=== PATIENT | female | born 1955 | race Hispanic/Latino ===

== ENCOUNTER 2019-01-04 11:42 | Observation (INO) | payer OTHER ==
[2019-01-04 12:20] LABS: Absolute Lymphocytes (CBC) 2.4 K/uL (0.7-4.9); Absolute Monocytes 0.4 K/uL (0.1-1.3); Absolute Neutrophil 4.1 K/uL (1.8-8.0); Basophils % 0.8 % (0-1.3); Eosinophils % 3.8 % (0-4.4); Hematocrit 41.4 % (36.0-45.0); Lymphocytes % 32.9 % (15.3-44.8); Monocytes % 5.8 % (3.3-12.3); RBC Red Blood Cell Count 4.81 M/uL (3.86-4.86)
[2019-01-04 12:21] LABS: Protime INR 0.98
[2019-01-04 12:38] LABS: ALT/SGPT 38 U/L (12-78); AST/SGOT 30 U/L (15-37); Albumin 4.1 g/dL (3.4-5.0); Alkaline Phosphatase 108 U/L (45-117); BUN Blood Urea Nitrogen 29 mg/dL (7-18); Bicarbonate 25 mmol/L (21-32); Bilirubin Direct 0.1 mg/dL (0-0.2); Bilirubin Total 0.6 mg/dL (0.2-1.0); Glucose Level 94 mg/dL (74-106); Lipase 18 U/L (73-393); Magnesium 2.2 mg/dL (1.8-2.4); NT PRO-BNP 20 pg/mL (<125); Potassium 3.8 mmol/L (3.5-5.1); Protein, Total 8.2 g/dL (6.4-8.2); Sodium Level 139 mmol/L (136-145); Troponin (Emerg Dept Use Only) < 0.02 ng/mL (0.0-0.045)
--- NOTE | 2019-01-04 12:39 | RAD REPORT ---
EXAM DESCRIPTION: RAD - Chest Single View - 01/04/2019 12:23 pm CLINICAL HISTORY: DYSPNEA Chest pain. COMPARISON: Chest Pa And Lat (2 Views) dated 09/01/2018; Chest Single View dated 11/09/2016; CHEST SIN GLE VIEW dated 08/11/2015; CHEST PA AND LAT 2 VIEW dated 05/07/2013 FINDINGS: Portable technique limits examination quality. Diffuse COPD is present. Small opacity is seen in the right mid lung laterally which could be develop ing pneumonia. The heart is normal in size. No displaced fractures.
[2019-01-04] MEDS ORDERED: NA CHLORIDE 0.9% 1,000 ML ONE (13:16)
--- NOTE | 2019-01-04 13:22 | RAD REPORT ---
EXAM DESCRIPTION: CT - Head Brain Wo Cont - 01/04/2019 1:16 pm CLINICAL HISTORY: Headache COMPARISON: October 2016 TECHNIQUE: Axial 5 mm thick images of the head were obtained without IV contrast. All CT scans are performed using dose optimization technique as appropriate and may include automated exposure control or mA/KV adjustment according to patient size. FINDINGS: No intracranial hemorrhage, mass, edema or shift of mid-line structures. No acute infarcti on changes seen. No abnormal extra-axial fluid collections. Ventricles are normal. Mastoid air cells and visualized portions of the paranasal sinuses are clear. No acute bony findings. No significant change from comparison. IMPRESSION: Negative non-contrast CT head examination.
--- OUTSIDE RECORDS SUMMARY | 2019-01-04 13:29 | XMS REPORT | Clinical Summary ---
:1955 Author Organization [facility] Address [address] [place] [address] Care Team Providers Name Role Phone AshvinLaisha holbrook Avery Primary Care Provider Unavailable Allergies Active Allergy Reactions Severity Noted Date Comments Erythromycin 08/18/2015 Metoclopramide Hcl 06/04/2015 Medications Medication Sig Dispensed Refills Start Date End Date Status CREON 12,000-38,000 TAKE 1 CAPSULE 3 10/20/2017 Active -60,000 unit CpDR THREE TIMES A DAY capsule WITH EACH MEAL losartan (COZAAR) 100 Take 100 mg by 0 10/17/2017 Active MG tablet mouth daily. colesevelam 3.75 gram Take 3.75 g by 0 03/26/2017 Active PwPk mouth. Active Problems Problem Noted Date Fatty liver 11/20/2017 Last Assessment & Plan: Risk factor hepatic steatosis includes her history of hyperlipidemia. Abnormal liver diagnostic imaging 11/20/2017 Last Assessment & Plan: Review of available imaging there has been heterogeneity in the liver dating back to 2016 showing chronicity. No evidence of advanced liver disease or portal hypertension. The changes are most consistent with hepatic steatosis. A comprehensive work up for other potential factors is recommended. We will also check liver US with elastography for further evaluation. Abnormal liver enzymes 11/20/2017 Last Assessment & Plan: The liver enzymes are noted to be abnormal in a mixed pattern without evidence of synthetic dysfunction. The imaging has shown heterogenous changes in the liver since 2016 most consistent with hepatic steatosis. We ordered comprehensive labs to look for other causes of chronic liver disease such as metabolic, viral and autoimmune disorders. Patient is on Welchor with good control of hyperlipidemia. She is asymptomatic. We will monitor her liver enzymes monthly for 3 months. She can resume her medication for now. Fatty liver 11/20/2017 Age-related osteoporosis without current pathological fracture 11/20/2017 Other osteoporosis without current pathological fracture 11/20/2017 Last Assessment & Plan: Patient takes vitamin D, calcium and Reclast. She follows up with endocrinology clinic. Further management by primary mainframe programmer Immunity status testing 11/20/2017 Last Assessment & Plan: CDC recommends that all patients with chronic liver disease, regardless of etiology, should be immunized to prevent hepatitis A and hepatitis B if they are not already immune. This should be done in ad dition to other age-appropriate vaccines. We will test for immunity to both viruses - vaccine recommendations will follow. 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 Patient follows up with Dr. Mullen. Encounters Date Type Specialty Care Team Description 04/22/2018 Hospital Encounter Radiology Homero Mullen MD tumor of pancreas 04/15/2018 Outside Orders Wound Care Homero Mullen MD tumor of pancreas (Primary Dx) 03/24/2018 Orders Only Lab Homero Mullen Primary pancreatic MD David neuroendocrine tumor (Primary Dx) 03/24/2018 Orders Only Lab Ela Jacobs Primary pancreatic neuroendocrine tumor 02/04/2018 Office Visit Hepatology Mehran Sam, Fatty liver (Primary Dx); Abnormal liver enzymes; Immunity status testing; Abnormal liver diagnostic imaging after 01/03/2018 Immunizations Name Dates Previously Given Next Due Hepatitis B 12/30/2017 Family History Medical History Relation Name Comments Early Brother COPD Father Vision loss Father Arthritis Mother Hyperlipidemia Mother Hypertension Mother Miscarriages / Stillbirths Mother Cancer Sister Hyperlipidemia Sister Relation Name Status Comments Brother Father Mother Sister Social History Tobacco Use Types Packs/Day Years Used Date Former Smoker Smokeless Tobacco: Never Used Comments: quit one year ago Alcohol Use Drinks/Week oz/Week Comments No Sex Assigned at Date Recorded Not on file Job Start Date Occupation Industry Not on file Not on file Not on file Travel History Travel Start Travel End No recent travel history available. Last Filed Vital Signs Vital Sign Reading Time Taken Blood Pressure - - Pulse - - Temperature - - Respiratory Rate - - Oxygen Saturation - - Inhaled Oxygen Concentration - - Weight 50.2 kg (110 lb 11.2 oz) 02/04/2018 2:34 PM CDT Height - - Body Mass Index 20.92 02/04/2018 2:34 PM CDT Plan of Treatment Date Type Specialty Care Team Description 02/04/2019 Office Visit Hepatology Mehran Sam MD [address] [facility] [address] [place], [place] [id number] Resource, [facility] B Implants Implanted Type Area Department Store Salesperson Device Shelf Model / Identifier Expiration Serial / Date Lot Adhesion Barrier,Seprafilm 5x6 - [id number] Cement/F N/A: [employer] 01/26/2017 4301-02 / Implanted: Qty: 1 on 03/09/2015 by Homero Mullen MD iller/[employer] / hesive [id number] Adhesion Barrier,Seprafilm 5x6 - [id number] Cement/F N/A: [employer] 04/28/2017 4301-02 / Implanted: Qty: 1 on 03/09/2015 by Homero Mullen MD iller/[employer] / hesive [id number] Procedures Procedure Name Priority Date/Time Associated Diagnosis Comments CT ABDOMEN Routine 04/22/2018 9:12 Primary neuroendocrine Results for this WITH/WITHOUT AM CDT tumor of pancreas procedure are in CONTRAST the results section. POCT-CREATININE Routine 04/22/2018 8:51 Results for this AM CDT procedure are in the results section. CHROMOGRANIN A, ECL Routine 03/24/2018 10:08 Primary pancreatic AM CDT neuroendocrine tumor after 01/03/[address] abdomen without & with IV contrast (04/22/2018 9:12 AM CDT) Narrative Performed At FINAL REPORT [facility] CT OF THE ABDOMEN CLINICAL HISTORY:Pancreatic neuroendocrine tumor status post Whipple, rising chromogranin A TECHNIQUE: CT of the abdomen is performed with and without intravenous contrast administration. This exam was performed according to our departmental dose-optimization program which includes automated exposure control, adjustment of the mA and/or kV according to patient size and/or use of iterative reconstruction technique. COMPARISON FILM:CT of the abdomen and pelvis from 08/26/2017 DISCUSSION: LOWER THORAX: Few scattered tree-in-bud opacities and centrilobular nodules in the bilateral lower lobes, overall decreased from prior examination. HEPATOBILIARY: Diffuse hepatic steatosis. Trace pneumobilia, likely related to prior Whipple procedure. No yohannes intrahepatic biliary ductal dilation. The main portal vein is patent. Gallbladder is absent. PANCREAS: There are findings of prior Whipple procedure. No discrete mass in the surgical bed or in the remnant pancreas. No pancreatic ductal dilation. The main portal vein and splenic vein are grossly patent. The SMA and celiac trunk are widely patent and unencased. SPLEEN: No splenomegaly. ADRENALS: No nodule. KIDNEYS: No hydronephrosis or hydroureter. No solid renal lesion. GI TRACT: No bowel thickening or distention. PERITONEUM/RETROPERITONEUM: No ascites. LYMPH NODES: No upper abdominal lymphadenopathy. VESSELS: Abdominal aorta is normal in caliber. BONES AND SOFT TISSUES: No destructive osseous lesion. IMPRESSION: Expected postsurgical changes after Whipple procedure. No specific findings of recurrent or metastatic disease. Diffuse hepatic steatosis. Signed: Reggie Camargo MD Report Verified Date/Time:04/22/2018 11:02:01 Reading Location: [address] Radiology Reading Room Procedure Note Interface, External Ris In - 04/22/2018 11:04 AM CDT FINAL REPORT CT OF THE ABDOMEN CLINICAL HISTORY: Pancreatic neuroendocrine tumor status post Whipple, rising chromogranin A TECHNIQUE: CT of the abdomen is performed with and without intravenous contrast administration. This exam was performed according to our departmental dose-optimization program which includes automated exposure control, adjustment of the mA and/or kV according to patient size and/or use of iterative reconstruction technique. COMPARISON FILM: CT of the abdomen and pelvis from 08/26/2017 DISCUSSION: LOWER THORAX: Few scattered tree-in-bud opacities and centrilobular nodules in the bilateral lower lobes, overall decreased from prior examination. HEPATOBILIARY: Diffuse hepatic steatosis. Trace pneumobilia, likely related to prior Whipple procedure. No yohannes intrahepatic biliary ductal dilation. The main portal vein is patent. Gallbladder is absent. PANCREAS: There are findings of prior Whipple procedure. No discrete mass in the surgical bed or in the remnant pancreas. No pancreatic ductal dilation. The main portal vein and splenic vein are grossly patent. The SMA and celiac trunk are widely patent and unencased. SPLEEN: No splenomegaly. ADRENALS: No nodule. KIDNEYS: No hydronephrosis or hydroureter. No solid renal lesion. GI TRACT: No bowel thickening or distention. PERITONEUM/RETROPERITONEUM: No ascites. LYMPH NODES: No upper abdominal lymphadenopathy. VESSELS: Abdominal aorta is normal in caliber. BONES AND SOFT TISSUES: No destructive osseous lesion. IMPRESSION: Expected postsurgical changes after Whipple procedure. No specific findings of recurrent or metastatic disease. Diffuse hepatic steatosis. Signed: Reggie Camargo MD Report Verified Date/Time: 04/22/2018 11:02:01 Reading Location: [address] Radiology Reading Room Performing Organization Address [facility]State[facility] Phone Number RIS POC-Creatinine (04/22/2018 8:51 AM CDT) POC-Creatinine 0.5 (L)Comment: TESTED AT 0.6 - 1.3 mg/dL [id number] [id number] [facility] [address] POC-EGFR 125 mL/min/1.73M2 [facility] Specimen Blood Narrative Performed At Performing Organization Address City/State/Zipcode Phone Number [facility] [address] [place] [address] [phone] CENTER Chromogranin A, ECL (03/24/2018 10:08 AM CDT) Scan Result [facility] Specimen Blood Narrative Performed At Performing Organization Address City/State/Zipcode Phone Number [facility] [place] [address] [facility] [address] [facility] after 01/03/2018 Insurance Payer Benefit Plan / Group Subscriber ID Type Phone Address MEDICARE MEDICARE A B xxxxxxxxxx Medicare AETNA - MGD CARE AETNA INDEMNITY NON CONTR xxxxxxxxx Comm Advance Directives For more information, please contact:[address] [phone] Code Status Date Activated Date Inactivated Comments Full Code 08/17/2015 11:16 PM 08/19/2015 7:40 PM This code status was determined by: Patient Full Code 06/04/2015 9:14 PM 06/13/2015 6:27 PM This code status was determined by: Patient Full Code 03/09/2015 11:08 PM 03/13/2015 8:06 PM This code status was determined by: Patient Full Code 03/09/2015 7:00 AM 03/09/2015 3:23 PM This code status was determined by: Patient
--- OUTSIDE RECORDS SUMMARY | 2019-01-04 13:30 | XMS REPORT ---
:1955 [facility] [address] [place] [address] [address]. [address] [place] [address] Care Team Providers Name Role Phone HOMERO MULLEN Unavailable Unavailable SHAILESH, RISE J Unavailable Unavailable SYSTEM, PROVIDER NOT IN Unavailable Unavailable Problems This patient has no known problems. Allergies, Adverse Reactions, Alerts This patient has no known allergies or adverse reactions. Medications This patient has no known medications. Results Test Description Test Time Test Comments Text Results Atomic Results Result Comments CT, ABDOMEN, 2018-04-22 Referring: FINAL REPORT PATIENT ID: WITHOUT 11:02:[id number] OF THE ABDOMEN CLINICAL HISTORY: Pancreatic [...] main portal vein is patent. Gallbladder is absent.PANCREAS: There are findings of prior Whipple procedure. [...] No bowel thickening or distention. PERITONEUM/RETROPERITONEUM: No ascites.LYMPH NODES: No upper abdominal lymphadenopathy.VESSELS: Abdominal aorta is normal in caliber. BONES AND SOFT TISSUES: No destructive osseous lesion. IMPRESSION: Expected postsurgical changes after Whipple procedure. No specific findings of recurrent or metastatic disease. Diffuse hepatic steatosis. Signed: Reggie Camargo MDReport Verified Date/Time: 04/22/2018 11:02:01 Reading Location: [address] Radiology Reading Room -CREATININE 2018-04-22 08:58:00 Test Item Value Reference Range Comments POC-CREATININE (BEAKER) (test 0.5 mg/dL 0.6-1.3 TESTED AT [facility] [place] kbzy=0515) [facility] [address] POC-EGFR (BEAKER) (test 125 mL/min/1.73M2 yeez=3094) CHROMOGRANIN [id number] 10:34:00 Test Item Value Reference Range Comments SCAN RESULT (test sktw=[id number]) ANTI-NUCLEAR ANTIBODY (FRENCH)2017-11-22 10:58:00 Test Item Value Reference Range Comments ANTI-NUCLEAR ANTIBODY (FRENCH) (BEAKER) (test Negative Negative dqhb=194) [id number] 15:08:00 Test Item Value Reference Range Comments FERRITIN (BEAKER) (test aqel=616) 21 ng/mL 5-275 HEPATITIS A ANTIBODY, [id number] 14:16:00 Test Item Value Reference Range Comments HEPATITIS A IGG ANTIBODY (BEAKER) (test nilt=6809) Reactive Nonreactive HEPATITIS B SURFACE [id number] 14:16:00 Test Item Value Reference Range Comments HEPATITIS B SURFACE ANTIBODY (BEAKER) (test < mIU/mL <8.0 ojnz=307) HEPATITIS C [id number] 14:15:00 Test Item Value Reference Range Comments HEPATITIS C ANTIBODY (BEAKER) (test zajn=890) Nonreactive Nonreactive HEPATITIS B SURFACE [id number] 14:10:00 Test Item Value Reference Range Comments HEPATITIS B SURFACE ANTIGEN (2) (BEAKER) (test Nonreactive Nonreactive vqkv=4369) HEPATITIS B CORE ANTIBODY, [id number] 14:10:00 Test Item Value Reference Range Comments HEPATITIS B CORE TOTAL ANTIBODY (BEAKER) (test Nonreactive Nonreactive pskh=475) [id number] 13:59:00 Test Item Value Reference Range Comments ALPHA-1 ANTITRYPSIN (BEAKER) (test xzmq=631) 151.60 mg/dL 90.00-200.00 IRON, TIBC, % SAT. (WITHOUT FERRITIN)2017-11-20 13:51:00 Test Item Value Reference Range Comments IRON (BEAKER) (test jrkv=751) 49 ug/dL 40-160 TOTAL IRON BINDING CAPACITY (BEAKER) (test 423 ug/dL 250-450 lvdi=377) IRON % SATURATION (2) (BEAKER) (test vaak=6375) 12 % 20-55 COMPREHENSIVE METABOLIC [id number] 13:50:00 Test Item Value Reference Range Comments TOTAL PROTEIN (BEAKER) 7.4 gm/dL 6.0-8.3 (test xggw=460) ALBUMIN (BEAKER) (test 4.2 g/dL 3.5-5.0 plui=6083) ALKALINE PHOSPHATASE 132 U/L 40-150 (BEAKER) (test npuj=419) BILIRUBIN TOTAL (BEAKER) 0.4 mg/dL 0.2-1.2 (test cild=868) SODIUM (BEAKER) (test 140 meq/L 136-145 tfhb=902) POTASSIUM (BEAKER) (test 3.8 meq/L 3.5-5.1 tkdh=809) CHLORIDE (BEAKER) (test 105 meq/L 98-107 xmxn=910) CO2 (BEAKER) (test 29 meq/L 22-29 blvo=928) BLOOD UREA NITROGEN 17 mg/dL 7-21 (BEAKER) (test hgot=422) CREATININE (BEAKER) (test 0.59 mg/dL 0.57-1.25 ohca=004) GLUCOSE RANDOM (BEAKER) 86 mg/dL 70-105 (test boxz=174) CALCIUM (BEAKER) (test 9.2 mg/dL 8.4-10.2 vaou=116) AST (SGOT) (BEAKER) (test 35 U/L 5-34 sfqz=704) ALT (SGPT) (BEAKER) (test 32 U/L 6-55 aafo=011) EGFR (BEAKER) (test 103 mL/min/1.73 sq ESTIMATED GFR IS NOT agbe=7316) m ACCURATE CREATININE CLEARANCE IN PREDICTING GLOMERULAR FILTRATION RATE. ESTIMATED GFR IS NOT APPLICABLE FOR DIALYSIS PATIENTS. BILIRUBIN, [id number] 13:50:00 Test Item Value Reference Range Comments BILIRUBIN DIRECT (BEAKER) (test bsqj=951) 0.1 mg/dL 0.1-0.5 U/S, ABDOMINAL, [id number] 13:42:00Referring: Dr. Homero Perez ELASTOGRAPHYReason for Exam:->Elevated liver tests, h/o of fatty liver diseaseFINAL REPORT COMPLETE ABDOMINAL ULTRASOUND History provided: Elevated liver enzymes, history of fatty liver Liver is normal in size measuring 11.7 cm in greatest span and shows mild increased echogenicity consistent with fatty infiltration. Gallbladder surgically absent. Common duct measures 4 mm. Normal portal vein diameter of 11 mm. Spleen normal in size measuring 8.7 cm. Kidneys normal in size, right measuring 10.5 cm and left measuring 9.4 cm. Normal-appearing pancreas. IVC is patent. Abdominal aorta normal in caliber. No evidence of ascites. No pleural effusions are evident. The left Elastography was performed as requested. The measurement is 1.23 m/s, which correspondsto normal-mild fibrosis. IMPRESSION: Fatty infiltration of the liver. Normal-mild fibrosis value on elastography. Signed: Gerard Brito MDReport Verified Date/Time: 11/20/2017 13:42:16 Reading Location : [address] Radiology Reading Room CBC W/PLT COUNT & AUTO [id number] 13:07:00 Test Item Value Reference Range Comments WHITE BLOOD CELL COUNT (BEAKER) (test ztbl=811) 4.5 K/ L 3.5-10.5 RED BLOOD CELL COUNT (BEAKER) (test pksc=725) 4.20 M/ L 3.93-5.22 HEMOGLOBIN (BEAKER) (test ymqc=524) 11.9 GM/DL 11.2-15.7 HEMATOCRIT (BEAKER) (test pjzv=512) 37.3 % 34.1-44.9 MEAN CORPUSCULAR VOLUME (BEAKER) (test vxdc=083) 88.8 fL 79.4-94.8 MEAN CORPUSCULAR HEMOGLOBIN (BEAKER) (test 28.3 pg 25.6-32.2 hrly=195) MEAN CORPUSCULAR HEMOGLOBIN CONC (BEAKER) (test 31.9 GM/DL 32.2-35.5 givb=897) RED CELL DISTRIBUTION WIDTH (BEAKER) (test 13.4 % 11.7-14.4 apgg=248) PLATELET COUNT (BEAKER) (test rtvu=369) 169 K/CU MM 150-450 MEAN PLATELET VOLUME (BEAKER) (test dtre=401) 12.9 fL 9.4-12.3 NUCLEATED RED BLOOD CELLS (BEAKER) (test 0 /100 WBC 0-0 itby=041) NEUTROPHILS RELATIVE PERCENT (BEAKER) (test 56 % tala=811) LYMPHOCYTES RELATIVE PERCENT (BEAKER) (test 34 % dzil=745) MONOCYTES RELATIVE PERCENT (BEAKER) (test 5 % ejyp=453) EOSINOPHILS RELATIVE PERCENT (BEAKER) (test 4 % bjyb=594) BASOPHILS RELATIVE PERCENT (BEAKER) (test 1 % fghc=382) NEUTROPHILS ABSOLUTE COUNT (BEAKER) (test 2.54 K/ L 1.56-6.13 gcin=597) LYMPHOCYTES ABSOLUTE COUNT (BEAKER) (test 1.53 K/ L 1.18-3.74 khgs=775) MONOCYTES ABSOLUTE COUNT (BEAKER) (test 0.21 K/ L 0.24-0.36 cwxw=384) EOSINOPHILS ABSOLUTE COUNT (BEAKER) (test 0.18 K/ L 0.04-0.36 mefo=994) BASOPHILS ABSOLUTE COUNT (BEAKER) (test 0.05 K/ L 0.01-0.08 mxot=926) IMMATURE GRANULOCYTES-RELATIVE PERCENT (BEAKER) 0 % 0-1 (test ieeg=4061) TUMOR LOCAL, WB, 2 OR MORE [id number] 14:21:00neuroendocrine tumorFINAL REPORT PROCEDURE: OCTREOSCAN - Tumor Localization CPT CODE: 85212, 31169, 42615 INDICATION: Neuroendocrine tumor localization PROTOCOL: 6.28 mCi of In-111 pentetreotide was injected intravenously. Images were obtained four and 24 hours after tracer injection and included whole body and spot images on both days as well as tomographic images of the abdomen on Day 1 and tomographic images of the chest on Day 2. FINDINGS: Tracer distribution is physiological. IMPRESSION: Normal Octreoscan. No evidence of somatostatin receptor positive neoplasmis identified. The study of February 07, 2015 reported moderate increased uptake in the head of the pancreas. Signed: Omar Leort Verified Date/Time: 2016 14:21:08 Reading Location: [address] Reading Room 02:21 PMCT, CHEST, WITH [id number] 15:02:00FINAL REPORT Exam : CT chest with contrast, CT abdomen and pelvis with and without contrast INDICATION: 61-year-old female status post Whipple procedure in 2014 for neuroendocrinepancreatic tumor COMPARISON: The chest, abdomen, and pelvis 2016 TECHNIQUE: CT of the chest with contrast and CT of the abdomen and pelvis with and without contrast were obtained. No oral contrastadministered. Coronal and sagittal reconstructions were provided. FINDINGS: Lines and tubes: None. THORAX: Lungs: Grossly unchanged appearance of nodular tree-in-bud opacities in the anterior segment of the right upper lobe, right middle lobe, and lingula. No worrisome pulmonary masses or nodules. No focal consolidations. No pleural effusion. The airways are normal. Visualized thyroid gland is normal. No supraclavicular, axillary, hilar, or mediastinal lymphadenopathy. Heart is normal in size. No pericardial effusion. No significant coronary artery atherosclerosis. Mild atherosclerotic calcifications of the aortic arch. ABDOMEN AND PELVIS: Liver: Diffuse hepatic steatosis. No focal hepatic lesion.Increased pneumobilia compared to prior, now moderate. No intrahepatic biliary ductal dilatation. Patient is status post Whipple procedure and cholecystectomy. Choledochojejunostomy and pancreaticojejunostomy are intact. Unchanged size of 1.2 cm soft tissue density to the right of the celiac takeoff (portal venous axial image 99), stable compared to prior exams. Apart from this , there is no abnormal soft tissue density within the surgical bed. Spleen: Splenomegaly. 1 cm splenule. Adrenal glands: No adrenal nodules. Kidneys: The kidneys enhance symmetrically. No cystic or solid mass lesions. No hydronephrosis or hydroureter. No stones. Pelvic organs and bladder: Uterus and ovaries are surgically absent. Urinary bladder is within normal limits. Bowel: Postsurgical changes of the small bowel as above. No abnormalities of the large bowel. Appendix normal. Peritoneum/retroperitoneum: No free air or fluid. 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 Lymph nodes: No lymphadenopathy. Vessels: Mild aortic atherosclerosis.Bones: No acute fractures. No worrisome osseous lesions. Soft tissues: Postsurgical changes of the anterior abdominal wall status post laparotomy. Multiple benign-appearing fat-containing soft tissue masses in the bilateral breasts are unchanged. Please refer to prior mammographic studies. IMPRESSION:1. No evidence of recurrent or metastatic neuroendocrine tumor. 2. Unchanged soft tissue density to the right of the celiac artery takeoff. 3. Increased pneumobilia compared to prior exam, possibly iatrogenic. 4. Unchanged nodular tree-in-bud opacities in the bilateral lungs, likely chronic small airways disease/atypical pneumonia. Signed : Carlos Dias MDReport Verified Date/Time: 08/26/2017 15:02:31Reading Location : [address] [address] Electronically signed by: CARLOS DIAS M.D. on 2016 03:02 PMCT, [id number] 15:02:00FINAL REPORT Exam: CT chest with contrast, CT abdomen and pelvis with and without contrast INDICATION: 61-year-old female status post Whipple procedure in 2014 for neuroendocrinepancreatic tumor COMPARISON: The chest, abdomen, and pelvis 2016 TECHNIQUE: CT of the chest with contrast and CT of the abdomen and pelvis with and without contrast were obtained. No oral contrastadministered. Coronal and sagittal reconstructions were provided. FINDINGS: Lines and tubes: None. THORAX: Lungs: Grossly unchanged appearance of nodular tree-in-bud opacities in the anterior segment of the right upper lobe, right middle lobe, and lingula. No worrisome pulmonary masses or nodules. No focal consolidations. No pleural effusion. The airways are normal. Visualized thyroid gland is normal. No supraclavicular, axillary, hilar, or mediastinal lymphadenopathy. Heart is normal in size. No pericardial effusion. No significant coronary artery atherosclerosis. Mild atherosclerotic calcifications of the aortic arch. ABDOMEN AND PELVIS: Liver: Diffuse hepatic steatosis. No focal hepatic lesion.Increased pneumobilia compared to prior, now moderate. No intrahepatic biliary ductal dilatation. Patient is status post Whipple procedure and cholecystectomy. Choledochojejunostomy and pancreaticojejunostomy are intact. Unchanged size of 1.2 cm soft tissue density to the right of the celiac takeoff (portal venous axial image 99), stable compared to prior exams. Apart from this , there is no abnormal soft tissue density within the surgical bed. Spleen: Splenomegaly. 1 cm splenule. Adrenal glands: No adrenal nodules. Kidneys: The kidneys enhance symmetrically. No cystic or solid mass lesions. No hydronephrosis or hydroureter. No stones. Pelvic organs and bladder: Uterus and ovaries are surgically absent. Urinary bladder is within normal limits. Bowel: Postsurgical changes of the small bowel as above. No abnormalities of the large bowel. Appendix normal. Peritoneum/retroperitoneum: No free air or fluid. 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 Lymph nodes: No lymphadenopathy. Vessels: Mild aortic atherosclerosis.Bones: No acute fractures. No worrisome osseous lesions. Soft tissues: Postsurgical changes of the anterior abdominal wall status post laparotomy. Multiple benign-appearing fat-containing soft tissue masses in the bilateral breasts are unchanged. Please refer to prior mammographic studies. IMPRESSION:1. No evidence of recurrent or metastatic neuroendocrine tumor. 2. Unchanged soft tissue density to the right of the celiac artery takeoff. 3. Increased pneumobilia compared to prior exam, possibly iatrogenic. 4. Unchanged nodular tree-in-bud opacities in the bilateral lungs, likely chronic small airways disease/atypical pneumonia. Signed : Carlos Dias MDReport Verified Date/Time: 08/26/2017 15:02:31Reading Location [facility] [address] [facility] [place] signed by: CARLOS DIAS M.D. on 2016 03:02 [id number] 10:53:00 Test Item Value Reference Range Comments POC-CREATININE (MARCOAKER) 0.5 mg/dL 0.6-1.3 TESTED AT [facility] 6720 (test jmbv=6371) [facility] [address] POC-EGFR (BEAKER) (test 125 mL/min/1.73M2 yjrw=0292) CHROMOGRANIN [id number] 10:19:00 Test Item Value Reference Range Comments SCAN RESULT (test mtcs=[id number]) [id number] 09:50:00 Test Item Value Reference Range Comments POC-CREATININE (SHIMON) 0.5 mg/dL 0.6-1.3 TESTED AT [facility] 6720 (test ttbf=5322) [facility] [address] POC-EGFR (MARCOBANNER) (test 125 mL/min/1.73M2 wsih=8553)
--- NOTE | 2019-01-04 13:31 | RAD REPORT ---
EXAM DESCRIPTION: CT - Chest For Pe Angio - 01/04/2019 1:19 pm CLINICAL HISTORY: Chest pain, shortness of breath COMPARISON: Chest films same date TECHNIQUE: Dynamically enhanced 3 mm thick images of the chest were obtained during administration o f approximately 150mL Isovue 370 IV contrast. Coronal and oblique MIP reconstruction images were gene rated and reviewed. Exam utilizes a protocol to evaluate the pulmonary arterial tree. All CT scans are performed using dose optimization technique as appropriate and may include automated exposure control or mA/KV adjustment according to patient size. FINDINGS: No pulmonary emboli are identified. The aorta as imaged shows no acute or suspicious finding. No pericardial thickening or effusion. Numerous clustered nodular airspace opacities are present in the lateral and anterior base right uppe r lobe. These match the recent chest film finding. This is most likely an early right upper lobe pneu monia. There is minimal airspace opacity in the lateral lower left lower lobe. Hazy ground-glass opac ification in both lower lobes is probably atelectasis. No pleural effusion or pleural thickening. No mediastinal or hilar suspicious masses. No chest wall masses or abnormal axillary lymphadenopathy. IMPRESSION: No pulmonary emboli identified. Early pneumonia changes are present in the inferior aspect of the right upper lobe with minimal infil trate in the lateral lower left lung field.
[2019-01-04 14:45] LABS: Urine Blood NEGATIVE (NEG); Urine Glucose NEGATIVE (NEG); Urine Protein NEGATIVE (NEG); Urine Specific Gravity <1.005 (1.005-1.030); Urine pH 5.5 (5.0-7.0)
[2019-01-04] MEDS ORDERED: CEFTRIAXONE/SWI 1gm 1 GM/10 ML SYR ONE (14:48)
[2019-01-04] MEDS ORDERED: ASPIRIN 81 MG CHEWABLE TABLET ONE (14:48)
[2019-01-04] MEDS ORDERED: Levofloxacin500mg IV 500 MG/100 ML BAG IV ONE (14:48)
--- NOTE | 2019-01-04 14:55 | ER ---
Nurse's Notes [facility] Name: Tabitha Odom Age: 63 yrs Sex: Female : 1955 Arrival Date: 01/04/2019 Time: 11:43 Bed 7 Private MD: Laisha Lock K Diagnosis: Pneumonia due to other specified bacteria-bilateral pneumonia;Dyspnea Presentation: 01/04 11:59 Presenting complaint: Patient states: was sent by Dr. Lock's office, SOB for a few iw weeks, pt was struggling to breathe while at the office, states she has to keep yawning to try to catch her breath, also c/o chest pressure in right chest wall, also had a sharp pain to top head a couple weeks ago that lasted a few minutes, no other episodes of head pain since then. Transition of care: patient was not received from another setting of care. Onset of symptoms was December 16, 2018. Risk Assessment: Do you want to hurt yourself or someone else? Patient reports no desire to harm self or others. Initial Sepsis Screen: Does the patient meet any 2 criteria? No. Patient's initial sepsis screen is negative. Does the patient have a suspected source of infection? No. Patient's initial sepsis screen is negative. Care prior to arrival: None. 11:59 Method Of Arrival: Wheelchair iw 11:59 Acuity: YASEMIN 3 iw Historical: - Allergies: 12:08 Erythromycin; iw 12:08 Reglan; iw 15:45 Rocephin; aa5 - Home Meds: 12:08 losartan 50 mg oral tab 1 tab once daily [Active]; Creon oral oral 3 times per day iw [Active]; Vitamin D Oral 50,000 unit daily [Active]; WelChol 3.75 gram oral pwpk 1 packet once daily [Active]; - PMHx: 12:08 Hypertension; pancreatic cancer; Hyperlipidemia; iw - PSHx: 12:08 whipple; Hysterectomy; pancreatic tumor removed; iw - Immunization history:: Adult Immunizations not up to date. - Social history:: Smoking status: Patient/guardian denies using tobacco. - Ebola Screening: : Patient negative for fever greater than or equal to 101.5 degrees Fahrenheit, and additional compatible Ebola Virus Disease symptoms Patient denies exposure to infectious person Patient denies travel to an Ebola-affected area in the 21 days before illness onset No symptoms or risks identified at this time. - Family history:: not pertinent. Screenin:18 Abuse screen: Denies threats or abuse. Denies injuries from another. Nutritional sv screening: No deficits noted. Tuberculosis screening: No symptoms or risk factors identified. Fall Risk None identified. Assessment: 12:05 General: Appears comfortable, Behavior is calm, cooperative. Pain: Complains of pain in aa5 anterior aspect of right upper chest Pain does not radiate. Pain currently is 0 out of 10 on a pain scale. Quality of pain is described as pressure "only when taking a deep breath" Is intermittent. Neuro: Level of Consciousness is awake, alert, obeys commands, Oriented to person, place, time, situation. Cardiovascular: Heart tones S1 S2 present Rhythm is regular. Respiratory: Reports shortness of breath Airway is patent Respiratory effort is even, unlabored, Respiratory pattern is regular, symmetrical, Breath sounds are clear in left upper lobe, left lower lobe, left posterior upper lobe and left posterior lower lobe Breath sounds are diminished in right upper lobe, right middle lobe, right lower lobe, right posterior upper lobe, right posterior middle lobe and right posterior lower lobe Denies cough. GI: No signs and/or symptoms were reported involving the gastrointestinal system. : No signs and/or symptoms were reported regarding the genitourinary system. EENT: No signs and/or symptoms were reported regarding the EENT system. Derm: Skin is pink, warm \\T\\ dry. Musculoskeletal: Range of motion: intact in all extremities. 12:40 Reassessment: Patient is alert, oriented x 3, equal unlabored respirations, skin aa5 warm/dry/pink. Patient denies pain at this time. 14:30 Reassessment: Patient is alert, oriented x 3, equal unlabored respirations, skin aa5 warm/dry/pink. Patient denies pain at this time. 14:50 Reassessment: Patient is alert, oriented x 3, equal unlabored respirations, skin aa5 warm/dry/pink. Pt c/o 2 small hives to upper lip and c/o burning to site, MD was notified. Benadryl ordered. . 15:10 Reassessment: Patient is alert, oriented x 3, equal unlabored respirations, skin aa5 warm/dry/pink. Hives have decreased in size and pt reports burning sensation has resolved. Awaiting room assignment . 15:50 Reassessment: Patient is alert, oriented x 3, equal unlabored respirations, skin aa5 warm/dry/pink. Patient denies pain at this time. Pt notified of wait time to be transported to assigned room. Hives have improved. Pt denies any complaints at this time. . Vital Signs: 12:06 BP 159 / 90; Pulse 73; Resp 18 S; Temp 98.3(TE); Pulse Ox 100% on R/A; Weight 50.8 kg; iw Height 5 ft. 1 in. (154.94 cm); Pain 0/10; 12:39 BP 132 / 69; Pulse 75 MON; Resp 17; Pulse Ox 100% ; sv 14:30 BP 136 / 81; Pulse 75; Resp 18 S; Pulse Ox 100% on R/A; Pain 0/10; aa5 15:00 BP 150 / 92; Pulse 73; Resp 18; Pulse Ox 100% ; sv 15:00 Temp 98.0(O); aa5 16:03 BP 132 / 60; Pulse 79; Resp 16; Pulse Ox 98% ; sv 12:06 Body Mass Index 21.16 (50.80 kg, 154.94 cm) iw 12:39 Sinus Rhythm sv ED Course: 11:43 Patient arrived in ED. dl4 11:44 Laisha Lock MD is Private Physician. dl4 11:50 Bernadine Gomez, GIL is Primary Nurse. aa5 11:54 Mychal Villarreal MD is Attending Physician. sid 12:05 Patient has correct armband on for positive identification. Placed in gown. Bed in low aa5 position. Call light in reach. Side rails up X 1. Adult w/ patient. potline monitor on. Pulse ox on. NIBP on. Door closed. Head of bed elevated. 12:05 Arm band placed on. aa5 12:06 Triage completed. iw 12:09 EKG done, by safety tech. reviewed by Mychal Villarreal MD. sm3 12:18 X-ray(s) taken. sv 12:19 ED physician to see patient. sv 12:22 XRAY Chest (1 view) In Process Unspecified. EDMS 12:38 Second set of blood cultures drawn by lab staff. sv 13:17 CT Head Brain wo Cont In Process Unspecified. EDMS 13:19 CT Chest For PE Angio In Process Unspecified. EDMS 14:53 Pierre Antoine MD is Hospitalizing Provider. sid 15:59 No provider procedures requiring assistance completed. Patient admitted, IV remains in sv place. intact. Administered Medications: 14:30 Drug: NS 0.9% 1000 ml Route: IV; Rate: 125 ml/hr; Site: right antecubital; aa5 16:11 Follow up: Response: No adverse reaction; IV Status: Infusion continued upon admission sv 14:30 Drug: Aspirin 81 mg Route: PO; aa5 15:24 Follow up: Response: No adverse reaction aa5 14:40 Drug: Rocephin - (cefTRIAXone) 1 grams Route: IVPB; Infused Over: 30 mins; Site: right aa5 antecubital; 14:40 Follow up: Administered slow IVP per pharmacy protocol at this time aa5 14:50 Follow up: Hives noted to right side of upper lip, MD notified aa5 14:53 Drug: Benadryl 25 mg Route: IVP; Site: right antecubital; aa5 15:10 Follow up: Response: No adverse reaction; Marked relief of symptoms aa5 15:10 Drug: levofloxacin 500 mg Volume: 100 ml; Route: IVPB; Infused Over: 60 mins; Site: aa5 right antecubital; 15:23 Follow up: Response: No adverse reaction aa5 16:10 Follow up: Response: No adverse reaction; IV Status: Completed infusion sv 15:30 Drug: Lovenox 40 mg Route: Sub-Q; Site: right lower abdomen; aa5 15:50 Follow up: Response: No adverse reaction aa5 16:11 Follow up: Response: No adverse reaction sv Intake: Outcome: 14:54 Decision to Hospitalize by Provider. sid 16:10 Admitted to Tele accompanied by tech, family with patient, via wheelchair, room 215, sv with chart, Report called to Janelle CORDERO 16:10 Condition: stable 16:10 Instructed on the need for admit. 16:50 Patient left the ED. sv Signatures: Dispatcher [employer] Delia Hook RN RN sv Anderson, Corey, MD MD cha Williams, Irene, RN RN iw Calderon, Audri, RN RN aa5 Melia Garcia sm3 Vernon Mazariegos dl4 Corrections: (The following items were deleted from the chart) 12:11 11:59 Presenting complaint: Patient states: was sent by Dr. Lock's office, SOB for iw a few weeks, pt was struggling to breath while at the office, states she has to keep yawning to try to catch her breath, also c/o chest pressure in right chest wall, also had a sharp pain to top head a couple weeks ago that lasted a few minutes, no other episodes of head pain since then iw 12:41 12:39 Pulse 75bpm; Monitor: Sinus RhythmResp 17bpm; Pulse Ox 100%; sv sv 13: 11:55 General: Appears comfortable, Behavior is calm, cooperative, aa5 aa5 : 11:55 Pain: Complains of pain in anterior aspect of right upper chest Pain does not aa5 radiate. Pain currently is 0 out of 10 on a pain scale. Quality of pain is described as pressure "only when taking a deep breath" Is intermittent, aa5 : 11:55 Neuro: Level of Consciousness is awake, alert, obeys commands, Oriented to aa5 person, place, time, situation, aa5 : 11:55 Cardiovascular: Heart tones S1 S2 present Rhythm is regular aa5 aa5 : 11:55 Respiratory: Reports shortness of breath Airway is patent Respiratory effort is aa5 even, unlabored, Respiratory pattern is regular, symmetrical, Breath sounds are clear in left upper lobe, left lower lobe, left posterior upper lobe and left posterior lower lobe Breath sounds are diminished in right upper lobe, right middle lobe, right lower lobe, right posterior upper lobe, right posterior middle lobe and right posterior lower lobe Denies cough, aa5 : 11:55 GI: No signs and/or symptoms were reported involving the gastrointestinal system. aa5 aa5 : 11:55 : No signs and/or symptoms were reported regarding the genitourinary system. aa5aa5 : 11:55 EENT: No signs and/or symptoms were reported regarding the EENT system. aa5 aa5 : 11:55 Derm: Skin is pink, warm \\T\\ dry. aa5 aa5 13: 11:55 Musculoskeletal: Range of motion: intact in all extremities, aa5 aa5 12:06 Arm band placed on iw aa5 18 Patient has correct armband on for positive identification. Placed in gown. Bed aa5 in low position. Call light in reach. Side rails up X 1. Adult w/ patient. potline monitor on. Pulse ox on. NIBP on. sv aa5 18 Door closed. Head of bed elevated.
--- NOTE | 2019-01-04 14:55 | EDPHYS ---
Physician Documentation [facility] Name: Tabitha Odom Age: 63 yrs Sex: Female : 1955 Arrival Date: 01/04/2019 Time: 11:43 Bed 7 Private MD: Laisha Lock K ED Physician Mychal Villarreal HPI: 01/04 12:23 This 63 yrs old Female presents to ER via Wheelchair with complaints of sid Shortness Of Breath. 12:23 The patient has shortness of breath at rest, with light activity. Onset: The sid symptoms/episode began/occurred 10 day(s) ago. Duration: The symptoms are continuous, and are steadily getting worse. The patient's shortness of breath has no apparent modifying factors. Associated signs and symptoms: The patient has no apparent associated signs or symptoms. Severity of symptoms: At their worst the symptoms were. The patient has not experienced similar symptoms in the past. Historical: - Allergies: 12:08 Erythromycin; iw 12:08 Reglan; iw 15:45 Rocephin; aa5 - Home Meds: 12:08 losartan 50 mg oral tab 1 tab once daily [Active]; Creon oral oral 3 times per day iw [Active]; Vitamin D Oral 50,000 unit daily [Active]; WelChol 3.75 gram oral pwpk 1 packet once daily [Active]; - PMHx: 12:08 Hypertension; pancreatic cancer; Hyperlipidemia; iw - PSHx: 12:08 whipple; Hysterectomy; pancreatic tumor removed; iw - Immunization history:: Adult Immunizations not up to date. - Social history:: Smoking status: Patient/guardian denies using tobacco. - Ebola Screening: : Patient negative for fever greater than or equal to 101.5 degrees Fahrenheit, and additional compatible Ebola Virus Disease symptoms Patient denies exposure to infectious person Patient denies travel to an Ebola-affected area in the 21 days before illness onset No symptoms or risks identified at this time. - Family history:: not pertinent. ROS: 12:23 Constitutional: Negative for fever, chills, and weight loss, Eyes: Negative for injury, sid pain, redness, and discharge, ENT: Negative for injury, pain, and discharge, Neck: Negative for injury, pain, and swelling, Cardiovascular: Negative for chest pain, palpitations, and edema, Abdomen/GI: Negative for abdominal pain, nausea, vomiting, diarrhea, and constipation, Back: Negative for injury and pain, : Negative for injury, bleeding, discharge, and swelling, MS/Extremity: Negative for injury and deformity, Skin: Negative for injury, rash, and discoloration, Psych: Negative for depression, anxiety, suicide ideation, homicidal ideation, and hallucinations, Allergy/Immunology: Negative for hives, rash, and allergies, Endocrine: Negative for neck swelling, polydipsia, polyuria, polyphagia, and marked weight changes, Hematologic/Lymphatic: Negative for swollen nodes, abnormal bleeding, and unusual bruising. 12:23 Respiratory: Positive for shortness of breath. 12:23 Neuro: Positive for headache. Exam: 12:23 Constitutional: This is a well developed, well nourished patient who is awake, alert, sid and in no acute distress. Head/Face: Normocephalic, atraumatic. Eyes: Pupils equal round and reactive to light, extra-ocular motions intact. Lids and lashes normal. Conjunctiva and sclera are non-icteric and not injected. Cornea within normal limits. Periorbital areas with no swelling, redness, or edema. ENT: Nares patent. No nasal discharge, no septal abnormalities noted. Tympanic membranes are normal and external auditory canals are clear. Oropharynx with no redness, swelling, or masses, exudates, or evidence of obstruction, uvula midline. Mucous membranes moist. Neck: Trachea midline, no thyromegaly or masses palpated, and no cervical lymphadenopathy. Supple, full range of motion without nuchal rigidity, or vertebral point tenderness. No Meningismus. Chest/axilla: Normal chest wall appearance and motion. Nontender with no deformity. No lesions are appreciated. Cardiovascular: Regular rate and rhythm with a normal S1 and S2. No gallops, murmurs, or rubs. Normal PMI, no JVD. No pulse deficits. Respiratory: Lungs have equal breath sounds bilaterally, clear to auscultation and percussion. No rales, rhonchi or wheezes noted. No increased work of breathing, no retractions or nasal flaring. Abdomen/GI: Soft, non-tender, with normal bowel sounds. No distension or tympany. No guarding or rebound. No evidence of tenderness throughout. Back: No spinal tenderness. No costovertebral tenderness. Full range of motion. Skin: Warm, dry with normal turgor. Normal color with no rashes, no lesions, and no evidence of cellulitis. MS/ Extremity: Pulses equal, no cyanosis. Neurovascular intact. Full, normal range of motion. Neuro: Awake and alert, GCS 15, oriented to person, place, time, and situation. Cranial nerves II-XII grossly intact. Motor strength 5/5 in all extremities. Sensory grossly intact. Cerebellar exam normal. Normal gait. Psych: Awake, alert, with orientation to person, place and time. Behavior, mood, and affect are within normal limits. 12:23 Neck: ROM/movement: is normal, no acute changes, Meningeal signs: are not present, Kernig's sign is negative, Brudzinski's sign is negative. 12:23 Musculoskeletal/extremity: DVT Exam: No signs of deep vein thrombosis. no pain, no swelling, no tenderness, negative Homans' sign noted on exam, no appreciated bluish discoloration, no erythema, no increased warmth. Vital Signs: 12:06 BP 159 / 90; Pulse 73; Resp 18 S; Temp 98.3(TE); Pulse Ox 100% on R/A; Weight 50.8 kg; iw Height 5 ft. 1 in. (154.94 cm); Pain 0/10; 12:39 BP 132 / 69; Pulse 75 MON; Resp 17; Pulse Ox 100% ; sv 14:30 BP 136 / 81; Pulse 75; Resp 18 S; Pulse Ox 100% on R/A; Pain 0/10; aa5 15:00 BP 150 / 92; Pulse 73; Resp 18; Pulse Ox 100% ; sv 15:00 Temp 98.0(O); aa5 16:03 BP 132 / 60; Pulse 79; Resp 16; Pulse Ox 98% ; sv 12:06 Body Mass Index 21.16 (50.80 kg, 154.94 cm) iw 12:39 Sinus Rhythm sv MDM: 11:54 Patient medically screened. [facility] 12:25 Data reviewed: vital signs, nurses notes, lab test result(s), EKG, radiologic studies, [facility] CT scan, plain films. 01/04 11:56 Order name: Basic Metabolic Panel; Complete Time: 13:47 sid 01/04 11:56 Order name: CBC with Diff; Complete Time: 13:47 [facility] 01/04 11:56 Order name: LFT's; Complete Time: 13:47 [facility] 01/04 11:56 Order name: Magnesium; Complete Time: 13:47 [facility] 01/04 11:56 Order name: NT PRO-BNP; Complete Time: 13:47 [facility] 01/04 11:56 Order name: PT-INR; Complete Time: 13:47 [facility] 01/04 11:56 Order name: Troponin (emerg Dept Use Only); Complete Time: 13:47 [facility] 01/04 11:56 Order name: XRAY Chest (1 view); Complete Time: 13:47 [facility] 01/04 11:56 Order name: Blood Culture Adult (2) [facility] 01/04 11:56 Order name: Urine Culture [facility] 01/04 11:56 Order name: Lipase; Complete Time: 13:47 [facility] 01/04 12:23 Order name: CT Head Brain wo Cont; Complete Time: 13:47 [facility] 01/04 14:40 Order name: Urine Dipstick--Ancillary (enter results) bd 01/04 14:41 Order name: Urine Dipstick-Ancillary EDMA 01/04 11:56 Order name: EKG; Complete Time: 11:57 [facility] 01/04 11:56 Order name: Cardiac monitoring; Complete Time: 12:00 [facility] 01/04 11:56 Order name: EKG - Nurse/Tech; Complete Time: 12:00 [facility] 01/04 11:56 Order name: IV Saline Lock; Complete Time: 12:00 [facility] 01/04 11:56 Order name: Labs collected and sent; Complete Time: 12:00 [facility] 01/04 11:56 Order name: O2 Per Protocol; Complete Time: 12:00 [facility] 01/04 11:56 Order name: O2 Sat Monitoring; Complete Time: 12:01 [facility] 01/04 11:56 Order name: Urine Dipstick-Ancillary (obtain specimen); Complete Time: 14:46 [facility] 01/04 12:23 Order name: CT Chest For PE Angio; Complete Time: 13:47 [facility] 01/04 15:25 Order name: Diet Heart Healthy; Complete Time: 15:25 aa5 Administered Medications: 14:30 Drug: NS 0.9% 1000 ml Route: IV; Rate: 125 ml/hr; Site: right antecubital; aa5 16:11 Follow up: Response: No adverse reaction; IV Status: Infusion continued upon admission sv 14:30 Drug: Aspirin 81 mg Route: PO; aa5 15:24 Follow up: Response: No adverse reaction aa5 14:40 Drug: Rocephin - (cefTRIAXone) 1 grams Route: IVPB; Infused Over: 30 mins; Site: right aa5 antecubital; 14:40 Follow up: Administered slow IVP per pharmacy protocol at this time aa5 14:50 Follow up: Hives noted to right side of upper lip, MD notified aa5 14:53 Drug: Benadryl 25 mg Route: IVP; Site: right antecubital; aa5 15:10 Follow up: Response: No adverse reaction; Marked relief of symptoms aa5 15:10 Drug: levofloxacin 500 mg Volume: 100 ml; Route: IVPB; Infused Over: 60 mins; Site: aa5 right antecubital; 15:23 Follow up: Response: No adverse reaction aa5 16:10 Follow up: Response: No adverse reaction; IV Status: Completed infusion sv 15:30 Drug: Lovenox 40 mg Route: Sub-Q; Site: right lower abdomen; aa5 15:50 Follow up: Response: No adverse reaction aa5 16:11 Follow up: Response: No adverse reaction sv Disposition: 01/04/19 14:54 Hospitalization ordered by Pierre Antoine for Inpatient Admission. Preliminary diagnosis are Pneumonia due to other specified bacteria - bilateral pneumonia, Dyspnea. - Bed requested for Telemetry/MedSurg (Inpatient). - Status is Inpatient Admission. sv - Condition is Stable. - Problem is new. - Symptoms have improved. UTI on Admission? No Signatures: Dispatcher [employer] EDMA Delia Monsivais RN RN sv Anderson, Corey, MD MD cha Williams, Irene, RN RN iw Calderon, Audri, RN RN aa5 Linda White RN RN df Corrections: (The following items were deleted from the chart) 15:23 14:54 Hospitalization Ordered by Pierre Antoine MD for Inpatient Admission. Preliminary df diagnosis is Pneumonia due to other specified bacteria - bilateral pneumonia; Dyspnea. Bed requested for Telemetry/MedSurg (Inpatient). Status is Inpatient Admission. Condition is Stable. Problem is new. Symptoms have improved. UTI on Admission? No. sid 16:50 15:23 01/04/2019 14:54 Hospitalization Ordered by Pierre Antoine MD for Inpatient sv Admission. Preliminary diagnosis is Pneumonia due to other specified bacteria - bilateral pneumonia; Dyspnea. Bed requested for Telemetry/MedSurg (Inpatient). Status is Inpatient Admission. Condition is Stable. Problem is new. Symptoms have improved. UTI on Admission? No. df
[2019-01-04] MEDS ORDERED: DIPHENHYDRAMINE 50 MG/ML VIAL ONE (15:00)
[2019-01-04] MEDS ORDERED: ENOXAPARIN 40 MG/0.4 ML SQ ONE (15:33)
[2019-01-04] MEDS ORDERED: ONDANSETRON 4 MG/2 ML VIAL IV PRN (16:23)
[2019-01-04] MEDS ORDERED: ALBUTEROL 2.5 MG/3 ML NEB SOL NEB PRN (16:23)
[2019-01-04] MEDS ORDERED: ACETAMINOPHEN 500 MG TAB PO PRN (16:23)
[2019-01-04] MEDS ORDERED: MORPHINE 2 MG/ML SYR IV PRN (16:23)
[2019-01-04 16:54] VITALS: BMI 21.0
--- NOTE | 2019-01-04 18:20 | P.HP ---
Certification for Inpatient Patient admitted to: Inpatient With expected LOS: >2 Midnights Practitioner: I am a practitioner with admitting privileges, knowledge of patient current condition, hospital course, and medical plan of care. Services: Services provided to patient in accordance with Admission requirements found in Title 42 Section 412.3 of the Code of Federal Regulations Patient History Date of Service: 01/04/19 Reason for admission: DYSPNEA FOR TWO WEEKS History of Present Illness: MS. NORMAN HAS HAD WHIPPLE'S SURGERY FOR PANCREATIC NERUOENDOCRINE CANCER BY DR. BAHENA A COUPLE OF YEARS AGO. SHE HAS HAD NO METS, NO NEED OF CHEMO AND STILL GOES TO SEE HIM. SHE HAS BEEN DYSPNEIC AT REST AND MINIMAL EXERSION FOR TWO WEEKS. SHE HAS NO FEVER, NO COUGH NO CHEST PAIN. Allergies erythromycin base Adverse Reaction (Mild, Verified 11/10/16 00:20) "makes me jittery" metoclopramide HCl [From Reglan] Adverse Reaction (Mild, Verified 11/10/16 00:20 ) "makes me jittery" ceftriaxone [From Rocephin] Adverse Reaction (Verified 01/04/19 17:01) Hives moxifloxacin [From Avelox] Adverse Reaction (Verified 01/04/19 17:02) "MAKES ME JITTERY" Home Medications: Lipase/Protease/Amylase [Dylan Roque 12,000 Units Capsule] 1 each PO TIDWM Losartan Potassium 50 mg PO DAILY 11/10/16 Colesevelam HCl [Welchol] 625 mg PO BEDTIME 01/04/19 Ergocalciferol (Vitamin D2) [Vitamin D 50,000 Unit Cap] 50,000 unit PO WMP 01/04 - Past Medical/Surgical History Has patient received pneumonia vaccine in the past: No Diabetic: No -: Pancreatic cancer, post Whipple procedure -: History of ectopic x2 -: Hypertension -: History of shingles -: GERD -: high cholesterol -: osteoporosis -: Whipple procedure -: Peg tube placement, with removal -: Hysterectomy -: Cholecystectomy -: Tubal pregnancies Psychosocial/ Personal History: Patient is . She has multiple children. She does not work. - Family History Mother -: Cancer Notes: Ovarian CA Sister -: Hypertension, Cancer Notes: Ovarian and Breast CA Father -: Heart disease, Hypertension, Lung disease Brother -: Heart disease - Social History Smoking Status: Former smoker Alcohol use: No CD- Drugs: No Caffeine use: Yes Place of Residence: Home Review of Systems 10-point ROS is otherwise unremarkable General: Weakness, Malaise Respiratory: Shortness of Breath Physical Examination - Vital Signs Temperature: 98.3 F Blood Pressure: 132/60 Pulse: 79 Respirations: 16 - Physical Exam General: Alert, In no apparent distress HEENT: Atraumatic, PERRLA, Mucous membr. moist/pink, EOMI, Sclerae nonicteric Neck: Supple, 2+ carotid pulse no bruit, No LAD, Without JVD or thyroid abnormality Respiratory: Clear to auscultation bilaterally, Diminished Cardiovascular: Regular rate/rhythm, Normal S1 S2 Gastrointestinal: Normal bowel sounds, No tenderness Musculoskeletal: No tenderness Integumentary: No rashes Neurological: Normal gait, Normal speech, Normal strength at 5/5 x4 extr, Normal tone, Normal affect Lymphatics: No axilla or inguinal lymphadenopathy - Studies Laboratory Data (last 24 hrs) 01/04/19 12:00: PT 11.6, INR 0.98 01/04/19 12:00: WBC 7.3, Hgb 13.8, Hct 41.4, Plt Count 196 01/04/19 12:00: Sodium 139, Potassium 3.8, BUN 29 H, Creatinine 0.62, Glucose 94 , Magnesium 2.2, Total Bilirubin 0.6, AST 30, ALT 38, Alkaline Phosphatase 108, Lipase 18 L Assessment and Plan - Problems (Diagnosis) (1) Dyspnea Current Visit: Yes Status: Acute Plan: CLINICALLY SHE HAS ATYPICAL PNEUMONIA. I WILL CHECK MYCOPLASMA, LEGIONELLA TITERS. SHE HAS NO OTHER SYMPTOMS. LEVAQUIN TO CONTINUE. CHECK ECHOCARDIOGRAM. BNP IS NORMAL CT ANGIO IS NEGATIVE FOR PE. WILL ADD PROCALCITONIN. Qualifiers: Dyspnea type: orthopnea Qualified Code(s): R06.01 - Orthopnea (2) Pulmonary infiltrates Current Visit: Yes Status: Acute Plan: ABOVE. - Advance Directives Does patient have a Living Will: No Does patient have a Durable POA for Healthcare: No
[2019-01-04] MEDS: IPRATROPIUM BROM 0.5MG/2.5ML NEB PRN (20:15)
[2019-01-04] MEDS ORDERED: COLESEVELAM HCL 625 MG PO SCH (21:00)
[2019-01-04] MEDS ORDERED: DRISDOL (VITAMIN D=ERGOCALCIFEROL) 50000 UNIT CAP PO SCH (21:00)
[2019-01-05 06:35] LABS: Absolute Lymphocytes (CBC) 1.7 K/uL (0.7-4.9); Absolute Monocytes 0.3 K/uL (0.1-1.3); Absolute Neutrophil 3.1 K/uL (1.8-8.0); Eosinophils % 4.9 % (0-4.4); Lymphocytes % 30.8 % (15.3-44.8); MPV 11.4 fL (7.6-11.3); Monocytes % 6.3 % (3.3-12.3); RBC Red Blood Cell Count 4.31 M/uL (3.86-4.86)
[2019-01-05 06:49] LABS: BUN Blood Urea Nitrogen 27 mg/dL (7-18); Bicarbonate 24 mmol/L (21-32); Glucose Level 103 mg/dL (74-106); Potassium 4.1 mmol/L (3.5-5.1); Sodium Level 143 mmol/L (136-145)
[2019-01-05] MEDS: LIPASE/PROTEASE/AMYLASE CAP PO SCH ×2 (07:53→11:18)
--- NOTE | 2019-01-05 08:07 | RAD REPORT ---
EXAM DESCRIPTION: RAD - Chest Single View - 01/05/2019 6:43 am CLINICAL HISTORY: Chest Pain Chest pain. COMPARISON: Chest Single View dated 01/04/2019; Chest Pa And Lat (2 Views) dated 09/01/2018; Chest Sing le View dated 11/09/2016; CHEST SINGLE VIEW dated 08/11/2015 FINDINGS: Portable technique limits examination quality. Minimal opacity in the right mid lung laterally appears unchanged. The lungs are otherwise mildly emp hysematous but clear. The heart is normal in size. No displaced fractures. IMPRESSION: Stable chest since 01/04/2019 study.
[2019-01-05] MEDS ORDERED: LOSARTAN POTASSIUM 50 MG TABLET PO SCH (09:00)
[2019-01-05] MEDS ORDERED: ENOXAPARIN 30 MG/0.3 ML SQ SCH (09:00)
[2019-01-05] MEDS ORDERED: levoFLOXacin 500 MG TAB PO ONE (09:30)
[2019-01-05 09:56] VITALS: O2SAT 96
[2019-01-05] MEDS: IPRATROPIUM BROM 0.5MG/2.5ML NEB PRN (10:22)
--- NOTE | 2019-01-05 11:42 | EKG ---
Test Date: 2019-01-04 Test Time: 11:56:37 Hospitality Director: REN MEASUREMENT RESULTS: Intervals: Rate: 81 [place]: 142 QRSD: 56 QT: 352 QTc: 408 [place]: P: 71 [place]: 142 QRS: 77 T: 65 INTERPRETIVE STATEMENTS: Normal sinus rhythm Normal ECG Compared to ECG 11/10/2016 06:33:15 no significant change from previous ECG Electronically Signed On 01-04-19 16:10:08 CDT by Kaushik Thomas
--- NOTE | 2019-01-05 11:49 | ECHO ---
HEIGHT: 5 ft 1 in WEIGHT: 111 lb 8 oz DATE OF STUDY: 01/05/[address]: Pierre Antoine MD 2-DIMENSIONAL: YES M.MODE: YES DOPPLER: YES COLOR FLOW: YES TDS: YES PORTABLE: NO DEFINITY: NO BUBBLE STUDY: NO DIAGNOSIS: EDEMA/ DYSPNEA CARDIAC HISTORY: CATHERIZATION: NO SURGERY: NO PROSTHETIC VALVE: NO PACEMAKER: NO MEASUREMENTS (cm) DIASTOLIC (NORMALS) SYSTOLIC (NORMALS) IVSd 0.8 (0.6-1.2) LA Diam 2.6 (1.9-4.0) LVEF 59% LVIDd 3.3 (3.5-5.7) LVIDs 2.3 (2.0-3.5) %FS 30% LVPWd 0.9 (0.6-1.2) Ao Diam 2.2 (2.0-3.7) 2 DIMENSIONAL ASSESSMENT: RIGHT ATRIUM: NORMAL LEFT ATRIUM: NORMAL RIGHT VENTRICLE: NORMAL LEFT VENTRICLE: NORMAL TRICUSPID VALVE: NORMAL MITRAL VALVE: NORMAL PULMONIC VALVE: NORMAL AORTIC VALVE: NORMAL PERICARDIAL EFFUSION: NONE AORTIC ROOT: NORMAL LEFT VENTRICULAR WALL MOTION: NORMAL. DOPPLER/COLOR FLOW: NORMAL. COMMENTS: NORMAL 2D ECHO WITH DOPPLER. TECHNOLOGIST: BEN CAMARENA
[2019-01-05 12:14] VITALS: BP 111/60; TEMP 98.1
--- NOTE | 2019-01-05 13:02 | P.DS ---
Admission Date: 01/04/19 Discharge Date: 01/05/19 Disposition: ROUTINE DISCHARGE Discharge Condition: FAIR Reason for Admission: DYSPNEA FOR TWO WEEKS - Problems (1) Dyspnea Current Visit: Yes Status: Acute Qualifiers: Dyspnea type: orthopnea Qualified Code(s): R06.01 - Orthopnea (2) Pulmonary infiltrates Current Visit: Yes Status: Acute Brief History of Present Illness: MS. NORMAN HAS HAD WHIPPLE'S SURGERY FOR PANCREATIC NERUOENDOCRINE CANCER BY DR. BAHENA A COUPLE OF YEARS AGO. SHE HAS HAD NO METS, NO NEED OF CHEMO AND STILL GOES TO SEE HIM. SHE HAS BEEN DYSPNEIC AT REST AND MINIMAL EXERSION FOR TWO WEEKS. SHE HAS NO FEVER, NO COUGH NO CHEST PAIN. MS NORMAN IS BETTER. SHE WANTS TO GO HOME. SHE WILL TAKE LEVAQUIN, I CALLED DR. LOCK AND SHE WILL CALL IN NEBULIZER AND MEDS. SHE MAY SEE DR WILLIAM FOR PFT. Vital Signs/Physical Exam: Temp Pulse Resp BP Pulse Ox 98.1 F 80 16 111/60 95 01/05/19 12:00 01/05/19 12:00 01/05/19 12:00 01/05/19 12:00 01/05/19 12:00 Laboratory Data at Discharge: WBC 5.5 K/uL (4.3-10.9) D 01/05/19 06:20 Hgb 12.3 g/dL (12.0-15.0) 01/05/19 06:20 Hct 37.0 % (36.0-45.0) 01/05/19 06:20 Plt Count 171 K/uL (152-406) 01/05/19 06:20 PT 11.6 SECONDS (9.5-12.5) 01/04/19 12:00 INR 0.98 01/04/19 12:00 Sodium 143 mmol/L (136-145) 01/05/19 06:20 Potassium 4.1 mmol/L (3.5-5.1) 01/05/19 06:20 BUN 27 mg/dL (7-18) H 01/05/19 06:20 Creatinine 0.59 mg/dL (0.55-1.3) 01/05/19 06:20 Glucose 103 mg/dL (74-106) 01/05/19 06:20 Magnesium 2.2 mg/dL (1.8-2.4) 01/04/19 12:00 Total Bilirubin 0.6 mg/dL (0.2-1.0) 01/04/19 12:00 AST 30 U/L (15-37) 01/04/19 12:00 ALT 38 U/L (12-78) 01/04/19 12:00 Alkaline Phosphatase 108 U/L (45-117) 01/04/19 12:00 Troponin I < 0.02 ng/mL (0.0-0.045) 01/04/19 20:30 Lipase 18 U/L (73-393) L 01/04/19 12:00 Home Medications: Lipase/Protease/Amylase [Creon Dr 12,000 Units Capsule] 1 each PO TIDWM Losartan Potassium 50 mg PO DAILY 11/10/16 Colesevelam HCl [Welchol] 625 mg PO BEDTIME 01/04/19 Ergocalciferol (Vitamin D2) [Vitamin D 50,000 Unit Cap] 50,000 unit PO SEECOM levoFLOXacin [Levaquin*] 500 mg PO DAILY #10 tab 01/05/19 New Medications: levoFLOXacin [Levaquin*] 500 mg PO DAILY #10 tab Followup: Laisha Lock MD [Primary Care Provider] -
[2019-01-05] MEDS ORDERED: Levofloxacin500mg IV 500 MG/100 ML BAG IV SCH (17:00)
[2019-01-10 20:17] LABS: P-ANCA Anti-Myeloperoxidase Ab <1.0 AI (<1.0)
== END 2019-01-05 13:20 | disposition home or self-care (01) ==
LOC: ER 11:42 → ERHOLD 14:57 → INTOOBSV 14:57 → 2ND 16:10
PROVIDERS: ADMIT Internal Medicine; ATTEND Internal Medicine
DX: R06.00 Dyspnea, unspecified (principal); R91.8 Other nonspecific abnormal finding of lung field; I10 Essential (primary) hypertension; K21.9 Gastro-esophageal reflux disease without esophagitis; Z85.07 Personal history of malignant neoplasm of pancreas; Z87.891 Personal history of nicotine dependence
CPT/HCPCS: 96365; 96361; 93005; 93306; 87040 ×2; 87088; 85025 ×2; 87086; 80048 ×2; 36415 ×2; 83735; 85610; 80076; 85652; 81003; 84484 ×3; 83690; 84145; 86038; 83880; 86021 ×2; 86140; 70450; 71275; 71045 ×2; 94640; 94760 ×2; 96375; 96372; 99285; Q9967; J1650 ×2; J0696; J7030; G0378 ×2

== ENCOUNTER 2020-07-15 19:27 | Emergency (ER) | payer OTHER ==
--- OUTSIDE RECORDS SUMMARY | 2020-07-15 19:30 | XMS REPORT | Continuity of Care Document ---
:1955 Author Organization [facility] Care Team Providers Name Role Phone [facility] Unavailable Un available Problems Problem Status Onset Classification Date Comments Sourc e Date Reported Postmenopausal Active 08/04/2013 [facility] Vaginitis Dyspareunia Active 08/04/2013 [facility] Vaginitis Active 08/04/2013 [facility] Medications Medication Details Route Status Patient Ordering Order Source Instructions Provider Date Estring 2 MG ; Start Active MS Vaginal Ring Date: [facility] 08/04/2013 ; End Date: (Active) Estrace 0.1 ; Start Active MS MG/GM Vaginal Date: [facility] Cream 06/09/2013 ; End Date: (Active) Allergies, Adverse Reactions, Alerts Substance Category Reaction Severity Reaction Status Date Comments S ource type Reported Valium TABS drug drug Active MS allergy allergy Physicia ns Immunizations No Data Provided for This Section Results No Data Provided for This Section Pathology Reports No Data Provided for This Section Diagnostic Reports No Data Provided for This Section Consultation Notes No Data Provided for This Section Discharge Summaries No Data Provided for This Section History and Physicals No Data Provided for This Section Vital Signs No Data Provided for This Section Encounters Location Location Encounter Encounter Reason Attending ADM [place] Stat Source Details Type Number For Provider Date Date Visit AUDIT [id number] 07/14 [facility] AUDIT [id number] 08/04 [facility] Procedures No Data Provided for This Section Assessment and Plan No Data Provided for This Section Plan of Care No Data Provided for This Section Social History Social History Date Source Current Every Day Smoker 08/04/2013 [facility] (305.1); (Active) Marital History - Currently (Active) Family History Value Date Source Family history of Osteoporosis 08/04/2013 [facility] (V17.81); (Active) Family history of Ovarian Cancer (V16.41); (Active) Family history of Breast Cancer (V16.3); (Active) Family history of Breast Cancer 07/14/2013 [facility] (V16.3); (Active) Family history of Ovarian Cancer (V16.41); (Active) Family history of Osteoporosis (V17.81); (Active) Advance Directives Order Name Results Value Date Source Advance Directives Advance Directives No Advance 08/04/2013 [facility] Directives available. Advance Directives Advance Directives No Advance 07/14/2013 [facility] Directives available. Functional Status No Data Provided for This Section
--- OUTSIDE RECORDS SUMMARY | 2020-07-15 19:30 | XMS REPORT | Clinical Summary ---
:1955 Author Organization [facility] Address [address] [place] [address] Care Team Providers Name Role Phone Avery Lock Primary Care Provider Unavailable Allergies Active Allergy Reactions Severity Noted Date Comments Erythromycin 08/18/2015 Metoclopramide Hcl 06/04/2015 Ceftriaxone Hives 03/05/2019 Diazepam Medications Medication Sig Dispensed Refills Start Date [...] & Plan: Risk factor hepatic steatosis includes h er history of hyperlipidemia. Abnormal liver diagnostic imaging 11/20/2017 Last Assessment & Plan: Review of available imaging there has be en heterogeneity in the liver dating back to 2015 showing chronicity. No evidence of advanced liver disease or portal hypertension. The changes are most cons istent with hepatic steatosis. A comprehensive work up for other potentia l factors is recommended. We will also check liver US with elastography for further e valuation. Abnormal liver enzymes 11/20/2017 Last Assessment & Plan: The liver enzymes are noted to be abnorm al in a mixed pattern without evidence of synthetic dysfunction. The imaging has shown heterogenous changes in the liver since 2016 most consistent with hepatic steato sis. We ordered comprehensive labs to look for other causes of chronic liver diseas e such as metabolic, viral and autoimmune disorders. Patient is on Welchor with go od control of hyperlipidemia. She is asymptomatic. We will monitor her liver enzymes monthly for 3 months. She can resume her medication for now. Fatty liver 11/20/2017 Age-related osteoporosis without current pathological fracture 11/20/2017 Other osteoporosis without current pathological fractu re 11/20/2017 Last Assessment & Plan: Patient takes vitamin D, calcium and Rec last. She follows up with endocrinology clinic. Further management by primary en docrinologist Immunity status testing 11/20/2017 Last Assessment & Plan: CDC recommends that all patients with chronic liver disease, regardless of etiology, should be immunized to prevent hepatitis A and hepatitis B if they are not already immune. This should be done in ad dition to other age-appropriate vaccines . We will test for immunity to both viruses - vaccine recommendations will follow. PEG tube malfunction 08/17/2015 Acute kidney injury 08/17/2015 Intractable vomiting with nausea, vomiting of unspecif ied type 06/04/2015 Primary pancreatic neuroendocrine tumor 03/09/2015 Last Assessment & Plan: Pathology showed a [id number] well-differen tiated neuroendocrine tumor; G2, intermediate grade, T2N0M0, Stage 1B, S/p Whipple, l ast imaging was negative for recurrence or metastasis. Patient follows up with Dr. Mullen. Encounters Date Type Specialty Care Team Description 03/27/2020 Hospital Encounter Magnetic Resonance Homero Mullen [facility]endocrine [facility] Outside Orders Central Scheduling Homero Mullen Neur oendocrine tumor MD David of pancreas (Pr imary Dx) after 07/15/2019 Immunizations Name Administration Dates Next Due Hepatitis B 12/30/2017 Family History [...] Assigned at Date Recorded Not on file Last Filed Vital Signs Not on file Plan of Treatment Health Maintenance Due Date Last Done Comments COLON CANCER SCREENING COLONOSCOPY 1955 CERVICAL CANCER SCREENING PAP ONLY (Age 21-65) 1976 LIPID PANEL 2000 MEDICARE ANNUAL WELLNESS (YEAR 2 or FIRST YEAR if no 01/28/2018 IPPE) INFLUENZA VACCINE (#1) 2020 BREAST CANCER SCREENING 01/26/2021 01/26/2019 Implants Implanted Type Area Business Objects Analyst Device Shelf Model / Identifier Expiration Serial / Date Lot Adhesion Barrier,Seprafilm 5x6 - [id number] Cement/F N/A: [employer] 01/26/2017 4301-02 / Implanted: Qty: 1 on 03/09/2015 by Homero Vieira MD at [facility] iller/Ad Abdomen PRODUCTS / hesive [id number] Adhesion Barrier,Seprafilm 5x6 - [id number] Cement/F N/A: [employer] 04/28/2017 4301-02 / Implanted: Qty: 1 on 03/09/2015 by Homero Vieira MD at [facility] iller/Ad Abdomen PRODUCTS / hesive [id number] Procedures Procedure Name Priority Date/Time Associated Diagnosis Comme nts MR ABDOMEN WITH & Routine 03/27/2020 11:59 Neuroendocrine tumo r of Results for this WITHOUT IV AM CDT pancreas procedure are i n CONTRAST the results section. POCT-CREATININE Routine 03/27/2020 10:21 Results for this AM CDT procedure are i n the results section. after 07/15/2019 Results MR abdomen without & with IV contrast (03/27/2020 11:59 AM CDT) Specimen Narrative Performed At FINAL REPORT [place] MRI of the abdomen dated March 27, 2020 COMPARISON: CT of the abdomen dated March 05, 2019 Comment: Multiplanar T1 and T2-weighted images of the abdomen, postcontrast axial and coronal T1-weight ed images of the abdomen were obtained. Patient is status post Whipple's procedu re. The pancreaticojejunostomy anastomosis is pa tent. The remaining body and tail of the pancreas is unremarkable. No abnormal enhancement or mass is seen in the remaining pancreas. Liver and spleen are normal in size at. No abnormal enhancement or suspicious mass is seen in the liver. Gallbladder is surgically absent. No nicolle iary dilatation seen. The adrenals and kidneys are unremarkabl e. No mass, adenopathy, or ascites is seen. The visualized small and large bowel are unremarkable. IMPRESSION: 1. Status post Whipple's procedure. 2. No mass present in the remaining panc reas. Signed: Carlos Dias MD Report Verified Date/Time: 03/28/2020 15:14:33 Reading Location: [facility] B1 C013Y CT Body R eading Room Procedure Note Interface, External Ris In - 03/28/2020 3:16 PM CDT FINAL REPORT MRI of the abdomen dated March 27, 2020 COMPARISON: CT of the abdomen dated March 05, 2019 Comment: Multiplanar T1 and T2-weighted images of the abdomen, postcontrast axial and coronal T1-weight ed images of the abdomen were obtained. Patient is status post Whipple's procedu re. The pancreaticojejunostomy anastomosis is pa tent. The remaining body and tail of the pancreas is unremarkable. No abnormal enhancement or mass is seen in the remaining pancreas. Liver and spleen are normal in size at. No abnormal enhancement or suspicious mass is seen in the liver. Gallbladder is surgically absent. No nicolle iary dilatation seen. The adrenals and kidneys are unremarkabl e. No mass, adenopathy, or ascites is seen. The visualized small and large bowel are unremarkable. IMPRESSION: 1. Status post Whipple's procedure. 2. No mass present in the remaining panc reas. Signed: Carlos Dias MD Report Verified Date/Time: 03/28/2020 1 5:14:33 Reading Location: [facility] B1 C013Y CT Body R eading Room Performing Organization Address City/State/Zipcode Phone Number [facility] POC-Creatinine (03/27/2020 10:21 AM CDT) POC-Creatinine 0.6Comment: : 0.6 - 1.3 [facility] TESTED AT [facility] mg/dL [facility] [address] [facility] [address], [facility] [id number]: Career Based Intervention Coordinator/Technicia n ID = [id number] for ANJANA RODRIGUEZ POC-EGFR 101 mL/min/1.73M2 [facility] Specimen Blood Performing Organization Address City/State/Zipcode Phone Number [facility] [address] [place] [address] CENTER after 07/15/2019 Insurance Payer Benefit Plan Subscriber ID Effective Phone Address Typ e / Group Dates AETNA - AETSIDDHARTH [id number] 2019-Pres [phone] [address] Maps MEDICARE MGD MEDICARE HMO ent [id number] [place] [address] AETNA - AETNA [id number] 2019-Pres [phone] [address] MEDICARE MGD MEDICARE HMO ent [id number] [place] [address] Advance Directives For more information, please contact: [phone] Code Status Date Activated Date Inactivated Comments [...]
--- OUTSIDE RECORDS SUMMARY | 2020-07-15 19:31 | XMS REPORT | Continuity of Care Document ---
:1955 Author Organization [facility] t Address [address] [place] [address] Dr. Res[address] [place] [address] Care Team Providers Name Role Phone Avery Lock Primary Care Physician Unavailable David Mullen MD Attending Clinician 3Danis Attending Clinician Unavailable Sebas LING, Pat Attending Clinician DAVID MULLEN Attending Clinician Unavailable Indra CASH Attending Clinician Unavailable SYSTEM, NOT IN Attending Clinician Unavailable Payers Payer Name Policy Type Policy Number Effective Date Expiration Date Song ballard AETNA - MEDICARE [id number] 2019 STEFANI Garcia Nancy ukjean MGD CAREAETNA 00:00:00 - Medical MEDICARE HMO Center [id number] [address]Qyux Contracted Problems Condition Condition Condition Status Onset Resolution Last Treating Co mments Source Name Details Category Date Date Treatment Clinician Date Abnormal Abnormal Disease [facility] Assessemi Leung - diagnostic diagnostic 00:00: t & Plan: Medical imaging imaging 00 Review of Cente r available imaging there has been heterogen eity in the liver dating back to 2016 showing chronicit y. No evidence of advanced liver disease or portal hypertens ion. The changes are most consisten t with hepatic steatosis . A comprehen sive work up for other potential factors is recommend ed. We will also check liver US with elastogra phy for further evaluatio n. Abnormal Abnormal Disease Active [facility] - enzymes enzymes 00:00: t & Plan: Medic al 00 The liver Center enzymes are noted to be abnormal in a mixed pattern without evidence of synthetic dysfuncti on. The imaging has shown heterogen ous changes in the liver since 2016 most consisten t with hepatic steatosis . We ordered comprehen sive labs to look for other causes of chronic liver disease such as metabolic , viral and autoimmun e disorders . Patient is on Welchor with good control of hyperlipi demia. She is asymptoma tic. We will monitor her liver enzymes monthly for 3 months. She can resume her medicatio n for now. Fatty Fatty Disease Active [facility] liver liver 11-20 [facility] - 00:00: Medical 00 [place] Age-relate Age-relate Disease Active [facility] d d 11-20 [facility] - osteoporos osteoporos 00:00: Nd dical is without is without 00 Ce nter current current pathologic pathologic al al fracture fracture Other Other Disease Active [facility] osteoporos osteoporos 11-20 [facility]men [facility] - is without is without 00:00: t & Plan: Medical current current 00 Patient Center pathologic pathologic takes al al vitamin fracture fracture D, calcium and Reclast. She follows up with endocrino logy clinic. Further managemen t by primary endocrino logist Immunity Immunity Disease Active Last [facility] t status status 2- Assessmen [facility] - testing testing 00:00: t & Plan: Medic al 00 CDC Center recommend s that all patients with chronic liver disease, regardles s of etiology, should be immunized to prevent hepatitis A and hepatitis B if they are not already immune. This should be done in addition to other age-appro priate vaccines. We will test for immunity to both viruses - vaccine recommend ations will follow. 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 neuroendoc neuroendoc 00:00: t & Plan: Medical rine tumor rine tumor 00 Pathology Center showed a [id number] well-diff erentiate d neuroendo crine tumor; G2, intermedi ate grade, T2N0M0, Stage 1B, S/p Whipple, last imaging was negative for recurrenc e or metastasi s. Patient follows up with Dr. Mullen. Postmenopa Problem Active 2013-08-04 M emoria usal 21:46:33 l Atrophic [place] Vaginitis Postmenopa usal Atrophic Vaginitis Active 3 [facility] Dyspareuni Problem Active 2013-08-04 M emoria a 21:46:33 l Sunny Dyspareuni a Active 08/04/2013 [facility] Vaginitis Problem Active 2013-08-04 Me moria 21:46:33 l Sunny Vaginitis Active 3 [facility] Allergies, Adverse Reactions, Alerts Allergy Allergy Status Severity Reaction(s) Onset Inactive Treating Comm ents Source Name Type Date Date Clinician Ceftriax Propensi Active Hives [facility] one ty to 03-05 [facility] - adverse 00:00: Medical reaction 00 [place] [facility] Erythrom Propensi Active 2014-[address] ycin ty to 10-18 [facility] - adverse 00:00: Medical reaction 00 [place] s Metoclop Drug Active [facility] St ramide Intolera 9-06 [facility] - Hcl nce 00:00: Medical 00 Center Valium Valium Active Memoria TABS TABS l [place] Diazepam Propensi Active [facility] ty to [facility] - adverse Medical reaction Center s Family History Family Member Diagnosis Comments Start Date Stop Date Source Natural brother Early [facility] Natural father COPD [facility] Natural father Vision loss [facility] Natural mother Arthritis [facility] Natural mother Hyperlipidemia [facility] Natural mother Hypertension [facility] Natural mother Miscarriages / [facility] Cent[facility] r Natural sister Cancer [facility] Natural sister Hyperlipidemia [facility] Unknown Family Family History 2013-07-14 2013-07-14 Memori al Member 20:47:19 20:47:19 [place] Social History Social Habit Start Date Stop Date Quantity Comments Source Sex Assigned At [facility] Tobacco use and 2018-02-04 2018-02-04 Never used [facility] - exposure 00:00:00 00:00:00 [facility] Alcohol intake 2018-02-04 2018-02-04 Current [facility] - 00:00:00 00:00:00 non-drinker of Medical nter alcohol (finding) Tobacco Comment 2015-02-15 2015-02-15 quit one year [facility] - 00:00:00 00:00:00 ago [facility] Social History 2013-08-04 2013-08-04 [facility] 21:46:33 Smoking Status Start Date Stop Date Source Former smoker 2018-02-04 00:00:00 2018-02-04 00:00:00 [facility] Medications Ordered Filled Start Stop Current Ordering Indication Dosage Frequency Signature Comments Components Source Medication Medication Date Date Medication? Clinician (SIG) Name Name CREALEISHA Yes TAKE [address] 12,000-38,0 1-22 CAPSULE [facility] - 00 -60,000 00:00: THREE Medica l unit CpDR 00 TIMES A [place] capsule DAY WITH EACH MEAL losartan Yes 100mg QD Take [address] (COZAAR) 1-19 mg by [facility] - 100 MG 00:00: mouth Medical tablet 00 daily. [place] colesevelam Yes 3.75g Take 3.[address] 3.75 gram 6-28 g by [facility] - PwPk 00:00: mouth. Medical 00 Center Estring 2 2012-09 Yes ; Start Memor ia MG Vaginal 10-04 Date: l Ring 06:00: 08/04/2013 Sunny 00 ; End Date: (Active) Estrace 0.1 Yes ; Start Mem oria MG/GM 06-09 Date: l Vaginal 05:00: 06/09/2013 Herm maya Cream 00 ; End Date: (Active) Immunizations Ordered Immunization Filled Immunization Date Status Commen ts Source Name Name Hepatitis B 2017-12-[address] [facility] Procedures Procedure Date / Time Performed Performing Clinician Larry antonio MR ABDOMEN WITH & 2020-03-27 11:59:00 Homero Mullen [facility] - WITHOUT IV CONTRAST Medical Cent er POCT-CREATININE 2020-03-27 10:21:00 Sebas Homero Hernandez [facility] - [facility] Plan of Care Planned Activity Planned Date Details Comments Source Future Scheduled 2021-01-[address] [facility] - Test 00:00:00 malignant neoplasm Medical C enter of breast (procedure) [code = 204014166] Future Scheduled 2020-05-[address] [facility] - Test 00:00:00 (#1) [code = [facility] INFLUENZA VACCINE (#1)] Future Scheduled 2018-01-[address] [facility] - Test 00:00:00 WELLNESS (YEAR 2 or [facility] Center FIRST YEAR if no IPPE) [code = MEDICARE ANNUAL WELLNESS (YEAR 2 or FIRST YEAR if no IPPE)] Future Scheduled [address] [facility] - Test 00:00:00 (procedure) [code = [facility] 26946619] Future Scheduled [address] [facility] - Test 00:00:00 malignant neoplasm Medical C enter of cervix (procedure) [code = 775036605] Future Scheduled [address] [facility] - Test 00:00:00 malignant neoplasm Medical C enter of colon (procedure) [code = 260291214] Encounters Start End Encounter Admission Attending Care Care Encounter Source Date/Time Date/Time Type Type Clinicians Facility Department ID 2020-03-27 2020-03-27 Office TADEO Mullen [id number] 12:07:20 13:50:30 Visit Homero Moscoso [id number] 2013-08-04 2013-08-04 Outpatient MALVIN COOMBS [id number] 15:46:33 15:46:33 2013-07-14 2013-07-14 Outpatient MALVIN COOMBS [id number] 15:47:19 15:47:19 Results Test Description Test Test Results Result Source Time Comments Comments MR, ABDOMEN, 2020-06- Referring: FINAL REPORT PATIENT ID: WITHOUT / WITH 30 Dr. Valentin [id number] MRI of the IV CONTRAST 15:14:00 [place] abdomen dated March 27, 2020 COMPARISON: CT of the abdomen dated March 05, 2019 Comment: Multiplanar T1 and T2-weighted images of the abdomen, postcontrast axial and coronal T1-weighted images of the abdomen were obtained. Patient is status post Whipple's procedure. The pancreaticojejunostomy anastomosis is patent. The remaining body and tail of the pancreas is unremarkable. No abnormal enhancement or mass is seen in the remaining pancreas. Liver and spleen are normal in size at. No abnormal enhancement or suspicious mass is seen in the liver. Gallbladder is surgically absent. No biliary dilatation seen. The adrenals and kidneys are unremarkable. No mass, adenopathy, or ascites is seen. The visualized small and large bowel are unremarkable. IMPRESSION:1. Status post Whipple's procedure.2. No mass present in the remaining pancreas. Signed: Carlos Dias MDReport Verified Date/Time: 03/28/2020 15:14:33 Reading Location: [facility] C013Y CT Body Reading Room abdomen 2020-02- Interface, External Ris In [facility] without & with 30 - 03/28/2020 3:16 PM [facility] - IV contrast 15:14:00 CDTFINAL REPORT PATIENT Medical ID: [id number] MRI of the Center abdomen dated March 27, 2020 COMPARISON: CT of the abdomen dated March 05, 2019 Comment: Multiplanar T1 and T2-weighted images of the abdomen, postcontrast axial and coronal T1-weighted images of the abdomen were obtained. Patient is status post Whipple's procedure. The pancreaticojejunostomy anastomosis is patent. The remaining body and tail of the pancreas is unremarkable. No abnormal enhancement or mass is seen in the remaining pancreas. Liver and spleen are normal in size at. No abnormal enhancement or suspicious mass is seen in the liver. Gallbladder is surgically absent. No biliary dilatation seen. The adrenals and kidneys are unremarkable. No mass, adenopathy, or ascites is seen. The visualized small and large bowel are unremarkable. IMPRESSION:1. Status post Whipple's procedure.2. No mass present in the remaining pancreas. Signed: Carlos Dias MDReport Verified Date/Time: 03/28/2020 15:14:33 Reading Location: [facility] B1 C013Y CT Body Reading Room -Creatinine 2020-03-27 10:35:00 Test Item Value Reference Range Interpretation Comme nts POC-Creatinine (test code = 0.6 mg/dL 0.6-1.3 : TESTED AT [facility] [address]) [facility] [address]: Online Marketer/Techni parag ID = [id number] for Kain RODRIGUEZONICA POC-EGFR (test code = 1860) 101 mL/min/1.73M2 [id number] 10:35:00 Test Item Value Reference Range Interpretation Comments POC-CREATININE 0.6 mg/dL 0.6-1.3 : TESTED AT [facility] ([facility]) (test [address] [facility] [address] [facility] code = 1859) [facility] 7 1239: Online Marketer/Techni parag ID = [id number] for BRYAN RODRIGUEZ JEIMY POC-EGFR 101 mL/min/1.73M2 ([facility]) (test code = 1860) CT, ABDOMEN, WITHOUT / WITH IV [id number] 15:03:00Referring: Dr. Homero HurleyAL REPORT CT scan of the abdomen and pelvis. MEDICAL HISTORY: Neuroendocrine tumor. COMPARISON STUDY: March 11, 2016. TECHNIQUE: Contiguous helical slices were acquired throughthe abdomen both pre and post administration of intravenous contrast and through the pelvis post admi nistration of intravenous contrast. No oral contrast was administered. This exam was performed according to our department dose optimization program which includes automated exposure control, adjustment of the mA and/or kV according to the patient's size and/or use of iterative reconstruction technique. FINDINGS: A 2.9 x 2.3 cm airspace opacity is seen in the right middle lobe medially, more pronounced on previous. There are also scattered tree-in-bud opacities, most pronounced in the left lower lobe. An atypical infection cannot be excluded. A 1.2 cm opacity is seen in the right lung base abuttingthe right hemidiaphragm. The liver, spleen, adrenal glands and kidneys are unremarkable. The patientis status post pancreatectomy with unchanged postsurgical appearance as compared to previous. As seen on previous, there is a 1.6 x 1.3 cm opacity interposed between the celiac axis and portal vein which is stable from March 11, 2016. There are no dilated loops of bowel seen to suggest obstruction. No ascites is seen. The uterus has been resected. The aorta is normal in caliber. Atherosclerosis is seen. Bone windows demonstrate degenerative changes. IMPRESSION:1. Progression of opacities in the lung bases as compared to previous. The most likely etiology is an atypical infection. The appearance is not typical for metastatic disease. PEDRO would be highest the differential. Clinical correlation, follow-up and referral to pulmonology is recommended.2. Status post pancreatectomy with an unchanged postsurgical appearance.3. Stable opacity interposed between the right side of the celiac axis and portal vein. This could represent a prominent lymph node.4. No other significant change. A verbal report wasgiven to Dr. Mullen at the time of dictation. Signed: Parivz Garza MDReport Verified Date/Time: 03/05/2019 15:03:16 Reading Location: [address] Ortho Consult Reading Room [id number] 11:43:00 Test Item Value Reference Range Interpretation Comments POC-CREATININE 0.5 mg/dL 0.6-1.3 L TESTED AT [facility] 7[address] ([facility]) (test [facility] G A code = 1859) [facility] 7703 0 POC-EGFR 125 mL/min/1.73M2 ([facility]) (test code = 1860) CT, ABDOMEN, [id number] 11:02:00Referring: Dr. Homero MullenFINAL REPORT CT OF THE ABDOMEN CLINICAL HISTORY: Pancreatic neuroendocrine tumor status post Whipple, rising chromogranin A TECHNIQUE: CT of the abdomen is performed with and without intravenous contrast administration. This exam was performed according to our departmental dose-optimization program which includes automated exposure control, adjustment of the mA and/or kV accord ing to patient size and/or use of iterative [...] solid renal lesion. GI TRACT: No bowel thickeningor distention. PERITONEUM/RETROPERITONEUM: No ascites.LYMPH NODES: No upper abdominal lymphadenopathy.VESSELS: Abdominal aorta is normal in caliber. BONES AND SOFT TISSUES: No destructive osseous lesion. IMPRESSION: Expected postsurgical changes after Whipple procedure. No specific findings of recurrent or metastatic disease. Diffuse hepatic steatosis. Signed: Reggie Morris MDReport Verified Date/Time: 04/22/2018 11:02:01 Reading Location: [address] Radiology Reading Room [id number] 08:58:00 Test Item Value Reference Range Interpretation Comments POC-CREATININE 0.5 mg/dL 0.6-1.3 L TESTED AT [facility] ([facility]) (test [address] [facility] code = 1859) [facility] 7703 0 POC-EGFR 125 mL/min/1.73M2 ([employer]) (test code = 1860) CHROMOGRANIN [id number] 10:34:00 Test Item Value Reference Range Interpretation Comments SCAN RESULT (test code = 8534194) ANTI-NUCLEAR ANTIBODY (FRENCH)2017-11-22 10:58:00 Test Item Value Reference Range Interpretation Comments ANTI-NUCLEAR ANTIBODY (FRENCH) ([employer]) Negative Negative (test code = 418) [id number] 15:08:00 Test Item Value Reference Range Interpretation Comments FERRITIN ([employer]) (test code = 361) 21 ng/mL 5-275 HEPATITIS A ANTIBODY, [id number] 14:16:00 Test Item Value Reference Range Interpretation Comments HEPATITIS A IGG ANTIBODY (BEAKER) Reactive Nonreactive A (test code = 2797) HEPATITIS B SURFACE [id number] 14:16:00 Test Item Value Reference Range Interpretation Comments HEPATITIS B SURFACE ANTIBODY < mIU/mL <8.0 (BEAKER) (test code = 647) HEPATITIS C [id number] 14:15:00 Test Item Value Reference Range Interpretation Comments HEPATITIS C ANTIBODY (BEAKER) Nonreactive Nonreactive (test code = 367) HEPATITIS B SURFACE [id number] 14:10:00 Test Item Value Reference Range Interpretation Comments HEPATITIS B SURFACE ANTIGEN (2) Nonreactive Nonreactive (BEAKER) (test code = 2585) HEPATITIS B CORE ANTIBODY, [id number] 14:10:00 Test Item Value Reference Range Interpretation Comments HEPATITIS B CORE TOTAL ANTIBODY Nonreactive Nonreactive (BEAKER) (test code = 497) [id number] 13:59:00 Test Item Value Reference Range Interpretation Comments ALPHA-1 ANTITRYPSIN (BEAKER) 151.60 mg/dL 90.00-200.00 (test code = 502) IRON, TIBC, % SAT. (WITHOUT FERRITIN)2017-11-20 13:51:00 Test Item Value Reference Range Interpretation Comments IRON (BEAKER) (test code = 547) 49 ug/dL 40-160 TOTAL IRON BINDING CAPACITY 423 ug/dL 250-450 (BEAKER) (test code = 769) IRON % SATURATION (2) (BEAKER) 12 % 20-55 L (test code = 2590) COMPREHENSIVE METABOLIC [id number] 13:50:00 Test Item Value Reference Range Interpretation Comments TOTAL PROTEIN 7.4 gm/dL 6.0-8.3 (BEAKER) (test code = 770) ALBUMIN (BEAKER) 4.2 g/dL 3.5-5.0 (test code = 1145) ALKALINE PHOSPHATASE 132 U/L 40-150 (BEAKER) (test code = 346) BILIRUBIN TOTAL 0.4 mg/dL 0.2-1.2 (BEAKER) (test code = 377) SODIUM (BEAKER) (test 140 meq/L 136-145 code = 381) POTASSIUM (BEAKER) 3.8 meq/L 3.5-5.1 (test code = 379) CHLORIDE (BEAKER) 105 meq/L 98-107 (test code = 382) CO2 (BEAKER) (test 29 meq/L 22-29 code = 355) BLOOD UREA NITROGEN 17 mg/dL 7-21 (BEAKER) (test code = 354) CREATININE (BEAKER) 0.59 mg/dL 0.57-1.25 (test code = 358) GLUCOSE RANDOM 86 mg/dL 70-105 (BEAKER) (test code = 652) CALCIUM (BEAKER) 9.2 mg/dL 8.4-10.2 (test code = 697) AST (SGOT) (BEAKER) 35 U/L 5-34 H (test code = 353) ALT (SGPT) (BEAKER) 32 U/L 6-55 (test code = 347) EGFR (BEAKER) (test 103 ESTIMATE D GFR IS code = 1092) mL/min/1.73 sq NOT ACCURA TE m CREATININE CLEARANCE IN PREDICTING GLOMERULAR FILTRATION RATE . ESTIMATED GFR I S NOT APPLICABLE FOR DIALYSIS PATIEN TS. BILIRUBIN, [id number] 13:50:00 Test Item Value Reference Range Interpretation Comments BILIRUBIN DIRECT (BEAKER) (test 0.1 mg/dL 0.1-0.5 code = 706) U/S, ABDOMINAL, [id number] 13:42:00Referring: Dr. Homero MullenINCREID ELASTOGRAPHYReason for Exam:->Elevated liver tests, h/o of [...] liver. Normal-mild fibrosis value on elastography. Signed: Sowmya Brito MDReport Verified Date/Time: 11/20/2017 13:42:16 Reading Location: [address] Radiology Reading Room CBC W/PLT COUNT & AUTO [id number] 13:07:00 Test Item Value Reference Range Interpretation Comments WHITE BLOOD CELL COUNT (BEAKER) 4.5 K/ L 3.5-10.5 (test code = 775) RED BLOOD CELL COUNT (BEAKER) 4.20 M/ L 3.93-5.22 (test code = 761) HEMOGLOBIN (BEAKER) (test code = 11.9 GM/DL 11.2-15.7 410) HEMATOCRIT (BEAKER) (test code = 37.3 % 34.1-44.9 411) MEAN CORPUSCULAR VOLUME (BEAKER) 88.8 fL 79.4-94.8 (test code = 753) MEAN CORPUSCULAR HEMOGLOBIN 28.3 pg 25.6-32.2 (BEAKER) (test code = 751) MEAN CORPUSCULAR HEMOGLOBIN CONC 31.9 GM/DL 32.2-35.5 L (BEAKER) (test code = 752) RED CELL DISTRIBUTION WIDTH 13.4 % 11.7-14.4 (BEAKER) (test code = 412) PLATELET COUNT (BEAKER) (test 169 K/CU MM 150-450 code = 756) MEAN PLATELET VOLUME (BEAKER) 12.9 fL 9.4-12.3 H (test code = 754) NUCLEATED RED BLOOD CELLS 0 /100 WBC 0-0 (BEAKER) (test code = 413) NEUTROPHILS RELATIVE PERCENT 56 % (BEAKER) (test code = 429) LYMPHOCYTES RELATIVE PERCENT 34 % (BEAKER) (test code = 430) MONOCYTES RELATIVE PERCENT 5 % (BEAKER) (test code = 431) EOSINOPHILS RELATIVE PERCENT 4 % (BEAKER) (test code = 432) BASOPHILS RELATIVE PERCENT 1 % (BEAKER) (test code = 437) NEUTROPHILS ABSOLUTE COUNT 2.54 K/ L 1.56-6.13 (BEAKER) (test code = 670) LYMPHOCYTES ABSOLUTE COUNT 1.53 K/ L 1.18-3.74 (BEAKER) (test code = 414) MONOCYTES ABSOLUTE COUNT (BEAKER) 0.21 K/ L 0.24-0.36 L (test code = 415) EOSINOPHILS ABSOLUTE COUNT 0.18 K/ L 0.04-0.36 (BEAKER) (test code = 416) BASOPHILS ABSOLUTE COUNT (BEAKER) 0.05 K/ L 0.01-0.08 (test code = 417) IMMATURE GRANULOCYTES-RELATIVE 0 % 0-1 PERCENT (BEAKER) (test code = 2801) TUMOR LOCAL, WB, 2 OR MORE [id number] 14:21:00neuroendocrine tumorFINAL REPORT PROCEDURE: OCTREOSCAN - Tumor Localization CPT CODE: 68740, 81377, 31820 INDICATION: Neuroendocrine tumor localization PROTOCOL: 6.28 mCi [...] in the head of the pancreas. Signed: Marco A Le MDReport Verified Date/Time: 08/27/2017 14:21:08 Reading Location: [address] Reading Room 02:21 PMCT, CHEST, WITH [id number] 15:02:00FINAL REPORT Exam: CT chest with contrast, CT abdomen and pelvis with and without contrast INDICATION: 61-year-old female status post Whipple procedure in 2014 for neuroendocrinepancreatic tumor COMPARISON: The chest, abdomen, and pelvis 03/17/2017 TECHNIQUE: CT of the chest with contrast [...] stable compared to prior exams. Apart from this, there is no abnormal soft tissue density [...] post laparotomy. Multiple benign-appearing fat-containing soft tissue ma sses in the bilateral breasts are unchanged. Please refer to prior mammographic studies. IMPRESSION:1. No evidence of recurrent or metastatic neuroendocrine tumor. 2. Unchanged soft tissue density to the right of the celiac artery takeoff. 3. Increased pneumobilia compared to prior exam, possibly iatrogenic. 4. Unchanged nodular tree-in-bud opacities in the bilateral lungs, likely chronic small airways disease/atypical pneumonia. Signed: Carlos Diasort Verified Date/Time: 08/26/2017 15:02:31Reading Location: [address], ABDOMEN 2017-08-26 15:02:00FINAL REPORT Exam: CT chest with contrast, CT abdomen and pelvis with and without contrast INDICATION: 61-year-old female status post Whipple procedure in 2014 for neuroendocrine pancreatic tumor COMPARISON: The chest, abdomen, and pelvis 03/17/2017 TECHNIQUE: CT of the chest with contrast [...] lymphadenopathy. Heart is normal in size. No per icardial effusion. No significant coronary artery atherosclerosis. Mild atherosclerotic calcifications of the aortic arch. ABDOMEN AND PELVIS: Liver: Diffuse hepatic steatosis. No focal hepatic lesion.Increased pneumobilia compared to prior, now moderate. No intrahepatic biliary ductal dilatation. Pat ient is status post Whipple procedure and cholecystectomy. Choledochojejunostomy and pancreaticojejunostomy are intact. Unchanged size of 1.2 cm soft tissue density to the right of the celiac takeoff (portal venous axial image 99), stable compared to prior exams. Apart from this, there is no abnormal soft tissue density [...] the right lower quadrant, likely remote omental i nfarct/epiploic appendagitis. Lymph nodes: No lymphadenopathy. Vessels: Mild [...] in the bilateral lungs, likely chronic small airwa ys disease/atypical pneumonia. Signed: Carlos Diasepleila Verified Date/Time: 08/26/2017 15:02:31Reading Location: [address] [id number] 10:53:00 Test Item Value Reference Range Interpretation Comments POC-CREATININE 0.5 mg/dL 0.6-1.3 L TESTED AT [place] [address] ([facility]) (test [place] code = 1859) [address] POC-EGFR ([facility]) 125 mL/min/1.73M2 (test code = 1860) CHROMOGRANIN [id number] 10:19:00 Test Item Value Reference Range Interpretation Comments SCAN RESULT (test code = 0170868) [id number] 09:50:00 Test Item Value Reference Range Interpretation Comments POC-CREATININE 0.5 mg/dL 0.6-1.3 L TESTED AT [place] [id number] ([facility]) (test [place] code = 1859) [address] POC-EGFR ([facility]) 125 mL/min/1.73M2 (test code = 1860)
[2020-07-15] MEDS ORDERED: hydroCHLOROthiazide 25 MG TAB ONE (20:10)
[2020-07-15] MEDS ORDERED: ACETAMINOPHEN 325 MG TABLET ONE (20:10)
[2020-07-15 20:16] LABS: Absolute Lymphocytes (CBC) 2.6 K/uL (0.7-4.9); Basophils % 1.3 % (0-1.3); Hematocrit 38.1 % (36.0-45.0); MPV 10.5 fL (7.6-11.3)
[2020-07-15 20:32] LABS: ALT/SGPT 39 U/L (12-78); AST/SGOT 31 U/L (15-37); Albumin 3.8 g/dL (3.4-5.0); Alkaline Phosphatase 98 U/L (45-117); BUN Blood Urea Nitrogen 15 mg/dL (7-18); Bicarbonate 27 mmol/L (21-32); Bilirubin Direct < 0.1 mg/dL (0-0.2); Bilirubin Total 0.4 mg/dL (0.2-1.0); Glucose Level 84 mg/dL (74-106); Magnesium 2.3 mg/dL (1.8-2.4); NT PRO-BNP 166 pg/mL (<125); Potassium 3.4 mmol/L (3.5-5.1); Protein, Total 7.9 g/dL (6.4-8.2); Sodium Level 144 mmol/L (136-145); Troponin (Emerg Dept Use Only) 0.02 ng/mL (0.0-0.045)
--- NOTE | 2020-07-15 21:01 | RAD REPORT ---
EXAM DESCRIPTION: CT - Head Brain Wo Cont - 07/15/2020 8:16 pm CLINICAL HISTORY: Dizziness;Headache COMPARISON: Head Brain Wo Cont dated 01/04/2019 TECHNIQUE: Axial 5 mm thick images of the head were obtained without IV contrast. All CT scans are performed using dose optimization technique as appropriate and may include automated exposure control or mA/KV adjustment according to patient size. FINDINGS: No intracranial hemorrhage, mass, edema or shift of mid-line structures. No acute infarcti on changes seen. No abnormal extra-axial fluid collections. Ventricles are normal. No significant atr ophy or chronic ischemic change. Physiologic calcifications are present. Mastoid air cells and visualized portions of the paranasal sinuses are clear. No acute bony findings. IMPRESSION: Negative non-contrast CT head examination. No significant change from comparison
--- NOTE | 2020-07-15 21:05 | RAD REPORT ---
EXAM DESCRIPTION: RAD - Chest Single View - 07/15/2020 8:28 pm CLINICAL HISTORY: COUGH COMPARISON: September 2019 TECHNIQUE: AP portable chest image was obtained 07/15/2020 8:28 pm . FINDINGS: Chronic interstitial lung changes are present. Today's more shallow inspiration accentuate s the lung pattern. No focal consolidation or mass. Mild edema or infiltrate can be masked by the sev erity of chronic disease. Heart and vasculature are normal. No measurable pleural effusion and no pneumothorax. No acute bony abnormality seen. No acute aortic findings suspected. IMPRESSION: Chronic interstitial lung disease is present accentuated by shallow inspiration and pote ntially masking early edema or infiltrate. No focal mass or consolidation.
--- NOTE | 2020-07-15 21:14 | ER ---
Nurse's Notes [facility] Name: Tabitha Odom Age: 64 yrs Sex: Female : 1955 Arrival Date: 07/15/2020 Time: 19:31 Bed 20 Private MD: Diagnosis: Essential (primary) hypertension;Hypokalemia Presentation: 07/15 19:37 Chief complaint: Patient states: i was having nausea and throbbing headache since mg2 yesterday and I checked my blood pressure it was 180/89. i am on Losartan. Coronavirus screen: Client denies travel out of the [place] in the last 14 days. At this time, the client does not indicate any symptoms associated with coronavirus-19. Ebola Screen: No symptoms or risks identified at this time. Initial Sepsis Screen: Does the patient meet any 2 criteria? No. Patient's initial sepsis screen is negative. Does the patient have a suspected source of infection? No. Patient's initial sepsis screen is negative. Risk Assessment: Do you want to hurt yourself or someone else? Patient reports no desire to harm self or others. Onset of symptoms. Onset of symptoms was July 14, 2020. 19:37 Method Of Arrival: Ambulatory mg2 19:37 Acuity: YASEMIN 3 mg2 Triage Assessment: 19:41 General: Appears in no apparent distress. comfortable, Behavior is calm, cooperative. mg2 Pain: Complains of pain in head. EENT: No signs and/or symptoms were reported regarding the EENT system. Neuro: Level of Consciousness is awake, alert, obeys commands, Oriented to person, place, time, situation. Cardiovascular: Capillary refill < 3 seconds Patient's skin is warm and dry. Respiratory: Airway is patent Respiratory effort is even, unlabored, Respiratory pattern is regular, symmetrical. GI: Reports nausea. : No signs and/or symptoms were reported regarding the genitourinary system. Derm: Skin is intact, is healthy with good turgor, Skin is pink, warm \T\ dry. normal. Musculoskeletal: Circulation, motion, and sensation intact. Capillary refill < 3 seconds. Historical: - Allergies: 19:41 Erythromycin; mg2 19:41 Reglan; mg2 19:41 Rocephin; mg2 - Home Meds: 19:41 Creon Oral [Active]; losartan 50 mg Oral tab 1 tab once daily [Active]; Vitamin D Oral mg2 24660 unit daily [Active]; - PMHx: 19:41 Hyperlipidemia; Hypertension; pancreatic cancer; mg2 - PSHx: 19:41 Hysterectomy; mg2 - Immunization history:: Flu vaccine is up to date. - Social history:: Smoking status: Patient denies any tobacco usage or history of. Patient/guardian denies using alcohol, street drugs, IV drugs. Screenin:42 Abuse screen: Denies threats or abuse. Denies injuries from another. Nutritional mg2 screening: No deficits noted. Tuberculosis screening: No symptoms or risk factors identified. 20:02 Fall Risk IV access (20 points). mg2 Assessment: 19:42 General: see triage assessment. mg2 20:40 Reassessment: Patient appears in no apparent distress at this time. Patient denies pain mg2 at this time. Patient states feeling better. 21:34 Reassessment: Patient states feeling better. mg2 Vital Signs: 19:37 BP 187 / 92; Pulse 94; Resp 18; Temp 97.9; Pulse Ox 100% on R/A; Weight 48.53 kg; mg2 Height 5 ft. 1 in. (154.94 cm); 20:38 BP 165 / 89; Pulse 71; Resp 18; Pulse Ox 99% on R/A; mg2 21:24 BP 146 / 76; Pulse 70; Resp 18; Pulse Ox 100% on R/A; mg2 19:37 Body Mass Index 20.22 (48.53 kg, 154.94 cm) mg2 [place] Coma Score: 20:04 Eye Response: spontaneous(4). Verbal Response: oriented(5). Motor Response: obeys sid commands(6). Total: 15. ED Course: 19:31 Patient arrived in ED. bg2 19:33 Mychal Villarreal MD is Attending Physician. sid 19:37 Greg Campos RN is Primary Nurse. mg2 19:40 Triage completed. mg2 19:40 Arm band placed on. mg2 19:42 Patient has correct armband on for positive identification. mg2 19:42 No provider procedures requiring assistance completed. mg2 20:02 Inserted saline lock: 20 gauge in right forearm, using aseptic technique. Blood mg2 collected. 20:16 CT Head Brain wo Cont In Process Unspecified. EDMS 20:28 XRAY Chest (1 view) In Process Unspecified. EDMS 21:13 Ayden Hagan MD is Referral Physician. [facility] 21:34 IV discontinued, intact, bleeding controlled, No redness/swelling at site. Pressure mg2 dressing applied. Administered Medications: 20:02 Drug: Tylenol 650 mg Route: PO; mg2 20:02 Drug: Hydrochlorothiazide 12.5 mg Route: PO; mg2 21:24 Drug: Potassium Effervescent Tablet 25 mEq Route: PO; mg2 Outcome: 21:13 Discharge ordered by MD. sid 21:34 Discharged to home ambulatory, with family. mg2 21:34 Condition: good 21:34 Discharge instructions given to patient, family, Instructed on discharge instructions, follow up and referral plans. medication usage, Demonstrated understanding of instructions, follow-up care, medications, Prescriptions given X 2. 21:34 Patient left the ED. mg2 Signatures: Dispatcher [employer] EDMS Mychal Villarreal MD MD cha Glass, Brittany [facility] Greg Campos, RN RN mg2
--- NOTE | 2020-07-15 21:14 | EDPHYS ---
Physician Documentation [facility] Name: Tabitha Odom Age: 64 yrs Sex: Female : 1955 Arrival Date: 07/15/2020 Time: 19:31 Bed 20 Private MD: ED Physician Mychal Villarreal HPI: 07/15 20:02 This 64 yrs old Female presents to ER via Ambulatory with complaints of High sid Blood Pressure. 20:02 The patient has elevated blood pressure and discovered this at home, with a home sid device. Onset: The symptoms/episode began/occurred 3 day(s) ago. Modifying factors: The symptoms are aggravated by activity, The symptoms are alleviated by remaining still. Associated signs and symptoms: Pertinent positives: headache. Severity of symptoms: At its worst the blood pressure was mild, moderate, in the emergency department the blood pressure is unchanged. The patient has not experienced similar symptoms in the past. Historical: - Allergies: 19:41 Erythromycin; mg2 19:41 Reglan; mg2 19:41 Rocephin; mg2 - Home Meds: 19:41 Creon Oral [Active]; losartan 50 mg Oral tab 1 tab once daily [Active]; Vitamin D Oral mg2 78437 unit daily [Active]; - PMHx: 19:41 Hyperlipidemia; Hypertension; pancreatic cancer; mg2 - PSHx: 19:41 Hysterectomy; mg2 - Immunization history:: Flu vaccine is up to date. - Social history:: Smoking status: Patient denies any tobacco usage or history of. Patient/guardian denies using alcohol, street drugs, IV drugs. ROS: 20:03 Constitutional: Negative for fever, chills, and weight loss, Eyes: Negative for injury, sid pain, redness, and discharge, ENT: Negative for injury, pain, and discharge, Neck: Negative for injury, pain, and swelling, Cardiovascular: Negative for chest pain, palpitations, and edema, Respiratory: Negative for shortness of breath, cough, wheezing, and pleuritic chest pain, Abdomen/GI: Negative for abdominal pain, nausea, vomiting, diarrhea, and constipation, Back: Negative for injury and pain, : Negative for injury, bleeding, discharge, and swelling, MS/Extremity: Negative for injury and deformity, Skin: Negative for injury, rash, and discoloration, Psych: Negative for depression, anxiety, suicide ideation, homicidal ideation, and hallucinations, Allergy/Immunology: Negative for hives, rash, and allergies, Endocrine: Negative for neck swelling, polydipsia, polyuria, polyphagia, and marked weight changes, Hematologic/Lymphatic: Negative for swollen nodes, abnormal bleeding, and unusual bruising. 20:03 Neuro: Positive for headache. Exam: 20:03 Constitutional: This is a well developed, well nourished patient who is awake, alert, sid and in no acute distress. Head/Face: Normocephalic, atraumatic. Eyes: Pupils equal round and reactive to light, extra-ocular motions intact. Lids and lashes normal. Conjunctiva and sclera are non-icteric and not injected. Cornea within normal limits. Periorbital areas with no swelling, redness, or edema. ENT: Nares patent. No nasal discharge, no septal abnormalities noted. Tympanic membranes are normal and external auditory canals are clear. Oropharynx with no redness, swelling, or masses, exudates, or evidence of obstruction, uvula midline. Mucous membranes moist. Neck: Trachea midline, no thyromegaly or masses palpated, and no cervical lymphadenopathy. Supple, full range of motion without nuchal rigidity, or vertebral point tenderness. No Meningismus. Chest/axilla: Normal chest wall appearance and motion. Nontender with no deformity. No lesions are appreciated. Cardiovascular: Regular rate and rhythm with a normal S1 and S2. No gallops, murmurs, or rubs. Normal PMI, no JVD. No pulse deficits. Respiratory: Lungs have equal breath sounds bilaterally, clear to auscultation and percussion. No rales, rhonchi or wheezes noted. No increased work of breathing, no retractions or nasal flaring. Abdomen/GI: Soft, non-tender, with normal bowel sounds. No distension or tympany. No guarding or rebound. No evidence of tenderness throughout. Back: No spinal tenderness. No costovertebral tenderness. Full range of motion. Skin: Warm, dry with normal turgor. Normal color with no rashes, no lesions, and no evidence of cellulitis. MS/ Extremity: Pulses equal, no cyanosis. Neurovascular intact. Full, normal range of motion. Neuro: Awake and alert, GCS 15, oriented to person, place, time, and situation. Cranial nerves II-XII grossly intact. Motor strength 5/5 in all extremities. Sensory grossly intact. Cerebellar exam normal. Normal gait. Psych: Awake, alert, with orientation to person, place and time. Behavior, mood, and affect are within normal limits. 20:03 Musculoskeletal/extremity: DVT Exam: No signs of deep vein thrombosis. no pain, no swelling, no tenderness, negative Homans' sign noted on exam, no appreciated bluish discoloration, no erythema, no increased warmth. 20:27 ECG was reviewed by the Attending Physician. [facility] Vital Signs: 19:37 BP 187 / 92; Pulse 94; Resp 18; Temp 97.9; Pulse Ox 100% on R/A; Weight 48.53 kg; mg2 Height 5 ft. 1 in. (154.94 cm); 20:38 BP 165 / 89; Pulse 71; Resp 18; Pulse Ox 99% on R/A; mg2 21:24 BP 146 / 76; Pulse 70; Resp 18; Pulse Ox 100% on R/A; mg2 19:37 Body Mass Index 20.22 (48.53 kg, 154.94 cm) mg2 [place] Coma Score: 20:04 Eye Response: spontaneous(4). Verbal Response: oriented(5). Motor Response: obeys [facility] commands(6). Total: 15. MDM: 19:33 Patient medically screened. sid 20:04 Differential diagnosis: cluster headache, cerebral vascular accident, hypertensive sid crisis, Malignant HTN, CVA, intracerebral hemorrhage, hypertensive headache. Data reviewed: vital signs, nurses notes, lab test result(s), EKG, radiologic studies, CT scan, plain films. Data interpreted: Pulse oximetry: on room air is 100 %. Test interpretation: by ED physician or midlevel provider: ECG, plain radiologic studies. Counseling: I had a detailed discussion with the patient and/or guardian regarding: the historical points, exam findings, and any diagnostic results supporting the discharge/admit diagnosis, the presence of at least one elevated blood pressure reading (>120/80) during this emergency department visit, lab results, radiology results. 07/15 19:53 Order name: Basic Metabolic Panel [facility] 07/15 19:53 Order name: CBC with Diff [facility] 07/15 19:53 Order name: LFT's; Complete Time: 21:00 [facility] 07/15 19:53 Order name: Magnesium; Complete Time: 21:00 [facility] 07/15 19:53 Order name: NT PRO-BNP; Complete Time: 21:00 [facility] 07/15 19:53 Order name: Troponin (emerg Dept Use Only); Complete Time: 21:00 [facility] 07/15 19:53 Order name: XRAY Chest (1 view); Complete Time: 21:12 [facility] 07/15 19:53 Order name: CT Head Brain wo Cont; Complete Time: 21:12 [facility] 07/15 19:54 Order name: Basic Metabolic Panel; Complete Time: 21:00 [facility] 07/15 19:54 Order name: CBC with Automated Diff; Complete Time: 21:00 [facility] 07/15 21:13 Order name: Urine Dipstick--Ancillary (enter results) 07/15 19:53 Order name: EKG; Complete Time: 19:54 [facility] 07/15 19:53 Order name: Cardiac monitoring; Complete Time: 19:58 [facility] 07/15 19:53 Order name: EKG - Nurse/Tech; Complete Time: 19:55 [facility] 07/15 19:53 Order name: IV Saline Lock; Complete Time: 19:58 [facility] 07/15 19:53 Order name: Labs collected and sent; Complete Time: 19:58 [facility] 07/15 19:53 Order name: O2 Per Protocol; Complete Time: 19:55 [facility] 07/15 19:53 Order name: O2 Sat Monitoring; Complete Time: 19:55 [facility] 07/15 19:53 Order name: Urine Dipstick-Ancillary (obtain specimen); Complete Time: 20:23 sid EC:27 Rate is 20 beats/min. Rhythm is regular. QRS [place] is Normal. OR interval is normal. QRS sid interval is normal. QT interval is normal. No Q waves. T waves are Normal. No ST changes noted. Clinical impression: Normal ECG and No evidence of ischemia. Interpreted by me. Reviewed by me. Administered Medications: 20:02 Drug: Tylenol 650 mg Route: PO; mg2 20:02 Drug: Hydrochlorothiazide 12.5 mg Route: PO; mg2 21:24 Drug: Potassium Effervescent Tablet 25 mEq Route: PO; mg2 Disposition: 07/15/20 21:13 Discharged to Home. Impression: Essential (primary) hypertension, Hypokalemia. - Condition is Stable. - Discharge Instructions: Potassium Content of Foods, Hypertension, Hypertension, Dkzl-gi-Ricv, How to Take Your Blood Pressure, Yfqp-ds-Smke, Aspirin and Your Heart, Hypokalemia, Managing Your Hypertension. - Prescriptions for Potassium Chloride 20 meq Oral Packet - take 1 packet by ORAL route once daily 1 packet in 6 (six) ounces of water or juice; Take after meal; 20 packet. losartan- hydrochlorothiazide 50-12.5 mg Oral tablet - take 1 tablet by ORAL route once daily; 20 tablet. - Medication Reconciliation Form, Thank You Letter, Antibiotic Education, Prescription Opioid Use form. - Follow up: Private Physician; When: 2 - 3 days; Reason: Recheck today's complaints, Continuance of care, Re-evaluation by your physician. Follow up: Ayden Hagan; When: 2 - 3 days; Reason: Recheck today's complaints, Re-evaluation by your physician. - Problem is new. - Symptoms have improved. Signatures: Dispatcher [employer] EDMS Mychal Villarreal MD MD cha Gardose, Michele, RN RN mg2 Corrections: (The following items were deleted from the chart) 21:34 21:13 07/15/2020 21:13 Discharged to Home. Impression: Essential (primary) mg2 hypertension; Hypokalemia. Condition is Stable. Discharge Instructions: Hypertension, Hypertension, Sglk-aa-Vsoz, How to Take Your Blood Pressure, Qtzt-qy-Lqrk, Aspirin and Your Heart, Managing Your Hypertension. Prescriptions for Hyzaar 50-12.5 mg Oral tablet - take 1 tablet by ORAL route once daily; 20 tablet. and Forms are Medication Reconciliation Form, Thank You Letter, Antibiotic Education, Prescription Opioid Use. Follow up: Private Physician; When: 2 - 3 days; Reason: Recheck today's complaints, Continuance of care, Re-evaluation by your physician. Follow up: Adyen Hagan; When: 2 - 3 days; Reason: Recheck today's complaints, Re-evaluation by your physician. Problem is new. Symptoms have improved. sid
[2020-07-15 21:26] LABS: Urine Blood NEGATIVE (NEG); Urine Glucose NEGATIVE (NEG); Urine Protein NEGATIVE (NEG); Urine Specific Gravity 1.015 (1.005-1.030); Urine pH 6.5 (5.0-7.0)
[2020-07-15] MEDS ORDERED: POTASSIUM 25 MEQ EFFERV TAB ONE (21:30)
[2020-07-15 21:43] VITALS: TEMP 97.9
[2020-07-15 21:46] VITALS: BP 146/76; O2SAT 100
== END 2020-07-15 21:34 | disposition home or self-care (01) ==
LOC: ER 19:27
DX: I10 Essential (primary) hypertension (principal); E87.6 Hypokalemia; E78.5 Hyperlipidemia, unspecified; Z85.07 Personal history of malignant neoplasm of pancreas; Z88.3 Allergy status to other anti-infective agents; Z88.1 Allergy status to other antibiotic agents
CPT/HCPCS: 36415; 70450; 71045; 80048; 80076; 81003; 83735; 83880; 84484; 85025; 93005; 99284

== ENCOUNTER 2020-09-14 18:15 | Emergency (ER) | payer OTHER ==
--- OUTSIDE RECORDS SUMMARY | 2020-09-14 18:18 | XMS REPORT | Continuity of Care Document ---
:1955 Author Organization [facility] Care Team Providers Name Role Phone [facility] Unavailable Un available Problems Problem Status Onset Classification Date Comments Sourc e Date Reported Postmenopausal Active 08/04/2013 [facility] Vaginitis Dyspareunia Active 08/04/2013 [facility] Vaginitis Active 08/04/2013 [facility] Medications Medication Details Route Status Patient Ordering Order Source Instructions Provider Date Estring 2 MG ; Start Active [place] Vaginal Ring Date: [facility] 08/04/2013 ; End Date: (Active) Estrace 0.1 ; Start Active [place] MG/GM Vaginal Date: [facility] Cream 06/09/2013 ; End Date: (Active) Allergies, Adverse Reactions, Alerts Substance Category Reaction Severity Reaction Status Date Comments S ource type Reported Valium TABS drug drug Active [facility] allergy allergy [facility] Immunizations No Data [...] Location Location Encounter Encounter Reason Attending ADM ID Stat Source Details Type Number For Provider Date Date Visit AUDIT [id number] 07/14 [facility] AUDIT [id number] 08/04 [facility] Procedures No Data Provided for This Section Assessment and Plan No Data Provided for This Section Plan of Care No Data Provided for This Section Social History Social History Date Source Current Every Day Smoker 08/04/2013 [facility] (305.1); (Active) Marital History - Currently (Active) Family History Value Date Source Family history of Osteoporosis 08/04/2013 [facility] (V17.81); (Active) Family history of Ovarian Cancer (V16.41); (Active) Family history of Breast Cancer (V16.3); (Active) Family history of Breast Cancer 07/14/2013 [facility] (V16.3); (Active) Family history of Ovarian Cancer (V16.41); (Active) Family history of Osteoporosis (V17.81); (Active) Advance Directives Order Name Results Value Date Source Advance Directives Advance Directives No Advance 08/04/2013 [facility] Directives available. Advance Directives Advance Directives No Advance 07/14/2013 [facility] Directives available. Functional Status No Data Provided for This Section
--- OUTSIDE RECORDS SUMMARY | 2020-09-14 18:18 | XMS REPORT | Clinical Summary ---
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 Patient follows up with Dr. Mullen. Encounters Date Type Specialty Care Team Description 03/27/2020 Hospital Encounter Magnetic Resonance Homero Mullen Neuroendocrine tumor Imaging MD David of pancreas 3, [facility] Danis Mr 03/06/2020 Outside Orders Central Scheduling Homero Mullen Neur oendocrine tumor MD David of pancreas (Pr imary Dx) after 09/14/2019 Immunizations Name Administration Dates Next Due Hepatitis [...] (YEAR 2 or FIRST YEAR if no 01/29/2020 IPPE) INFLUENZA VACCINE (#1) 2020 BREAST CANCER SCREENING 01/26/2021 01/26/2019 Implants Implanted Type Area Flat Ironer Device Shelf Model / Identifier Expiration Serial / Date Lot Adhesion Barrier,Seprafilm 5x6 - [id number] Cement/F N/A: [employer] 01/26/2017 4301-02 / Implanted: Qty: 1 on 03/09/2015 by Homero Vieira MD at [facility] iller/Ad Abdomen PRODUCTS / hesive [id number] Adhesion Barrier,Seprafilm 5x6 - [id number] Cement/F N/A: [employer] 04/28/2017 4301-02 / Implanted: Qty: 1 on 03/09/2015 by Homero Vieira MD at [facility] iller/Ad Abdomen PRODUCTS / hesive [id number] Procedures Procedure Name Priority Date/Time Associated Diagnosis Comme nts MR ABDOMEN WITH & Routine 03/27/2020 11:59 Neuroendocrine tumo r of Results for this WITHOUT IV AM CDT pancreas procedure are i n CONTRAST the results section. POCT-CREATININE Routine 03/27/2020 10:21 Results for this AM CDT procedure are i n the results section. after 09/14/2019 Results MR abdomen without & with IV contrast (03/27/2020 11:59 AM CDT) Specimen Narrative Performed At FINAL REPORT [facility] MRI of the abdomen dated March 27, [...] Report Verified Date/Time: 03/28/2020 15:14:33 Reading Location: [facility] B1 C013Y CT Body R eading Room [...] Verified Date/Time: 03/28/2020 1 5:14:33 Reading Location: [facility] B1 C013Y CT Body R eading Room Performing Organization Address City/State/Zipcode Phone Number [facility] POC-Creatinine (03/27/2020 10:21 AM CDT) POC-Creatinine 0.6Comment: : 0.6 - 1.3 [facility] TESTED AT [facility] mg/dL [facility] [address] [facility] [address], [place] [facility] [id number]: Graduate Civil Engineer/Technicia n ID = [id number] for ANJANA RODRIGUEZ POC-EGFR 101 mL/min/1.73M2 [facility] Specimen Blood Performing Organization Address City/State/Zipcode Phone Number [facility] [address] [place] [address] CENTER after 09/14/2019 Insurance Payer Benefit Plan Subscriber ID Effective Phone Address Typ e / Group Dates AETNA - AETSIDDHARTH [id number] 2019-Pres [phone] [address] Maps MEDICARE MGD MEDICARE HMO ent [id number] [place] [address] AET[employer] - AETNA [id number] 2019-Pres [phone] [address] MEDICARE MGD MEDICARE HMO ent [id number] [place] [address] Advance Directives For more information, please contact: [phone] Code Status Date Activated Date Inactivated Comments [...]
--- OUTSIDE RECORDS SUMMARY | 2020-09-14 18:19 | XMS REPORT | Continuity of Care Document ---
:1955 Author Organization [facility] t Address [address] [place] [address] Dr. Resendez. [address] [place] [address] Care Team Providers Name Role Phone Avery [...] 00:00:00 - Medical MEDICARE HMO Center [id number] [address]Bswl Contracted Problems Condition Condition Condition Status Onset [...] [facility] liver liver 11-20 Assessmen Lu - enzymes enzymes 00:00: t & Plan: [...] n for now. Fatty Fatty Disease Active [facility] liver liver 11-20 [facility] - 00:00: Medical 00 [place] Age-relate Age-relate Disease Active [facility] d 11-20 [facility] - osteoporos osteoporos 00:00: Or dical is without is without 00 Ce nter current current pathologic pathologic al al fracture fracture Other Other Disease Active [facility] osteoporos osteoporos 11-20 Assessmen [facility] - is without is without 00:00: t & Plan: Medical current current 00 Patient Center pathologic pathologic takes al al vitamin fracture fracture D, calcium and Reclast. She follows up with endocrino logy clinic. Further managemen t by primary endocrino logist Immunity Immunity Disease Active Last [facility] t status status 2- Assessmen Lu - testing testing 00:00: t & Plan: [...] kes - n n 00:00: Medical 00 [place] Acute Acute Disease Active 2014-09 [facility] kidney kidney 10-17 [facility] - injury injury 00:00: Medical 00 [place] Intractabl Intractabl Disease Active C [facility] e vomiting e vomiting 06-04 kes - with with 00:00: Medical nausea, nausea, 00 Center vomiting vomiting of of unspecifie unspecifie d type d type Primary Primary Disease Active Last [facility] pancreatic pancreatic 03-09 [facility] neuroend neuroendoc 00:00: t & Plan: Medical rine tumor rine tumor 00 Pathology Center showed a [id number] well-diff erentiate d neuroendo crine tumor; G2, intermedi ate grade, T2N0M0, Stage 1B, S/p Whipple, last imaging was negative for recurrenc e or metastasi s. Patient follows up with Dr. Mullen. Postmenopa Problem Active 2013-08-04 M emoria usal 21:46:33 l Atrophic Sunny Vaginitis Postmenopa usal Atrophic Vaginitis Active 3 [facility] Dyspareuni Problem Active 2013-08-04 M emoria a 21:46:33 l [facility] Dyspareuni a Active 08/04/2013 [facility] Vaginitis Problem Active 2013-08-04 Me moria 21:46:33 l [facility] [place] Vaginitis Active 3 [facility] Allergies, Adverse Reactions, Alerts Allergy Allergy Status Severity Reaction(s) Onset Inactive Treating Comm ents Source Name Type Date Date Clinician Ceftriax Propensi Active Hives [facility] one ty to 6 [facility] - adverse 00:00: Medical reaction 00 [place] [facility] Erythrom Propensi Active 2014-[address] ycin ty to 10-18 [facility] - adverse 00:00: Medical reaction 00 [place] s Metoclop Drug Active [facility] St ramide Intolera 9-06 [facility] - Hcl nce 00:00: Medical 00 Center Valium Valium Active Memoria TABS TABS l [place] Diazepam Propensi Active [facility] ty to [facility] - adverse Medical reaction Center s Family History Family Member Diagnosis Comments Start Date Stop Date Source Natural brother Early [facility] Natural father COPD [facility] Natural father Vision loss [facility] Natural mother Arthritis [facility] Natural mother Hyperlipidemia [facility] Natural mother Hypertension [facility] Natural mother Miscarriages / [facility] - [facility] r Natural sister Cancer [facility] Natural sister Hyperlipidemia [facility] Unknown Family Family History 2013-07-14 2013-07-14 Memori al Member 20:47:19 20:47:19 [facility] Social History Social Habit Start Date Stop Date Quantity Comments Source Sex Assigned At [facility] Tobacco use and 2018-02-04 2018-02-04 Never used [facility] - exposure 00:00:00 00:00:00 [facility] Alcohol intake 2018-02-04 2018-02-04 Current [facility] es - 00:00:00 00:00:00 non-drinker of Medical nter alcohol (finding) Tobacco Comment 2015-02-15 2015-02-15 quit one year [facility] - 00:00:00 00:00:00 ago [facility] Social History 2013-08-04 [facility] 21:46:33 Smoking Status Start Date Stop Date Source Former smoker 2018-02-04 00:00:00 2018-02-04 00:00:00 [facility] Medications Ordered Filled Start Stop Current Ordering Indication Dosage Frequency Signature Comments Components Source Medication Medication Date Date Medication? Clinician (SIG) Name Name CREALEISHA Yes TAKE [address] 12,000-38,0 1-22 CAPSULE [facility] - 00 -60,000 00:00: THREE Medica l unit CpDR 00 TIMES A [place] capsule DAY WITH EACH MEAL losartan Yes 100mg QD Take [address] (COZAAR) 1-19 mg by [facility] - 100 MG 00:00: mouth Medical tablet 00 daily. [facility] Yes 3.75g Take 3.[address] 3.75 gram 6-28 g by [facility] - PwPk 00:00: mouth. Medical 00 [place] Estring 2 2012-09 Yes ; Start Memor ia MG Vaginal 10-04 Date: l Ring 06:00: 08/04/2013 [facility] 00 ; End Date: (Active) Estrace 0.1 [...] WITH & 2020-03-27 11:59:[address] [facility] - WITHOUT IV CONTRAST Medical Cent er POCT-CREATININE 2020-03-27 10:21:00 Sebas Homero Hernandez STEFANI Zuleta t Madhu - [facility] Plan of Care Planned Activity Planned Date Details Comments Source Future Scheduled 2021-01-[address] [facility] - Test 00:00:00 malignant neoplasm Medical C enter of breast (procedure) [code = 958498878] Future Scheduled 2020-05-[address] [facility] - Test 00:00:00 (#1) [code = [facility] INFLUENZA VACCINE (#1)] Future Scheduled 2020-01-[address] [facility] - Test 00:00:00 WELLNESS (YEAR 2 or [facility] FIRST YEAR if no IPPE) [code = MEDICARE ANNUAL WELLNESS (YEAR 2 or FIRST YEAR if no IPPE)] Future Scheduled [address] [facility] - Test 00:00:00 (procedure) [code = [facility] 46392712] Future Scheduled [address] [facility] - Test 00:00:00 malignant neoplasm Medical C enter of cervix (procedure) [code = 204388307] Future Scheduled [address] [facility] - Test 00:00:00 malignant neoplasm Medical C enter of colon (procedure) [code = 281889063] Encounters Start End Encounter Admission Attending Care Care Encounter Source Date/Time Date/Time Type Type Clinicians Facility Department ID 2020-03-27 2020-03-27 Office TADEO Mullen [id number] 12:07:20 13:50:30 Visit Homero Moscoso [id number] 2013-08-04 2013-08-04 Outpatient MALVIN COOMBS [id number] 15:46:33 15:46:33 2013-07-14 2013-07-14 Outpatient MALVIN COOMBS [id number] 15:47:19 15:47:19 Results Test Description Test Test Results Result Source Time Comments Comments MR, ABDOMEN, 2020-06- Referring: FINAL REPORT PATIENT ID: WITHOUT / WITH 30 Dr. Valentin [id number] MRI of the IV CONTRAST 15:14:00 Regina abdomen dated March 27, 2020 COMPARISON: CT [...] MDReport Verified Date/Time: 03/28/2020 15:14:33 Reading Location: [facility] C013Y CT Body Reading Room abdomen 2020-02- Interface, External Ris In [facility] without & with 30 - 03/28/2020 3:16 PM [facility] - IV contrast 15:14:00 CDTFINAL REPORT PATIENT Medical ID: [id number] MRI of the Center abdomen dated March [...] MDReport Verified Date/Time: 03/28/2020 15:14:33 Reading Location: [facility] B1 C013Y CT Body Reading Room -Creatinine 2020-03-27 10:35:00 Test Item Value Reference Range Interpretation Comme nts POC-Creatinine (test code = 0.6 mg/dL 0.6-1.3 : TESTED AT [facility] [address]) [facility] [address]: Packaging Mechanic/Techni parag ID = [id number] for Kain RODRIGUEZ ERONICA POC-EGFR (test code = 1860) 101 mL/min/1.73M2 [id number] 10:35:00 Test Item Value Reference Range Interpretation Comments POC-CREATININE 0.6 mg/dL 0.6-1.3 : TESTED AT [facility] (test [address] [facility] E [facility] code = 1859) [facility] 7 3495: Packaging Mechanic/Techni parag ID = [id number] for JENNIFER BRYAN MUNSON POC-EGFR 101 mL/min/1.73M2 ([facility]) (test code = 1860) CT, ABDOMEN, WITHOUT / WITH IV [id number] 15:03:00Referring: Dr. Homero Church REPORT CT scan of the abdomen and [...] Mullen at the time of dictation. Signed: Parviz Garza MDReport Verified Date/Time: 03/05/2019 15:03:16 Reading Location: [address] Ortho Consult Reading Room [id number] 11:43:00 Test Item Value Reference Range Interpretation Comments POC-CREATININE 0.5 mg/dL 0.6-1.3 L TESTED AT [facility] [address] ([facility]) (test [facility] G A code = 1859) [facility] 7703 0 POC-EGFR 125 mL/min/1.73M2 ([facility]) (test code = 1860) CT, ABDOMEN, [id number] 11:02:00Referring: Dr. Homero MullenFINAL REPORT CT OF [...] MDReport Verified Date/Time: 04/22/2018 11:02:01 Reading Location: [address] Radiology Reading Room [id number] 08:58:00 Test Item Value Reference Range Interpretation Comments POC-CREATININE 0.5 mg/dL 0.6-1.3 L TESTED AT [facility] ([facility]) (test [address] [facility] code = 1859) [facility] 7703 0 POC-EGFR 125 mL/min/1.73M2 ([facility]) (test code = 1860) CHROMOGRANIN [id number] 10:34:00 Test Item Value Reference Range Interpretation Comments SCAN RESULT (test code = 2679289) ANTI-NUCLEAR ANTIBODY (FRENCH)2017-11-22 10:58:00 Test Item Value Reference Range Interpretation Comments ANTI-NUCLEAR ANTIBODY (FRENCH) ([facility]) Negative Negative (test code = 418) [id number] 15:08:00 Test Item Value Reference Range Interpretation Comments FERRITIN ([facility]) (test code = 361) 21 ng/mL 5-275 HEPATITIS A ANTIBODY, [id number] 14:16:00 Test Item Value Reference Range Interpretation Comments HEPATITIS A IGG ANTIBODY (BEAKER) Reactive Nonreactive A (test code = 2797) HEPATITIS B SURFACE [id number] 14:16:00 Test Item Value Reference Range Interpretation Comments HEPATITIS B SURFACE ANTIBODY < mIU/mL <8.0 (BEAKER) (test code = 647) HEPATITIS C [id number] 14:15:00 Test Item Value Reference Range Interpretation Comments HEPATITIS C ANTIBODY (BEAKER) Nonreactive Nonreactive (test code = 367) HEPATITIS B SURFACE [id number] 14:10:00 Test Item Value Reference Range Interpretation Comments HEPATITIS B SURFACE ANTIGEN (2) Nonreactive Nonreactive (BEAKER) (test code = 2585) HEPATITIS B CORE ANTIBODY, [id number] 14:10:00 Test Item Value Reference Range Interpretation Comments HEPATITIS B CORE TOTAL ANTIBODY Nonreactive Nonreactive (BEAKER) (test code = 497) [id number] 13:59:00 Test Item Value Reference Range Interpretation [...] L (test code = 2590) COMPREHENSIVE METABOLIC [id number] 13:50:00 Test Item Value Reference Range Interpretation [...] NOT APPLICABLE FOR DIALYSIS PATIEN TS. BILIRUBIN, [id number] 13:50:00 Test Item Value Reference Range Interpretation Comments BILIRUBIN DIRECT (BEAKER) (test 0.1 mg/dL 0.1-0.5 code = 706) U/S, ABDOMINAL, [id number] 13:42:00Referring: Dr. Homero MullenINCREID ELASTOGRAPHYReason for Exam:->Elevated [...] Normal-mild fibrosis value on elastography. Signed: Sowmya Britoeport Verified Date/Time: 11/20/2017 13:42:16 Reading Location: [address] Radiology Reading Room CBC W/PLT COUNT & AUTO [id number] 13:07:00 Test Item Value Reference Range Interpretation [...] 2801) TUMOR LOCAL, WB, 2 OR MORE [id number] 14:21:00neuroendocrine tumorFINAL REPORT PROCEDURE: OCTREOSCAN - Tumor Localization CPT CODE: 97534, 74538, 21290 INDICATION: Neuroendocrine tumor localization PROTOCOL: 6.28 mCi [...] MDReport Verified Date/Time: 08/27/2017 14:21:08 Reading Location: [address] Reading Room 02:21 PMCT, CHEST, WITH [id number] 15:02:00FINAL REPORT Exam: CT chest with contrast, [...] chronic small airways disease/atypical pneumonia. Signed: Carlos Dias MDReport Verified Date/Time: 08/26/2017 15:02:31Reading Location: [address], ABDOMEN 2017-08-26 15:02:00FINAL REPORT Exam: CT [...] small airwa ys disease/atypical pneumonia. Signed: Carlos Diaseport Verified Date/Time: 08/26/2017 15:02:31Reading Location: [address] [id number] 10:53:00 Test Item Value Reference Range Interpretation Comments POC-CREATININE 0.5 mg/dL 0.6-1.3 L TESTED AT [place] [address] ([facility]) (test [place] code = 1859) [address] POC-EGFR ([facility]) 125 mL/min/1.73M2 (test code = 1860) CHROMOGRANIN [id number] 10:19:00 Test Item Value Reference Range Interpretation Comments SCAN RESULT (test code = 9209419) [id number] 09:50:00 Test Item Value Reference Range Interpretation Comments POC-CREATININE 0.5 mg/dL 0.6-1.3 L TESTED AT [place] [id number] ([facility]) (test [address] code = 1859) [address] POC-EGFR ([facility]) 125 mL/min/1.73M2 (test code = 1860)
--- NOTE | 2020-09-14 19:35 | RAD REPORT ---
EXAM DESCRIPTION: CT - Head Brain Wo Cont - 09/14/2020 7:27 pm CLINICAL HISTORY: HEADACHE, intermittent left arm numbness, hypertension COMPARISON: Head Brain Wo Cont dated 07/15/2020 TECHNIQUE: Axial 5 mm thick images of the head were obtained without IV contrast. All CT scans are performed using dose optimization technique as appropriate and may include automated exposure control or mA/KV adjustment according to patient size. FINDINGS: No intracranial hemorrhage, mass, edema or shift of mid-line structures. No acute infarcti on changes seen. No abnormal extra-axial fluid collections. Ventricles are normal. Mastoid air cells and visualized portions of the paranasal sinuses are clear. No acute bony findings. No significant changes from the comparison study. IMPRESSION: Negative non-contrast CT head examination.
[2020-09-14 20:39] LABS: Hematocrit 37.8 % (36.0-45.0); Lymphocytes % 23.3 % (15.3-44.8); MPV 11.1 fL (7.6-11.3); RBC Red Blood Cell Count 4.41 M/uL (3.86-4.86)
[2020-09-14] MEDS ORDERED: dexAMETHasone 10 MG/ML VIAL ONE (20:47)
[2020-09-14] MEDS ORDERED: DIPHENHYDRAMINE 50 MG/ML VIAL ONE (20:47)
[2020-09-14] MEDS ORDERED: NA CHLORIDE 0.9% 500 ML ONE (20:47)
[2020-09-14 21:00] LABS: ALT/SGPT 41 U/L (12-78); AST/SGOT 31 U/L (15-37); Albumin 4.2 g/dL (3.4-5.0); Alkaline Phosphatase 92 U/L (45-117); BUN Blood Urea Nitrogen 21 mg/dL (7-18); Bicarbonate 26 mmol/L (21-32); Bilirubin Direct < 0.1 mg/dL (0-0.2); Bilirubin Total 0.4 mg/dL (0.2-1.0); Glucose Level 95 mg/dL (74-106); Magnesium 2.3 mg/dL (1.8-2.4); NT PRO-BNP 118 pg/mL (<125); Potassium 3.8 mmol/L (3.5-5.1); Protein, Total 8.2 g/dL (6.4-8.2); Sodium Level 143 mmol/L (136-145); Troponin (Emerg Dept Use Only) < 0.02 ng/mL (0.0-0.045)
--- NOTE | 2020-09-14 21:06 | RAD REPORT ---
EXAM DESCRIPTION: RAD - Chest Single View - 09/14/2020 8:35 pm CLINICAL HISTORY: CHEST PAIN COMPARISON: Portable July 15 TECHNIQUE: AP portable chest image was obtained 09/14/2020 8:35 pm . FINDINGS: No dense mass or consolidation. Interstitial and patchy alveolar opacities are present. Th e this is mostly a chronic pattern. No failure or volume overload. Acute viral infiltrate is not excl uded. Heart and vasculature are normal. No measurable pleural effusion and no pneumothorax. No acute bony abnormality seen. No acute aortic findings suspected. IMPRESSION: Interstitial and patchy alveolar opacities in the lung gunderson not substantially differen t. This is mostly chronic. Superimposed mild acute viral infiltrate cannot be excluded. COVID-19 pneumonia is possible if there are matching clinical findings.
--- NOTE | 2020-09-14 22:33 | EDPHYS ---
Physician Documentation [facility] Name: Tabitha Odom Age: 64 yrs Sex: Female : 1955 Arrival Date: 09/14/2020 Time: 18:17 Bed 19 Private MD: Laisha Lock K ED Physician Mychal Villarreal HPI: 09/14 20:19 This 64 yrs old Female presents to ER via Ambulatory with complaints of jmm Headache > 24hrs Old, Nausea, Blood Pressure Problem, Numbness. 20:19 The patient complains of pain to the forehead, left roman catholic, left frontal area, left jmm side of the back of head, left temporal area, left occipital area, right frontal area, right side of the back of head, right temporal area, right occipital area and face. Onset: The symptoms/episode began/occurred just prior to arrival, 1 month(s) ago. Associated signs and symptoms: Pertinent negatives: fever, neck stiffness, paresthesias, Photophobia. This is a 64 year old female with a history of hlp, htn, that presents to the ED with a generalized headache which has been on and off for the past month. patient has seen her pcp for this. denies fever. complains of intermittent episodes of left arm numbness and left leg numbness which lasts for aprox 2 to 3 minutes at a time. . Historical: - Allergies: 18:29 Erythromycin; jl7 18:29 Reglan; jl7 18:29 Rocephin; jl7 - Home Meds: 18:29 Creon Oral [Active]; losartan 50 mg Oral tab 1 tab once daily [Active]; Vitamin D Oral jl7 30191 unit [Active]; Crestor oral oral [Active]; - PMHx: 18:29 Hyperlipidemia; Hypertension; pancreatic cancer; jl7 - PSHx: 18:29 Hysterectomy; jl7 - Immunization history:: Adult Immunizations up to date. - Social history:: Smoking status: Patient denies any tobacco usage or history of. ROS: 20:19 Constitutional: Negative for fever, chills, and weight loss, Cardiovascular: Negative jmm for chest pain, palpitations, and edema, Respiratory: Negative for shortness of breath, cough, wheezing, and pleuritic chest pain, Abdomen/GI: Negative for abdominal pain, nausea, vomiting, diarrhea, and constipation. 20:19 Neuro: Positive for headache, numbness. 20:19 All other systems are negative. Exam: 20:19 Constitutional: This is a well developed, well nourished patient who is awake, alert, jmm and in no acute distress. Head/Face: atraumatic. Eyes: EOMI, no conjunctival erythema appreciated ENT: Moist Mucus Membranes Neck: Trachea midline, Supple Chest/axilla: Normal chest wall appearance and motion. Cardiovascular: Regular rate and rhythm. No edema appreciated Respiratory: Normal respirations, no respiratory distress appreciated Abdomen/GI: Non distended, soft Back: Normal ROM Skin: General appearance color normal MS/ Extremity: Moves all extremities, no obvious deformities appreciated, no edema noted to the lower extremities Neuro: Awake and alert, normal gait Psych: Behavior is normal, Mood is normal, Patient is cooperative and pleasant 20:47 ECG was reviewed by the Attending Physician. [facility] Vital Signs: 18:25 BP 185 / 108; Pulse 88; Resp 17; Temp 98.3; Pulse Ox 99% ; Weight 49.9 kg; Height 5 ft. jl7 (152.40 cm); Pain 6/10; 20:00 BP 167 / 92; Pulse 81; Resp 16 S; Pulse Ox 100% on R/A; ca1 20:52 BP 121 / 73; Pulse 84; Resp 16 S; Pulse Ox 99% on R/A; ca1 21:56 BP 148 / 83; Pulse 81; Resp 16 S; Pulse Ox 98% on R/A; ca1 18:25 Body Mass Index 21.48 (49.90 kg, 152.40 cm) jl7 MDM: 20:01 Patient medically screened. [facility] 22:31 Data reviewed: vital signs, nurses notes. Counseling: I had a detailed discussion with [facility] the patient and/or guardian regarding: the historical points, exam findings, and any diagnostic results supporting the discharge/admit diagnosis, lab results, radiology results, the need for outpatient follow up, to return to the emergency department if symptoms worsen or persist or if there are any questions or concerns that arise at home. ED course: MODI resolved. Advised to follow up with pcp neurology for reevaluation. Patient is otherwise given strict return precautions. Patient understood and agrees with the plan of care. . 09/14 20:05 Order name: Basic Metabolic Panel; Complete Time: 21:03 [facility] 09/14 20:05 Order name: CBC with Diff; Complete Time: 21:03 [facility] 20:05 Order name: LFT's; Complete Time: 21:03 [facility] 20:05 Order name: Magnesium; Complete Time: 21:03 [facility] 20:05 Order name: NT PRO-BNP; Complete Time: 21:03 [facility] 20:05 Order name: PT-INR; Complete Time: 21:03 [facility] 18:49 Order name: CT Head Brain wo Cont; Complete Time: 19:57 [facility] 20:05 Order name: Troponin (emerg Dept Use Only); Complete Time: 21:03 [facility] 20:05 Order name: XRAY Chest (1 view); Complete Time: 21:08 [facility] 21:16 Order name: Head Angio CT [facility] 21:16 Order name: Neck Angio CT [facility] 20:05 Order name: EKG; Complete Time: 20:06 [facility] 20:05 Order name: Cardiac monitoring; Complete Time: 20:37 [facility] 20:05 Order name: EKG - Nurse/Tech; Complete Time: 20:37 [facility] 20:05 Order name: IV Saline Lock; Complete Time: 20:25 [facility] 20:05 Order name: Labs collected and sent; Complete Time: 20:25 [facility] 20:05 Order name: O2 Per Protocol; Complete Time: 20:25 [facility] 20:05 Order name: O2 Sat Monitoring; Complete Time: 20:25 jm EC:47 Rate is 77 beats/min. Rhythm is regular. QRS Croghan is Normal. HI interval is normal. QRS jmm interval is normal. QT interval is normal. No Q waves. T waves are Normal. No ST changes noted. Reviewed by me. Administered Medications: 20:26 Drug: NS 0.9% 500 ml Route: IV; Rate: calculated rate; Site: right antecubital; ca1 21:30 Follow up: Response: No adverse reaction; IV Status: Completed infusion; IV Intake: ca1 500ml 20:27 Drug: Decadron - Dexamethasone 10 mg Route: IVP; Site: right antecubital; ca1 21:00 Follow up: Response: No adverse reaction ca1 20:32 Drug: diphenhydrAMINE 12.5 mg Route: IVP; Site: right antecubital; ca1 21:00 Follow up: Response: No adverse reaction ca1 Disposition: 09/15 07:45 Co-signature as Attending Physician, Mychal Villarreal MD I agree with the assessment and sid plan of care. Disposition: 09/14/20 22:33 Discharged to Home. Impression: Headache. - Condition is Stable. - Discharge Instructions: General Headache Without Cause. - Medication Reconciliation Form, Thank You Letter, Antibiotic Education, Prescription Opioid Use form. - Follow up: Private Physician; When: 2 - 3 days; Reason: Recheck today's complaints, Continuance of care, Re-evaluation by your physician. Signatures: Dispatcher [employer] EDLoreto Lugo RN RN aj1 Mychal Villarreal MD MD cha Mickail, Joel, PA PA jmm Leal, Jahala, RN RN jl7 Alana Branch RN RN ca1 Corrections: (The following items were deleted from the chart) 09/14 23:19 22:33 09/14/2020 22:33 Discharged to Home. Impression: Headache. Condition is Stable. aj1 Forms are Medication Reconciliation Form, Thank You Letter, Antibiotic Education, Prescription Opioid Use. Follow up: Private Physician; When: 2 - 3 days; Reason: Recheck today's complaints, Continuance of care, Re-evaluation by your physician. avni
--- NOTE | 2020-09-14 22:33 | ER ---
Nurse's Notes [facility] Name: Tabitha Odom Age: 64 yrs Sex: Female : 1955 Arrival Date: 09/14/2020 Time: 18: Bed 19 Private MD: Laisha Lock K Diagnosis: Headache Presentation: 09/14 18:25 Chief complaint: Patient states: MODI, intermittent left arm numbness, high BP, nausea x jl7 1 month, PCP fired me because I'm going be 65 and I have a DrRene appointment with Dr. Hernandez on Friday. Coronavirus screen: Client denies travel out of the [place] in the last 14 days. At this time, the client does not indicate any symptoms associated with coronavirus-19. Ebola Screen: No symptoms or risks identified at this time. Initial Sepsis Screen: Does the patient meet any 2 criteria? No. Patient's initial sepsis screen is negative. Does the patient have a suspected source of infection? No. Patient's initial sepsis screen is negative. Risk Assessment: Do you want to hurt yourself or someone else? Patient reports no desire to harm self or others. Onset of symptoms was August 13, 2020. 18:25 Method Of Arrival: Ambulatory [facility] 18:25 Acuity: YASEMIN 3 jl7 Triage Assessment: 18:29 Headache History: The patient has had previous headaches and this one is similar to jl7 previous episodes. General: Appears in no apparent distress. uncomfortable, Behavior is calm, cooperative, appropriate for age. Pain: Complains of pain in MODI Pain currently is 6 out of 10 on a pain scale. Pain began 1 month ago Also complains of nausea. Neuro: Level of Consciousness is awake, alert, obeys commands, Oriented to person, place, time, situation. Historical: - Allergies: 18:29 Erythromycin; jl7 18:29 Reglan; jl7 18:29 Rocephin; jl7 - Home Meds: 18:29 Creon Oral [Active]; losartan 50 mg Oral tab 1 tab once daily [Active]; Vitamin D Oral jl7 [id number] unit [Active]; Crestor oral oral [Active]; - PMHx: 18:29 Hyperlipidemia; Hypertension; pancreatic cancer; jl7 - PSHx: 18:29 Hysterectomy; jl7 - Immunization history:: Adult Immunizations up to date. - Social history:: Smoking status: Patient denies any tobacco usage or history of. Screenin:00 Abuse screen: Denies threats or abuse. Denies injuries from another. Nutritional ca1 screening: No deficits noted. Tuberculosis screening: No symptoms or risk factors identified. Fall Risk IV access (20 points). Assessment: 20:00 General: Appears in no apparent distress. comfortable, Behavior is calm, cooperative, ca1 appropriate for age. Pain: Complains of pain in right occipital area and right temporal area and right side of the back of head and right frontal area Pain currently is 5 out of 10 on a pain scale. Pain began 2 - 3 months, worst yesterday Is intermittent. Neuro: Level of Consciousness is awake, alert, obeys commands, Oriented to person, place, time, situation, Reports dizziness. Cardiovascular: Heart tones S1 S2 present Capillary refill < 3 seconds Patient's skin is warm and dry. Rhythm is sinus rhythm. Respiratory: Airway is patent Respiratory effort is even, unlabored, Respiratory pattern is regular, symmetrical, Breath sounds are clear bilaterally. GI: Abdomen is flat, non-distended, Bowel sounds present X 4 quads. Abd is soft and non tender X 4 quads. GI: Reports nausea. : No signs and/or symptoms were reported regarding the genitourinary system. EENT: No signs and/or symptoms were reported regarding the EENT system. Derm: Skin is intact, is healthy with good turgor, Skin is pink, warm \T\ dry. Musculoskeletal: Circulation, motion, and sensation intact. Capillary refill < 3 seconds. 20:52 Reassessment: Patient appears in no apparent distress at this time. Patient and/or ca1 family updated on plan of care and expected duration. Pain level reassessed. Patient is alert, oriented x 3, equal unlabored respirations, skin warm/dry/pink. 21:56 Reassessment: Patient appears in no apparent distress at this time. Patient and/or ca1 family updated on plan of care and expected duration. Pain level reassessed. Patient is alert, oriented x 3, equal unlabored respirations, skin warm/dry/pink. Vital Signs: 18:25 BP 185 / 108; Pulse 88; Resp 17; Temp 98.3; Pulse Ox 99% ; Weight 49.9 kg; Height 5 ft. jl7 (152.40 cm); Pain 6/10; 20:00 BP 167 / 92; Pulse 81; Resp 16 S; Pulse Ox 100% on R/A; ca1 20:52 BP 121 / 73; Pulse 84; Resp 16 S; Pulse Ox 99% on R/A; ca1 21:56 BP 148 / 83; Pulse 81; Resp 16 S; Pulse Ox 98% on R/A; ca1 18:25 Body Mass Index 21.48 (49.90 kg, 152.40 cm) jl7 ED Course: 18:17 Patient arrived in ED. ag5 18:18 Laisha Lock MD is Private Physician. ag5 18:28 Triage completed. jl7 18:29 Arm band placed on right wrist. jl7 19:27 CT Head Brain wo Cont In Process Unspecified. EDMS 19:43 Davy Banks PA is PHCP. jmm 19:43 Mychal Villarreal MD is Attending Physician. jmm 19:59 Alana Branch RN is Primary Nurse. ca1 20:00 Patient has correct armband on for positive identification. Placed in gown. Bed in low ca1 position. Call light in reach. Side rails up X2. child monitor on. Pulse ox on. NIBP on. Warm blanket given. 20:20 Initial lab(s) drawn, by me, sent to lab. Inserted saline lock: 20 gauge in right ca1 antecubital area, using aseptic technique. Blood collected. 20:20 No provider procedures requiring assistance completed. ca1 20:36 XRAY Chest (1 view) In Process Unspecified. EDMS 21:[address] In Process Unspecified. EDMS 21:[address] In Process Unspecified. EDMS 22:23 Report given to GIL Dangelo. ca1 23:17 IV discontinued, intact, bleeding controlled, No redness/swelling at site. Pressure aj1 dressing applied. Administered Medications: 20:26 Drug: NS 0.9% 500 ml Route: IV; Rate: calculated rate; Site: right antecubital; ca1 21:30 Follow up: Response: No adverse reaction; IV Status: Completed infusion; IV Intake: ca1 500ml 20:27 Drug: Decadron - Dexamethasone 10 mg Route: IVP; Site: right antecubital; ca1 21:00 Follow up: Response: No adverse reaction ca1 20:32 Drug: diphenhydrAMINE 12.5 mg Route: IVP; Site: right antecubital; ca1 21:00 Follow up: Response: No adverse reaction ca1 Intake: 21:30 IV: 500ml; Total: 500ml. ca1 Outcome: 22:33 Discharge ordered by . avni 23:17 Discharged to home ambulatory, with family. aj1 23:17 Condition: good 23:17 Discharge instructions given to patient, family, Instructed on discharge instructions, follow up and referral plans. Demonstrated understanding of instructions, follow-up care. 23:19 Patient left the ED. aj1 Signatures: Dispatcher [employer] EDMS Loreto Bermudez RN RN aj1 Davy Banks PA PA jmm Leal, Jahala, RN RN jl7 Alana Branch RN RN ca1 Félix Vinson ag5
--- NOTE | 2020-09-16 14:02 | EKG ---
Test Date: 2020-09-14 Test Time: 20:38:01 Recessing Machine Operator: JASON MEASUREMENT RESULTS: Intervals: Rate: 78 SD: 134 QRSD: 82 QT: 370 QTc: 421 Hardin: P: 73 SD: 134 QRS: 85 T: 69 INTERPRETIVE STATEMENTS: Normal sinus rhythm Normal ECG Compared to ECG 07/15/2020 19:53:01 No significant changes Electronically Signed On 09-16-20 13:58:48 [employer]OR [employer] by Ayden Hagan
--- NOTE | 2020-09-17 13:24 | RAD REPORT ---
EXAM DESCRIPTION: CT - Neck Angio - 09/15/2020 6:44 am CLINICAL HISTORY: 64-year-old female with headache. Intermittent LEFT arm numbness, high blood press ure and nausea. COMPARISON: None. TECHNIQUE: CT angiography of the head and neck following dynamic bolus of intravenous contrast. 3D r eformatted reconstructions were performed on an independent workstation. This exam was performed acco rding to our departmental dose optimization program which includes use of automated exposure control, adjustment of the mA and/or kV according to patient size and/or use of iterative reconstruction tech nique. FINDINGS: CTA neck: Patent flow opacification of the aortic arch origin right brachiocephalic, left common carotid, and l eft subclavian arteries. The bilateral vertebral artery origins are normal. The RIGHT vertebral arter y terminates in PICA distribution. Patent flow opacification through the bilateral common carotid arteries, carotid bifurcations, cervic al internal/external carotid, and vertebral arteries. CTA brain: Patent flow opacification through anterior circulation (bilateral petrous/cavernous/supraclinoid inte rnal carotid arteries, anterior and middle cerebral arteries), posterior circulation (vertebral-basil ar, posterior-inferior cerebellar, anterior-inferior cerebellar, superior cerebellar, and posterior c erebral arteries), and distal intracranial vasculature. Patent flow opacification through a complete [id number] with a patent anterior communicating ar dimitrios and bilateral posterior communicating arteries. Normal superficial and deep intracranial venous drainage. No evidence of occlusive thrombus, dissection, or vascular malformation. Additional findings: Empty sella otherwise the midline structures are within normal limits. IMPRESSION: 1. Patent enhancement of the intracranial circulation. 2. Patent enhancement of the cervical vasculature without significant stenosis by NASCET criteria. 3. Empty sella. Electronically signed by: Larissa Isabel MD 09/14/2020 10:21 PM SCREEN TENDER HELPER Due to temporary technical issues with the PACS/Fluency reporting system, reports are being signed by the in house radiologists without review as a courtesy to insure prompt reporting. The interpreting radiologist is fully responsible for the content of the report.
--- NOTE | 2020-09-17 13:50 | RAD REPORT ---
EXAM DESCRIPTION: CT - Head angio - 09/15/2020 6:43 am CLINICAL HISTORY: 64-year-old female with headache. Intermittent LEFT arm numbness, high blood press ure and nausea. COMPARISON: None. TECHNIQUE: CT angiography of the head and neck following dynamic bolus of intravenous contrast. 3D r eformatted reconstructions were performed on an independent workstation. This exam was performed acco rding to our departmental dose optimization program which includes use of automated exposure control, adjustment of the mA and/or kV according to patient size and/or use of iterative reconstruction tech nique. FINDINGS: CTA neck: Patent flow opacification of the aortic arch origin right brachiocephalic, left common carotid, and l eft subclavian arteries. The bilateral vertebral artery origins are normal. The RIGHT vertebral arter y terminates in PICA distribution. Patent flow opacification through the bilateral common carotid arteries, carotid bifurcations, cervic al internal/external carotid, and vertebral arteries. CTA brain: Patent flow opacification through anterior circulation (bilateral petrous/cavernous/supraclinoid inte rnal carotid arteries, anterior and middle cerebral arteries), posterior circulation (vertebral-basil ar, posterior-inferior cerebellar, anterior-inferior cerebellar, superior cerebellar, and posterior c erebral arteries), and distal intracranial vasculature. Patent flow opacification through a complete [id number] with a patent anterior communicating ar dimitrios and bilateral posterior communicating arteries. Normal superficial and deep intracranial venous drainage. No evidence of occlusive thrombus, dissection, or vascular malformation. Additional findings: Empty sella otherwise the midline structures are within normal limits. IMPRESSION: 1. Patent enhancement of the intracranial circulation. 2. Patent enhancement of the cervical vasculature without significant stenosis by NASCET criteria. 3. Empty sella. Electronically signed by: Larissa Isabel MD 09/14/2020 10:21 PM PHYSICIST CRYOGENICS Due to temporary technical issues with the PACS/Fluency reporting system, reports are being signed by the in house radiologists without review as a courtesy to insure prompt reporting. The interpreting radiologist is fully responsible for the content of the report.
[2020-09-18 08:53] VITALS: TEMP 98.3
[2020-09-18 08:57] VITALS: BP 148/83; O2SAT 98
== END 2020-09-14 23:19 | disposition home or self-care (01) ==
LOC: ER 18:15
DX: R51.9 Headache, unspecified (principal); R20.0 Anesthesia of skin; I10 Essential (primary) hypertension; E78.5 Hyperlipidemia, unspecified; Z85.07 Personal history of malignant neoplasm of pancreas; Z88.1 Allergy status to other antibiotic agents; Z88.3 Allergy status to other anti-infective agents; Z88.8 Allergy status to other drugs, medicaments and biological substances
CPT/HCPCS: 96361; 93005; 85025; 80048; 36415; 83735; 85610; 80076; 84484; 83880; 70450; 70496; 70498; 71045; 96375; 96374; 99284; Q9967; J1200; J1100; J7040

== ENCOUNTER 2020-09-17 14:36 | Emergency (ER) | payer OTHER ==
--- OUTSIDE RECORDS SUMMARY | 2020-09-17 14:39 | XMS REPORT | Continuity of Care Document ---
:1955 Author Organization [employer] Care Team Providers Name Role Phone [employer] Unavailable Un available Problems Problem Status Onset Classification Date Comments Sourc e Date Reported Postmenopausal Active 08/04/2013 [facility] Vaginitis Dyspareunia Active 08/04/2013 [facility] Vaginitis Active 08/04/2013 [facility] Medications Medication Details Route Status Patient Ordering Order Source Instructions Provider Date Estring 2 MG ; Start Active ID Vaginal Ring Date: [facility] 08/04/2013 ; End Date: (Active) Estrace 0.1 ; Start Active ID MG/GM Vaginal Date: [facility] Cream 06/09/2013 ; End Date: (Active) Allergies, Adverse Reactions, Alerts Substance Category Reaction Severity Reaction Status Date Comments S ource type Reported Valium TABS drug drug Active ID allergy allergy [facility] Immunizations No Data [...] Location Location Encounter Encounter Reason Attending ADM MA Stat Source Details Type Number For Provider Date Date Visit AUDIT [id number] 07/14 [facility] AUDIT [id number] 08/04 [facility] Procedures No Data Provided for This Section Assessment and Plan No Data Provided for This Section Plan of Care No Data Provided for This Section Social History Social History Date Source Current Every Day Smoker 08/04/2013 [facility] (305.1); (Active) Marital History - Currently (Active) Family History Value Date Source Family history of Osteoporosis 08/04/2013 [facility] (V17.81); (Active) Family history of Ovarian Cancer (V16.41); (Active) Family history of Breast Cancer (V16.3); (Active) Family history of Breast Cancer 07/14/2013 [facility] (V16.3); (Active) Family history of Ovarian Cancer (V16.41); (Active) Family history of Osteoporosis (V17.81); (Active) Advance Directives Order Name Results Value Date Source Advance Directives Advance Directives No Advance 08/04/2013 [facility] Directives available. Advance Directives Advance Directives No Advance 07/14/2013 [facility] Directives available. Functional Status No Data Provided for This Section
--- OUTSIDE RECORDS SUMMARY | 2020-09-17 14:39 | XMS REPORT | Continuity of Care Document ---
:1955 Author Organization [facility] t Address [address] [place] [address] Dr. Resendez. [address] [place] [address] Care Team Providers Name Role Phone Avery [...] 00:00:00 - Medical MEDICARE HMO Center [id number], [place] [address]Jwrn Contracted Problems Condition Condition Condition Status Onset [...] [facility] liver liver 11-20 [facility] - enzymes enzymes 00:00: t & Plan: [...] n for now. Fatty Fatty Disease Active [facility] liver liver 11-20 [facility] - 00:00: Medical 00 [place] Age-relate Age-relate Disease Active C [facility] d d 11-20 [facility] - osteoporos osteoporos 00:00: Mt dical is without is without 00 Ce nter current current pathologic pathologic al al fracture fracture Other Other Disease Active [facility] osteoporos osteoporos 11-20 [facility] - is without is without 00:00: t & Plan: Medical current current 00 Patient Center pathologic pathologic takes al al vitamin fracture fracture D, calcium and Reclast. She follows up with endocrino logy clinic. Further managemen t by primary endocrino logist Immunity Immunity Disease Active Last [facility] t status status 2- [facility] - testing testing 00:00: t & Plan: [...] kes - n n 00:00: Medical 00 [place] Acute Acute Disease Active 2014-09 [facility] kidney kidney 10-17 [facility] - injury injury 00:00: Medical 00 [place] Intractabl Intractabl Disease Active C HI St e vomiting e vomiting 06-04 kes - with with 00:00: Medical nausea, nausea, 00 Center vomiting vomiting of of unspecifie unspecifie d type d type Primary Primary Disease Active Last [facility] pancreatic pancreatic 03-[address] [facility] neuroend neuroendoc 00:00: t & Plan: Medical rine tumor rine tumor 00 Pathology Center showed a [id number] well-diff erentiate d neuroendo crine tumor; G2, intermedi ate grade, T2N0M0, Stage 1B, S/p Whipple, last imaging was negative for recurrenc e or metastasi s. Patient follows up with Dr. Mullen. Postmenopa Problem Active 2013-08-04 M emoria usal 21:46:33 l Atrophic Sunny Vaginitis Postmenopa usal Atrophic Vaginitis Active 3 [facility] Dyspareuni Problem Active 2013-08-04 M emoria a 21:46:33 l [place] Dyspareuni a Active 08/04/2013 [facility] Vaginitis Problem Active 2013-08-04 Me moria 21:46:33 l [place] Vaginitis Active 3 [facility] Allergies, Adverse Reactions, Alerts Allergy Allergy Status Severity Reaction(s) Onset Inactive Treating Comm ents Source Name Type Date Date Clinician Ceftriax Propensi Active Hives [facility] one ty to 6 [facility] - adverse 00:00: Medical reaction 00 [place] [facility] Erythrom Propensi Active 2014-[address] ycin ty to 10-18 [facility] - adverse 00:00: Medical reaction 00 [place] s Metoclop Drug Active [facility] St ramide Intolera 9-06 [facility] - Hcl nce 00:00: Medical 00 Center Valium Valium Active Memoria TABS TABS l [place] Diazepam Propensi Active [facility] ty to [facility] - adverse Medical reaction Center s Family History Family Member Diagnosis Comments Start Date Stop Date Source Natural brother Early [facility] Natural father COPD [facility] Natural father Vision loss [facility] Natural mother Arthritis [facility] Natural mother Hyperlipidemia [facility] Natural mother Hypertension [facility] Natural mother Miscarriages / [facility] Natural sister Cancer [facility] Natural sister Hyperlipidemia [facility] Unknown Family Family History 2013-07-14 2013-07-14 Memori al Member 20:47:19 20:47:19 [place] Social History Social Habit Start Date Stop Date Quantity Comments Source Sex Assigned At [facility] Tobacco use and 2018-02-04 2018-02-04 Never used [facility] - exposure 00:00:00 00:00:00 [facility] Alcohol intake 2018-02-04 2018-02-04 Current [facility] es - 00:00:00 00:00:00 non-drinker of Medical nter alcohol (finding) Tobacco Comment 2015-02-15 2015-02-15 quit one year [facility] - 00:00:00 00:00:00 ago [facility] Social History 2013-08-04 2013[facility]08[facility]04 [facility] 21:46:33 Smoking Status Start Date Stop Date Source Former smoker 2018-02-04 00:00:00 2018-02-04 00:00:00 [facility] Medications Ordered Filled Start Stop Current Ordering Indication Dosage Frequency Signature Comments Components Source Medication Medication Date Date Medication? Clinician (SIG) Name Name CREALEISHA Yes TAKE [address] 12,000-38,0 1-22 CAPSULE [facility] - 00 -60,000 00:00: THREE Medica l unit CpDR 00 TIMES A [place] capsule DAY WITH EACH MEAL losartan Yes 100mg QD Take [address] (COZAAR) 1-19 mg by [facility] - 100 MG 00:00: mouth Medical tablet 00 daily. [place] [facility] Yes 3.75g Take 3.[address] 3.75 gram 6-28 g by [facility] - PwPk 00:00: mouth. Medical 00 [place] Estring 2 2012-09 Yes ; Start Memor ia MG Vaginal 10-04 Date: l Ring 06:00: 08/04/2013 [place] 00 ; End Date: (Active) Estrace 0.1 [...] Homero Hernandez STEFANI Zuleta t Madhu - [facility] Plan of Care Planned Activity Planned Date Details Comments Source Future Scheduled 2021-01-[address] [facility] - Test 00:00:00 malignant neoplasm Medical C enter of breast (procedure) [code = 879692603] Future Scheduled 2020-05-[address] [facility] - Test 00:00:00 (#1) [code = [facility] INFLUENZA VACCINE (#1)] Future Scheduled 2020-01-[address] [facility] - Test 00:00:00 WELLNESS (YEAR 2 or [facility] FIRST YEAR if no IPPE) [code = MEDICARE ANNUAL WELLNESS (YEAR 2 or FIRST YEAR if no IPPE)] Future Scheduled [address] [facility] - Test 00:00:00 (procedure) [code = [facility] 28115104] Future Scheduled [address] [facility] [facility] - Test 00:00:00 malignant neoplasm Medical C enter of cervix (procedure) [code = 703024208] Future Scheduled [address] [facility] - Test 00:00:00 malignant neoplasm Medical C enter of colon (procedure) [code = 124347859] Encounters Start End Encounter Admission Attending Care Care Encounter Source Date/Time Date/Time Type Type Clinicians Facility Department ID 2020-03-27 2020-03-27 Office TADEO Mullen [id number] 12:07:20 13:50:30 Visit Homero Moscoso [id number] 2013-08-04 2013-08-04 Outpatient MALVIN COOMBS [id number] 7 15:46:33 15:46:33 2013-07-14 2013-07-14 Outpatient MALVIN COOMBS [id number] 15:47:19 15:47:19 Results Test Description Test Test Results Result Source Time Comments Comments MR, ABDOMEN, 2020-06- Referring: FINAL REPORT PATIENT ID: WITHOUT / WITH 30 Dr. Valentin [id number] MRI of the IV CONTRAST 15:14:00 Mobile abdomen dated March 27, 2020 COMPARISON: CT [...] MDReport Verified Date/Time: 03/28/2020 15:14:33 Reading Location: [facility] C013Y CT Body Reading Room abdomen 2020-02- Interface, External Ris In [facility] without & with 30 - 03/28/2020 3:16 PM [facility] - IV contrast 15:14:00 CDTFINAL REPORT PATIENT Medical ID: [id number] MRI of the Center abdomen dated March [...] MDReport Verified Date/Time: 03/28/2020 15:14:33 Reading Location: [facility] B1 C013Y CT Body Reading Room -Creatinine 2020-03-27 10:35:00 Test Item Value Reference Range Interpretation Comme nts POC-Creatinine (test code = 0.6 mg/dL 0.6-1.3 : TESTED AT [facility] [address]) [facility] [address]: Corporate Quality Manager/Techni parag ID = [id number] for Kain RODRIGUEZ ERONICA POC-EGFR (test code = 1860) 101 mL/min/1.73M2 [id number] 10:35:00 Test Item Value Reference Range Interpretation Comments POC-CREATININE 0.6 mg/dL 0.6-1.3 : TESTED AT [facility] ([facility]) (test [address] [facility] [address] [facility] code = 1859) [facility] 7 7295: Corporate Quality Manager/Techni parag ID = [id number] for JENNIFER BRYAN MUNSON POC-EGFR 101 mL/min/1.73M2 ([facility]) (test code = 1860) CT, ABDOMEN, WITHOUT / WITH IV [id number] 15:03:00Referring: Dr. Homero Church REPORT CT scan [...] MDReport Verified Date/Time: 03/05/2019 15:03:16 Reading Location: [address] Ortho Consult Reading Room [id number] 11:43:00 Test Item Value Reference Range Interpretation Comments POC-CREATININE 0.5 mg/dL 0.6-1.3 L TESTED AT [facility] 7[address] ([facility]) (test [facility] G A code = 1859) [facility] 7703 0 POC-EGFR 125 mL/min/1.73M2 ([facility]) (test code = 1860) CT, ABDOMEN, [id number] 11:02:00Referring: Dr. Homero MullenFINAL REPORT CT OF [...] MDReport Verified Date/Time: 04/22/2018 11:02:01 Reading Location: [address] Radiology Reading Room [id number] 08:58:00 Test Item Value Reference Range Interpretation Comments POC-CREATININE 0.5 mg/dL 0.6-1.3 L TESTED AT [facility] ([facility]) (test [address] [facility] code = 1859) [facility] 7703 0 POC-EGFR 125 mL/min/1.73M2 ([address]) (test code = 1860) CHROMOGRANIN [id number] 10:34:00 Test Item Value Reference Range Interpretation Comments SCAN RESULT (test code = 2254987) ANTI-NUCLEAR ANTIBODY (FRENCH)2017-11-22 10:58:00 Test Item Value Reference Range Interpretation Comments ANTI-NUCLEAR ANTIBODY (FRENCH) ([address]) Negative Negative (test code = 418) [id number] 15:08:00 Test Item Value Reference Range Interpretation Comments FERRITIN ([facility]) (test code = 361) 21 ng/mL 5-275 HEPATITIS A ANTIBODY, [id number] 14:16:00 Test Item Value Reference Range Interpretation Comments HEPATITIS A IGG ANTIBODY (BEAKER) Reactive Nonreactive A (test code = 2797) HEPATITIS B SURFACE [id number] 14:16:00 Test Item Value Reference Range Interpretation Comments HEPATITIS B SURFACE ANTIBODY < mIU/mL <8.0 (BEAKER) (test code = 647) HEPATITIS C [id number] 14:15:00 Test Item Value Reference Range Interpretation Comments HEPATITIS C ANTIBODY (BEAKER) Nonreactive Nonreactive (test code = 367) HEPATITIS B SURFACE [id number] 14:10:00 Test Item Value Reference Range Interpretation Comments HEPATITIS B SURFACE ANTIGEN (2) Nonreactive Nonreactive (BEAKER) (test code = 2585) HEPATITIS B CORE ANTIBODY, [id number] 14:10:00 Test Item Value Reference Range Interpretation Comments HEPATITIS B CORE TOTAL ANTIBODY Nonreactive Nonreactive (BEAKER) (test code = 497) [id number] 13:59:00 Test Item Value Reference Range Interpretation [...] L (test code = 2590) COMPREHENSIVE METABOLIC [id number] 13:50:00 Test Item Value Reference Range Interpretation [...] NOT APPLICABLE FOR DIALYSIS PATIEN TS. BILIRUBIN, [id number] 13:50:00 Test Item Value Reference Range Interpretation Comments BILIRUBIN DIRECT (BEAKER) (test 0.1 mg/dL 0.1-0.5 code = 706) U/S, ABDOMINAL, [id number] 13:42:00Referring: Dr. Homero MullenINCREID ELASTOGRAPHYReason for Exam:->Elevated [...] Britoeport Verified Date/Time: 11/20/2017 13:42:16 Reading Location: [address] Radiology Reading Room CBC W/PLT COUNT & AUTO [id number] 13:07:00 Test Item Value Reference Range Interpretation [...] 2801) TUMOR LOCAL, WB, 2 OR MORE [id number] 14:21:00neuroendocrine tumorFINAL REPORT PROCEDURE: OCTREOSCAN - Tumor Localization CPT CODE: 10658, 47477, 25930 INDICATION: Neuroendocrine tumor localization PROTOCOL: 6.28 mCi [...] MDReport Verified Date/Time: 08/27/2017 14:21:08 Reading Location: [address] Reading Room 02:21 PMCT, CHEST, WITH [id number] 15:02:00FINAL REPORT Exam: CT chest with contrast, [...] Dias MDReport Verified Date/Time: 08/26/2017 15:02:31Reading Location: [address], ABDOMEN 2017-08-26 15:02:00FINAL REPORT [...] Carlos Diaseport Verified Date/Time: 08/26/2017 15:02:31Reading Location: [address] [id number] 10:53:00 Test Item Value Reference Range Interpretation Comments POC-CREATININE 0.5 mg/dL 0.6-1.3 L TESTED AT [place] [address] ([facility]) (test [place] code = 1859) [address] POC-EGFR ([facility]) 125 mL/min/1.73M2 (test code = 1860) CHROMOGRANIN [id number] 10:19:00 Test Item Value Reference Range Interpretation Comments SCAN RESULT (test code = 6664051) [id number] 09:50:00 Test Item Value Reference Range Interpretation Comments POC-CREATININE 0.5 mg/dL 0.6-1.3 L TESTED AT [place] [address] ([facility]) (test [place] code = 1859) [address] POC-EGFR ([facility]) 125 mL/min/1.73M2 (test code = 1860)
--- OUTSIDE RECORDS SUMMARY | 2020-09-17 14:39 | XMS REPORT | Clinical Summary ---
:1955 Author Organization [facility] Address [address] [place] [address] Care Team Providers Name Role Phone Avery [...] Last Assessment & Plan: Pathology showed a 1p8h1kr well-differen tiated neuroendocrine tumor; G2, intermediate grade, T2N0M0, Stage 1B, S/p Whipple, l ast imaging was negative for recurrence or metastasis. Patient follows up with Dr. Mullen. Encounters Date Type Specialty Care Team Description 03/27/2020 Hospital Encounter Magnetic Resonance Homero Mullen Neuroendocrine tumor Imaging MD David of pancreas 3, [facility] Danis Mr 03/06/2020 Outside Orders Central Scheduling Homero Mullen Neur oendocrine tumor MD David of pancreas (Pr imary Dx) after 09/17/2019 Immunizations Name Administration Dates Next Due Hepatitis [...] SCREENING 01/26/2021 01/26/2019 Implants Implanted Type Area Spot Welder Device Shelf Model / Identifier Expiration Serial / Date Lot Adhesion Barrier,Seprafilm 5x6 - [id number] Cement/F N/A: GENZ [employer]ME [employer] 01/26/2017 4301-02 / Implanted: Qty: 1 on 03/09/2015 by Homero Vieira MD at [facility] iller/Ad Abdomen PRODUCTS / hesive [id number] Adhesion Barrier,Seprafilm 5x6 - [id number] Cement/F N/A: [employer]Z [employer]ME [employer]GICAL 04/28/2017 4301-02 / Implanted: Qty: 1 on 03/09/2015 by Homero Vieira MD at [facility] iller/Ad Abdomen PRODUCTS / hesive [id number] Procedures Procedure Name Priority Date/Time Associated Diagnosis Comme nts MR ABDOMEN WITH & Routine 03/27/2020 11:59 Neuroendocrine tumo r of Results for this WITHOUT IV AM CDT pancreas procedure are i n CONTRAST the results section. POCT-CREATININE Routine 03/27/2020 10:21 Results for this AM CDT procedure are i n the results section. after 09/17/2019 Results MR abdomen without & with IV contrast (03/27/2020 11:59 AM CDT) Specimen Narrative Performed At FINAL REPORT [facility] MRI of the abdomen dated March 27, [...] Report Verified Date/Time: 03/28/2020 15:14:33 Reading Location: [facility] B1 C013Y CT Body R eading Room [...] Verified Date/Time: 03/28/2020 1 5:14:33 Reading Location: [facility] B1 C013Y CT Body R eading Room Performing Organization Address City/State/Zipcode Phone Number [facility] POC-Creatinine (03/27/2020 10:21 AM CDT) POC-Creatinine 0.6Comment: : 0.6 - 1.3 [facility] TESTED AT [facility] mg/dL [facility] [address] [facility] A, [facility] [address]: Plating Technician/Technicia n ID = [id number] for ANJANA RODRIGUEZ POC-EGFR 101 mL/min/1.73M2 [facility] Specimen Blood Performing Organization Address City/State/Zipcode Phone Number [facility] [address] [place] [address] CENTER after 09/17/2019 Insurance Payer Benefit Plan Subscriber ID Effective Phone Address Typ e / Group Dates AETNA - AETSIDDHARTH [id number] 2019-Pres [phone] [address] Maps MEDICARE MGD MEDICARE HMO ent [id number] [place] [address] AETNA - AETNA [id number] 2019-Pres [phone] P O BOX MEDICARE MGD MEDICARE HMO ent [id number] [place] [address] Advance Directives For more information, please contact: [phone] Code Status Date Activated Date Inactivated Comments [...]
[2020-09-17 16:12] LABS: Absolute Lymphocytes (CBC) 2.9 K/uL (0.7-4.9); Basophils % 0.7 % (0-1.3); Hematocrit 36.4 % (36.0-45.0); Lymphocytes % 32.4 % (15.3-44.8); RBC Red Blood Cell Count 4.21 M/uL (3.86-4.86)
[2020-09-17 16:29] LABS: Albumin 3.8 g/dL (3.4-5.0); Bilirubin Total 0.3 mg/dL (0.2-1.0); Potassium 4.1 mmol/L (3.5-5.1); Protein, Total 7.5 g/dL (6.4-8.2)
--- NOTE | 2020-09-17 16:36 | RAD REPORT ---
EXAM DESCRIPTION: CT - Chest For Pe Angio - 09/17/2020 4:22 pm CLINICAL HISTORY: Chest pain. HEMOPTYSIS COMPARISON: Chest For Pe Angio dated 01/04/2019 TECHNIQUE: CT angiogram of the pulmonary arteries was performed with MIP. All CT scans are performed using dose optimization technique as appropriate and may include automated exposure control or mA/KV adjustment according to patient size. FINDINGS: No evidence of pulmonary thromboembolism. No acute aortic finding demonstrated. Mild ground-glass opacity is seen throughout the lungs. Mild tree-in-bud opacity is seen in the right middle lobe as well as the lingula. No significant pericardial or pleural fluid. No concerning bony finding. IMPRESSION: No evidence of pulmonary thromboembolism. Tree-in-bud opacities are noted particularly in the right middle lobe, likely chronic PEDRO infection.
[2020-09-17] MEDS ORDERED: NA CHLORIDE 0.9% 1,000 ML ONE (17:15)
--- NOTE | 2020-09-17 18:49 | EDPHYS ---
Physician Documentation [facility] Name: Tabitha Odom Age: 64 yrs Sex: Female : 1955 Arrival Date: 09/17/2020 Time: 14:40 Bed 17 Private MD: ED Physician Johnathon Louis HPI: 09/17 16:35 This 64 yrs old Female presents to ER via Ambulatory with complaints of jmm Coughing Up Blood. 16:35 The patient or guardian reports cough. Onset: The symptoms/episode began/occurred jmm today. Modifying factors: The symptoms are alleviated by nothing, the symptoms are aggravated by nothing. Associated signs and symptoms: Pertinent negatives: chest pain, fever, sore throat, vomiting. This is a 64 year old female with a history of hlp, htn, pancreatic cancer that presents to the ED with complaints of coughing up blood 4 times today. Denies fever, shortness of breath. . Historical: - Allergies: 14:43 Erythromycin; sv 14:43 Reglan; sv 14:43 Rocephin; sv - PMHx: 14:43 Hyperlipidemia; Hypertension; pancreatic cancer; sv - PSHx: 14:43 Hysterectomy; sv - Immunization history:: Adult Immunizations. - Social history:: Smoking status: . ROS: 16:35 Constitutional: Negative for fever, chills, and weight loss, Cardiovascular: Negative jmm for chest pain, palpitations, and edema. 16:35 Respiratory: Positive for cough. 16:35 All other systems are negative. Exam: 16:35 Constitutional: This is a well developed, well nourished patient who is awake, alert, jmm and in no acute distress. Head/Face: atraumatic. Eyes: EOMI, no conjunctival erythema appreciated ENT: Moist Mucus Membranes Neck: Trachea midline, Supple Chest/axilla: Normal chest wall appearance and motion. Cardiovascular: Regular rate and rhythm. No edema appreciated Respiratory: Normal respirations, no respiratory distress appreciated Abdomen/GI: Non distended, soft Back: Normal ROM Skin: General appearance color normal MS/ Extremity: Moves all extremities, no obvious deformities appreciated, no edema noted to the lower extremities Neuro: Awake and alert, normal gait Psych: Behavior is normal, Mood is normal, Patient is cooperative and pleasant Vital Signs: 14:45 BP 154 / 78; Pulse 74; Resp 16; Temp 99.8; Pulse Ox 99% ; Weight 49.9 kg; Height 5 ft. sv 0 in. (152.40 cm); 16:05 BP 136 / 67; Pulse 81; Resp 17; Pulse Ox 98% on R/A; tw2 16:55 BP 125 / 59; Pulse 90; Resp 17; Pulse Ox 99% on R/A; tw2 17:38 BP 125 / 59; Pulse 85; Resp 17; Pulse Ox 100% on R/A; tw2 18:55 BP 125 / 59; Pulse 80; Resp 17; Pulse Ox 97% on R/A; tw2 14:45 Body Mass Index 21.48 (49.90 kg, 152.40 cm) sv MDM: 15:30 Patient medically screened. [facility] 16:53 Data reviewed: vital signs, nurses notes. [facility] 18:46 Counseling: I had a detailed discussion with the patient and/or guardian regarding: the [facility] historical points, exam findings, and any diagnostic results supporting the discharge/admit diagnosis, lab results, radiology results, the need for outpatient follow up, to return to the emergency department if symptoms worsen or persist or if there are any questions or concerns that arise at home. ED course: I discussed the patient with Dr. Ruggiero whom did not recommend admission but advised to also discuss with Dr. Barone. I discussed the patient with Dr. Barone whom will follow up with the patient in clinic. . 09/17 15:52 Order name: CBC with Diff; Complete Time: 16:24 [facility] 09/17 15:52 Order name: CMP; Complete Time: 16:30 [facility] 09/17 15:52 Order name: Procalcitonin; Complete Time: 16:48 [facility] 09/17 15:52 Order name: Lactate; Complete Time: 16:35 [facility] 09/17 16:44 Order name: Blood Culture Adult (2) [facility] 09/17 15:50 Order name: CT Chest For PE Angio; Complete Time: 16:38 [facility] 09/17 15:52 Order name: Saline Lock; Complete Time: 16:33 [facility] 09/17 17:33 Order name: COVID-19 [facility] 09/17 18:57 Order name: SARS-COV-2 RT PCR; Complete Time: 18:57 EDMS Administered Medications: 17:06 Drug: NS 0.9% 1000 ml Route: IV; Rate: 1 bolus; Site: right forearm; tw2 18:55 Follow up: Response: No adverse reaction; IV Status: Completed infusion; IV Intake: tw2 1000ml Disposition: 09/18 14:33 Co-signature as Attending Physician, Johnathon Louis MD. rn Disposition: 09/17/20 18:48 Discharged to Home. Impression: Hemoptysis, Mycobacterial infection, unspecified. - Condition is Stable. - Discharge Instructions: Hemoptysis, Hemoptysis, [id number]-tu-[id number]. - Prescriptions for Doxycycline Hyclate 100 mg Oral Tablet - take 1 tablet by ORAL route every 12 hours; 20 tablet. - Medication Reconciliation Form, Thank You Letter, Antibiotic Education, Prescription Opioid Use form. - Follow up: Glenroy Barone MD; When: 2 - 3 days; Reason: Recheck today's complaints, Continuance of care, Re-evaluation by your physician. Signatures: Dispatcher [employer] [facility] Delia Monsivais RN Davy Pierson PA PA jmm Nieto, Roman, MD MD rn Wise, Tara, RN RN tw2 Corrections: (The following items were deleted from the chart) 09/17 17:27 16:45 CORONAVIRUS+MR.LAB.BRZ ordered. [facility] 19:11 18:48 09/17/2020 18:48 Discharged to Home. Impression: Hemoptysis; Mycobacterial tw2 infection, unspecified. Condition is Stable. Forms are Medication Reconciliation Form, Thank You Letter, Antibiotic Education, Prescription Opioid Use. Follow up: Glenroy Barone; When: 2 - 3 days; Reason: Recheck today's complaints, Continuance of care, Re-evaluation by your physician. [facility]
--- NOTE | 2020-09-17 18:49 | ER ---
Nurse's Notes [facility] Name: Tabitha Odom Age: 64 yrs Sex: Female : 1955 Arrival Date: 09/17/2020 Time: 14:40 Bed 17 Private MD: Diagnosis: Hemoptysis;Mycobacterial infection, unspecified Presentation: 09/17 14:43 Chief complaint: Patient states: coughed up blood 3 times today. Coronavirus screen: sv Client denies travel out of the [place] in the last 14 days. At this time, the client does not indicate any symptoms associated with coronavirus-19. Ebola Screen: No symptoms or risks identified at this time. Risk Assessment: Do you want to hurt yourself or someone else? Patient reports no desire to harm self or others. Onset of symptoms was September 17, 2020. 14:43 Method Of Arrival: Ambulatory sv 14:43 Acuity: YASEMIN 3 sv 14:45 Initial Sepsis Screen: Does the patient meet any 2 criteria? No. Patient's initial sv sepsis screen is negative. Does the patient have a suspected source of infection? No. Patient's initial sepsis screen is negative. Historical: - Allergies: 14:43 Erythromycin; sv 14:43 Reglan; sv 14:43 Rocephin; sv - PMHx: 14:43 Hyperlipidemia; Hypertension; pancreatic cancer; sv - PSHx: 14:43 Hysterectomy; sv - Immunization history:: Adult Immunizations. - Social history:: Smoking status: . Screenin:41 Abuse screen: Denies threats or abuse. Nutritional screening: No deficits noted. tw2 Tuberculosis screening: No symptoms or risk factors identified. Fall Risk None identified. Assessment: 15:45 Reassessment: provider at bedside at this time. tw2 15:46 General: Appears in no apparent distress. slender, well groomed, Behavior is calm, tw2 cooperative, appropriate for age. Pain: Denies pain. Neuro: Level of Consciousness is awake, alert, obeys commands, Oriented to person, place, time, situation. Cardiovascular: Capillary refill < 3 seconds Patient's skin is warm and dry. Respiratory: Airway is patent Respiratory effort is even, unlabored, Respiratory pattern is regular, symmetrical. GI: Abdomen is flat, Reports "coughed up some blood 4 times". : No signs and/or symptoms were reported regarding the genitourinary system. EENT: No signs and/or symptoms were reported regarding the EENT system. Derm: No signs and/or symptoms reported regarding the dermatologic system. Musculoskeletal: Range of motion: intact in all extremities. 16:46 Reassessment: Patient appears in no apparent distress at this time. No changes from tw2 previously documented assessment. Patient and/or family updated on plan of care and expected duration. Pain level reassessed. Patient is alert, oriented x 3, equal unlabored respirations, skin warm/dry/pink. 16:54 Reassessment: provider at bedside explaining poc and further testing needed. tw2 17:39 Reassessment: Patient appears in no apparent distress at this time. No changes from tw2 previously documented assessment. Patient and/or family updated on plan of care and expected duration. Pain level reassessed. Patient is alert, oriented x 3, equal unlabored respirations, skin warm/dry/pink. 18:55 Reassessment: Patient appears in no apparent distress at this time. No changes from tw2 previously documented assessment. Patient and/or family updated on plan of care and expected duration. Pain level reassessed. Patient is alert, oriented x 3, equal unlabored respirations, skin warm/dry/pink. 19:11 Reassessment: Patient appears in no apparent distress at this time. No changes from tw2 previously documented assessment. Patient and/or family updated on plan of care and expected duration. Pain level reassessed. Patient is alert, oriented x 3, equal unlabored respirations, skin warm/dry/pink. Vital Signs: 14:45 BP 154 / 78; Pulse 74; Resp 16; Temp 99.8; Pulse Ox 99% ; Weight 49.9 kg; Height 5 ft. sv 0 in. (152.40 cm); 16:05 BP 136 / 67; Pulse 81; Resp 17; Pulse Ox 98% on R/A; tw2 16:55 BP 125 / 59; Pulse 90; Resp 17; Pulse Ox 99% on R/A; tw2 17:38 BP 125 / 59; Pulse 85; Resp 17; Pulse Ox 100% on R/A; tw2 18:55 BP 125 / 59; Pulse 80; Resp 17; Pulse Ox 97% on R/A; tw2 14:45 Body Mass Index 21.48 (49.90 kg, 152.40 cm) ED Course: 14:40 Patient arrived in ED. rg4 14:43 Arm band placed on. sv 14:44 Triage completed. sv 15:29 Davy Banks PA is PHCP. [facility] 15:29 Johnathon Louis MD is Attending Physician. jmm 15:41 Marcia Loja, RN is Primary Nurse. tw2 15:42 Bed in low position. Call light in reach. Adult w/ patient. Pulse ox on. NIBP on. tw2 16:00 Initial lab(s) drawn, by me, sent to lab. Inserted saline lock: 20 gauge in right tw2 forearm, using aseptic technique. Blood collected. 16:23 CT Chest For PE Angio In Process Unspecified. EDMS 17:05 First set of blood cultures drawn by me. tw2 17:30 Second set of blood cultures drawn by me. tw2 17:38 Blood Culture Adult (2) Sent. tw2 18:48 Glenroy Barone MD is Referral Physician. [facility] 19:10 No provider procedures requiring assistance completed. IV discontinued, intact, tw2 bleeding controlled, No redness/swelling at site. Pressure dressing applied. Administered Medications: 17:06 Drug: NS 0.9% 1000 ml Route: IV; Rate: 1 bolus; Site: right forearm; tw2 18:55 Follow up: Response: No adverse reaction; IV Status: Completed infusion; IV Intake: tw2 1000ml Intake: 18:55 IV: 1000ml; Total: 1000ml. tw2 Outcome: 18:48 Discharge ordered by MD. [facility] 19:10 Discharged to home ambulatory, with significant other. tw2 19:10 Condition: stable 19:10 Discharge instructions given to patient, significant other, Instructed on discharge instructions, follow up and referral plans. medication usage, Demonstrated understanding of instructions, follow-up care, medications, Prescriptions given X 1. 19:11 Patient left the ED. tw2 Signatures: Dispatcher [employer] Delia Hook, GIL CORDERO Davy Banks PA PA Marcia Montenegro, RN RN tw2 Machelle Dunbar rg4 Corrections: (The following items were deleted from the chart) 14:47 14:45 Pulse 74bpm; Resp 16bpm; Pulse Ox 99%; Temp 99.8F; 49.9 kg; Height 5 ft. 0 in.; sv BMI: 21.4; sv
[2020-09-19 15:23] VITALS: TEMP 99.8
[2020-09-19 15:26] VITALS: BP 125/59
[2020-09-19 15:28] VITALS: O2SAT 97
== END 2020-09-17 19:11 | disposition home or self-care (01) ==
LOC: ER 14:36
DX: A31.9 Mycobacterial infection, unspecified (principal); Z88.3 Allergy status to other anti-infective agents; Z88.1 Allergy status to other antibiotic agents; Z85.07 Personal history of malignant neoplasm of pancreas; Z20.828 Contact with and (suspected) exposure to other viral communicable diseases
CPT/HCPCS: 96361; 87040 ×2; 85025; 36415; 83605; 80053; 84145; 71275; 96360; 99284; U0003; Q9967; J7030

== ENCOUNTER 2022-01-15 11:14 | Emergency (ER) | payer OTHER ==
--- OUTSIDE RECORDS SUMMARY | 2022-01-15 11:16 | XMS REPORT | Continuity of Care Document ---
:1955 Author Organization [facility] t Address [address] [place] [address] Care Team Providers Name Role Phone Avery BYRD Primary Care Physician Unavailable RADIOLOGY Attending Clinician Unavailable Radiology Attending Clinician Unavailable Doctor Unassigned, Name Attending Clinician Unavailable Sebas LING E Attending Clinician FORTINO MULLEN Attending Clinician Unavailable Indra CASH Attending Clinician Unavailable SYSTEM, NOT IN Attending Clinician Unavailable Johan MOORE Admitting Clinician Unavailable Payers Payer Name Policy Type Policy Number Effective Date Expiration Date S [facility] MEDICARE PLAN O [id number] - AETNA AETNA MEDICARE OUT [id number] 2019 OF NETWORK 00:00:00 AETNA MEDICARE HMO [id number] 2019 POS 00:00:00 Problems Condition Condition Condition Status Onset Resolution Last Treating Co mments Source Name Details Category Date Date Treatment Clinician Date Fatty Fatty Disease Active 2016-09 [facility] liver liver 2-06 College disease, disease, 00:00: of nonalcohol nonalcohol 00 Me dicin ic ic e Osteoporos Osteoporos Disease Active 2016-09 U nivers is, senile is, senile 0-09 it y of 00:00: [address] 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 00:00: [address] Elevated Elevated Disease Active Unive rs liver liver - ity of enzymes enzymes 00:00: [place] 00 Medical Branch 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-18 it y of of of 00:00: [place] pancreas pancreas 00 Medica l Branch Allergies, Adverse Reactions, Alerts Allergy Allergy Status Severity Reaction(s) Onset Inactive Treating Comm ents Source Name Type Date Date Clinician CEFTRIAX Allergy Active Hives [facility] 00 [place] Metoclop Propensi Active Other (See "Makes Ba ylor ramide ty to Comments) 03-24 her College adverse 00:00: jittery" of reaction 00 Medicin s to e drug Erythrom Propensi Active Other (See "Makes Ba ylor ycin ty to Comments) 03-24 her College adverse 00:00: jittery" of reaction 00 Medicin s to e drug ERYTHROM DRUG Active N/V Univers YCIN 3 ity of 00:00: [place] 00 [facility] METOCLOP DRUG Active Unknown-Cmnt Un sunil RAMIDE INGREDI 3- ity of HCL 00:00: [place] 00 [facility] Erythrom Propensi Active Nausea Univer s ycin ty to and/or 12-18 ity of adverse Vomiting 00:00: [place] reaction 00 Medical Branch Metoclop Propensi Active Unknown - Uni vers ramide ty to See comments 12-18 ity of Hcl adverse 00:00: [place] reaction 00 Medical Branch ERYTHROM Allergy Active 2014-[address] YCIN 1-20 [facility] - 00:[facility]: Medical 00 [facility] METOCLOP Allergy Active [facility] RAMIDE 9-06 [facility] - HCL 00:00: Medical 00 [facility] DIAZEPAM Allergy Active [facility] Social History Social Habit Start Date Stop Date Quantity Comments Source Exposure to Not sure [facility] Alo antonio of SARS-CoV-2 Medicine (event) Alcohol intake 2015-12-19 2015-12-19 0 /d University 00:00:00 00:00:00 [facility] [place] [facility] Alcohol Comment 2015-01-27 2015-01-27 1 drink every 6 [employer] or [employer] of 00:00:00 00:00:00 months (1/2 can Medicine of beer) History of 2013-12-28 Current smoker [facility] lege of tobacco use 00:00:00 Medicine Sex Ass[birth year] Universit y of 00:00:00 00:00:00 [facility] [place] [facility] Smoking Status Start Date Stop Date Source Never smoker [facility] Former smoker 2020-03-27 00:00:00 2020-03-27 00:00:00 [facility] Johan ying of Medicine Medications Ordered Filled Start Stop Current Ordering Indication Dosage Frequency Signature Comments Components Source Medication Medication Date Date Medication? Clinician (SIG) Name Name tramadol Yes 50mg Take 50 mg Carter keegan (ULTRAM) 50 - by mouth Trista ege MG tablet 17:28: as needed of 29 for Pain. Medicin e pantoprazol Yes 40mg Take 40 mg [facility] e 6-29 by mouth [place] (PROTONIX) 17:28: daily. of 40 MG 29 Medicin tablet e losartan Yes 100mg Take 100 [facility] or (COZAAR) -29 mg by [place] 100 MG 17:28: mouth of tablet 29 daily. Medicin e Colesevelam Yes Take by Ba ylor HCl 03-27 [facility] (WELCHOL) 17:28: every of 3.75 G PACK 29 evening. Medi lenny e Vitamin D, Yes Take by Carter keegan Ergocalcife 03-27 [facility] rol, [id number] 17:28: every 7 of units CAPS 29 days. Medicin e rosuvastati Yes 10mg Take 10 mg [facility] n (CRESTOR) 29 by mouth Trista ege 10 MG 17:28: daily. of tablet 29 Medicin e pantoprazol Yes 40mg Take 40 mg Univers e 7-11 by mouth. ity of (PROTONIX) 12:12: [place] 40 mg EC 17 Medical tablet Branch pantoprazol Yes 40mg Take 40 mg Univers e 7-11 by mouth. ity of (PROTONIX) 12:12: [place] 40 mg EC 17 Medical tablet Branch colesevelam Yes [id number] 625mg Take 1 Univers 625 mg 7-11 tablet by ity of tablet 00:00: mouth [place] 00 daily. Medical Branch colesevelam Yes [id number] 625mg Take 1 Univers 625 mg 7-11 tablet by ity of tablet 00:00: mouth [place] 00 daily. Medical Branch ergocalcife 2017- Yes [id number] Take 1 Un sunil rol, 1-03 capsule by ity of vitamin d2, 00:00: mouth [place] (VITAMIN 00 weekly. Medical D2) 50,000 Branch unit capsule ergocalcife 2017 Yes [id number] Take 1 Un sunil rol, 1-03 capsule by ity of vitamin d2, 00:00: mouth [place] (VITAMIN 00 weekly. Medical D2) 50,000 Branch unit capsule losartan 2017 Yes 100mg Take 100 Univ ers 100 mg 3-27 mg by ity of tablet 00:00: mouth [place] 00 daily. Medical Branch losartan 2017 Yes 100mg Take 100 Univ ers 100 mg 3-27 mg by ity of tablet 00:00: mouth [place] 00 daily. Medical Branch blood sugar 2015- Yes Use as Univ ers diagnostic 3-22 directed, ity of (CONTOUR 00:00: daily, [place] NEXT DX:E11.9 Medical STRIPS) Branch strip Lancets 2016- Yes Use as Univers (MICROLET 3-22 directed, ity o f LANCET) 00:00: daily, [facility] 00 DX:E11.9 Medical Branch blood sugar 2016- Yes Use as Univ ers diagnostic 3-22 directed, ity of (CONTOUR 00:00: daily, [place] NEXT DX:E11.9 Medical STRIPS) Branch strip Lancets 2016- Yes Use as Univers (MICROLET 3-22 directed, ity o f LANCET) 00:00: daily, [facility] 00 DX:E11.9 Medical Branch CREON 2016-0 Yes Univers 12,000-38,0 2-09 ity of 00 -60,000 00:00: [place] unit 00 Medical capsule Branch CREON 2016-0 Yes Univers 12,000-38,0 2-09 ity of 00 -60,000 00:00: [place] unit 00 Medical capsule Branch Pancrelipas 2015- Yes [id number] 1200U Take 1,200 [facility] e, 0-05 Units by [place] Lip-Prot-Am 00:00: mouth 3 of yl, [address] 00 times Medicin UNITS CPEP daily e (with meals). Vital Signs Vital Name Observation Time Observation Value Comments Source Systolic blood 2020-03-27 17:23:00 129 mm[Hg] [facility] pressure of Medicine Diastolic blood 2020-03-27 17:23:00 85 mm[Hg] [facility] pressure of Medicine Heart rate 2020-03-27 17:23:00 76 /min Pulse Ox-97% [facility] Body temperature 2020-03-27 17:23:00 36.5 Arlen [facility] Respiratory rate 2020-03-27 17:23:00 16 /min [facility] Body height 2020-03-27 17:23:00 152.4 cm [facility] Body weight 2020-03-27 17:23:00 47.718 kg [facility] BMI 2020-03-27 17:23:00 20.55 kg[facility]2 [facility] Systolic blood 2020-03-27 17:23:00 129 mm[Hg] [facility] pressure of Medicine Diastolic blood 2020-03-27 17:23:00 85 mm[Hg] [facility] pressure of Medicine Heart rate 2020-03-27 17:23:00 76 /min Pulse Ox-97% [facility] Body temperature 2020-03-27 17:23:00 36.5 Arlen [facility] Respiratory rate 2020-03-27 17:23:00 16 /min [facility] Body height 2020-03-27 17:23:00 152.4 cm [facility] Body weight 2020-03-27 17:23:00 47.718 kg [facility] BMI 2020-03-27 17:23:00 20.55 kg/m2 [facility] Procedures Procedure Date / Time Performed Performing Clinician [facility] e US ABDOMEN COMPLETE 2021-08-08 16:05:00 [facility] ASSIGN[facility] OF BENEFITS 2021-08-08 15:25:30 Doctor Unassigned, No [facility] Medical Branch Plan of Care Planned Activity Planned Date Details Comments Source Future Scheduled Test COLON CANCER SCREENING: [facility] COLONOSCOPY [code = Medicine COLON CANCER SCREENING: COLONOSCOPY] Future Scheduled Test TETANUS SHOT (ADULT) [facility] [code = TETANUS SHOT Medicin e (ADULT)] Future Scheduled Test HIV SCREENING [code = [facility] of HIV SCREENING] Medicine Future Scheduled Test CERVICAL CANCER [facility] SCREENING 3 YEAR FOLLOW [facility] cine UP [code = CERVICAL CANCER SCREENING 3 YEAR FOLLOW UP] Future Scheduled Test MEDICARE AWV (Initial) [facility] [code = MEDICARE AWV Medicin e (Initial)] Future Scheduled Test MAMMOGRAM ANNUAL [code [facility] = MAMMOGRAM ANNUAL] Medicine Future Scheduled Test FLU VACCINE > 6 MONTHS [facility] [code = FLU VACCINE > 6 Medi cine MONTHS] Encounters Start End Encounter Admission Attending Care Care Encounter Source Date/Time Date/Time Type Type Clinicians Facility Department ID 2021-11-12 2021-11-12 Outpatient [facility] [id number] [facility] 11:53:57 15:50:47 Colleg e of Medicin e 2021-11-12 2021-11-12 Outpatient [facility] [id number] [facility] 09:37:51 15:42:35 Colleg e of Medicin e 2021-08-08 2021-08-08 Outpatient R RADIOLOGY [facility] [id number] Univers 09:26:32 23:59:00 ity of [facility] [place] [facility] 2021-08-08 2021-08-08 Hospital Radiology [facility] [id number] Univers 09:00:00 23:59:00 Encounter YAZMIN [id number] ity [facility] [id number] [facility] [id number] [facility] 806 Branch 2021-08-08 2021-08-08 Outpatient R RADIOLOGY [facility] [id number] Univers 00:00:00 00:00:00 [id number] ity of [facility] [place] [facility] 2021-08-08 2021-08-08 Orders Doctor MANOJ [id number] Univers 00:00:00 00:00:00 Only Unassigned, BELL [id number] ity of [facility] [id number] [facility] [id number] [facility] 009 Branch 2020-03-27 2020-03-27 Office TADEO Mullen [id number] 12:07:20 13:50:30 Visit Darrell Moscoso [id number] 2020-03-27 2020-03-[address] [facility] [id number] [facility] 12:07:20 13:50:30 Visit Darrell Moscoso [id number] [place] [id number] [facility] 510 e 2020-03-27 2020-03-27 Outpatient CAREY MULLEN [facility] [id number] [facility] 00:00:00 00:00:00 DARRELL 2020-03-20 2020-03-20 Outpatient CAREY MULLEN [facility] [id number] [facility] 00:00:00 00:00:00 DARRELL 2020-03-17 2020-03-17 Outpatient CAREY MULLEN [facility] [id number] [facility] 00:00:00 00:00:00 DARRELL 2020-03-06 2020-03-06 Outpatient CAREY MULLEN SLE [facility] [id number] [facility] 00:00:00 00:00:00 DARRELL 2020-03-06 2020-03-06 Outpatient SEBAS [facility] [id number] [facility] 00:00:00 00:00:00 DARRELL Results Test Description Test Time Test Comments Results Result [facility] e Comments MR, ABDOMEN, 2020-03-01 Referring: FINAL REPORT PATIENT ID: WITHOUT / WITH 0 Dr. Valentin [id number] MRI of the abdomen IV CONTRAST 15:14:00 [place] dated March 27, 2020 COMPARISON: CT of [...] MDReport Verified Date/Time: 03/28/2020 15:14:33 Reading Location: [facility] B1 C013Y CT Body Reading Room -CREATININE 2020-03-27 10:35:00 Test Item Value Reference Range Interpretation Comme nts POC-CREATININE (BEAKER) 0.6 mg/dL 0.6-1.3 : TE STED AT [facility] 7200 (test code = 1859) [facility] [id number]: Customer Development Representative /Management Trainee Program Stores ID = [id number] for ANJANA JOYCE POC-EGFR (BEAKER) (test 101 mL/min/1.73M2 code = 1860) CT, ABDOMEN, WITHOUT / WITH IV [id number] 15:03:00Referring: Dr. Darrell HurleyAL REPORT CT scan of the abdomen [...] MDReport Verified Date/Time: 03/05/2019 15:03:16 Reading Location: [facility] C013X Ortho Consult Reading Room [id number] 11:43:00 Test Item Value Reference Range Interpretation Comments POC-CREATININE 0.5 mg/dL 0.6-1.3 L TESTED AT [facility] 7200 ([facility]) (test DIONISIO BLD G A code = 1859) [facility] 7703 0 POC-EGFR 125 mL/min/1.73M2 (BEAKER) (test code = 1860) CT, ABDOMEN, [id number] 11:02:00Referring: Dr. Darrell MullenFINAL REPORT CT OF THE ABDOMEN CLINICAL [...] MDReport Verified Date/Time: 04/22/2018 11:02:01 Reading Location: [address] Radiology Reading Room [id number] 08:58:00 Test Item Value Reference Range Interpretation Comments POC-CREATININE 0.5 mg/dL 0.6-1.[address] [facility] ([facility]) (test [address] [facility] code = 1859) [facility] 7703 0 POC-EGFR 125 mL/min/1.73M2 ([employer]) (test code = 1860) CHROMOGRANIN [id number] 10:34:00 Test Item Value Reference Range Interpretation Comments SCAN RESULT (test code = 9008830) ANTI-NUCLEAR ANTIBODY (FRENCH)2017-11-22 10:58:00 Test Item Value Reference Range Interpretation Comments ANTI-NUCLEAR ANTIBODY (FRENCH) (BEAKER) Negative Negative (test code = 418) [id number] 15:08:00 Test Item Value Reference Range Interpretation Comments FERRITIN (BEAKER) (test code = 361) 21 ng/mL 5-275 HEPATITIS A ANTIBODY, [id number] 14:16:00 Test Item Value Reference Range Interpretation Comments HEPATITIS A IGG ANTIBODY (BEAKER) Reactive Nonreactive A (test code = 2797) HEPATITIS B SURFACE [id number] 14:16:00 Test Item Value Reference Range Interpretation Comments HEPATITIS B SURFACE ANTIBODY < mIU/mL <8.0 (TiciesAKER) (test code = 647) HEPATITIS C [id number] 14:15:00 Test Item Value Reference Range Interpretation Comments HEPATITIS C ANTIBODY (BEAKER) Nonreactive Nonreactive (test code = 367) HEPATITIS B SURFACE [id number] 14:10:00 Test Item Value Reference Range Interpretation Comments HEPATITIS B SURFACE ANTIGEN (2) Nonreactive Nonreactive (BEAKER) (test code = 2585) HEPATITIS B CORE ANTIBODY, [id number] 14:10:00 Test Item Value Reference Range Interpretation Comments HEPATITIS B CORE TOTAL ANTIBODY Nonreactive Nonreactive (BEAKER) (test code = 497) [id number] 13:59:00 Test Item Value Reference Range Interpretation [...] L (test code = 2590) COMPREHENSIVE METABOLIC [id number] 13:50:00 Test Item Value Reference Range Interpretation [...] NOT APPLICABLE FOR DIALYSIS PATIEN TS. BILIRUBIN, [id number] 13:50:00 Test Item Value Reference Range Interpretation Comments BILIRUBIN DIRECT (BEAKER) (test 0.1 mg/dL 0.1-0.5 code = 706) U/S, ABDOMINAL, [id number] 13:42:00Referring: Dr. Darrell Perez ELASTOGRAPHYReason for Exam:->Elevated liver tests, h/o [...] MDReport Verified Date/Time: 11/20/2017 13:42:16 Reading Location: [address] Radiology Reading Room CBC W/PLT COUNT & AUTO [id number] 13:07:00 Test Item Value Reference Range Interpretation [...] 2801) TUMOR LOCAL, WB, 2 OR MORE [id number] 14:21:00neuroendocrine tumorFINAL REPORT PROCEDURE: OCTREOSCAN - Tumor Localization CPT CODE: 08140, 44270, 25203 INDICATION: Neuroendocrine tumor localization PROTOCOL: 6.28 mCi [...] MDReport Verified Date/Time: 08/27/2017 14:21:08 Reading Location: [address] Reading Room 02:21 PMCT, CHEST, WITH [id number] 15:02:00FINAL REPORT Exam: CT chest with contrast, [...] small airways disease/atypical pneumonia. Signed: Carlos Dias [facility]miss[facility] Verified Date/Time: 08/26/2017 15:02:31Reading Location: [address] CT, ABDOMEN 2017-08-26 15:02:00FINAL REPORT Exam: CT [...] small airwa ys disease/atypical pneumonia. Signed: Carlos Dias MDReport Verified Date/Time: 08/26/2017 15:02:31Reading Location: [address] O490 [id number] 10:53:00 Test Item Value Reference Range Interpretation Comments POC-CREATININE 0.5 mg/dL 0.6-1.3 L TESTED AT [facility] 6720 ([facility]) (test [place] code = 1859) [address] POC-EGFR ([facility]) 125 mL/min/1.73M2 (test code = 1860) CHROMOGRANIN [id number] 10:19:00 Test Item Value Reference Range Interpretation Comments SCAN RESULT (test code = 0632881) [id number] 09:50:00 Test Item Value Reference Range Interpretation Comments POC-CREATININE 0.5 mg/dL 0.6-1.3 L TESTED AT [facility] 6720 ([facility]) (test [place] code = 1859) [address] POC-EGFR ([facility]) 125 mL/min/1.73M2 (test code = 1860)
[2022-01-15] MEDS ORDERED: HYDROCODONE/CHLORPHEN 5 ML/OSYR ONE (13:19)
[2022-01-15 13:20] LABS: Absolute Lymphocytes (CBC) 1.3 K/uL (0.7-4.9); Hematocrit 37.3 % (36.0-45.0); Lymphocytes % 25.2 % (15.3-44.8); MPV 9.8 fL (7.6-11.3); RBC Red Blood Cell Count 4.36 M/uL (3.86-4.86)
[2022-01-15 13:33] LABS: Urine Blood Negative (Negative); Urine Glucose Negative (Negative); Urine Protein Negative (Negative); Urine pH 5.5 (5.0-7.0)
[2022-01-15 13:36] LABS: ALT/SGPT 57 U/L (12-78); AST/SGOT 56 U/L (15-37); Albumin 3.7 g/dL (3.4-5.0); Alkaline Phosphatase 95 U/L (45-117); BUN Blood Urea Nitrogen 18 mg/dL (7-18); Bicarbonate 27 mmol/L (21-32); Bilirubin Direct 0.1 mg/dL (0-0.2); Bilirubin Total 0.5 mg/dL (0.2-1.0); Glucose Level 109 mg/dL (74-106); Magnesium 2.2 mg/dL (1.8-2.4); NT PRO-BNP 62 pg/mL (<125); Potassium 3.9 mmol/L (3.5-5.1); Protein, Total 7.8 g/dL (6.4-8.2); Sodium Level 137 mmol/L (136-145)
--- NOTE | 2022-01-15 13:50 | RAD REPORT ---
EXAM DESCRIPTION: RAD - Chest Single View - 01/15/2022 1:33 pm CLINICAL HISTORY: CONGESTION COMPARISON: Portable 09/14/2020 TECHNIQUE: AP portable chest image was obtained 01/15/2022 1:33 pm . FINDINGS: No new mass or consolidation. Chronic interstitial lung pattern matches the prior study. Heart and vasculature are normal. No measurable pleural effusion and no pneumothorax. No acute bony abnormality seen. No acute aortic findings suspected. IMPRESSION: Chronic interstitial lung disease similar to prior imaging. No acute findings seen.
[2022-01-15] MEDS ORDERED: NA CHLORIDE 0.9% 500 ML ONE (14:10)
[2022-01-15 14:15] LABS: SARS-COV-2 RT PCR NEGATIVE (NEGATIVE)
[2022-01-15 14:24] LABS: Urine Bacteria NONE SEEN /HPF (<20); Urine RBC <5 /HPF (NONE SEEN)
--- NOTE | 2022-01-15 15:20 | RAD REPORT ---
EXAM DESCRIPTION: CT - Chest For Pe Angio - 01/15/2022 2:38 pm CLINICAL HISTORY: shortness of breath COMPARISON: Chest For Pe Angio dated 09/17/2020; Chest Single View dated 01/15/2022 TECHNIQUE: Dynamically enhanced 3 mm thick images of the chest were obtained during administration o f approximately 150mL Isovue 370 IV contrast. Coronal and oblique MIP reconstruction images were gene rated and reviewed. Exam utilizes a protocol to evaluate the pulmonary arterial tree. All CT scans are performed using dose optimization technique as appropriate and may include automated exposure control or mA/KV adjustment according to patient size. FINDINGS: No pulmonary emboli are identified. The aorta as imaged shows no acute or suspicious finding. No pericardial thickening or effusion. In the lateral inferior right upper lobe there are numerous tree-in-bud opacities. Additional parench ymal stranding changes are present. These changes are less prominent than seen on the 2019 study. Mor e pronounced lung parenchymal opacification and bronchiectasis changes are present in the anteromedia l right middle lobe. These right-sided lung parenchymal opacities are believed to be chronic and may be from prior PEDRO infection. No convincing evidence for an acute right-sided process. Airspace opacif ication is present in the posterior aspect of the midportion left lower lobe suspicious for an acute infiltrate. More tree-in-bud type opacification in the lateral aspect of the left lower lobe could be acute or chronic. This has a chronic PEDRO appearance. Parenchymal opacification in the anterior base lingula left upper lobe also appears to be chronic. No pleural effusion or pleural thickening. No mediastinal or hilar suspicious masses. No endobronchial lesion or mucous plugging seen. No bronch ial wall thickening or edema. No chest wall masses or abnormal axillary lymphadenopathy. IMPRESSION: No pulmonary emboli identified. Patchy airspace opacification in the posterior left lower lobe suspicious for an acute pneumonia. Patient has parenchymal opacification, bronchiectasis and tree in bud opacities that are believed to be changes related chronic PEDRO infection.
--- NOTE | 2022-01-15 15:32 | ER ---
Nurse's Notes [facility] Name: Tabitha Odom Age: 66 yrs Sex: Female : 1955 Arrival Date: 01/15/2022 Time: 11:16 Bed 10 Private MD: Angel Hernandez Diagnosis: Other pneumonia, unspecified organism Presentation: 01/15 12:28 Chief complaint: Patient states: was diagnosed with double pneumonia at [place] Friday iw 4-15, was started on Augmentin at urgent care prior to that , [place] put her on Levaquin and clindamycin IV, still not feeling better , feels bad at night with cough and feverish. Coronavirus screen: Client presents with at least one sign or symptom that may indicate coronavirus-19. Ebola Screen: Patient negative for fever greater than or equal to 101.5 degrees Fahrenheit, and additional compatible Ebola Virus Disease symptoms Patient denies exposure to infectious person. Patient denies travel to an Ebola-affected area in the 21 days before illness onset. No symptoms or risks identified at this time. Initial Sepsis Screen: Does the patient meet any 2 criteria? No. Patient's initial sepsis screen is negative. Does the patient have a suspected source of infection? No. Patient's initial sepsis screen is negative. Risk Assessment: Do you want to hurt yourself or someone else? Patient reports no desire to harm self or others. Onset of symptoms was January 11, 2022. 12:28 Method Of Arrival: Ambulatory iw 12:28 Acuity: YASEMIN 3 iw Historical: - Allergies: 12:30 Erythromycin; iw 12:30 Reglan; iw 12:30 Rocephin; iw - Home Meds: 12:30 Creon Oral [Active]; Crestor Oral [Active]; losartan 50 mg Oral tab 1 tab once daily iw [Active]; Vitamin D Oral 35391 unit [Active]; - PMHx: 12:30 Hyperlipidemia; Hypertension; pancreatic cancer; iw Screenin:41 Abuse screen: Denies threats or abuse. Denies injuries from another. Nutritional ss screening: No deficits noted. Tuberculosis screening: Never had TB. Fall Risk None identified. Assessment: 13:41 General: Appears in no apparent distress. comfortable, Behavior is calm, cooperative. ss Neuro: Level of Consciousness is awake, alert, obeys commands, Oriented to person, place, time, situation. Cardiovascular: Capillary refill < 3 seconds is brisk in bilateral fingers. Respiratory: Airway is patent Respiratory effort is even, unlabored, Respiratory pattern is regular, symmetrical. GI: Patient currently denies diarrhea, nausea, vomiting. EENT: Nares are clear. Derm: Skin is intact, is healthy with good turgor, Skin is dry, Skin is pink, warm \T\ dry. normal. Musculoskeletal: Circulation, motion, and sensation intact. Range of motion: intact in all extremities, Swelling absent. Vital Signs: 12:30 BP 147 / 91; Pulse 99; Resp 16 S; Temp 98.7; Pulse Ox 100% on R/A; iw ED Course: 11:16 Patient arrived in ED. mr 11:17 Angel Hernandez DO is Private Physician. mr 12:30 Triage completed. iw 12:31 Arm band placed on. iw 12:36 Mychal Fisher PA is PHCP. cp 12:36 Suzanne Dominguez MD is Attending Physician. cp 13:12 Anabella Perez, GIL is Primary Nurse. ss 13:15 Inserted saline lock: 20 gauge in left antecubital area, using aseptic technique. ss Patient maintains SpO2 saturation greater than 95% on room air. 13:34 Chest Single View XRAY In Process Unspecified. EDMS 13:41 Patient has correct armband on for positive identification. Bed in low position. Call ss light in reach. 13:48 EKG done, by ED staff, reviewed by Mychal ALFARO. em1 14:40 CT Chest For PE Angio In Process Unspecified. EDMS 15:41 No provider procedures requiring assistance completed. IV discontinued, intact, ss bleeding controlled, No redness/swelling at site. Pressure dressing applied. Administered Medications: 13:19 Drug: Tussionex Pennkinetic ER (chlorpheniramine-hydrocodone) Suspension 5 ml Route: PO;ss 15:42 Follow up: Response: No adverse reaction; Marked relief of symptoms ss 14:11 Drug: NS 0.9% 500 ml Route: IV; Rate: bolus; Site: left antecubital; ss 15:41 Follow up: IV Status: Completed infusion; IV Intake: 500ml ss Intake: 15:41 IV: 500ml; Total: 500ml. ss Outcome: 15:32 Discharge ordered by . cp 15:41 Discharged to home ambulatory, with family. ss 15:41 Condition: good 15:41 Discharge instructions given to patient, family, Instructed on discharge instructions, follow up and referral plans. medication usage, Demonstrated understanding of instructions, follow-up care, medications, Prescriptions given X 2. 15:42 Patient left the ED. Signatures: Dispatcher [employer] JOSECA AntonyLeeanne mr Zoraida Watson RN RN iw Martinez, Eric 1 Anabella Perez RN RN ss Page, Corey, DOMINIC PA cp
--- NOTE | 2022-01-15 15:32 | EDPHYS ---
Physician Documentation [facility] Name: Tabitha Odom Age: 66 yrs Sex: Female : 1955 Arrival Date: 01/15/2022 Time: 11:16 Bed 10 Private MD: Angel Hernandez ED Physician Suzanne Dominguez HPI: 01/15 12:50 This 66 yrs old Female presents to ER via Ambulatory with complaints of Dr deangelo Tamez, Pneumonia. 12:50 The patient or guardian reports cough, that is intermittent, with productive sputum. cp 12:50 Onset: The symptoms/episode began/occurred last week. Associated signs and symptoms: cp Pertinent positives: fever, Pertinent negatives: chest pain, diarrhea, vomiting. 12:50 Patient reports she was referred to ED for evaluation by pcp after contacting office cp today concerning continued cough, fever at night since being diagnosed with bilateral pneumonia last week. Patient reports she was initially treated with Augmentin and then changed to Levaquin on 01-11-2022 after being seen at [place]. Patient reports in the past Zithromax has worked and requests RX for Zithromax. Historical: - Allergies: 12:30 Erythromycin; iw 12:30 Reglan; iw 12:30 Rocephin; iw - Home Meds: 12:30 Creon Oral [Active]; Crestor Oral [Active]; losartan 50 mg Oral tab 1 tab once daily iw [Active]; Vitamin D Oral 87849 unit [Active]; - PMHx: 12:30 Hyperlipidemia; Hypertension; pancreatic cancer; iw ROS: 13:00 Constitutional: Negative for body aches, chills, fever, poor PO intake. cp 13:00 Eyes: Negative for injury, pain, redness, and discharge. cp 13:00 ENT: Negative for drainage from ear(s), ear pain, sore throat, difficulty swallowing, difficulty handling secretions. 13:00 Cardiovascular: Negative for chest pain, edema, palpitations. 13:00 Respiratory: Positive for cough, Negative for shortness of breath, wheezing. 13:00 Abdomen/GI: Negative for abdominal pain, vomiting, diarrhea, constipation. 13:00 : Negative for urinary symptoms. 13:00 Neuro: Negative for altered mental status, headache, weakness. 13:00 All other systems are negative. Exam: 13:05 Constitutional: The patient appears in no acute distress, alert, awake, cp non-diaphoretic, non-toxic, well developed, well nourished. 13:05 Head/Face: Normocephalic, atraumatic. cp 13:05 Eyes: Periorbital structures: appear normal, Conjunctiva: normal, no exudate, no injection, Sclera: no appreciated abnormality, Lids and lashes: appear normal, bilaterally. 13:05 ENT: External ear(s): are unremarkable, Ear canal(s): are normal, clear, TM's: dullness, bilaterally, Nose: is normal, Mouth: Lips: moist, Oral mucosa: moist, Posterior pharynx: Airway: no evidence of obstruction, patent, Tonsils: are normal in appearance, erythema, is not appreciated, exudate, is not appreciated. 13:05 Neck: ROM/movement: is normal, is supple, without pain, no range of motions limitations, no meningismus, Lymph nodes: no appreciated lymphadenopathy. 13:05 Chest/axilla: Inspection: normal. 13:05 Cardiovascular: Rate: normal, Rhythm: regular, Edema: is not appreciated, JVD: is not appreciated. 13:05 Respiratory: the patient does not display signs of respiratory distress, Respirations: normal, no use of accessory muscles, no retractions, labored breathing, is not present, Breath sounds: bronchial sounds, that are mild, are heard in the left posterior lower lobe, right posterior middle lobe and right posterior lower lobe, stridor, is not appreciated, wheezing: is not appreciated. 13:05 Abdomen/GI: Inspection: abdomen appears normal, Palpation: abdomen is soft and non-tender, in all quadrants. 13:05 Back: pain, is absent, ROM is normal. 13:05 Neuro: Orientation: to person, place \\T\\ time. Mentation: is normal. 13:53 ECG was reviewed by the Attending Physician. cp Vital Signs: 12:30 BP 147 / 91; Pulse 99; Resp 16 S; Temp 98.7; Pulse Ox 100% on R/A; iw MDM: 12:44 Patient medically screened. cp 13:00 Differential diagnosis: bronchitis, flu, URI, pneumonia. cp 15:30 Data reviewed: vital signs, nurses notes, lab test result(s), EKG, radiologic studies, cp CT scan, plain films. 15:30 Test interpretation: by ED physician or midlevel provider: ECG, plain radiologic cp studies. Counseling: I had a detailed discussion with the patient and/or guardian regarding: the historical points, exam findings, and any diagnostic results supporting the discharge/admit diagnosis, lab results, radiology results, the need for outpatient follow up, a family practitioner, to return to the emergency department if symptoms worsen or persist or if there are any questions or concerns that arise at home. ED course: VSS. Patient appears non-toxic and no signs of respiratory distress. Patient requesting change of antibiotic to Zithromax due to concern of not feeling better even after discussing risk of bacteria resistence and that labs and radiology studies appear to show improvement. Will discharge to home for continued monitoring. 01/15 12:54 Order name: Basic Metabolic Panel; Complete Time: 13:51 cp 01/15 13:51 Interpretation: Normal except: GLUC 109. 01/15 12:54 Order name: CBC with Diff; Complete Time: 13:51 cp 01/15 12:54 Order name: LFT's; Complete Time: 13:51 cp 01/15 13:52 Interpretation: Normal except: AST 56; GLOB 4.1; A/G 0.9. cp 01/15 12:54 Order name: Magnesium; Complete Time: 13:51 cp 01/15 12:54 Order name: NT PRO-BNP; Complete Time: 13:51 cp 01/15 12:54 Order name: COVID-19/FLU A+B (Document "Date of Onset" if Symptomatic); Complete Time: cp 14:29 01/15 14:29 Interpretation: Reviewed. 01/15 12:25 Order name: Chest Single View XRAY; Complete Time: 13:51 ma2 01/15 12:54 Order name: EKG; Complete Time: 12:54 cp 01/15 12:54 Order name: Urine Microscopic Only; Complete Time: 14:29 cp 01/15 14:29 Interpretation: Reviewed. 01/15 12:54 Order name: Procalcitonin; Complete Time: 14:29 cp 01/15 14:29 Interpretation: Reviewed. 01/15 13:33 Order name: Urine Dipstick-Ancillary; Complete Time: 13:51 EDMS 01/15 13:53 Order name: CT Chest For PE Angio; Complete Time: 15:22 cp 01/15 15:23 Interpretation: Report reviewed. cp 01/15 12:54 Order name: Cardiac monitoring; Complete Time: 13:31 cp 01/15 12:54 Order name: EKG - Nurse/Tech; Complete Time: 13:35 cp 01/15 12:54 Order name: IV Saline Lock; Complete Time: 13:31 cp 01/15 12:54 Order name: Labs collected and sent; Complete Time: 13:31 cp 01/15 12:54 Order name: O2 Per Protocol; Complete Time: 13:31 cp 01/15 12:54 Order name: O2 Sat Monitoring; Complete Time: 13:31 cp EC:53 Rate is 76 beats/min. Rhythm is regular. AK interval is normal. QRS interval is normal. cp QT interval is normal. T waves are Inverted in lead aVR. Interpreted by me. Reviewed by me. Administered Medications: 13:19 Drug: Tussionex Pennkinetic ER (chlorpheniramine-hydrocodone) Suspension 5 ml Route: PO;ss 15:42 Follow up: Response: No adverse reaction; Marked relief of symptoms ss 14:11 Drug: NS 0.9% 500 ml Route: IV; Rate: bolus; Site: left antecubital; ss 15:41 Follow up: IV Status: Completed infusion; IV Intake: 500ml ss Disposition Summary: 01/15/22 15:32 Discharge Ordered Location: Home cp Problem: an ongoing problem cp Symptoms: have improved cp Condition: Stable cp Diagnosis - Other pneumonia, unspecified organism cp Followup: cp - With: Private Physician - When: 1 - 2 days - Reason: Recheck today's complaints Discharge Instructions: - Discharge Summary Sheet cp - Community-Acquired Pneumonia, Adult cp Forms: - Medication Reconciliation Form cp - Thank You Letter cp - Antibiotic Education cp - Prescription Opioid Use cp Prescriptions: - Zithromax Z-Carlos 250 mg Oral Tablet - take 1 tablet by ORAL route as directed for 5 days Day 1 - take two (2) tablets cp one time. Day 2, 3, 4 , 5 take one (1) tablet once daily.; 6 tablet; Refills: 0, Product Selection Permitted - Bromfed DM 2-30-10 mg/5 mL Oral syrup - take 10 milliliter by ORAL route every 6 hours; 180 milliliter; Refills: 0, cp Product Selection Permitted Addendum: 01/17/2022 18:36 Co-signature as Attending Physician, Suzanne salgado a2 Signatures: Dispatcher [employer] Zoraida Marks RN RN iw Smirch, Shelby, RN RN ss Mychal Fisher, DOMINIC Dominguez, MD ANURADHA Palacios ma2 Corrections: (The following items were deleted from the chart) 01/15 13:35 12:54 Urine Test ordered. deangelo
[2022-01-15 23:09] VITALS: BP 147/91; TEMP 98.7; O2SAT 100
--- NOTE | 2022-01-16 08:09 | EKG ---
Test Date: 2022-01-15 Test Time: 13:46:11 Hadoop Infrastructure Architect: EZEQUIEL MEASUREMENT RESULTS: Intervals: Rate: 76 DE: 124 QRSD: 70 QT: 366 QTc: 411 [place]: P: 67 DE: 124 QRS: 62 T: 50 INTERPRETIVE STATEMENTS: Normal sinus rhythm Possible Left atrial enlargement Low voltage QRS Borderline ECG Compared to ECG 09/14/2020 20:38:01 Low QRS voltage now present Electronically Signed On 01-16-22 08:07:00 CDT by Ayden Hagan
== END 2022-01-15 15:42 | disposition home or self-care (01) ==
LOC: ER 11:14
DX: J18.8 Other pneumonia, unspecified organism (principal); I10 Essential (primary) hypertension; E78.5 Hyperlipidemia, unspecified; Z20.822 Contact with and (suspected) exposure to COVID-19; Z85.07 Personal history of malignant neoplasm of pancreas; Z88.3 Allergy status to other anti-infective agents; Z88.8 Allergy status to other drugs, medicaments and biological substances
CPT/HCPCS: 93005; 85025; 80048; 36415; 83735; 80076; 84145; 83880; 0240U; 71275; 71045; 96360; 99284; Q9967; J7040; 81003; 81015

== ENCOUNTER 2022-03-04 19:39 | Emergency (ER) | payer OTHER ==
--- OUTSIDE RECORDS SUMMARY | 2022-03-04 19:42 | XMS REPORT | Continuity of Care Document ---
:1955 Author Organization [facility] t Address [address] [place] [address] Care Team Providers Name Role Phone Avery BYRD Primary Care Physician Unavailable Argenis Hernandez Attending Clinician Unavailable RADIOLOGY Attending Clinician Unavailable Radiology Attending Clinician Unavailable Doctor Unassigned, Name Attending Clinician Unavailable Pat Mullen MD Attending Clinician FORTINO MULLEN Attending Clinician Unavailable Indra CASH Attending Clinician Unavailable SYSTEM, NOT IN Attending Clinician Unavailable Johan MOORE Admitting Clinician Unavailable Payers Payer Name Policy Type Policy Number Effective Date Expiration Date S melva MEDICARE PLAN O [id number] - AETNA AETNA MEDICARE OUT [id number] 2019 OF NETWORK 00:00:00 AETNA MEDICARE O [id number] 2019 POS 00:00:00 Problems Condition Condition Condition Status Onset Resolution Last Treating Co mments Source Name Details Category Date Date Treatment Clinician Date Fatty Fatty Disease Active 2016-09 [facility] liver liver 2-06 College disease, disease, 00:00: of nonalcohol nonalcohol 00 Me dicin ic ic e Osteoporos Osteoporos Disease Active 2016-09 U nivers is, senile is, senile 0-09 it y of 00:00: [address] 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 00:00: [address] Branch Elevated Elevated Disease Active Unive rs liver liver 12-18 ity of enzymes enzymes 00:00: [place] 00 [facility] 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-18 it y of of of 00:00: [place] pancreas pancreas 00 Medica l Branch Allergies, Adverse Reactions, Alerts Allergy Allergy Status Severity Reaction(s) Onset Inactive Treating Comm ents Source Name Type Date Date Clinician CEFTRIAX Allergy Active Hives [facility] 00 [place] Erythrom Propensi Active Other (See "Makes Ba ylor ycin ty to Comments) 03-24 her College adverse 00:00: jittery" of reaction 00 Medicin s to e drug Metoclop Propensi Active Other (See "Makes Ba ylor ramide ty to Comments) 03-24 her College adverse 00:00: jittery" of reaction 00 Medicin s to e drug ERYTHROM DRUG Active N/V Univers YCIN 12-18 ity of 00:00: [place] 00 [facility] METOCLOP DRUG Active Unknown-Cmnt Un sunil RAMIDE INGREDI 12-18 ity of HCL 00:00: [place] 00 [facility] Erythrom Propensi Active Nausea Univer s ycin ty to and/or 12-18 ity of adverse Vomiting 00:00: [place] reaction 00 [facility] Metoclop Propensi Active Unknown - Uni vers ramide ty to See comments 12-18 ity of Hcl adverse 00:00: [place] reaction 00 [facility] ERYTHROM Allergy Active 2014-[address] YCIN 1-20 [facility] METOCLOP Allergy Active [facility] RAMIDE 9-06 [facility] HCL 00:00: Medical 00 [place] DIAZEPAM Allergy Active [facility] Social History Social Habit Start Date Stop Date Quantity Comments Source [facility] to [facility] sure [facility] SARS-CoV-2 Medicine (event) Alcohol intake 2015-12-19 2015-12-19 0 /d University of 00:00:00 00:00:00 [facility] Alcohol Comment 2015-01-27 2015-01-27 1 drink every 6 [employer] of 00:00:00 00:00:00 months (1/2 can Medicine of beer) History of 2013-12-28 Current smoker [facility] Col lege of tobacco use 00:00:00 Medicine Sex [birth year] Universit y of 00:00:00 00:00:00 [facility] Smoking Status Start Date Stop Date Source Never smoker [facility] Former smoker 2020-03-27 00:00:00 2020-03-27 00:00:00 [facility] C ollege of Medicine Medications Ordered Filled Start Stop Current Ordering Indication Dosage Frequency Signature Comments Components Source Medication Medication Date Date Medication? Clinician (SIG) Name Name tramadol Yes 50mg Take 50 mg [place] keegan (ULTRAM) 50 - by mouth Trista ege MG tablet 17:28: as needed of 29 for Pain. Medicin e pantoprazol Yes 40mg Take 40 mg [facility] e 6-29 by mouth [facility] (PROTONIX) 17:28: daily. of 40 MG 29 Medicin tablet e losartan Yes 100mg Take 100 [employer] [facility] (COZAAR) -29 mg by [facility]iba 100 MG 17:28: mouth of tablet 29 daily. Medicin e Colesevelam Yes Take by Ba ylor HCl 03-27 [facility] (WELCHOL) 17:28: every of 3.75 G PACK 29 evening. Medi lenny e Vitamin D, Yes Take by [place] keegan Ergocalcife 03-27 [facility] rol, [id number] 17:28: every 7 of units CAPS 29 days. Medicin e rosuvastati Yes 10mg Take 10 mg [facility] n (CRESTOR) 29 by mouth Trista ege [...] EC 17 Medical tablet Branch colesevelam Yes [id number] 625mg Take 1 Univers 625 mg 7-11 tablet by ity of tablet 00:00: mouth [place] 00 daily. Medical Branch colesevelam Yes [id number] 625mg Take 1 Univers 625 mg 7-11 tablet by ity of tablet 00:00: mouth [place] 00 daily. Medical Branch ergocalcife 2017- Yes [id number] Take 1 Un sunil rol, 1-03 capsule by ity of vitamin d2, 00:00: mouth [place] (VITAMIN 00 weekly. Medical D2) 50,000 Branch unit capsule ergocalcife 2016-09 Yes [id number] Take 1 Un sunil rol, 1-03 capsule by ity of vitamin d2, 00:00: mouth [place] (VITAMIN 00 weekly. Medical D2) 50,000 Branch unit capsule losartan 2017 Yes 100mg Take 100 Univ ers 100 mg 3-27 mg by ity of tablet 00:00: mouth [place] 00 daily. Medical Branch losartan Yes 100mg Take 100 Univ ers 100 mg 3-27 mg by ity of tablet 00:00: mouth [place] 00 daily. Medical Branch blood sugar Yes Use as Univ ers diagnostic 3-22 directed, ity of (CONTOUR 00:00: daily, [place] NEXT DX:E11.9 Medical STRIPS) Branch strip Lancets Yes Use as Univers (MICROLET 3-22 directed, ity o f LANCET) 00:00: daily, [facility] 00 DX:E11.9 Medical Branch blood sugar Yes Use as Univ ers diagnostic 3-22 directed, ity of (CONTOUR 00:00: daily, [place] NEXT DX:E11.9 Medical STRIPS) Branch strip Lancets Yes Use as Univers (MICROLET 3-22 directed, ity o f LANCET) 00:00: daily, [facility] 00 DX:E11.9 Medical Branch CREON 2016-0 Yes Univers 12,000-38,0 2-09 ity of 00 -60,000 00:00: [place] unit 00 Medical capsule Branch CREON 2016-0 Yes Univers 12,000-38,0 2-09 ity of 00 -60,000 00:00: [place] unit 00 Medical capsule Branch Pancrelipas 2015- Yes [id number] 1200U Take 1,200 [place] e, 0-05 Units by Ceiba Lip-Prot-Am 00:00: mouth 3 of yl, 51818 00 times Medicin UNITS CPEP daily e (with meals). Vital Signs Vital Name Observation Time Observation Value Comments Source Systolic blood 2020-03-27 17:23:00 129 mm[Hg] [facility] pressure of Medicine Diastolic blood 2020-03-27 17:23:00 85 mm[Hg] [facility] pressure of Medicine Heart rate 2020-03-27 17:23:00 76 /min Pulse Ox-97% [facility] ollege of [facility] Body temperature 2020-03-27 17:23:00 36.5 Arlen [facility] Respiratory rate 2020-03-27 17:23:00 16 /min [facility] Body height 2020-03-27 17:23:00 152.4 cm [facility] ollege of [facility] Body weight 2020-03-27 17:23:00 47.718 kg [facility] ollege of [facility] BMI 2020-03-27 17:23:00 20.55 kg/m2 [facility] ollege of [facility] Systolic blood 2020-03-27 17:23:00 129 mm[Hg] [facility] pressure of [facility] Diastolic blood 2020-03-27 17:23:00 85 mm[Hg] [facility] pressure of Medicine Heart rate 2020-03-27 17:23:00 76 /min Pulse Ox-97% [facility] ollege of [facility] Body temperature 2020-03-27 17:23:00 36.5 Arlen [facility] Respiratory rate 2020-03-27 17:23:00 16 /min [facility] Body height 2020-03-27 17:23:00 152.4 cm [facility] ollege of [facility] Body weight 2020-03-27 17:23:00 [facility]718 [facility] BMI 2020-03-27 17:23:00 20.55 [facility]/m2 [facility] Procedures Procedure Date / Time Performed Performing Clinician [facility] e US ABDOMEN COMPLETE 2021-08-08 16:05:00 [facility] ASSIGNMENT OF BENEFITS 2021-08-08 15:25:30 Doctor Unassigned, No [facility] Medical Branch Plan of Care Planned Activity Planned Date Details Comments Source Future Scheduled Test COLON CANCER SCREENING: [facility] COLONOSCOPY [code = Medicine COLON CANCER SCREENING: COLONOSCOPY] Future Scheduled Test TETANUS SHOT (ADULT) [employer] of [code = TETANUS SHOT Medicin e (ADULT)] Future Scheduled Test HIV SCREENING [code = [facility] of HIV SCREENING] Medicine Future Scheduled Test CERVICAL CANCER [facility] SCREENING 3 YEAR FOLLOW [facility] cine UP [code = CERVICAL CANCER SCREENING 3 YEAR FOLLOW UP] Future Scheduled Test MEDICARE AWV (Initial) [facility] [code = MEDICARE AWV Medicin e (Initial)] Future Scheduled Test MAMMOGRAM ANNUAL [code [facility] of = MAMMOGRAM ANNUAL] Medicine Future Scheduled Test FLU VACCINE > 6 MONTHS [facility] [code = FLU VACCINE > 6 Medi cine MONTHS] Encounters Start End Encounter Admission Attending Care Care Encounter Source Date/Time Date/Time Type Type Clinicians Facility Department ID 2022-02-21 Outpatient Hernandez, [facility] [id number] Common 08:54:02 [facility] 2021-11-12 2021-11-12 Outpatient [facility] [id number] [facility] 11:53:57 15:50:47 Colleg e of Medicin e 2021-11-12 2021-11-12 Outpatient [facility] [id number] [facility] 09:37:51 15:42:35 Colleg e of Medicin e 2021-08-08 2021-08-08 Outpatient R RADIOLOGY [facility] [id number] Univers 09:26:32 23:59:00 ity of [facility] 2021-08-08 2021-08-08 Hospital Radiology [facility] [id number] Univers 09:00:00 23:59:00 Encounter YAZMIN [id number] ity [facility] 4.2.7.2.686 [facility] [id number] [facility] 806 Branch 2021-08-08 2021-08-08 Outpatient R RADIOLOGY [facility] [id number] Univers 00:00:00 00:00:00 [id number] ity of [facility] 2021-08-08 2021-08-08 Orders Doctor ARANDA [id number] Univers 00:00:00 00:00:00 Only Unassigned, BELL [id number] ity of [facility] 4.2.7.2.686 [facility] [id number] [facility] 009 Branch 2020-03-27 2020-03-[address] [facility] [id number] 12:07:20 13:50:30 Visit Darrell Moscoso [id number] [id number] [id number] 2020-03-27 2020-03-[address] [facility] [id number] [place] [address] 12:07:20 13:50:30 Visit Darrell Moscoso [id number] [place] 0.2.7.2.686 [id number] [facility] 510 e 2020-03-27 2020-03-27 Outpatient [facility]AREY MULLEN [facility] [id number] [facility] 00:00:00 00:00:00 DARRELL 2020-03-20 2020-03-20 Outpatient CAREY MULLEN [facility] [id number] [facility] 00:00:00 00:00:00 DARRELL 2020-03-17 2020-03-17 Outpatient CAREY MULLEN [facility] [id number] [facility] 00:00:00 00:00:00 DARRELL 2020-03-06 2020-03-06 Outpatient CAREY MULLEN [facility] [id number] [facility] 00:00:00 00:00:00 DARRELL 2020-03-06 2020-03-06 Outpatient SEBAS [facility] [id number] [facility] 00:00:00 00:00:00 DARRELL Results Test Description Test Time Test Comments Results Result [facility] e Comments MR, ABDOMEN, 2020-03-01 Referring: FINAL REPORT PATIENT ID: WITHOUT / WITH 0 Dr. Valentin [id number] MRI of the abdomen IV CONTRAST 15:14:00 Mullen dated March 27, 2020 COMPARISON: CT of [...] present in the remaining pancreas. Signed: Carlos Diaseport Verified Date/Time: 03/28/2020 15:14:33 Reading Location: [facility] C013Y CT Body Reading Room -CREATININE 2020-03-27 10:35:00 Test Item Value Reference Range Interpretation Comme nts POC-CREATININE (BEAKER) 0.6 mg/dL 0.6-1.3 : TE STED AT [facility] 7200 (test code = 1859) [facility] [id number]: Physical Therapy Teacher /Property Specialist ID = [id number] for ANJANA JOYCE POC-EGFR (BEAKER) (test 101 mL/min/1.73M2 code = 1860) CT, ABDOMEN, WITHOUT / WITH IV [id number] 15:03:00Referring: Dr. Darrell Church REPORT CT scan of the abdomen [...] at the time of dictation. Signed: Parviz Garzaeport Verified Date/Time: 03/05/2019 15:03:16 Reading Location: [address] Ortho Consult Reading Room [id number] 11:43:00 Test Item Value Reference Range Interpretation Comments POC-CREATININE 0.5 mg/dL 0.6-1.3 L TESTED AT [facility] 7200 ([facility]) (test DIONISIO D G A code = 1859) [facility] 7703 0 POC-EGFR 125 mL/min/1.73M2 ([facility]) (test code = 1860) CT, ABDOMEN, [id number] 11:02:00Referring: Dr. Darrell MullenFINAL REPORT CT OF [...] MDReport Verified Date/Time: 04/22/2018 11:02:01 Reading Location: [address] Radiology Reading Room [id number] 08:58:00 Test Item Value Reference Range Interpretation Comments POC-CREATININE 0.5 mg/dL 0.6-1.3 L TESTED AT [facility] ([facility]) (test [address] [facility] code = 1859) [facility] 7703 0 POC-EGFR 125 mL/min/1.73M2 (BEAKER) (test code = 1860) CHROMOGRANIN [id number] 10:34:00 Test Item Value Reference Range Interpretation Comments SCAN RESULT (test code = 2856376) ANTI-NUCLEAR ANTIBODY (FRENCH)2017-11-22 10:58:00 Test Item Value Reference Range Interpretation Comments ANTI-NUCLEAR ANTIBODY (FRENCH) (BEAKER) Negative Negative (test code = 418) [id number] 15:08:00 Test Item Value Reference Range Interpretation Comments FERRITIN (FlameStowerAKER) (test code = 361) 21 ng/mL 5-275 HEPATITIS A ANTIBODY, [id number] 14:16:00 Test Item Value Reference Range Interpretation Comments HEPATITIS A IGG ANTIBODY ([facility]) Reactive Nonreactive A (test code = 2797) HEPATITIS B SURFACE [id number] 14:16:00 Test Item Value Reference Range Interpretation Comments HEPATITIS B SURFACE ANTIBODY < mIU/mL <8.0 (BEAKER) (test code = 647) HEPATITIS C [id number] 14:15:00 Test Item Value Reference Range Interpretation Comments HEPATITIS C ANTIBODY (BEAKER) Nonreactive Nonreactive (test code = 367) HEPATITIS B SURFACE [id number] 14:10:00 Test Item Value Reference Range Interpretation Comments HEPATITIS B SURFACE ANTIGEN (2) Nonreactive Nonreactive (BEAKER) (test code = 2585) HEPATITIS B CORE ANTIBODY, [id number] 14:10:00 Test Item Value Reference Range Interpretation Comments HEPATITIS B CORE TOTAL ANTIBODY Nonreactive Nonreactive (BEAKER) (test code = 497) [id number] 13:59:00 Test Item Value Reference Range Interpretation [...] L (test code = 2590) COMPREHENSIVE METABOLIC [id number] 13:50:00 Test Item Value Reference Range Interpretation [...] NOT APPLICABLE FOR DIALYSIS PATIEN TS. BILIRUBIN, [id number] 13:50:00 Test Item Value Reference Range Interpretation Comments BILIRUBIN DIRECT (BEAKER) (test 0.1 mg/dL 0.1-0.5 code = 706) U/S, ABDOMINAL, [id number] 13:42:00Referring: Dr. Darrell MullenINCREID ELASTOGRAPHYReason for Exam:->Elevated liver tests, h/o [...] MDReport Verified Date/Time: 11/20/2017 13:42:16 Reading Location: [address] Radiology Reading Room CBC W/PLT COUNT & AUTO [id number] 13:07:00 Test Item Value Reference Range Interpretation [...] 2801) TUMOR LOCAL, WB, 2 OR MORE [id number] 14:21:00neuroendocrine tumorFINAL REPORT PROCEDURE: OCTREOSCAN - Tumor Localization CPT CODE: 12160, 84264, 15900 INDICATION: Neuroendocrine tumor localization PROTOCOL: 6.28 mCi [...] MDReport Verified Date/Time: 08/27/2017 14:21:08 Reading Location: [address] Reading Room 02:21 PMCT, CHEST, WITH [id number] 15:02:00FINAL REPORT Exam: CT chest with contrast, [...] Dias MDReport Verified Date/Time: 08/26/2017 15:02:31Reading Location: [address] [facility], [facility] 2017-08-26 15:02:00FINAL REPORT Exam: CT [...] Dias MDReport Verified Date/Time: 08/26/2017 15:02:31Reading Location: [address] [id number] 10:53:00 Test Item Value Reference Range Interpretation Comments POC-CREATININE 0.5 mg/dL 0.6-1.3 L TESTED AT [facility] 6720 ([facility]) (test [place] code = 1859) [address] POC-EGFR ([facility]) 125 mL/min/1.73M2 (test code = 1860) CHROMOGRANIN [id number] 10:19:00 Test Item Value Reference Range Interpretation Comments SCAN RESULT (test code = 6481478) [id number] 09:50:00 Test Item Value Reference Range Interpretation Comments POC-CREATININE 0.5 mg/dL 0.6-1.3 L TESTED AT [facility] 6720 ([facility]) (test [place] code = 1859) [address] POC-EGFR ([facility]) 125 mL/min/1.73M2 (test code = 1860)
--- NOTE | 2022-03-04 20:03 | ER ---
Nurse's Notes [facility] Name: Tabitha Odom Age: 66 yrs Sex: Female : 1955 Arrival Date: 03/04/2022 Time: 19:40 Bed Waiting Private MD: Diagnosis: ED Course: 03/04 19:40 Patient arrived in ED. bp1 19:52 Lalitha Cantu NP is PHCP. aj3 19:52 Buddy Gama MD is Attending Physician. aj3 Administered Medications: No medications were administered Outcome: 20:03 Patient left the ED. ld1 Signatures: Shannon Swanson Lauren, RN RN ld1 Lalitha Cantu NP SYSTEMS PROTECTION TECHNICIAN aj3
== END 2022-03-04 20:03 | disposition left against medical advice (07) ==
LOC: ER 19:39
DX: Z02.9 Encounter for administrative examinations, unspecified (principal)

== ENCOUNTER 2022-03-07 11:29 | Emergency (ER) | payer OTHER ==
--- OUTSIDE RECORDS SUMMARY | 2022-03-07 11:32 | XMS REPORT | Continuity of Care Document ---
:1955 Author Organization [facility] t Address [address] [place] [address] Care Team Providers Name Role Phone Avery [...] Expiration Date S melva MEDICARE PLAN O [id number] - AETNA AETNA MEDICARE OUT [id number] 2019 OF NETWORK 00:00:00 AETNA MEDICARE O [id number] 2019 POS 00:00:00 Problems Condition Condition Condition Status Onset Resolution Last Treating Co mments Source Name Details Category Date Date Treatment Clinician Date Fatty Fatty Disease Active 2016-09 [facility] liver liver 2-06 College disease, disease, 00:00: of nonalcohol nonalcohol 00 Me dicin ic ic e Osteoporos Osteoporos Disease Active 2016-09 U nivers is, senile is, senile 0-09 it y of 00:00: [address] 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 00:00: [address] Branch Elevated Elevated Disease Active Unive rs liver liver 12-18 ity of enzymes enzymes 00:00: [place] 00 [facility] 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-18 it y of of of 00:00: [place] pancreas pancreas 00 Medica l Branch Allergies, Adverse Reactions, Alerts Allergy Allergy Status Severity Reaction(s) Onset Inactive Treating Comm ents Source Name Type Date Date Clinician CEFTRIAX Allergy Active Hives [facility]07 [facility] 00 [place] Erythrom Propensi Active Other (See "Makes Ba [...] YCIN 12-18 ity of 00:00: [place] 00 [facility] METOCLOP DRUG Active Unknown-Cmnt Un sunil RAMIDE INGREDI 12-18 ity of HCL 00:00: [place] 00 [facility] Erythrom Propensi Active Nausea Univer s ycin ty to and/or 12-18 ity of adverse Vomiting 00:00: [place] reaction 00 [facility] Metoclop Propensi Active Unknown - Uni vers ramide ty to See comments 12-18 ity of Hcl adverse 00:00: [place] reaction 00 [facility] ERYTHROM Allergy Active 2014-[address] YCIN 1-20 [facility] METOCLOP Allergy Active [facility] RAMIDE 9-06 [facility] HCL 00:[facility]: Medical 00 [place] DIAZEPAM Allergy Active [facility] Social History Social Habit Start Date Stop Date Quantity Comments Source [facility] to [facility] sure [facility] SARS-CoV-2 Medicine (event) Alcohol intake 2015-12-19 2015-12-19 0 /d University of 00:00:00 00:00:00 [facility] Alcohol Comment 2015-01-27 2015-01-27 1 drink every 6 [employer] of 00:00:00 00:00:00 months (1/2 can Medicine of beer) History of 2013-12-28 Current smoker [facility] Col lege of tobacco use 00:00:00 Medicine Sex [birth year] Universit y of 00:00:00 00:00:00 [facility] Smoking Status Start Date Stop Date Source Never smoker [facility] Former smoker 2020-03-27 00:00:00 2020-03-27 00:00:00 [facility] C ollege of Medicine Medications Ordered Filled Start Stop Current Ordering Indication Dosage Frequency Signature Comments Components Source Medication Medication Date Date Medication? Clinician (SIG) Name Name tramadol Yes 50mg Take 50 mg Kennan keegan (ULTRAM) 50 - by mouth Trista ege MG tablet 17:28: as needed of 29 for Pain. Medicin e pantoprazol Yes 40mg Take 40 mg [facility] e 6-29 by mouth [place] (PROTONIX) 17:28: daily. of 40 MG 29 Medicin tablet e losartan Yes 100mg Take 100 [employer] (COZAAR) -29 mg by [place] 100 MG 17:28: mouth of tablet 29 daily. Medicin e Colesevelam Yes Take by Ba ylor HCl 03-27 [facility] (WELCHOL) 17:28: every of 3.75 G PACK 29 evening. Medi lenny e Vitamin D, Yes Take by Kennan keegan Ergocalcife 03-27 [facility] rol, [id number] 17:28: every 7 of units CAPS 29 days. Medicin e rosuvastati Yes 10mg Take 10 mg [facility] n (CRESTOR) 29 by mouth [...] EC 17 Medical tablet Branch colesevelam Yes [id number] 625mg Take 1 Univers 625 mg 7-11 tablet by ity of tablet 00:00: mouth [place] 00 daily. Medical Branch colesevelam Yes [id number] 625mg Take 1 Univers 625 mg 7-11 tablet by ity of tablet 00:00: mouth [place] 00 daily. Medical Branch ergocalcife 2017- Yes [id number] Take 1 Un sunil rol, 1-03 capsule by ity of vitamin d2, 00:00: mouth [place] (VITAMIN 00 weekly. Medical D2) 50,000 Branch unit capsule ergocalcife 2016-09 Yes [id number] Take 1 Un sunil rol, 1-03 capsule [...] mg by ity of tablet 00:00: mouth [place] 00 daily. Medical Branch blood sugar Yes Use as Univ ers diagnostic 3-22 directed, ity of (CONTOUR 00:00: daily, [place] NEXT DX:E11.9 Medical STRIPS) Branch strip Lancets Yes Use as Univers (MICROLET 3-22 directed, ity o f LANCET) 00:00: daily, [facility] [place] [facility] 00 DX:E11.9 Medical Branch blood sugar Yes Use as Univ ers diagnostic 3-22 directed, ity of (CONTOUR 00:00: daily, [place] NEXT DX:E11.9 Medical STRIPS) Branch strip Lancets Yes Use as Univers (MICROLET 3-22 directed, ity o f LANCET) 00:00: daily, [facility] [place] [facility] 00 DX:E11.9 Medical Branch CREON 2016-0 Yes Univers 12,000-38,0 2-09 ity of 00 -60,000 00:00: [place] unit 00 Medical capsule Branch CREON 2016-0 Yes Univers 12,000-38,0 2-09 ity of 00 -60,000 00:00: [place] unit 00 Medical capsule Branch [place] 2015- Yes [id number] 1200U Take 1,200 [place] e, 0-05 Units by [place] Lip-Prot-Am 00:00: mouth 3 of yl, 834[address] 00 times Medicin UNITS CPEP daily e (with meals). Vital Signs Vital Name Observation Time Observation Value Comments Source Systolic blood 2020-03-27 17:23:00 129 mm[Hg] [facility] pressure of Medicine Diastolic blood 2020-03-27 17:23:00 85 mm[Hg] [facility] pressure of Medicine Heart rate 2020-03-27 17:23:00 76 /min Pulse Ox-97% [facility] Body temperature 2020-03-27 17:23:00 36.5 Arlen [facility] Respiratory rate 2020-03-27 17:23:00 16 /min [facility] Body height 2020-03-27 17:23:00 152.4 cm [facility] Body weight 2020-03-27 17:23:00 47.718 kg [facility] BMI 2020-03-27 17:23:00 20.55 kg/m2 [facility] Systolic blood 2020-03-27 17:23:00 129 mm[Hg] [facility] pressure of [facility] Diastolic blood 2020-03-27 17:23:00 85 mm[Hg] [facility] pressure of Medicine Heart rate 2020-03-27 17:23:00 76 /min Pulse Ox-97% [facility] Body temperature 2020-03-27 17:23:00 36.5 Arlen [facility] Respiratory rate 2020-03-27 17:23:00 16 /min [facility] Body height 2020-03-27 17:23:00 152.4 cm [facility] Body weight 2020-03-27 17:23:00 47.718 [facility] BMI 2020-03-27 17:23:00 20.55 kg/m2 [facility] Procedures Procedure Date / Time Performed Performing Clinician [facility] e US ABDOMEN COMPLETE 2021-08-08 16:05:00 [facility] OF BENEFITS 2021-08-08 15:25:30 Doctor Unassigned, No [facility] Medical Branch Plan of Care Planned Activity Planned Date Details Comments Source Future Scheduled Test COLON CANCER SCREENING: [facility] COLONOSCOPY [code = Medicine COLON CANCER SCREENING: COLONOSCOPY] Future Scheduled Test TETANUS SHOT (ADULT) [employer] of [code = TETANUS SHOT Medicin e (ADULT)] Future Scheduled Test HIV SCREENING [code = [facility] of HIV SCREENING] Medicine Future Scheduled Test CERVICAL CANCER [facility] SCREENING 3 YEAR FOLLOW [facility] cine UP [code = CERVICAL CANCER SCREENING 3 YEAR FOLLOW UP] Future Scheduled Test MEDICARE AWV (Initial) [facility] [code = MEDICARE AWV Medicin e (Initial)] Future Scheduled Test MAMMOGRAM ANNUAL [code [facility] of = MAMMOGRAM ANNUAL] Medicine Future Scheduled Test FLU VACCINE > 6 MONTHS [facility] [code = FLU VACCINE > 6 Medi cine MONTHS] Encounters Start End Encounter Admission Attending Care Care Encounter Source Date/Time Date/Time Type Type Clinicians Facility Department ID 2022-02-21 Outpatient Hernandez, [facility]IST [facility] [id number] Common 08:54:02 [facility]ly [facility] 2021-11-12 2021-11-12 Outpatient [facility] [id number] [facility] 11:53:57 15:50:47 Colleg e of Medicin e 2021-11-12 2021-11-12 Outpatient [facility] [id number] [facility] 09:37:51 15:42:35 Colleg e of Medicin e 2021-08-08 2021-08-08 Outpatient R RADIOLOGY [facility] [id number] Univers 09:26:32 23:59:00 ity of [facility] 2021-08-08 2021-08-08 Hospital Radiology [facility] [id number] Univers 09:00:00 23:59:00 Encounter YAZMIN [id number] ity [facility] [id number] [facility] [id number] [facility] 806 Branch 2021-08-08 2021-08-08 Outpatient R RADIOLOGY [facility] [id number] Univers 00:00:00 00:00:00 [id number] ity of [facility] 2021-08-08 2021-08-08 Orders Doctor ARANDA [id number] Univers 00:00:00 00:00:00 Only Unassigned, BELL [id number] ity of [facility] [id number] [facility] [id number] [facility] 009 Branch 2020-03-27 2020-03-[address] [facility] [id number] 12:07:20 13:50:30 Visit Darrell Moscoso [id number] 2020-03-27 2020-03-[address] [facility] [id number] [place] [address] 12:07:20 13:50:30 Visit Darrell Moscoso [id number] [place] [id number] [facility] 510 e 2020-03-27 2020-03-27 Outpatient CAREY MULLEN [facility] [id number] [facility] 00:00:00 00:00:00 DARRELL 2020-03-20 2020-03-20 Outpatient CAREY MULLEN [facility] [id number] [facility] 00:00:00 00:00:00 DARRELL 2020-03-17 2020-03-17 Outpatient CAREY MULLEN [facility] [id number] [facility] 00:00:00 00:00:00 DARRELL 2020-03-06 2020-03-06 Outpatient CAREY MULLEN [facility] [id number] [facility] 00:00:00 00:00:00 DARRELL 2020-03-06 2020-03-06 Outpatient SEBAS [facility] [id number] [facility] 00:00:00 00:00:00 DARRELL Results Test Description Test Time Test Comments Results Result [facility] e Comments MR, ABDOMEN, 2020-03-01 Referring: FINAL REPORT PATIENT ID: WITHOUT / WITH 0 Dr. Valentin [id number] MRI of the abdomen IV CONTRAST 15:14:00 [...] Diaseport Verified Date/Time: 03/28/2020 15:14:33 Reading Location: [facility] C013Y CT Body Reading Room -CREATININE 2020-03-27 10:35:00 Test Item Value Reference Range Interpretation Comme nts POC-CREATININE (BEAKER) 0.6 mg/dL 0.6-1.3 : TE STED AT [facility] 7200 (test code = 1859) [facility] [address]: Sericulturist /Golf Sales Manager ID = [id number] for ANJANA JOYCE POC-EGFR (BEAKER) (test 101 mL/min/1.73M2 code = 1860) CT, ABDOMEN, WITHOUT / WITH IV [id number] 15:03:00Referring: Dr. Darrell Church REPORT CT scan [...] Garzaeport Verified Date/Time: 03/05/2019 15:03:16 Reading Location: [address] Ortho Consult Reading Room [id number] 11:43:00 Test Item Value Reference Range Interpretation Comments POC-CREATININE 0.5 mg/dL 0.6-1.[address] [facility] 7200 ([facility]) (test DIONISIO D G A code = 1859) [facility] 7703 0 POC-EGFR 125 mL/min/1.73M2 ([facility]) (test code = 1860) CT, ABDOMEN, [id number] 11:02:00Referring: Dr. Darrell MullenFINAL REPORT CT OF [...] MDReport Verified Date/Time: 04/22/2018 11:02:01 Reading Location: [address] Radiology Reading Room [id number] 08:58:00 Test Item Value Reference Range Interpretation Comments POC-CREATININE 0.5 mg/dL 0.6-1.3 L TESTED AT [facility] ([facility]) (test [address] [facility] code = 1859) [facility] 7703 0 POC-EGFR 125 mL/min/1.73M2 (BEAKER) (test code = 1860) CHROMOGRANIN [id number] 10:34:00 Test Item Value Reference Range Interpretation Comments SCAN RESULT (test code = 6703099) ANTI-NUCLEAR ANTIBODY (FRENCH)2017-11-22 10:58:00 Test Item Value Reference Range Interpretation Comments ANTI-NUCLEAR ANTIBODY (FRENCH) (BEAKER) Negative Negative (test code = 418) [id number] 15:08:00 Test Item Value Reference Range Interpretation Comments FERRITIN (TelkonetAKER) (test code = 361) 21 ng/mL 5-275 HEPATITIS A ANTIBODY, [id number] 14:16:00 Test Item Value Reference Range Interpretation Comments HEPATITIS A IGG ANTIBODY ([facility]) Reactive Nonreactive A (test code = 2797) HEPATITIS B SURFACE [id number] 14:16:00 Test Item Value Reference Range Interpretation Comments HEPATITIS B SURFACE ANTIBODY < mIU/mL <8.0 (BEAKER) (test code = 647) HEPATITIS C [id number] 14:15:00 Test Item Value Reference Range Interpretation Comments HEPATITIS C ANTIBODY (BEAKER) Nonreactive Nonreactive (test code = 367) HEPATITIS B SURFACE [id number] 14:10:00 Test Item Value Reference Range Interpretation Comments HEPATITIS B SURFACE ANTIGEN (2) Nonreactive Nonreactive (BEAKER) (test code = 2585) HEPATITIS B CORE ANTIBODY, [id number] 14:10:00 Test Item Value Reference Range Interpretation Comments HEPATITIS B CORE TOTAL ANTIBODY Nonreactive Nonreactive (BEAKER) (test code = 497) [id number] 13:59:00 Test Item Value Reference Range Interpretation [...] L (test code = 2590) COMPREHENSIVE METABOLIC [id number] 13:50:00 Test Item Value Reference Range Interpretation [...] NOT APPLICABLE FOR DIALYSIS PATIEN TS. BILIRUBIN, [id number] 13:50:00 Test Item Value Reference Range Interpretation Comments BILIRUBIN DIRECT (BEAKER) (test 0.1 mg/dL 0.1-0.5 code = 706) U/S, ABDOMINAL, [id number] 13:42:00Referring: Dr. Darrell MullenINCREID ELASTOGRAPHYReason for Exam:->Elevated [...] MDReport Verified Date/Time: 11/20/2017 13:42:16 Reading Location: [address] Radiology Reading Room CBC W/PLT COUNT & AUTO [id number] 13:07:00 Test Item Value Reference Range Interpretation [...] 2801) TUMOR LOCAL, WB, 2 OR MORE [id number] 14:21:00neuroendocrine tumorFINAL REPORT PROCEDURE: OCTREOSCAN - Tumor Localization CPT CODE: 42455, 84038, 69690 INDICATION: Neuroendocrine tumor localization PROTOCOL: 6.28 mCi [...] Verified Date/Time: 08/27/2017 14:21:08 Reading Location: [address] Reading Room 02:21 PMCT, CHEST, WITH [id number] 15:02:00FINAL REPORT Exam: CT chest with contrast, [...] Dias MDReport Verified Date/Time: 08/26/2017 15:02:31Reading Location[facility] [address] [facility] 2017-08-26 15:02:00FINAL REPORT Exam: CT [...] Dias MDReport Verified Date/Time: 08/26/2017 15:02:31Reading Location: [address] [id number] 10:53:00 Test Item Value Reference Range Interpretation Comments POC-CREATININE 0.5 mg/dL 0.6-1.[address] [facility] 6720 ([facility]) (test [place] code = 1859) [address] POC-EGFR ([facility]) 125 mL/min/1.73M2 (test code = 1860) CHROMOGRANIN [id number] 10:19:00 Test Item Value Reference Range Interpretation Comments SCAN RESULT (test code = 7821759) [id number] 09:50:00 Test Item Value Reference Range Interpretation Comments POC-CREATININE 0.5 mg/dL 0.6-1.[address] [facility] 6720 ([facility]) (test [place] code = 1859) [address] POC-EGFR ([facility]) 125 mL/min/1.73M2 (test code = 1860)
--- NOTE | 2022-03-07 12:25 | RAD REPORT ---
EXAM DESCRIPTION: RAD - Chest Single View - 03/07/2022 12:06 pm CLINICAL HISTORY: Cough, flu-like symptoms COMPARISON: Portable 01/15/2022 TECHNIQUE: AP portable chest image was obtained 03/07/2022 12:06 pm . FINDINGS: Chronic interstitial lung disease is present. This could potentially mask early interstiti al edema or infiltrate. No focal consolidation or mass lesions seen. Hilar regions within normal limi ts and stable. Heart and vasculature are normal. No measurable pleural effusion and no pneumothorax. No acute bony abnormality seen. No acute aortic findings suspected. IMPRESSION: No acute cardiopulmonary process. Baseline chronic interstitial lung pattern, stable from comparison, could potentially mask early [place] a or infiltrate.
--- NOTE | 2022-03-07 13:11 | ER ---
Nurse's Notes [facility] Name: Tabitha Odom Age: 66 yrs Sex: Female : 1955 Arrival Date: 03/07/2022 Time: 11:35 Bed DIS4 Private MD: Angel Hernandez Diagnosis: Coronavirus infection, unspecified Presentation: 03/07 11:44 Chief complaint: Patient states: Cough, congestion, body aches, fever since Friday ll1 night. Coronavirus screen: Vaccine status: Patient reports receiving the 2nd dose of the covid vaccine. Client denies travel out of the [place] in the last 14 days. congestion, cough unrelated to allergies, fatigue, fever, Client presents with at least one sign or symptom that may indicate coronavirus-19. Standard/surgical mask placed on the client. Ebola Screen: Patient denies travel to an Ebola-affected area in the 21 days before illness onset. Initial Sepsis Screen: Does the patient meet any 2 criteria? No. Patient's initial sepsis screen is negative. Does the patient have a suspected source of infection? Yes: Productive cough/pneumonia. Risk Assessment: Do you want to hurt yourself or someone else? Patient reports no desire to harm self or others. Onset of symptoms was March 03, 2022. 11:44 Method Of Arrival: Ambulatory ll1 11:44 Acuity: YASEMIN 4 ll1 Historical: - Allergies: 11:45 Erythromycin; ll1 11:45 Reglan; ll1 11:45 Rocephin; ll1 - PMHx: 11:45 Hyperlipidemia; Hypertension; pancreatic cancer; ll1 - PSHx: 11:45 tumor removed pancreatic CA; ectopic ; hysterectomy; ll1 - Immunization history:: Client reports receiving the 2nd dose of the Covid vaccine. - Social history:: Smoking status: Patient denies any tobacco usage or history of. Screenin:07 Abuse screen: Denies threats or abuse. Denies injuries from another. Nutritional ss screening: No deficits noted. Tuberculosis screening: Never had TB. Fall Risk None identified. Assessment: 13:07 General: Appears in no apparent distress. Behavior is calm, cooperative. General: ss Reports chills for >3 days, fever for 2-3 days, feeling ill for 2-3 days, fatigue for 2-3 days. Neuro: Level of Consciousness is awake, alert, obeys commands, Oriented to person, place, time, situation. Cardiovascular: Capillary refill < 3 seconds is brisk in bilateral fingers Patient's skin is warm and dry. Respiratory: Airway is patent Respiratory effort is even, unlabored, Respiratory pattern is regular, symmetrical. : No signs and/or symptoms were reported regarding the genitourinary system. Derm: Skin is intact, is healthy with good turgor, Skin is dry, Skin is pink, warm \T\ dry. normal. Musculoskeletal: Range of motion: intact in all extremities, Swelling absent. Vital Signs: 11:44 BP 133 / 89; Pulse 100; Resp 17; Temp 97.7; Pulse Ox 97% on R/A; Weight 42.64 kg; ll1 Height 5 ft. 0 in. (152.40 cm); Pain 0/10; 11:44 Body Mass Index 18.36 (42.64 kg, 152.40 cm) ll1 ED Course: 11:35 Patient arrived in ED. mr 11:35 Angel Hernandez DO is Private Physician. mr 11:38 Izabella Juárez FNP-C is [facility]. kb 11:38 Chacorta Mo MD is Attending Physician. kb 11:45 Triage completed. ll1 11:46 Arm band placed on. ll1 12:07 Chest Single View XRAY In Process Unspecified. EDMS 13:07 Anabella Perez, RN is Primary Nurse. ss 13:07 Patient has correct armband on for positive identification. ss 13:13 No provider procedures requiring assistance completed. Patient did not have IV access ss during this emergency room visit. Administered Medications: No medications were administered Medication: 13:07 VIS not applicable for this client. ss Outcome: 13:11 Discharge ordered by MD. kb 13:13 Discharged to home ambulatory, with family. ss 13:13 Condition: good 13:13 Demonstrated understanding of Pt and family member left prior to receiving dc papers. SWATHI Parekh discussed results and discharge instructions with patient and family member 13:15 Patient left the ED. ss Signatures: Dispatcher [employer] EDMS Izabella Juárez FNP-C FNP-Ricci Leeanne Hardy mr Anabella Perez, RN RN ss Андрей Phoenix RN RN ll1
--- NOTE | 2022-03-07 13:11 | EDPHYS ---
Physician Documentation [facility] Name: Tabitha Odom Age: 66 yrs Sex: Female : 1955 Arrival Date: 03/07/2022 Time: 11:35 Bed DIS4 Private MD: [facility] ED Physician Chacorta Mo HPI: 03/07 15:10 This 66 yrs old Female presents to ER via Ambulatory with complaints of Flu kb Symptoms. 15:11 The patient or guardian reports cough, that is intermittent, described as mild, flu kb symptoms, low-grade fever, myalgias. Onset: The symptoms/episode began/occurred 4 day(s) ago. Severity of symptoms: At their worst the symptoms were moderate, in the emergency department the symptoms are unchanged. Modifying factors: The symptoms are alleviated by nothing, the symptoms are aggravated by nothing. Associated signs and symptoms: Pertinent positives: fever, rhinorrhea, sore throat, Pertinent negatives: chest pain, diarrhea, ear ache, nausea, vomiting. The patient has not experienced similar symptoms in the past. The patient has not recently seen a physician. pt reports cough, congestion, fever, bodyaches, chills and sore throat that started on Friday.. Historical: - Allergies: 11:45 Erythromycin; ll1 11:45 Reglan; ll1 11:45 Rocephin; ll1 - PMHx: 11:45 Hyperlipidemia; Hypertension; pancreatic cancer; ll1 - PSHx: 11:45 tumor removed pancreatic CA; ectopic ; hysterectomy; ll1 - Immunization history:: Client reports receiving the 2nd dose of the Covid vaccine. - Social history:: Smoking status: Patient denies any tobacco usage or history of. ROS: 15:10 Abdomen/GI: Negative for abdominal pain, nausea, vomiting, diarrhea, and constipation. kb 15:10 Constitutional: Positive for body aches, chills, fatigue, fever, malaise. 15:10 ENT: Positive for rhinorrhea, sinus congestion, sore throat. 15:10 Respiratory: Positive for cough, Negative for dyspnea on exertion, hemoptysis, orthopnea, pleurisy, shortness of breath, sputum production, wheezing. 15:10 All other systems are negative. Exam: 15:10 Constitutional: This is a well developed, well nourished patient who is awake, alert, kb and in no acute distress. Head/Face: Normocephalic, atraumatic. ENT: Moist Mucous membranes Cardiovascular: Regular rate and rhythm with a normal S1 and S2. No gallops, murmurs, or rubs. No pulse deficits. Respiratory: Respirations even and unlabored. No increased work of breathing. Talking in full sentences Skin: Warm, dry with normal turgor. Normal color. MS/ Extremity: Pulses equal, no cyanosis. Neurovascular intact. Full, normal range of motion. Neuro: Awake and alert, GCS 15, oriented to person, place, time, and situation. Moves all extremities. Normal gait. Psych: Awake, alert, with orientation to person, place and time. Behavior, mood, and affect are within normal limits. Vital Signs: 11:44 BP 133 / 89; Pulse 100; Resp 17; Temp 97.7; Pulse Ox 97% on R/A; Weight 42.64 kg; ll1 Height 5 ft. 0 in. (152.40 cm); Pain 0/10; 11:44 Body Mass Index 18.36 (42.64 kg, 152.40 cm) ll1 MDM: 11:42 Patient medically screened. kb 15:07 Data reviewed: vital signs, nurses notes. Data interpreted: Pulse oximetry: on room air kb is 97 %. Interpretation: normal. Counseling: I had a detailed discussion with the patient and/or guardian regarding: the historical points, exam findings, and any diagnostic results supporting the discharge/admit diagnosis, the need for outpatient follow up, a family practitioner, to return to the emergency department if symptoms worsen or persist or if there are any questions or concerns that arise at home. 03/07 11:44 Order name: Flu; Complete Time: 13:04 kb 03/07 11:44 Order name: COVID-19 SARS RT PCR (Document "Date of Onset" if Symptomatic); Complete kb Time: 13:04 03/07 11:44 Order name: Chest Single View XRAY; Complete Time: 12:26 kb 03/07 11:47 Order name: Strep; Complete Time: 12:50 kb 03/07 12:37 Order name: Throat Culture EDMS Administered Medications: No medications were administered Disposition: 15:19 Attestation: The patient's history, exam findings, diagnostics, and a summary of any [facility] interventions or procedures was reviewed in detail with Izabella CHÁVEZ. Disposition Summary: 03/07/22 13:11 Discharge Ordered Location: Home kb Condition: Stable kb Diagnosis - Coronavirus infection, unspecified kb Followup: kb - With: Emergency Department - When: As needed - Reason: Worsening of condition Followup: kb - With: Private Physician - When: 2 - 3 days - Reason: Recheck today's complaints, Continuance of care, Re-evaluation by your physician Discharge Instructions: - Discharge Summary Sheet kb - Viral Respiratory Infection, [id number] kb - COVID-19 kb Forms: - Medication Reconciliation Form kb - Thank You Letter kb - Antibiotic Education kb - Prescription Opioid Use kb Signatures: Dispatcher [employer] EDIzabella Acosta FNP-C FNP-Андрей Cheng, RN RN ll1 Chacorta Mo MD MD [id number]
[2022-03-07 13:23] VITALS: BP 133/89; TEMP 97.7; O2SAT 97
== END 2022-03-07 13:15 | disposition home or self-care (01) ==
LOC: ER 11:29
DX: U07.1 COVID-19 (principal); I10 Essential (primary) hypertension; Z85.07 Personal history of malignant neoplasm of pancreas; Z88.3 Allergy status to other anti-infective agents; Z88.8 Allergy status to other drugs, medicaments and biological substances
CPT/HCPCS: 87070; 87081; 87804 ×2; 71045; 99282; U0003

== ENCOUNTER 2023-05-26 14:47 | Emergency (ER) | payer OTHER ==
--- OUTSIDE RECORDS SUMMARY | 2023-05-26 14:51 | XMS REPORT | Continuity of Care Document ---
:1955 Author Organization [facility] t Address [address] [place] [address] [address] [place] [address] Care Team Providers Name Role Phone ROSA MARIA BYRD Primary Care Physician Unavailable Angel Hernandez Attending Clinician Unavailable System, Provider Not In Attending Clinician Unavailable Austin LING, Sonia Attending Clinician Jose G Ribeiro DO Attending Clinician Astrid Vences MD Attending Clinician Vane Purvis MD Attending Clinician UNKNOWN, ATTENDING Attending Clinician Unavailable EDIS HOLDER Attending Clinician Unavailable EbEdis Chairez Attending Clinician Unknown, Attending Attending Clinician Unavailable Lorena Brown Attending Clinician Unavailable RADIOLOGY Attending Clinician Unavailable Radiology Attending Clinician Unavailable Doctor Unassigned, Arbela Attending Clinician Unavailable DARRELL MULLEN Attending Clinician Unavailable CRYSTAL CASH Attending Clinician Unavailable JONNA MOORE Admitting Clinician Unavailable Payers Payer Name Policy Type Policy Number Effective Date Expiration Date S elio [employer] MEDICARE HMO [id number] 2019 POS PPO 00:00:00 [employer] MEDICARE OUT [id number] 2019 OF NETWORK 00:00:00 Problems Condition Condition Condition Status Onset Resolution Last Treating Co mments Source Name Details Category Date Date Treatment Clinician Date Fatty Fatty Disease Active [facility] liver liver 11-20 [facility] 00:[facility]: [facility] & [facility] of this note might be different from the original. Risk factor hepatic steatosis includes her history of hyperlipi demia. Abnormal Abnormal Disease Active Last [facility] diagnostic diagnostic 00:00: t & Plan: Medical imaging imaging 00 [facility] r g of this note might be different from the original. Review of available imaging there has been heterogen eity [...] further evaluatio n. Abnormal Abnormal Disease Active [facility] S liver [facility] 11[facility] enzymes enzymes 00:00: t & Plan: Medic al 00 [facility] g of this note might be different from the original. The liver enzymes are noted to be [...] can resume her medicatio n for now. Age-relate Age-relate Disease Active [facility] osteoporos osteoporos 00:00: Me dical is without is without 00 Ce nter current current pathologic pathologic al al fracture fracture Other Other Disease Active [facility] osteoporos osteoporos 11-20 [facility] is without is without 00:00: t & Plan: Medical current current 00 [facility] r pathologic pathologic g of this al al note fracture fracture might be different from the original. Patient takes vitamin D, calcium and Reclast. She follows up with endocrino logy clinic. Further managemen t by primary endocrino logist Immunity Immunity Disease Active Last [facility] t status status 2-22 [facility] testing testing 00:00: t & Plan: Medic al 00 [facility] g of this note might be different from the original. CDC recommend s that all patients with chronic liver disease, regardles s of etiology, should be immunized to prevent hepatitis A and hepatitis B if they are not already immune. This should be done in addition to other age-appro priate vaccines. We will test for immunity to both viruses - vaccine recommend ations will follow. 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 1-19 [facility] k[facility] n n 00:00: Medical 00 [place] Acute Acute Disease Active 2014-[address] [facility] [address] kidney kidney 1-19 [facility] injury injury 00:00: Medical 00 [place] Intractabl Intractabl Disease Active C [facility] e vomiting e vomiting - Valarie kes with with 00:00: Medical nausea, nausea, 00 Center vomiting vomiting of of unspecifie unspecifie d type d type Primary Primary Disease Active [facility] St pancreatic pancreatic 6-11 [facility] neuroendoc neuroendoc 00:00: t & Plan: Medical rine tumor rine tumor 00 [facility] g of this note might be different from the original. 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 Patient follows up with Dr. Mullen. Allergies, Adverse Reactions, Alerts Allergy Allergy Status Severity Reaction(s) Onset Inactive Treating Comm ents Source Name Type Date Date Clinician CEFTRIAX DRUG Active Hives Univers ONE INGREDI - ity of 00:00: [place] 00 Medical Branch Ceftriax Propensi Active Hives Univer s one ty to 15 ity of adverse 00:00: [place] reaction 00 [facility] Branch CEFTRIAX Allergy Active Hives [facility] ONE 6-07 [facility] 00:00: Medical 00 Center Ceftriax Propensi Active Hives [facility] one ty to 03-05 [facility] adverse 00:00: Medical reaction 00 [place] s ERYTHROM DRUG Active N/V Univers YCIN 3- ity of 00:00: [place] 00 Medical Branch METOCLOP DRUG Active Unknown-Cmnt Un sunil RAMIDE INGREDI 12-18 ity of HCL 00:00: [place] 00 [facility] Branch Erythrom Propensi Active Nausea Univer s ycin ty to and/or 12-18 ity of adverse Vomiting 00:00: [place] reaction 00 [facility] Branch Metoclop Propensi Active Unknown - Uni vers ramide ty to See comments 12-18 ity of Hcl adverse 00:00: [place] reaction 00 [facility] Branch ERYTHROM Allergy Active 2014-[address] YCIN 1-20 [facility] 00:00: Medical 00 Center Erythrom Propensi Active 2014-[address] ycin ty to -20 [facility] adverse 00:00: Medical reaction 00 Center s METOCLOP Allergy Active [facility] RAMIDE 9-06 [facility] HCL 00:00: Medical 00 Center Metoclop Drug Active [facility] ramide Intolera 9-06 [facility] Hcl nce 00:00: Medical 00 Center DIAZEPAM Allergy Active [facility] Diazepam Propensi Active [facility] ty to [facility] adverse Medical reaction Center s Family History Family Member Diagnosis Comments Start Date Stop Date Source Natural brother Early [facility] Natural father COPD [facility] Natural father Vision loss [facility] Natural mother Arthritis [facility] Natural mother Hyperlipidemia [facility] Natural mother Hypertension [facility] Natural mother [facility]iscarriages [facility] Natural sister Cancer [facility] Natural sister Hyperlipidemia [facility] Social History Social Habit Start Date Stop Date Quantity Comments Source History of Current smoker [facility] tobacco use Medical Cente r Exposure to 2022-06-03 2022-06-13 Not sure [facility] SARS-CoV-2 00:00:00 13:57:00 [facility] (event) Branch Alcohol intake 2018-02-04 2018-02-[address] [facility] [address] [place] es 00:00:00 00:00:00 non-drinker of Medical Ce nter alcohol (finding) Tobacco use and 2015-02-15 2015-02-[address] [facility] exposure 00:00:00 00:00:00 non-user [facility] Tobacco Comment 2015-02-15 2015-02-15 quit one [facility] ago [facility] 00:00[facility]00 00:00:00 [facility] Sex Assigned At 1955 [address] [facility] [address] Valarie lys 00:00:00 00:00:00 [facility] Smoking Status Start Date Stop Date Source Never smoked tobacco [facility] Ex-smoker 2015-02-15 00:00:00 2015-02-15 00:00:00 [facility] Medications Ordered Filled Start Stop Current Ordering Indication Dosage Frequency Signature Comments Components Source Medication Medication Date Date Medication? Clinician (SIG) Name Name amoxicillin 2021- No [id number] 1{tbl} Take 1 Univers -clavulanat 06-13 tablet by it y of e 00:00: 04:59 mouth in [place] (AUGMENTIN) 00 :00 the Medical 875-125 mg morning Branch per tablet and 1 tablet in the evening. Do all this for 10 days. doxycycline 2021- No [id number] 100mg Take 1 Univers hyclate 100 06-13 tablet by it y of mg tablet 00:00: 04:59 mouth in [place] 00 :00 the Medical morning Branch and 1 tablet in the evening. Do all this for 10 days. amoxicillin 2021- No [id number] 1{tbl} Take 1 Univers -clavulanat 06-13 tablet by it y of e 00:00: 04:59 mouth in [place] (AUGMENTIN) 00 :00 the Medical 875-125 mg morning Branch per tablet and 1 tablet in the evening. Do all this for 10 days. doxycycline 2021- No [id number] 100mg Take 1 Univers hyclate 100 06-13 tablet by it y of mg tablet 00:00: 04:59 mouth in [place] 00 :00 the Medical morning Branch and 1 tablet in the evening. Do all this for 10 days. codeine-gua 2021- No [id number] 10mL Take 10 mL Univers ifenesin 06-13 by mouth ity of 10-100 mg/5 00:00: 04:59 [place] 6 [place] mL oral 00 :00 (six) Medical solution hours for Branch 5 days. Indication s: acute pain codeine-gua 2021- No [id number] 10mL Take 10 mL Univers ifenesin 06-13 by mouth ity of 10-100 mg/5 00:00: 04:59 [place] 6 [place] mL oral 00 :00 (six) Medical solution hours for Branch 5 days. Indication s: acute pain pantoprazol Yes 40mg Take 40 mg Univers [...] EC 17 Medical tablet Branch colesevelam Yes [id number] 625mg Take 1 Univers 625 mg 7-11 tablet by ity of tablet 00:00: mouth [place] 00 daily. [facility] Yes [id number] 625mg Take 1 Univers 625 mg 7-11 tablet by ity of tablet 00:00: mouth [place] 00 daily. [facility] Yes [id number] 625mg Take 1 Univers 625 mg 7-11 tablet by ity of tablet 00:00: mouth [place] 00 daily. [facility] Yes [id number] 625mg Take 1 Univers 625 mg 7-11 tablet by ity of tablet 00:00: mouth [place] 00 daily. Medical Branch CREON Yes TAKE [address] [facility] 12,000-38,0 1-22 CAPSULE [facility] 00 -60,000 00:00: THREE Medica l unit CpDR 00 TIMES A Center capsule DAY WITH EACH MEAL CREON Yes TAKE [address] [facility] 12,000-38,0 1-22 [facility] 00 -60,000 00:00: THREE Medica l unit CpDR 00 TIMES A Center capsule DAY WITH EACH MEAL CREON Yes TAKE [address] 12,000-38,0 1-22 CAP[facility]LE [facility] 00 -60,000 00:00: THREE Medica l unit CpDR 00 TIMES A Center capsule DAY WITH EACH MEAL CREON Yes TAKE [address] 12,000-38,0 1-22 CAP[facility]LE [facility] 00 -60,000 00:00: THREE Medica l unit CpDR 00 TIMES A Center capsule DAY WITH EACH MEAL CREON Yes TAKE [address] 12,000-38,0 1-22 CAP[facility]LE [facility] 00 -60,000 00:00: THREE Medica l unit CpDR 00 TIMES A Center capsule DAY WITH EACH MEAL CREON 0 Yes TAKE [address] [facility] 12,000-38,0 1-22 CAPSULE [facility] 00 -60,000 00:00: THREE Medica l unit CpDR 00 TIMES A Center capsule DAY WITH EACH MEAL losartan Yes 100mg QD Take [address] (COZAAR) 1-19 mg by [facility] 100 MG 00:00: mouth Medical tablet 00 daily. [place] losartan Yes 100mg QD Take [address] (COZAAR) 1-19 mg by [facility] 100 MG 00:00: mouth Medical tablet 00 daily. [place] losartan Yes 100mg QD Take [address] (COZAAR) 1-19 mg by [facility] 100 MG 00:00: mouth Medical tablet 00 daily. [place] losartan Yes 100mg QD Take [address] (COZAAR) 1-19 mg by [facility] 100 MG 00:00: mouth Medical tablet 00 daily. [place] losartan Yes 100mg QD Take [address] (COZAAR) 1-19 mg by [facility] 100 MG 00:00: mouth Medical tablet 00 daily. [place] losartan Yes 100mg QD Take [address] (COZAAR) 1-19 mg by [facility] 100 MG 00:00: mouth Medical tablet 00 daily. [place] ergocalcife 2016-09 Yes [id number] Take 1 Un sunil rol, 1-03 capsule by ity of vitamin d2, 00:00: mouth (VITAMIN 00 weekly. Medical D2) 50,000 Branch unit capsule ergocalcife 2016-09 Yes [id number] Take 1 Un sunil rol, 1-03 capsule by ity of vitamin d2, 00:00: mouth [place] (VITAMIN 00 weekly. Medical D2) 50,000 Branch unit capsule ergocalcife 2016-09 Yes [id number] Take 1 Un sunil rol, 1-03 capsule by ity of vitamin d2, 00:00: mouth (VITAMIN 00 weekly. Medical D2) 50,000 Branch unit capsule ergocalcife 2016-09 Yes [id number] Take 1 Un sunil rol, 1-03 capsule by ity of vitamin d2, 00:00: mouth (VITAMIN 00 weekly. Medical D2) 50,000 Branch unit capsule colesevelam Yes 3.75g Take 3.[address] 3.75 gram 6-28 g by [facility]ukes PwPk 00:00: mouth. Medical 00 [place] colesevelam Yes 3.75g Take 3.[address] 3.75 gram 6-28 g by [facility]ukes PwPk 00:00: mouth. Medical 00 [place] colesevelam Yes 3.75g Take 3.[address] 3.75 gram 6-28 g by [facility]ukes PwPk 00:00: mouth. Medical 00 [place] colesevelam Yes 3.75g Take 3.[address] 3.75 gram 6-28 g by [facility]ukes PwPk 00:00: mouth. Medical 00 [place] colesevelam Yes 3.75g Take 3.[address] 3.75 gram 6-28 g by Lukes PwPk 00:00: mouth. Medical 00 [place] colesevelam Yes 3.75g Take 3.[address] 3.75 gram 6-28 g by [facility]ukes PwPk 00:00: mouth. Medical 00 [place] losartan Yes 100mg Take 100 Univ ers 100 mg 3-27 mg by ity of tablet 00:00: mouth [place] 00 daily. Medical Branch losartan 2017-0 Yes 100mg Take 100 Univ ers 100 mg 3-27 mg by ity of tablet 00:00: mouth [place] 00 daily. Medical Branch losartan 2017-0 Yes 100mg Take 100 Univ ers 100 mg 3-27 mg by ity of tablet 00:00: mouth [place] 00 daily. Medical Branch losartan 2017-0 Yes 100mg Take 100 Univ ers 100 mg 3-27 mg by ity of tablet 00:00: mouth [place] 00 daily. Medical Branch blood sugar 2016-0 Yes Use as Univ ers diagnostic 3-22 directed, ity of (CONTOUR 00:00: daily, [place] NEXT DX:E11.9 Medical STRIPS) Branch strip Lancets 2016-0 Yes Use as Univers (MICROLET 3-22 directed, ity o f LANCET) 00:00: daily, [facility] [place] [facility] DX:E11.9 Medical Branch blood sugar 2015-0 Yes Use as Univ ers diagnostic 3-22 directed, ity of (CONTOUR 00:00: daily, [place] NEXT DX:E11.9 Medical STRIPS) Branch strip Lancets 2016-0 Yes Use as Univers (MICROLET 3-22 directed, ity o f LANCET) 00:00: daily, [facility] [place] [facility] DX:E11.9 Medical Branch blood sugar 2016-0 Yes Use as Univ ers diagnostic 3-22 directed, ity of (CONTOUR 00:00: daily, [place] NEXT DX:E11.9 Medical STRIPS) Branch strip Lancets 2016-0 Yes Use as Univers (MICROLET 3-22 directed, ity o f LANCET) 00:00: daily, [facility] [place] [facility] DX:E11.9 Medical Branch blood sugar 2016-0 Yes Use as Univ ers diagnostic 3-22 directed, ity of (CONTOUR 00:00: daily, [place] NEXT DX:E11.9 Medical STRIPS) Branch strip Lancets 2016-0 Yes Use as Univers (MICROLET 3-22 directed, ity o f LANCET) 00:00: daily, [facility] [place] [facility] 00 DX:E11.9 Medical Branch CREON [...] 00:00: [place] unit 00 Medical capsule Branch Immunizations Ordered Immunization Filled Immunization Date Status Commen ts Source Name Name Hepatitis B 2017-12-[address] [facility] 00:00:00 [facility] Hepatitis B 2017-12-[address] [facility] 00:00:00 [facility] Hepatitis B 2017-12-[address] [facility] 00:00:00 [facility] Hepatitis B 2017-12-[address] [facility] 00:00:00 [facility] Hepatitis B 2017-12-[address] [facility] 00:00:00 [facility] Hepatitis B 2017-12-[address] [facility] 00:00:00 [facility] Vital Signs Vital Name Observation Time Observation Value Comments Source Systolic blood 2022-06-13 19:07:00 164 mm[Hg] Univer sity of pressure [facility] Diastolic blood 2022-06-13 19:07:00 79 mm[Hg] Unive rsity of pressure [facility] Heart rate 2022-06-13 19:04:00 100 /min [facility] Body temperature 2022-06-13 19:04:00 36.5 [facility]len [facility] Respiratory rate 2022-06-13 19:04:00 17 /min [facility] Body height 2022-06-13 19:04:00 152.4 cm [facility] Body weight 2022-06-13 19:04:00 43.001 kg [facility] BMI 2022-06-13 19:04:00 18.51 kg/m2 [facility] Oxygen saturation in 2022-06-13 19:04:00 97 /min [facility] Arterial blood by [facility] Pulse oximetry Branch Procedures Procedure Date / Time Performed Performing Clinician Larry e US BREAST RIGHT 2023-02-18 14:38:00 Vane Purvis [facility] MM DIGITAL MAMMO 2023-02-18 14:04:00 Jose G Ribeiro [facility] Medical SCREEN WITH [facility] Center BILATERAL XR CHEST 2 VW 2022-06-13 19:24:00 [facility] US ABDOMEN COMPLETE 2021-08-08 16:05:00 [facility] ASSIGNMENT OF BENEFITS 2021-08-08 15:25:30 Doctor Unassigned, No [facility] Medical Branch Plan of Care Planned Activity Planned Date Details Comments Source Future Scheduled 2025-02-18 Screening for malignant [facility] Test 00:00:00 neoplasm of breast Medical C enter (procedure) [code = 524370631] Future Scheduled 2023-05-[address] [facility] Test 00:00:00 (Season Ended) [code = Medic al Center INFLUENZA VACCINE (Season Ended)] Future Scheduled 2023-05-30 Influenza Vaccine (#1) [facility] 00:00:00 [code = Influenza Medical Ce nter Vaccine (#1)] Future Scheduled 2022-09-[address] [facility] Test 00:00:00 (12+) [code = Medical Center DEPRESSION SCREENING (12+)] Future Scheduled 2022-09-29 FALLS RISK SCREENING [facility] Test 00:00:00 [code = FALLS RISK Medical C enter SCREENING] Future Scheduled 2022-09-[address] [facility] Test 00:00:00 (12+) [code = Medical Center DEPRESSION SCREENING (12+)] Future Scheduled 2022-09-29 FALLS RISK SCREENING [facility] Test 00:00:00 [code = FALLS RISK Medical C enter SCREENING] Future Scheduled 2022-09-[address] [facility] Test 00:00:00 (12+) [code = Medical Center DEPRESSION SCREENING (12+)] Future Scheduled 2022-09-29 FALLS RISK SCREENING [facility] Test 00:00:00 [code = FALLS RISK Medical C enter SCREENING] Future Scheduled 2022-09-[address] [facility] Test 00:00:00 (12+) [code = Medical Center DEPRESSION SCREENING (12+)] Future Scheduled 2022-09-29 FALLS RISK SCREENING [facility] Test 00:00:00 [code = FALLS RISK Medical C enter SCREENING] Future Scheduled 2022-05-30 INFLUENZA VACCINE (#1) [facility] 00:00:00 [code = INFLUENZA Medical Ce nter VACCINE (#1)] Future Scheduled 2022-05-30 INFLUENZA VACCINE (#1) [facility] 00:00:00 [code = INFLUENZA Medical Ce nter VACCINE (#1)] Future Scheduled 2022-05-30 INFLUENZA VACCINE (#1) [facility] 00:00:00 [code = INFLUENZA Medical Ce nter VACCINE (#1)] Future Scheduled 2022-05-30 INFLUENZA VACCINE (#1) [facility] 00:00:00 [code = INFLUENZA Medical Ce nter VACCINE (#1)] Future Scheduled 2021-09-[address] [facility] Test 00:00:00 (12+) [code = Medical Center DEPRESSION SCREENING (12+)] Future Scheduled 2021-09-29 FALLS RISK SCREENING [facility] Test 00:00:00 [code = FALLS RISK Medical C enter SCREENING] Future Scheduled 2021-09-[address] [facility] Test 00:00:00 (12+) [code = Medical Center DEPRESSION SCREENING (12+)] Future Scheduled 2021-09-29 FALLS RISK SCREENING [facility] 00:00:00 [code = FALLS RISK Medical C enter SCREENING] Future Scheduled 2021-01-26 Screening for malignant [facility] Test 00:00:00 neoplasm of breast Medical C enter (procedure) [code = 423124112] Future Scheduled 2021-01-26 Screening for malignant [facility] Test 00:00:00 neoplasm of breast Medical C enter (procedure) [code = 023887226] Future Scheduled 2021-01-26 Screening for malignant [facility] Test 00:00:00 neoplasm of breast Medical C enter (procedure) [code = 719574070] Future Scheduled 2021-01-26 Screening for malignant [facility] Test 00:00:00 neoplasm of breast Medical C enter (procedure) [code = 692136976] Future Scheduled 2021-01-26 Screening for malignant [facility] Test 00:00:00 neoplasm of breast Medical C enter (procedure) [code = 736971577] Future Scheduled 2020 PNEUMOCOCCAL 65+ YRS ([address] [facility] Test 00:00:00 - PCV) [code = Medical Cente r PNEUMOCOCCAL 65+ YRS (1 - PCV)] Future Scheduled 2020 PNEUMOCOCCAL 65+ YRS ([address] [facility] Test 00:00:00 - PCV) [code = Medical Cente r PNEUMOCOCCAL 65+ YRS (1 - PCV)] Future Scheduled 2020 PNEUMOCOCCAL 65+ YRS ([address] [facility] Test 00:00:00 - PCV) [code = Medical Cente r PNEUMOCOCCAL 65+ YRS (1 - PCV)] Future Scheduled 2020 PNEUMOCOCCAL 65+ YRS ([address] [facility] Test 00:00:00 - PCV) [code = Medical Cente r PNEUMOCOCCAL 65+ YRS (1 - PCV)] Future Scheduled 2020 PNEUMOCOCCAL 65+ YRS ([address] [facility] 00:00:00 - PCV) [code = Medical Cente r PNEUMOCOCCAL 65+ YRS (1 - PCV)] Future Scheduled 2020 PNEUMOCOCCAL 65+ YRS ([address] [facility] 00:00:00 - PCV) [code = Medical Cente r PNEUMOCOCCAL 65+ YRS (1 - PCV)] Future Scheduled 2020-01-[address] [facility] 00:00:00 WELLNESS (YEAR 2 or Medical Center FIRST YEAR if no IPPE) [code = MEDICARE ANNUAL WELLNESS (YEAR 2 or FIRST YEAR if no IPPE)] Future Scheduled 2020-01-[address] [facility] 00:00:00 WELLNESS (YEAR 2 or Medical Center FIRST YEAR if no IPPE) [code = MEDICARE ANNUAL WELLNESS (YEAR 2 or FIRST YEAR if no IPPE)] Future Scheduled 2020-01-[address] [facility] 00:00:00 WELLNESS (YEAR 2 or Medical Center FIRST YEAR if no IPPE) [code = MEDICARE ANNUAL WELLNESS (YEAR 2 or FIRST YEAR if no IPPE)] Future Scheduled 2020-01-[address] [facility] 00:00:00 WELLNESS (YEAR 2 or Medical Center FIRST YEAR if no IPPE) [code = MEDICARE ANNUAL WELLNESS (YEAR 2 or FIRST YEAR if no IPPE)] Future Scheduled 2020-01-[address] [facility] 00:00:00 WELLNESS (YEAR 2 or Medical Center FIRST YEAR if no IPPE) [code = MEDICARE ANNUAL WELLNESS (YEAR 2 or FIRST YEAR if no IPPE)] Future Scheduled 2020-01-[address] [facility] 00:00:00 WELLNESS (YEAR 2 or Medical Center FIRST YEAR if no IPPE) [code = MEDICARE ANNUAL WELLNESS (YEAR 2 or FIRST YEAR if no IPPE)] Future Scheduled 2005 SHINGLES VACCINES ([address] [facility] 00:00:00 2) [code = SHINGLES Medical Center VACCINES (1 of 2)] Future Scheduled 2005 SHINGLES VACCINES ([address] [facility] 00:00:00 2) [code = SHINGLES Medical Center VACCINES (1 of 2)] Future Scheduled 2005 SHINGLES VACCINES ([address] [facility] 00:00:00 2) [code = SHINGLES Medical Center VACCINES (1 of 2)] Future Scheduled 2005 SHINGLES VACCINES ([address] [facility] 00:00:00 2) [code = SHINGLES Medical Center VACCINES (1 of 2)] Future Scheduled 2005 SHINGLES VACCINES ([address] [facility] 00:00:00 2) [code = SHINGLES Medical Center VACCINES (1 of 2)] Future Scheduled 2005 SHINGLES VACCINES ([address] [facility] 00:00:00 2) [code = SHINGLES Medical Center VACCINES (1 of 2)] Future Scheduled 1974 DTAP/TDAP/TD VACCINES [facility] 00:00:00 (1 - Tdap) [code = Medical C enter DTAP/TDAP/TD VACCINES (1 - Tdap)] Future Scheduled 1974 DTAP/TDAP/TD VACCINES [facility] 00:00:00 (1 - Tdap) [code = Medical C enter DTAP/TDAP/TD VACCINES (1 - Tdap)] Future Scheduled 1974 DTAP/TDAP/TD VACCINES [facility] 00:00:00 (1 - Tdap) [code = Medical C enter DTAP/TDAP/TD VACCINES (1 - Tdap)] Future Scheduled 1974 DTAP/TDAP/TD VACCINES [facility] 00:00:00 (1 - Tdap) [code = Medical C enter DTAP/TDAP/TD VACCINES (1 - Tdap)] Future Scheduled 1974 DTAP/TDAP/TD VACCINES [facility] 00:00:00 (1 - Tdap) [code = Medical C enter DTAP/TDAP/TD VACCINES (1 - Tdap)] Future Scheduled 1974 DTAP/TDAP/TD VACCINES [facility] 00:00:00 (1 - Tdap) [code = Medical C enter DTAP/TDAP/TD VACCINES (1 - Tdap)] Future Scheduled [address] [facility] Test 00:00:00 Counseling and Medical Cente r Screening (12+) [code = Tobacco Cessation Counseling and Screening (12+)] Future Scheduled [address] [facility] Test 00:00:00 Counseling and Medical Cente r Screening (12+) [code = Tobacco Cessation Counseling and Screening (12+)] Future Scheduled [address] [facility] 00:00:00 [facility]ing [facility] Cent[facility] Screening (12+) [code = Tobacco Cessation Counseling and Screening (12+)] Future Scheduled [address] [facility] 00:00:00 [facility]ing and Medical Cent[facility] r Screening (12+) [code = Tobacco Cessation Counseling and Screening (12+)] Future Scheduled [address] [facility] 00:00:00 Counseling and Medical Cente r Screening (12+) [code = Tobacco Cessation Counseling and Screening (12+)] Future Scheduled [address] [facility] 00:00:00 Counseling and Medical Cente r Screening (12+) [code = Tobacco Cessation Counseling and Screening (12+)] Future Scheduled 1956-05-13 COVID-19 VACCINE (#1) [facility] 00:[facility]:00 [code = COVID-[address]ACCINE (#1)] Future Scheduled 1956-05-13 COVID-19 VACCINE (#1) [facility] 00:00:00 [code = COVID-[address] VACCINE (#1)] Future Scheduled 1956-05-13 COVID-19 VACCINE (#1) [facility] 00:00:00 [code = COVID-[address] VACCINE (#1)] Future Scheduled 1956-05-13 COVID-19 VACCINE (#1) [facility] 00:00:00 [code = COVID-[address] VACCINE (#1)] Future Scheduled 1956-05-13 COVID-19 VACCINE (#1) [facility] 00:00:00 [code = COVID-[address] VACCINE (#1)] Future Scheduled 1956-05-13 COVID-19 VACCINE (#1) [facility] 00:00:00 [code = COVID-[address] VACCINE (#1)] Future Scheduled 1955 DXA SCAN [code = DXA [facility] 00:00:00 SCAN] [facility] Future Scheduled 1955 Screening for malignant [facility] 00:00:00 neoplasm of colon Medical Ce nter (procedure) [code = 957432406] Future Scheduled 1955 Screening for malignant [facility] 00:00:00 neoplasm of colon Medical Ce nter (procedure) [code = 139182974] Future Scheduled 1955 Sigmoidoscopy [code = [facility]] [facility] Future Scheduled 1955 CT Colonography (combo) [facility] 00:00:00 [code = CT Colonography Medi [facility] (combo)] Future Scheduled 1955 Screening for malignant [facility] 00:00:00 neoplasm of colon Medical Ce nter (procedure) [code = 732355066] Future Scheduled 1955 Screening for malignant [facility] 00:00:00 neoplasm of colon Medical Ce nter (procedure) [code = 545491029] Future Scheduled 1955 DXA SCAN [code = DXA [facility] 00:00:00 SCAN] [facility] Future Scheduled 1955 Screening for malignant [facility] 00:00:00 neoplasm of colon Medical Ce nter (procedure) [code = 871915551] Future Scheduled 1955 Screening for malignant [facility] 00:00:00 neoplasm of colon Medical Ce nter (procedure) [code = 242542017] Future Scheduled 1955 Sigmoidoscopy [code = [facility] Colonography (combo) [facility] 00:00:00 [code = CT Colonography [facility] (combo)] Future Scheduled 1955 Screening for malignant [facility] 00:00:00 neoplasm of colon Medical Ce nter (procedure) [code = 584400313] Future Scheduled 1955 Screening for malignant [facility] 00:00:00 neoplasm of colon Medical Ce nter (procedure) [code = 966879999] Future Scheduled 1955 DXA SCAN [code = DXA [facility] 00:00:00 SCAN] [facility] Future Scheduled 1955 Screening for malignant [facility] 00:00:00 neoplasm of colon Medical Ce nter (procedure) [code = 515131453] Future Scheduled 1955 Screening for malignant [facility] 00:00:00 neoplasm of colon Medical Ce nter (procedure) [code = 286057912] Future Scheduled 1955 Sigmoidoscopy [code = [facility]] [facility]uled [facility] CT Colonography (combo) [facility] 00:00:00 [code = CT Colonography [facility] (combo)] Future Scheduled 1955 Screening for malignant [facility] 00:00:00 neoplasm of colon Medical Ce nter (procedure) [code = 080096989] Future Scheduled 1955 Screening for malignant [facility] 00:00:00 neoplasm of colon Medical Ce nter (procedure) [code = 485014976] Future Scheduled 1955 DXA SCAN [code = DXA [facility] 00:00:00 SCAN] [facility] Future Scheduled 1955 Screening for malignant [facility] 00:00:00 neoplasm of colon Medical Ce nter (procedure) [code = 204678712] Future Scheduled 1955 Screening for malignant [facility] 00:00:00 neoplasm of colon Medical Ce nter (procedure) [code = 604491150] Future Scheduled 1955 Sigmoidoscopy [code = [facility]oscopy] Medical Cente r Future Scheduled 1955 CT Colonography (combo) [facility] 00:00:00 [code = CT Colonography [facility] (combo)] Future Scheduled 1955 Screening for malignant [facility] 00:00:00 neoplasm of colon Medical Ce nter (procedure) [code = 399203249] Future Scheduled 1955 Screening for malignant [facility] 00:00:00 neoplasm of colon Medical Ce nter (procedure) [code = 126355354] Future Scheduled 1955 DXA SCAN [code = DXA [facility] 00:00:00 SCAN] [facility] Future Scheduled 1955 Screening for malignant [facility] 00:00:00 neoplasm of colon Medical Ce nter (procedure) [code = 142723299] Future Scheduled 1955 Screening for malignant [facility] 00:00:00 neoplasm of colon Medical Ce nter (procedure) [code = 573521766] Future Scheduled 1955 Sigmoidoscopy [code = [facility]oscopy] Medical Cente r Future Scheduled 1955 CT Colonography (combo) [facility] 00:00:00 [code = CT Colonography [facility] (combo)] Future Scheduled 1955 Screening for malignant [facility] 00:00:00 neoplasm of colon Medical Ce nter (procedure) [code = 037898552] Future Scheduled 1955 Screening for malignant [facility] 00:00:00 neoplasm of colon Medical Ce nter (procedure) [code = 000430647] Future Scheduled 1955 CT Colonography (combo) [facility] 00:00:00 [code = CT [facility] ([facility])] Future Scheduled 1955 Screening for malignant [facility] 00:00:00 neoplasm of colon Medical Ce nter (procedure) [code = 558622575] Future Scheduled 1955 Screening for malignant [facility] 00:00:00 neoplasm of colon Medical Ce nter (procedure) [code = 671835259] Future Scheduled 1955 DXA SCAN [code = DXA [facility] 00:00:00 SCAN] [facility] Future Scheduled 1955 Screening for malignant [facility] 00:00:00 neoplasm of colon Medical Ce nter (procedure) [code = 664628303] Future Scheduled 1955 Screening for malignant [facility] 00:00:00 neoplasm of colon Medical Ce nter (procedure) [code = 269889851] Future Scheduled 1955 Sigmoidoscopy [code = [facility] 00:[facility] Sigmoidoscopy] Medical Cente r Encounters Start End Encounter Admission Attending Care Care Encounter Source Date/Time Date/Time Type Type Clinicians Facility Department ID 2023-04-03 Outpatient Hernandez, STLMLC STLC [id number] Common 08:36:00 Angel [id number] [facility] 2023-03-27 Outpatient Hernandez, STLMLC STLC [id number] Common 08:31:01 Angel [id number] [facility] 2022-08-23 Outpatient Hernandez, STLMLC STLC [id number] Common 08:19:00 Angel [id number] [facility] 2022-08-16 Outpatient Hernandez, STLMLC STLC [id number] Common 10:44:01 Angel 27860 [facility] 2022-07-02 Outpatient Hernandez, STLMLC STLC [id number] Common 16:14:01 Angel [facility] 2022-02-21 Outpatient Hernandez, STLMLC STLC [id number] Common 08:54:02 Angel [facility] 2023-04-07 2023-04-07 Outpatient EL [facility] [id number] [facility] 00:00:00 00:00:00 2023-02-18 2023-02-18 Hospital System, [facility] [id number] 13:48:19 23:59:00 Encounter Provider Shree Ray In [facility] 2023-02-18 2023-02-18 Outpatient EL SYSTEM, [facility] [id number] [facility] 13:48:19 23:59:00 PROVIDER 2023-02-18 2023-02-18 [facility], [facility] [id number] 13:17:30 13:47:00 Encounter [facility] 2023-02-18 2023-02-18 Outpatient EL SYSTEM, [facility] [id number] SLE 13:17:29 13:47:00 PROVIDER 2023-02-17 2023-02-17 Outside [facility], [facility] [id number] 00:00:00 00:00:00 Orders [facility] 2023-02-14 2023-02-14 Telephone Vangie [facility] [id number] 00:00:00 00:00:00 [facility] 2023-02-14 2023-02-14 Outside [place], [facility] [id number] 00:00:00 00:00:00 Orders [facility] 2023-02-14 2023-02-14 Outside [place], [facility] [id number] 00:00:00 00:00:00 Orders [facility] 2023-02-14 2023-02-14 Telephone Vangie [facility] [id number] 00:00:00 00:00:00 [facility] 2023-02-14 2023-02-14 Outside [place], [facility] [id number] 00:00:00 00:00:00 Orders [facility] 2023-02-14 2023-02-14 Outside [place], [facility] [id number] 00:00:00 00:00:00 Orders [facility] 2022-10-30 2022-10-30 Outpatient R UNKNOWN, [facility] [id number] Univers 11:40:00 11:40:00 ATTENDING ity of [facility] 2022-06-13 2022-06-13 Outpatient R DICK, [facility] [id number] Univers 14:13:59 23:59:00 RANIA ity of [facility] 2022-06-13 2022-06-13 [facility] [id number] Univers 14:13:59 23:59:[address] [facility] [id number] ity of [place] 4.2.7.2.686 Mario as SERAFIN?BLEA [id number] Al audie DAY [address] MEDICAL OFFICE [facility] 2022-06-13 2022-06-13 Urgent Edis Holder [facility] [id number] Univers 14:00:00 14:44:20 Care Unknown, [facility] 350.1.13.10 [facility] 4.2.7.2.686 Mario as SERAFIN?BLEA [id number] [facility] [address] MEDICAL OFFICE BUILDING 2022-01-30 2022-01-[address] [facility] [place] [facility] [id number] [facility] 00:00:00 00:00:00 ion [facility] 2021-08-08 2021-08-08 Outpatient R RADIOLOGY [facility] [id number] Univers 09:26:32 23:59:00 ity of [facility] 2021-08-08 2021-08-08 Hospital Radiology [facility] [id number] Univers 09:00:00 23:59:00 Encounter [place] [id number] [place] [id number] [facility] [address] 2021-08-08 2021-08-08 Orders Doctor MANOJ [id number] Univers 00:00:00 00:00:00 Only Unassigned, BELL 350.1.13.10 ity of [place] [facility] 4.2.7.2.686 Mario as [id number] [facility] [address] 2020-03-27 2020-03-27 Outpatient KAYKAY REIS [facility] [id number] [facility] 00:00:00 00:00:00 DARRELL 2020-03-20 2020-03-20 Outpatient CAREY MULLEN, SLEH SLE [id number] [facility] 00:00:00 00:00:00 DARRELL 2020-03-17 2020-03-17 Outpatient CAREY MULLEN, SLEH SLE [id number] [facility] 00:00:00 00:00:00 DARRELL 2020-03-06 2020-03-06 [facility] [id number] [facility] 00:00:00 00:00:00 DARRELL 2020-03-06 2020-03-06 Outpatient CAREY MULLEN, SLE SLE [id number] [facility] 00:00:00 00:00:00 DARRELL Results Test Test Test Comments Results Result Source Description Time Comments MM, U/S, 2023-01- Referring: BREAST, 23 Darrell UNILATERAL, 14:48:00 [facility] - RIGHT workup per MEDICAL CENTERName: ESTER, radiologist?->YesRe LENIN VARGAS : ason for 1955 Sex: Exam:->breast pain F #[id number] - , U/S, BREAST, UNILATERAL, RIGHT ULTRASOUND OF RIGHT BREAST AND AXILLA: 02/18/2023LINICAL: Diffuse pain right breast. Comparison is made to exam dated: 02/18/2023 mammogram - [facility]. Color flow and real-time ultrasound of the right breast axilla were performed. Kamara scale images of the real-time examination were reviewed. No significant abnormalities were seen sonographically in the right breast or the right axilla. IMPRESSION: NEGATIVE There is no sonographic evidence of malignancy. A 1 year screening mammogram is recommended. Dr. Kyler Donohue qn/penrad:02/18/2023 14:48:01 Normal Exam Ultrasound BI-RADS: 1 Negative [id number] , DIGITAL, 2023-01- Referring: MAMMO, [facility] SCREENING, WITH 14:08:[address] [facility] - ALYSSA, BILATERAL per MEDICAL CENTERName: NORMAN, INCLUDING CAD radiologist?->Yes LENIN VARGAS : Reason for 1955 Sex: Exam:->screening F for malignant neoplasm of breast MRN#: [id number] - MM, DIGITAL, MAMMO, SCREENING, WITH ALYSSA, BILATERAL INCLUDING CAD BILATERAL DIGITAL SCREENING MAMMOGRAM 3D/2D WITH CAD: 02/18/2023LINICAL: Routine screening mammogram. Patient has no current breast complaints. Comparison: Prior mammograms dating back to 03/17/2017. There are scattered fibroglandular elements in both breasts that could obscure a lesion on mammography. Tomosynthesis 3D imaging of the breast was also performed. Current study was also evaluated with a Computer Aided Detection (CAD) system. There is a benign mass in the left breast. There also are benign calcifications in both breasts. No significant masses, calcifications, or other findings are seen in either breast. There has been no significant interval change. IMPRESSION: BENIGNThere is no mammographic evidence of malignancy. A 1 year screening mammogram is recommended. Dr. Kyler Donohue qn/:02/18/2023 14:08:22 Normal Exam Mammogram BI-RADS: 2 Benign , ABDOMEN, Referring: FINAL REPORT PATIENT ID: WITHOUT / WITH 30 Darrell Mullen [id number] MRI of the IV CONTRAST 15:14:00 abdomen dated March 27, 2020 COMPARISON: CT [...] MDReport Verified Date/Time: 03/28/2020 15:14:33 Reading Location: [facility] C013Y CT Body Reading Room -CREATININE 2020-03-27 10:35:00 Test Item Value Reference Range Interpretation Comme [facility] POC-CREATININE (BEAKER) 0.6 mg/dL 0.6-1.3 : TE STED AT [facility] 7200 (test code = 1859) [facility] [address]: Clinical Research Tech /Vice President Client Services ID = [id number] for ANJANA JOYCE POC-EGFR (BEAKER) (test 101 mL/min/1.73M2 code = 1860) CT, ABDOMEN, WITHOUT / WITH IV [id number] 15:03:00Referring: Dr. Darrell MullenFINAL REPORT CT scan of the abdomen and pelvis. MEDICAL HISTORY: Neuroendocrinetumor. COMPARISON STUDY: March 11, 2016. TECHNIQUE: Contiguous helical slices were acquired through the abdomen both pre and post administration of intravenous contrast and through the pelvis post administration of intravenous contrast. No oral contrast was administered. This exam was performed according to our department dose optimization program which includes automated exposure control, adjustment of the mA and/or kV according to the patient's size and/or use of iterative reconstruction technique.FINDINGS: A 2.9 x 2.3 cm airspace opacity is seen in the right middle lobe medially, more pronouncedon previous. There are also scattered tree-in-bud opacities, most pronounced in the left lower lobe.An atypical infection cannot be excluded. A 1.2 cm opacity is seen in the right lung base abutting the right hemidiaphragm. The liver, spleen, adrenal glands and kidneys are unremarkable. The patient is status post pancreatectomy with unchanged postsurgical appearance as compared to previous. As seen on previous, there is a 1.6 x 1.3 cm opacity interposed between the celiac axis and portal vein whichis stable from March 11, 2016. There are no dilated loops of bowel seen to suggest obstruction. No ascites is seen. The uterus has been resected. The aorta is normal in caliber. Atherosclerosis is seen.Bone windows demonstrate degenerative changes. IMPRESSION:1. Progression of opacities in the lung bases as compared to previous. The most likely etiology is an atypical infection. The appearance is nottypical for metastatic disease. PEDRO would be highest the differential. Clinical correlation, follow-up and referral to pulmonology is recommended.2. Status post pancreatectomy with an unchanged postsurgical appearance.3. Stable opacity interposed between the right side of the celiac axis and portal vein. This could represent a prominent lymph node.4. No other significant change. A verbal report was given to Dr. Mullen at the time of dictation. Signed: Parviz Garza MDReport Verified Date/Time: 03/05/2019 15:03:16 Reading Location: [place] [address]X [facility] Consult Reading Room -[id number] 11:43:00 Test Item Value Reference Range Interpretation Comments POC-CREATININE 0.5 mg/dL 0.6-1.3 L TESTED AT [facility] 7200 ([facility]) (test [facility] A code = 1859) [facility] 7703 0 POC-EGFR 125 mL/min/1.73M2 (BEAKER) (test code = 1860) CT, ABDOMEN, [id number] 11:02:00Referring: Dr. Darrell Church REPORT CT OF THE ABDOMEN CLINICAL HISTORY: [...] in the surgical bed or in the remnantpancreas. No pancreatic ductal dilation. The main portal [...] MDReport Verified Date/Time: 04/22/2018 11:02:01 Reading Location: [address] Radiology Reading Room -[id number] 08:58:00 Test Item Value Reference Range Interpretation Comments POC-CREATININE 0.5 mg/dL 0.6-1.3 L TESTED AT [facility] ([place]IS[place]) (test [address] [facility] code = 1859) [facility] 7703 0 POC-EGFR 125 mL/min/1.73M2 (BEAKER) (test code = 1860) CHROMOGRANIN [id number] 10:34:00 Test Item Value Reference Range Interpretation Comments SCAN RESULT (test code = 9555801) ANTI-NUCLEAR ANTIBODY (FRENCH)2017-11-22 10:58:00 Test Item Value Reference Range Interpretation Comments ANTI-NUCLEAR ANTIBODY (FRENCH) (BEAKER) Negative Negative (test code = 418) [id number] 15:08:00 Test Item Value Reference Range Interpretation Comments FERRITIN (BEAKER) (test code = 361) 21 ng/mL 5-275 HEPATITIS A ANTIBODY, [id number] 14:16:00 Test Item Value Reference Range Interpretation Comments HEPATITIS A IGG ANTIBODY (BEAKER) Reactive Nonreactive A (test code = 2797) HEPATITIS B SURFACE [id number] 14:16:00 Test Item Value Reference Range Interpretation Comments HEPATITIS B SURFACE ANTIBODY < mIU/mL <8.0 (BEAKER) (test code = 647) HEPATITIS C [id number] 14:15:00 Test Item Value Reference Range Interpretation Comments HEPATITIS C ANTIBODY (BEAKER) Nonreactive Nonreactive (test code = 367) HEPATITIS B SURFACE [id number] 14:10:00 Test Item Value Reference Range Interpretation Comments HEPATITIS B SURFACE ANTIGEN (2) Nonreactive Nonreactive (BEAKER) (test code = 2585) HEPATITIS B CORE ANTIBODY, [id number] 14:10:00 Test Item Value Reference Range Interpretation Comments HEPATITIS B CORE TOTAL ANTIBODY Nonreactive Nonreactive (BEAKER) (test code = 497) [id number] 13:59:00 Test Item Value Reference Range Interpretation [...] L (test code = 2590) COMPREHENSIVE METABOLIC [id number] 13:50:00 Test Item Value Reference Range Interpretation [...] NOT APPLICABLE FOR DIALYSIS PATIEN TS. BILIRUBIN, [id number] 13:50:00 Test Item Value Reference Range Interpretation Comments BILIRUBIN DIRECT (BEAKER) (test 0.1 mg/dL 0.1-0.5 code = 706) U/S, ABDOMINAL, [id number] 13:42:00Referring: Dr. Darrell Perez ELASTOGRAPHYReason for Exam:->Elevated [...] requested. The measurement is 1.23 m/s, which corresponds to normal-mild fibrosis. IMPRESSION: Fatty infiltration of the liver. Normal-mild fibrosis value on elastography. Signed: Sowmya Brito MDReport Verified Date/Time: 11/20/2017 13:42:16 Reading Location: [address] Radiology Reading Room CBC W/PLT COUNT & AUTO [id number] 13:07:00 Test Item Value Reference Range Interpretation [...] 2801) TUMOR LOCAL, WB, 2 OR MORE [id number] 14:21:00neuroendocrine tumorFINAL REPORT PROCEDURE: OCTREOSCAN - Tumor Localization CPT CODE: 73101, 78880,17242 INDICATION: Neuroendocrine tumor localization PROTOCOL: 6.28 mCi of In-111 pentetreotide was injected intravenously. Images were obtained four and 24 hours after tracer injection and included whole body and spot images on both days as well as tomographic images of the abdomen on Day 1 and tomogra phic images of the chest on Day 2. FINDINGS: Tracer distribution is physiological. IMPRESSION: Normal Octreoscan. No evidence of somatostatin receptor positive neoplasm is identified. The study of February 07, 2015 reported moderate increased uptake in the head of the pancreas. 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 No oral contrast administered. Coronal and sagittal reconstructions were provided. FINDINGS: Lines and tubes: None. THORAX: Lungs: Grossly unchanged appearance of nodular tree-in-bud opacities in the anterior segment ofthe right upper lobe, right middle lobe, and lingula. No worrisome pulmonary masses or nodules. No focal consolidations. No pleural effusion. The airways are normal. Visualized thyroid gland is normal.No supraclavicular, axillary, hilar, or mediastinal lymphadenopathy. Heart is normal in size. No pericardial effusion. No significant coronary artery atherosclerosis. Mild atherosclerotic calcifications of the aortic arch. ABDOMEN AND PELVIS: Liver: Diffuse hepatic steatosis. No focal hepatic lesion. Increased pneumobilia compared to prior, now moderate. No [...] Lymph nodes: No lymphadenopathy. Vessels: Mild aortic atherosclerosis. Bones: No acute fractures. No worrisome osseous lesions. Soft tissues: Postsurgical changes of the anterior abdominal wall status post laparotomy. Multiple benign-appearing fat-containing soft tissue masses in the bilateral breasts are unchanged. Please refer to prior mammographic studies. IMPRESSION: 1. No evidence of recurrent or metastatic neuroendocrine tumor. 2. Unchanged soft tissue density to the right of the celiac artery takeoff. 3. Increased pneumobilia compared to prior exam, possibly iatrogenic. 4. Unchanged nodular tree-in-bud opacities in the bilateral lungs, likely chronic small airways disease/atypical pneumonia. Signed: Carlos Dias MDReport Verified Date/Time: 08/26/2017 15:02:31 Reading Location: [address] CT, [id number] 15:02:00FINAL REPORT Exam: CT chest with contrast, CT abdomen and pelvis with and without contrast INDICATION: 61-year-old female status post Whipple procedure in 2014 for neuroendocrine pa ncreatic tumor COMPARISON: The chest, abdomen, and pelvis 03/17/2017 TECHNIQUE: CT of the chest with contrast and CT of the abdomen and pelvis with and without contrast were obtained. No oral contrast administered. Coronal and sagittal reconstructions were provided. FINDINGS: [...] No significant coronary artery atherosclerosis. Mild atherosclerotic calcificationsof the aortic arch. ABDOMEN AND PELVIS: Liver: Diffuse hepatic steatosis. No focal hepatic lesion. Increased pneumobilia compared to prior, now moderate. No [...] Postsurgical changes of the small bowel as above.No abnormalities of the large bowel. Appendix normal. Peritoneum/retroperitoneum: No free air or fluid. 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 Lymph nodes: No lymphadenopathy. Vessels: Mild aortic atherosclerosis. Bones: No acute fractures. No worrisome osseous lesions. Soft tissues: Postsurgical changes of the anterior abdominal wall status post laparotomy. Multiple benign-appearing fat-containing soft tissue masses in the bilateral breasts are unchanged. Please refer to prior mammographic studies. IMPRESSION: 1. No evidence of recurrent or metastatic neuroendocrine tumor. 2. Unchanged soft tissue density to the right of the celiac artery takeoff. 3. Increased pneumobilia compared to prior exam, possibly iatrogenic. 4. Unchanged nodular tree-in-bud opacities in the bilateral lungs, likely chronic small airways disease/atypical pneumonia. Signed: Carlos Dias MDReport Verified Date/Time: 08/26/2017 15:02:31 Reading Location: [address] -[id number] 10:53:00 Test Item Value Reference Range Interpretation Comments POC-CREATININE 0.5 mg/dL 0.6-1.3 L TESTED AT [place] [id number] ([facility]) (test [place] code = 1859) [id number] POC-EGFR ([facility]) 125 mL/min/1.73M2 (test code = 1860) CHROMOGRANIN [id number] 10:19:00 Test Item Value Reference Range Interpretation Comments SCAN RESULT (test code = 1362761) [id number] 09:50:00 Test Item Value Reference Range Interpretation Comments POC-CREATININE 0.5 mg/dL 0.6-1.3 L TESTED AT [place] [id number] ([facility]) (test [place]ICK[place] code = 1859) [id number] POC-EGFR ([facility]) 125 mL/min/1.73M2 (test code = 1860)
--- NOTE | 2023-05-26 16:11 | RAD REPORT ---
EXAM DESCRIPTION: CT - Head Brain Wo Cont - 05/26/2023 3:58 pm CLINICAL HISTORY: HTN Headache, hypertension COMPARISON: Head angio dated 09/14/2020; Head Brain Wo Cont dated 09/14/2020 TECHNIQUE: All CT scans are performed using dose optimization technique as appropriate and may inclu de automated exposure control or mA/KV adjustment according to patient size. FINDINGS: No intracranial hemorrhage, hydrocephalus or extra-axial fluid collection.No areas of brai n edema or evidence of midline shift. The paranasal sinuses and mastoids are clear except for mild mucus in the left sphenoid sinus. The ca lvarium is intact. IMPRESSION: No acute intracranial abnormality.
[2023-05-26 17:09] LABS: Hematocrit 42.1 % (36.0-45.0); Lymphocytes % 20.5 % (15.3-44.8); MCV 84.1 fL (80-100); MPV 10.2 fL (7.6-11.3); Platelets 176 thou/uL (152-406); RBC Red Blood Cell Count 5.01 M/uL (3.86-4.86)
[2023-05-26 17:29] LABS: Bilirubin Direct 0.1 mg/dL (0-0.2); Bilirubin Indirect, Calculated 0.4 mg/dL (0.2-0.8); Bilirubin Total 0.5 mg/dL (0.2-1.0); Potassium 3.5 mEq/L (3.5-5.1); Troponin High Sensitivity 50.2 pg/mL (<58.9)
[2023-05-26 17:47] LABS: Protime INR 1.02
[2023-05-26] MEDS ORDERED: cloNIDine HCL 0.1 MG TAB ONE (18:01)
--- NOTE | 2023-05-26 18:16 | ER ---
Nurse's Notes [facility] Name: Tabitha Odom Age: 67 yrs Sex: Female : 1955 Arrival Date: 05/26/2023 Time: 14:47 Bed 30 Private MD: Diagnosis: Essential (primary) hypertension Presentation: 05/26 15:24 Chief complaint: Patient states: "My blood pressure has been high for the past 2 days. mb9 It was 200/114 around 1430 today. I started feeling a little numb in my left thigh and left arm, but wasn't sure if it was from taking my BP too many times from the cuff. / David told me to come here.". Coronavirus screen: At this time, the client does not indicate any symptoms associated with coronavirus-19. Ebola Screen: No symptoms or risks identified at this time. Initial Sepsis Screen: Does the patient meet any 2 criteria? No. Patient's initial sepsis screen is negative. Does the patient have a suspected source of infection? No. Patient's initial sepsis screen is negative. Risk Assessment: Do you want to hurt yourself or someone else? Patient reports no desire to harm self or others. Onset of symptoms was May 26, 2023. 15:24 Acuity: YASEMIN 3 mb9 15:24 Method Of Arrival: Ambulatory mb9 Triage Assessment: 15:29 General: Appears in no apparent distress. Behavior is cooperative. Pain: Denies pain. mb9 Neuro: Aranda Agitation-Sedation Scale (RASS): 0 - Alert and Calm Level of Consciousness is awake, alert, obeys commands, Oriented to person, place, time, situation, Appropriate for age Denies blurred vision dizziness, headache. Neuro: Reports numbness in left arm and left leg. Cardiovascular: Denies chest pain. Respiratory: Airway is patent Respiratory effort is even, unlabored, Respiratory pattern is regular, symmetrical. Derm: Skin is pink, warm \\T\\ dry. Musculoskeletal: Range of motion: intact in all extremities. Historical: - Allergies: 15:27 Erythromycin; mb9 15:27 Reglan; mb9 15:27 Rocephin; mb9 - Home Meds: 15:27 Crestor Oral [Active]; mb9 - PMHx: 15:27 Hyperlipidemia; Hypertension; pancreatic cancer; mb9 - PSHx: 15:27 ectopic ; hysterectomy; tumor removed pancreatic CA; mb9 - Immunization history:: Adult Immunizations up to date. - Social history:: Smoking status: Patient denies any tobacco usage or history of. - Family history:: not pertinent. - Hospitalizations: : No recent hospitalization is reported. Screenin:25 [facility] ED Fall Risk Assessment (Adult) History of falling in the last 3 months, cm10 including since admission No falls in past 3 months (0 pts) Confusion or Disorientation No (0 pts) Intoxicated or Sedated No (0 pts) Impaired Gait No (0 pts) Mobility Assist Device Used No (0 pt) Altered Elimination No (0 pt) Score/Fall Risk Level 0 - 2 = Low Risk Oriented to surroundings, Maintained a safe environment, Hourly rounding (assess needs \\T\\ fall precautionary measures) done. Abuse screen: Denies threats or abuse. Denies injuries from another. Nutritional screening: No deficits noted. Tuberculosis screening: No symptoms or risk factors identified. Assessment: 18:25 Reassessment: Patient and/or family updated on plan of care and expected duration. Pain cm10 level reassessed. Patient is alert, oriented x 3, equal unlabored respirations, skin warm/dry/pink. Patient denies pain at this time. Patient states feeling better. Patient states symptoms have improved. General: Appears in no apparent distress. comfortable, Behavior is calm, cooperative. Pain: Denies pain. Neuro: No deficits noted. Level of Consciousness is awake, alert, obeys commands, Oriented to person, place, time, situation. Respiratory: No deficits noted. Airway is patent Respiratory effort is even, unlabored, Respiratory pattern is regular, symmetrical. Derm: No deficits noted. Skin is intact, Skin is pink, warm \\T\\ dry. Vital Signs: 15:24 BP 194 / 102; Pulse 97; Resp 18; Temp 97.2; Pulse Ox 97% on R/A; Weight 45.36 kg; mb9 Height 5 ft. 0 in. ; Pain 0/10; 17:49 BP 198 / 110; Pulse 91; Resp 16; Pulse Ox 100% ; cm10 18:06 BP 164 / 88; Pulse 71; Resp 16; Pulse Ox 100% on R/A; cm10 15:24 Body Mass Index 19.53 (45.36 kg, 152.4 cm) mb9 15:24 Pain Scale: Adult mb9 17:49 Dr. Louis aware. Will medicate. cm10 ED Course: 14:49 Patient arrived in ED. im 15:00 Johnathon Louis MD is Attending Physician. rn 15:24 Arm band placed on. mb9 15:27 Triage completed. mb9 15:59 CT Head Brain wo Cont In Process Unspecified. EDMS 16:59 Inserted saline lock: 22 gauge in left antecubital area, using aseptic technique. Blood ds4 collected. 18:25 Patient has correct armband on for positive identification. Provided Education on: N/A. cm10 18:25 No provider procedures requiring assistance completed. IV discontinued, intact, cm10 bleeding controlled, No redness/swelling at site. Pressure dressing applied. Administered Medications: 17:51 Drug: cloNIDine PO 0.1 mg Route: PO; cm10 18:06 Follow up: Response: No adverse reaction; Blood pressure is lowered cm10 Medication: 18:25 VIS not applicable for this client. cm10 Outcome: 18:15 Discharge ordered by . rn 18:25 Discharged to home ambulatory, with family. cm10 18:25 Condition: good 18:25 Discharge instructions given to patient, Instructed on discharge instructions, follow up and referral plans. Demonstrated understanding of instructions, follow-up care. 18:35 Patient left the ED. cm10 Signatures: Dispatcher [employer] Johnathon Hector MD MD rn Swanson, Donovan ds4 Leeanne Lee RN RN mb9 Kristen Butt Clarissa RN RN cm10 Corrections: (The following items were deleted from the chart) 15:29 15:27 Home Meds: losartan 50 mg Oral tab 1 tab once daily; mb9 mb9 15:29 15:27 Home Meds: Creon Oral; mb9 mb9
--- NOTE | 2023-05-26 18:16 | EDPHYS ---
Physician Documentation [facility] Name: Tabitha Odom Age: 67 yrs Sex: Female : 1955 Arrival Date: 05/26/2023 Time: 14:47 Bed 30 Private MD: ED Physician Johnathon Louis HPI: 05/26 17:52 This 67 yrs old Female presents to ER via Ambulatory with complaints of High rn Blood Pressure. 17:52 The patient has elevated blood pressure and discovered this at home. Onset: The rn symptoms/episode began/occurred at an unknown time. Modifying factors: The symptoms are aggravated by discontinuation of meds. Associated signs and symptoms: Pertinent negatives: chest pain, dizziness, dyspnea, headache, visual changes, vomiting, weakness. Severity of symptoms: At its worst the blood pressure was moderate, in the emergency department the blood pressure is unchanged. The patient has experienced similar episodes in the past. Pt reports high blood pressure last couple of days, confirmed at pharmacy, otherwise denies chest pain/sob/vomiting/focal neuro complaints. Reports used to take losartan but taken off because of cough. Written for amlodipine but didn't like how it made her feel, and her physician ultimately took her off of it. . Historical: - Allergies: 15:27 Erythromycin; mb9 15:27 Reglan; mb9 15:27 Rocephin; mb9 - Home Meds: 15:27 Crestor Oral [Active]; mb9 - PMHx: 15:27 Hyperlipidemia; Hypertension; pancreatic cancer; mb9 - PSHx: 15:27 ectopic ; hysterectomy; tumor removed pancreatic CA; mb9 - Immunization history:: Adult Immunizations up to date. - Social history:: Smoking status: Patient denies any tobacco usage or history of. - Family history:: not pertinent. - Hospitalizations: : No recent hospitalization is reported. ROS: 17:52 Constitutional: Negative for fever, chills, and weight loss, Eyes: Negative for injury, rn pain, redness, and discharge, Neck: Negative for injury, pain, and swelling, Cardiovascular: Negative for chest pain, palpitations, and edema, Respiratory: Negative for shortness of breath, cough, wheezing, and pleuritic chest pain, Abdomen/GI: Negative for abdominal pain, nausea, vomiting, diarrhea, and constipation, Back: Negative for injury and pain, MS/Extremity: Negative for injury and deformity, Skin: Negative for injury, rash, and discoloration, Neuro: Negative for headache, weakness, numbness, tingling, and seizure. Exam: 17:52 Constitutional: This is a well developed, well nourished patient who is awake, alert, rn and in no acute distress. Head/Face: Normocephalic, atraumatic. Eyes: Pupils equal round and reactive to light, extra-ocular motions intact. Lids and lashes normal. Conjunctiva and sclera are non-icteric and not injected. Cornea within normal limits. Periorbital areas with no swelling, redness, or edema. Neck: Trachea midline, no masses palpated, and no cervical lymphadenopathy. Supple, full range of motion without nuchal rigidity, or vertebral point tenderness. No Meningismus. Cardiovascular: Regular rate and rhythm. No pulse deficits. Respiratory: No increased work of breathing, no retractions or nasal flaring. Abdomen/GI: Soft, non-tender Skin: Warm, dry MS/ Extremity: Pulses equal, no cyanosis. Neuro: Awake and alert, GCS 15, oriented to person, place, time, and situation. Cranial nerves II-XII grossly intact. Motor strength 5/5 in all extremities. Sensory grossly intact. Cerebellar exam normal. Normal gait. 18:22 ECG was reviewed by the Attending Physician. rn Vital Signs: 15:24 BP 194 / 102; Pulse 97; Resp 18; Temp 97.2; Pulse Ox 97% on R/A; Weight 45.36 kg; mb9 Height 5 ft. 0 in. ; Pain 0/10; 17:49 BP 198 / 110; Pulse 91; Resp 16; Pulse Ox 100% ; cm10 18:06 BP 164 / 88; Pulse 71; Resp 16; Pulse Ox 100% on R/A; cm10 15:24 Body Mass Index 19.53 (45.36 kg, 152.4 cm) mb9 15:24 Pain Scale: Adult mb9 17:49 Dr. Louis aware. Will medicate. cm10 MDM: 15:00 Patient medically screened. rn 17:54 ED course: Pt reports has appt with her PCP tomorrow. W/u neg for acute end organ rn damage from HTN, including ct head neg and normal trop/creatinine. Normal neuro exam. Will dc home with BP diary and has appt tomorrow for further recs/management. 18:13 Differential diagnosis: hypertensive crisis, Malignant HTN. Data reviewed: vital signs, rn nurses notes, lab test result(s), EKG, radiologic studies, plain films, and as a result, I will discharge patient. Counseling: I had a detailed discussion with the patient and/or guardian regarding the historical points, exam findings, and any diagnostic results supporting the discharge/admit diagnosis, lab results, radiology results, the need for outpatient follow up, to return to the emergency department if symptoms worsen or persist or if there are any questions or concerns that arise at home. Response to treatment: the patient's symptoms have mildly improved after treatment, and as a result, I will discharge patient. 05/26 15:33 Order name: Basic Metabolic Panel; Complete Time: 17:37 rn 05/26 15:33 Order name: CBC with Diff; Complete Time: 17:28 rn 05/26 15:33 Order name: LFT's; Complete Time: 17:37 rn 05/26 15:33 Order name: NT PRO-BNP; Complete Time: 17:37 rn 05/26 15:33 Order name: PT-INR; Complete Time: 17:55 rn 05/26 15:33 Order name: Troponin HS; Complete Time: 17:37 rn 05/26 15:33 Order name: CT Head Brain wo Cont; Complete Time: 16:40 rn 05/26 15:33 Order name: EKG; Complete Time: 15:34 rn 05/26 15:33 Order name: Cardiac monitoring; Complete Time: 18:06 rn 05/26 15:33 Order name: EKG - Nurse/Tech; Complete Time: 18:22 rn 05/26 15:33 Order name: IV Saline Lock; Complete Time: 16:59 05/26 15:33 Order name: Labs collected and sent; Complete Time: 16:59 rn 05/26 15:33 Order name: O2 Per Protocol; Complete Time: 18:06 rn 05/26 15:33 Order name: O2 Sat Monitoring; Complete Time: 18:06 rn EC:22 Rate is 81 beats/min. Rhythm is regular. QRS [place] is Normal. [place] interval is normal. QRS rn interval is normal. QT interval is normal. No Q waves. T waves are Normal. No ST changes noted. Clinical impression: NSR w/ Non-specific ST/T Changes. Interpreted by me. Reviewed by me. Administered Medications: 17:51 Drug: cloNIDine PO 0.1 mg Route: PO; cm10 18:06 Follow up: Response: No adverse reaction; Blood pressure is lowered cm10 Disposition Summary: 05/26/23 18:15 Discharge Ordered Location: Home rn Problem: an ongoing problem rn Symptoms: have improved rn Condition: Stable rn Diagnosis - Essential (primary) hypertension rn Followup: rn - With: Private Physician - When: Tomorrow - Reason: Recheck today's complaints, Re-evaluation by your physician Discharge Instructions: - Discharge Summary Sheet rn - Hypertension, Adult rn - How to Take Your Blood Pressure, [id number] rn - Managing Your Hypertension rn Forms: - Medication Reconciliation Form rn - Thank You Letter rn - Antibiotic overnight caregiver - Prescription Opioid Use rn - Patient Portal Instructions rn - Leadership Thank You Letter rn Signatures: Dispatcher [employer] EDJohnathon Flor MD MD rn Breneman, Mary Beth RN RN mb9 Yolanda Bray RN RN 10 Corrections: (The following items were deleted from the chart) 15:29 15:27 Home Meds: losartan 50 mg Oral tab 1 tab once daily; mb9 mb9 15:29 15:27 Home Meds: Creon Oral; mb9 mb9
[2023-05-26 19:05] VITALS: TEMP 97.2
[2023-05-26 19:06] VITALS: O2SAT 100
[2023-05-26 19:07] VITALS: BP 164/88
--- NOTE | 2023-05-27 16:28 | EKG ---
Test Date: 2023-05-26 Test Time: 18:19:54 [place] Insulator: MANDY MEASUREMENT RESULTS: Intervals: Rate: 81 NE: 126 QRSD: 76 QT: 372 QTc: 432 [place]: P: 61 NE: 126 QRS: 61 T: 39 INTERPRETIVE STATEMENTS: Normal sinus rhythm Possible Left atrial enlargement Low voltage QRS Borderline ECG Compared to ECG 01/15/2022 13:46:11 No significant changes Electronically Signed On 05-27-23 16:25:56 CDT by Bassem To
== END 2023-05-26 18:35 | disposition home or self-care (01) ==
LOC: ER 14:47
DX: I10 Essential (primary) hypertension (principal); Z88.1 Allergy status to other antibiotic agents; Z88.3 Allergy status to other anti-infective agents; Z88.8 Allergy status to other drugs, medicaments and biological substances
CPT/HCPCS: 36415; 70450; 80048; 80076; 83880; 84484; 85025; 85610; 93005; 99284

== ENCOUNTER 2023-06-10 11:43 | Emergency (ER) | payer OTHER ==
--- OUTSIDE RECORDS SUMMARY | 2023-06-10 11:49 | XMS REPORT | Continuity of Care Document ---
:1955 Author Organization [facility] t Address [address] [place] [address] [address] [place] [address] Care Team Providers Name Role Phone ROSA MARIA BYRD Primary Care Physician Unavailable Angel Hernandez Attending Clinician Unavailable SYSTEM, PROVIDER NOT IN Attending Clinician Unavailable Sonia Avila MD Attending Clinician Jose G Ribeiro DO Attending Clinician Astrid Vences MD Attending Clinician Vane Purvis MD Attending Clinician UNKNOWN, ATTENDING Attending Clinician Unavailable EDIS HOLDER Attending Clinician Unavailable EbEdis Chairez Attending Clinician Unknown, Attending Attending Clinician Unavailable Lorena Brown Attending Clinician Unavailable RADIOLOGY Attending Clinician Unavailable Radiology Attending Clinician Unavailable Doctor Unassigned, [place] Attending Clinician Unavailable DARRELL MULLEN Attending Clinician Unavailable CRYSTAL CASH Attending Clinician Unavailable JONNA MOORE Admitting Clinician Unavailable Payers Payer Name Policy Type Policy Number Effective Date Expiration Date S elio [employer] MEDICARE HMO [id number] 2019 POS PPO 00:00:00 [employer] MEDICARE OUT [id number] 2019 OF NETWORK 00:00:00 Problems Condition Condition Condition Status Onset Resolution Last Treating Co mments Source Name Details Category Date Date Treatment Clinician Date Fatty Fatty Disease Active [facility] liver liver 11-20 [facility] 00:[facility]: t & Plan: [facility] g of this note might be different from the original. Risk factor hepatic steatosis includes her history of hyperlipi demia. Abnormal Abnormal Disease Active Last [facility] liver [facility] diagnostic diagnostic 00:00: t & Plan: Medical imaging imaging 00 Formattin [facility] r g of this note might [...] further evaluatio n. 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 00:00: [address] Elevated Elevated Disease Active Unive rs liver liver 3-22 ity of enzymes enzymes 00:00: [address] 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 it y of of of 00:00: [place] pancreas pancreas 00 Medica Branch 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 1-19 [place] k[place] n n 00:00: Medical 00 [place] Acute Acute Disease Active 2014-09 [facility] [address] kidney kidney 1-19 [facility] injury injury 00:00: Medical 00 [place] Intractabl Intractabl Disease Active C [facility] e vomiting e vomiting - Val[place] kes with with 00:00: Medical nausea, nausea, 00 Center vomiting vomiting of of unspecifie unspecifie d type d type Primary Primary Disease Active [facility] St pancreatic pancreatic 6-11 [facility] neuroendoc neuroendoc 00:00: t & Plan: Medical rine tumor rine tumor 00 [facility] g of this note might be different from the original. 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; G2, [...] ity of adverse 00:00: [place] reaction 00 [facility] Branch CEFTRIAX Allergy Active Hives [facility] ONE 6-07 [facility] 00:00: Medical 00 Center Ceftriax Propensi Active Hives [facility] ty to 03-05 [facility] adverse 00:00: Medical reaction 00 [place] s ERYTHROM DRUG Active N/V Univers YCIN 3- ity of 00:00: [place] 00 Medical Branch METOCLOP DRUG Active Unknown-Cmnt Un sunil RAMIDE INGREDI 12-18 ity of HCL 00:00: [place] 00 [facility] Branch Erythrom Propensi Active Nausea Univer s ycin ty to and/or 12-18 ity of adverse Vomiting 00:00: [place] reaction 00 [facility] Branch Metoclop Propensi Active Unknown - Uni vers ramide ty to See comments 12-18 ity of Hcl adverse 00:00: [place] reaction 00 [facility] Branch ERYTHROM Allergy Active 2014-09 [...] 00:00: Medical 00 Center DIAZEPAM Allergy Active [facility] Diazepam Propensi Active [facility] ty to [facility] adverse Medical reaction Center s Family History Family Member Diagnosis Comments Start Date Stop Date Source Natural brother Early [facility] Natural father COPD [facility] Natural father Vision loss [facility] Natural mother Arthritis [facility] Natural mother Hyperlipidemia [facility] Natural mother Hypertension [facility] Natural mother Miscarriages / [facility] Natural sister Cancer [facility] Natural sister Hyperlipidemia [facility] Social History Social Habit Start Date Stop Date Quantity Comments Source History of Current smoker [facility] [place] [facility] tobacco use Medical Cente r Exposure to 2022-06-03 2022-06-13 Not sure [facility] SARS-CoV-2 00:00:00 13:57:00 [facility] (event) Branch Alcohol intake 2018-02-04 2018-02-04 Current [facility] [place] es 00:00:00 00:00:00 non-drinker of Medical Ce nter alcohol (finding) Tobacco use and 2015-02-15 2015-02-[address] [facility] exposure 00:00:00 00:00:00 non-user [facility] Tobacco Comment 2015-02-15 2015-02-15 quit one year ago [facility] 00:00:00 00:00:00 [facility] Sex Ass[birth year] [facility] [address] Valarie lys 00:00:00 00:00:00 [facility] Smoking Status Start Date Stop Date Source Never smoked tobacco [facility] Ex-smoker 2015-02-15 00:00:00 2015-02-15 00:00:00 [facility] Medications Ordered Filled Start Stop Current Ordering Indication Dosage Frequency Signature Comments Components Source Medication Medication Date Date Medication? Clinician (SIG) Name Name amoxicillin 2021- No [id number] 1{tbl} Take 1 Univers -clavulanat 06-13 tablet by it y of e 00:00: 04:59 mouth in [place] (AUGMENTIN) 00 :00 the Medical 875-125 mg morning Branch per tablet and 1 tablet in the evening. Do all this for 10 days. doxycycline 2021- No [id number] 100mg Take 1 Univers hyclate 100 06-13 tablet by it y of mg tablet 00:00: 04:59 mouth in [place] as 00 :00 the Medical morning Branch and 1 tablet in the evening. Do all this for 10 days. amoxicillin 2021- No [id number] 1{tbl} Take 1 Univers -clavulanat 06-13 tablet by it y of e 00:00: 04:59 mouth in [place] (AUGMENTIN) 00 :00 the Medical 875-125 mg morning Branch per tablet and 1 tablet in the evening. Do all this for 10 days. doxycycline 2021- No [id number] 100mg Take 1 Univers hyclate 100 06-13 [...] EC 17 Medical tablet Branch colesevelam Yes [id number] 625mg Take 1 Univers 625 mg 7-11 tablet by ity of tablet 00:00: mouth [place] 00 daily. [facility] Yes [id number] 625mg Take 1 Univers 625 mg 7-11 tablet by ity of tablet 00:00: mouth [place] 00 daily. [facility] Yes [id number] 625mg Take 1 Univers 625 mg 7-11 tablet by ity of tablet 00:00: mouth [place] 00 daily. [facility] Yes [id number] 625mg Take 1 Univers 625 mg 7-11 [...] MG 00:00: mouth Medical tablet 00 daily. [place] losartan Yes 100mg QD Take [address] (COZAAR) 1-19 mg by [facility] 100 MG 00:00: mouth Medical tablet 00 daily. [place] losartan Yes 100mg QD Take [address] (COZAAR) 1-19 mg by [facility] 100 MG 00:00: mouth Medical tablet 00 daily. [place] losartan Yes 100mg QD Take [address] (COZAAR) 1-19 mg by [facility]ukes 100 MG 00:00: mouth Medical tablet 00 daily. [place] losartan 2018-0 Yes 100mg QD Take [address] (COZAAR) 1-19 mg by [facility]ukes 100 MG 00:00: mouth Medical tablet 00 daily. [place] losartan [id number] Yes 100mg QD Take [address] (COZAAR) 1-19 mg by [facility]ukes 100 MG 00:00: mouth Medical tablet 00 daily. [place] losartan [id number] Yes 100mg QD Take [address] (COZAAR) 1-19 mg by [facility]ukes 100 MG 00:00: mouth Medical tablet 00 daily. [place] ergocalcife 2016-09 Yes [id number] Take 1 Un sunil rol, 1-03 capsule by ity of vitamin d2, 00:00: mouth [place] (VITAMIN 00 weekly. Medical D2) 50,000 Branch unit capsule ergocalcife 2016-09 Yes [id number] Take 1 Un sunil rol, 1-03 capsule by ity of vitamin d2, 00:00: mouth [place] (VITAMIN 00 weekly. Medical D2) 50,000 Branch unit capsule ergocalcife 2016-09 Yes [id number] Take 1 Un sunil rol, 1-03 capsule by ity of vitamin d2, 00:00: mouth [place] (VITAMIN 00 weekly. Medical D2) 50,000 Branch unit capsule ergocalcife 2016-09 Yes [id number] Take 1 Un sunil rol, 1-03 capsule by ity of vitamin d2, 00:00: mouth [place] (VITAMIN 00 weekly. Medical D2) 50,000 Branch unit capsule colesevelam Yes 3.75g Take 3.[address] 3.75 gram 6-28 g by [facility]ukes PwPk 00:00: mouth. Medical 00 [place] colesevelam Yes 3.75g Take 3.[address] 3.75 gram 6-28 g by [facility]ukes PwPk 00:00: mouth. Medical 00 [place] colesevelam Yes 3.75g Take 3.[address] 3.75 gram 6-28 g by [facility]ukes PwPk 00:00: mouth. Medical 00 [place] colesevelam Yes 3.75g Take 3.[address] 3.75 gram 6-28 g by [facility]ukes PwPk 00:00: mouth. Medical 00 [place] colesevelam 2017-0 Yes 3.75g Take 3.[address] 3.75 gram 6-28 g by [facility]ukes PwPk 00:00: mouth. [address] colesevelam 2017-0 Yes 3.75g Take 3.[address] 3.75 gram 6-28 g by [facility]ukes PwPk 00:00: mouth. [address] colesevelam 2017-0 Yes 3.75g Take 3.[address] 3.75 gram 6-28 g by [facility]ukes PwPk 00:00: mouth. [address] losartan 2017-0 Yes 100mg Take 100 Univ ers 100 mg 3-27 mg by ity of tablet 00:00: mouth [place] 00 daily. [facility] losartan 2017-0 Yes 100mg Take 100 Univ ers 100 mg 3-27 mg by ity of tablet 00:00: mouth [place] 00 daily. [facility] Branch losartan 2017-0 Yes 100mg Take 100 Univ ers 100 mg 3-27 mg by ity of tablet 00:00: mouth [place] 00 daily. [facility] Branch losartan 2017-0 Yes 100mg Take 100 Univ ers 100 mg 3-27 mg by ity of tablet 00:00: mouth [place] 00 daily. [facility] blood sugar 2016-0 Yes Use as Univ ers diagnostic 3-22 directed, ity of (CONTOUR 00:00: daily, [place] NEXT DX:E11.9 Medical STRIPS) Branch strip Lancets 2016-0 Yes Use as Univers (MICROLET 3-22 directed, ity o f LANCET) 00:00: daily, [facility] 00 DX:E11.9 Medical Branch blood sugar 2016-0 Yes Use as Univ ers diagnostic 3-22 directed, ity of (CONTOUR 00:00: daily, [place] NEXT DX:E11.9 Medical STRIPS) Branch strip Lancets 2016-0 Yes Use as Univers (MICROLET 3-22 directed, ity o f LANCET) 00:00: daily, [facility] 00 DX:E11.9 Medical Branch blood sugar 2016-0 Yes Use as Univ ers diagnostic 3-22 directed, ity of (CONTOUR 00:00: daily, [facility] DX:E11.9 Medical STRIPS) Branch strip Lancets 2016-0 Yes Use as Univers (MICROLET 3-22 directed, ity o f LANCET) 00:00: daily, [facility] 00 DX:E11.9 Medical Branch blood sugar 2016-0 Yes Use as Univ ers diagnostic 3-22 directed, ity of (CONTOUR 00:00: daily, [place] NEXT 00 DX:E11.9 Medical STRIPS) Branch strip Lancets Yes Use as Univers (MICROLET 3-22 directed, ity o f LANCET) 00:00: daily, [facility] 00 DX:E11.9 Medical Branch CREON Yes Univers 12,000-38,0 2-09 ity of 00 -60,000 00:00: [place] unit 00 Medical capsule Branch CREON Yes Univers 12,000-38,0 2-09 ity of 00 -60,000 00:00: [place] unit 00 Medical capsule Branch CREON Yes Univers 12,000-38,0 2-09 ity of 00 -60,000 00:00: [place] unit 00 Medical capsule Branch CREON Yes Univers 12,000-38,0 2-09 ity of 00 -60,000 00:00: [place] unit 00 Medical capsule Branch Immunizations Ordered Immunization Filled Immunization Date Status Commen Source Name Name Hepatitis B 2017-12-[address] [facility] 00:00:00 [facility] Hepatitis B 2017-12-[address] [facility] 00:00:00 [facility] Hepatitis B 2017-12-[address] [facility] 00:00:00 [facility] Hepatitis B 2017-12-[address] [facility] 00:00:00 [facility] Hepatitis B 2017-12-[address] [facility] 00[facility]00:00 [facility] Hepatitis B 2017-12-[address] [facility] 00:00:00 [facility] Hepatitis B 2017-12-[address] [facility] 00:00:00 [facility] Vital Signs Vital Name Observation Time Observation Value Comments Source Systolic blood 2022-06-13 19:07:00 164 mm[Hg] Univer sity of pressure [facility] Diastolic blood 2022-06-13 19:07:00 79 mm[Hg] Unive rsity of pressure [facility] Heart rate 2022-06-13 19:04:00 100 /[facility] Body temperature 2022-06-13 19:04:00 36.5 Arlen [facility] [place] [facility] Respiratory rate 2022-06-13 19:04:00 17 /min [facility] [place] [facility] Body height 2022-06-13 19:04:00 152.4 cm [facility] Body weight 2022-06-13 19:04:00 43.001 kg [facility] BMI 2022-06-13 19:04:00 18.51 kg/m2 [facility] Oxygen saturation in 2022-06-13 19:04:00 97 /min [facility] blood by [facility] Pulse oximetry Branch Procedures Procedure Date / Time Performed Performing Clinician Larry antonio US BREAST RIGHT 2023-02-18 14:38:00 Vane Purvis [facility] MM DIGITAL MAMMO 2023-02-18 14:04:00 Jose G Ribeiro [facility] Medical SCREEN WITH ALYSSA Center BILATERAL XR CHEST 2 VW 2022-06-13 19:24:00 Edis Holder [place] o f [facility] US ABDOMEN COMPLETE 2021-08-08 16:05:00 [facility] 2021-08-08 15:25:30 Doctor Unassigned, No [facility] Plan of Care Planned Activity Planned Date Details Comments Source Future Scheduled 2025-02-18 Screening [facility] malignant [facility] Test 00:00:00 neoplasm of breast Medical C enter (procedure) [code = 923182963] Future Scheduled 2025-02-18 Screening for malignant [facility] Test 00:00:00 neoplasm of breast Medical C enter (procedure) [code = 562864559] Future Scheduled 2023-05-[address] [facility] Test 00:00:00 (Season Ended) [code = Medic al Center INFLUENZA VACCINE (Season Ended)] Future Scheduled 2023-05-30 Influenza Vaccine (#1) [facility] 00:00:00 [code = Influenza Medical Ce nter Vaccine (#1)] Future Scheduled 2023-05-30 Influenza Vaccine (#1) C [...] breast Medical C enter (procedure) [code = 234973894] Future Scheduled 2021-01-26 Screening for malignant [facility] Test 00:00:00 neoplasm of breast Medical C enter (procedure) [code = 750748769] Future Scheduled 2021-01-26 Screening for malignant [facility] Test 00:00:00 neoplasm of breast Medical C enter (procedure) [code = 697937491] Future Scheduled 2021-01-26 Screening for malignant [facility] Test 00:00:00 neoplasm of breast Medical C enter (procedure) [code = 862186338] Future Scheduled 2021-01-26 Screening for malignant [facility] Test 00:00:00 neoplasm of breast Medical C enter (procedure) [code = 276682854] Future Scheduled 2020 PNEUMOCOCCAL 65+ YRS (1 [...] DXA [facility] Test 00:00:00 SCAN] [facility] Future Scheduled 1955 Screening for malignant [facility] Test 00:00:00 neoplasm of colon Medical Ce nter (procedure) [code = 017479830] Future Scheduled 1955 Screening for malignant [facility] Test 00:00:00 neoplasm of colon Medical Ce nter (procedure) [code = 032540922] Future Scheduled 1955 Sigmoidoscopy [code = [facility] 00:00:00 Sigmoidoscopy] [facility] Future Scheduled 1955 CT Colonography (combo) [facility] Test 00:00:00 [code = CT Colonography [facility] (combo)] Future Scheduled 1955 Screening for malignant [facility] Test 00:00:00 neoplasm of colon Medical Ce nter (procedure) [code = 178713745] Future Scheduled 1955 Screening for malignant [facility] Test 00:00:00 neoplasm of colon Medical Ce nter (procedure) [code = 729652324] Future Scheduled 1955 DXA SCAN [code = DXA [facility] Test 00:00:00 SCAN] [facility] Future Scheduled 1955 Screening for malignant [facility] Test 00:00:00 neoplasm of colon Medical Ce nter (procedure) [code = 174702256] Future Scheduled 1955 Screening for malignant [facility] Test 00:00:00 neoplasm of colon Medical Ce nter (procedure) [code = 246891187] Future Scheduled 1955 Sigmoidoscopy [code = [facility] 00:00:00 Sigmoidoscopy] [facility] Future Scheduled 1955 CT Colonography (combo) [facility] 00:00:00 [code = CT Colonography [facility] (combo)] Future Scheduled 1955 Screening for malignant [facility] Test 00:00:00 neoplasm of colon Medical Ce nter (procedure) [code = 042390406] Future Scheduled 1955 Screening for malignant [facility] Test 00:00:00 neoplasm of colon Medical Ce nter (procedure) [code = 129528318] Future Scheduled 1955 DXA SCAN [code = DXA [facility] Test 00:00:00 SCAN] [facility] Future Scheduled 1955 Screening for malignant [facility] 00:00:00 neoplasm of colon Medical Ce nter (procedure) [code = 547814945] Future Scheduled 1955 Screening for malignant [facility] Test 00:00:00 neoplasm of colon Medical Ce nter (procedure) [code = 154957992] Future Scheduled 1955 Sigmoidoscopy [code = [facility] 00:00:00 Sigmoidoscopy] [facility] Future Scheduled 1955 CT Colonography (combo) [facility] 00:00:00 [code = CT Colonography [facility] (combo)] Future Scheduled 1955 Screening for malignant [facility] Test 00:00:00 neoplasm of colon Medical Ce nter (procedure) [code = 632722056] Future Scheduled 1955 Screening for malignant [facility] Test 00:00:00 neoplasm of colon Medical Ce nter (procedure) [code = 178843642] Future Scheduled 1955 DXA SCAN [code = DXA [facility] Test 00:00:00 SCAN] [facility] Future Scheduled 1955 Screening for malignant [facility] Test 00:00:00 neoplasm of colon Medical Ce nter (procedure) [code = 083472624] Future Scheduled 1955 Screening for malignant [facility] Test 00:00:00 neoplasm of colon Medical Ce nter (procedure) [code = 494760425] Future Scheduled 1955 Sigmoidoscopy [code = [facility] 00:00:00 Sigmoidoscopy] [facility] Future Scheduled 1955 CT Colonography (combo) [facility] 00:00:00 [code = CT Colonography [facility] (combo)] Future Scheduled 1955 Screening for malignant [facility] Test 00:00:00 neoplasm of colon Medical Ce nter (procedure) [code = 491552895] Future Scheduled 1955 Screening for malignant [facility] Test 00:00:00 neoplasm of colon Medical Ce nter (procedure) [code = 085449967] Future Scheduled 1955 DXA SCAN [code = DXA [facility] Test 00:00:00 SCAN] [facility] Future Scheduled 1955 Screening for malignant [facility] Test 00:00:00 neoplasm of colon Medical Ce nter (procedure) [code = 703478868] Future Scheduled 1955 Screening for malignant [facility] Test 00:00:00 neoplasm of colon Medical Ce nter (procedure) [code = 944218614] Future Scheduled 1955 Sigmoidoscopy [code = [facility] 00:00:00 Sigmoidoscopy] [facility] Future Scheduled 1955 CT Colonography (combo) [facility] 00:00:00 [code = CT Colonography [facility] (combo)] Future Scheduled 1955 Screening for malignant [facility] Test 00:00:00 neoplasm of colon Medical Ce nter (procedure) [code = 685860051] Future Scheduled 1955 Screening for malignant [facility] Test 00:00:00 neoplasm of colon Medical Ce nter (procedure) [code = 509737321] Future Scheduled 1955 DXA SCAN [code = DXA [facility] Test 00:00:00 SCAN] [facility] Future Scheduled 1955 Screening for malignant [facility] 00:00:00 neoplasm of colon Medical Ce nter (procedure) [code = 250888761] Future Scheduled 1955 Screening for malignant [facility] 00:00:00 neoplasm of colon Medical Ce nter (procedure) [code = 424963820] Future Scheduled 1955 Sigmoidoscopy [code = [facility] 00:00:00 Sigmoidoscopy] Medical Cente r Future Scheduled 1955 CT Colonography (combo) [facility] 00:00:00 [code = CT Colonography [facility] (combo)] Future Scheduled 1955 Screening for malignant [facility] Test 00:00:00 neoplasm of colon Medical Ce nter (procedure) [code = 589388912] Future Scheduled 1955 Screening for malignant [facility] Test 00:00:00 neoplasm of colon Medical Ce nter (procedure) [code = 848715451] Future Scheduled 1955 CT Colonography (combo) [facility] Test 00:00:00 [code = CT Colonography [facility] (combo)] Future Scheduled 1955 Screening for malignant [facility] Test 00:00:00 neoplasm of colon Medical Ce nter (procedure) [code = 329755497] Future Scheduled 1955 Screening for malignant [facility] Test 00:00:00 neoplasm of colon Medical Ce nter (procedure) [code = 455615985] Future Scheduled 1955 DXA SCAN [code = DXA [facility] Test 00:00:00 SCAN] [facility] Future Scheduled 1955 Screening for malignant [facility] Test 00:00:00 neoplasm of colon Medical Ce nter (procedure) [code = 424150295] Future Scheduled 1955 Screening for malignant [facility] Test 00:00:00 neoplasm of colon Medical Ce nter (procedure) [code = 949748637] Future Scheduled 1955 Sigmoidoscopy [code = [facility] 00:00:00 S[facility]oidoscopy] [facility] En[facility] Start End Encounter Admission Attending Care Care Encounter Source Date/Time Date/Time Type Type Clinicians Facility Department ID 2023-06-05 Outpatient Hernandez, STLMLC [facility] [id number] Common 08:48:00 Angel [id number] [facility] 2023-04-03 Outpatient Hernandez, STLMLC [facility] [id number] Common 08:36:00 Angel [id number] [facility] 2023-03-27 Outpatient Hernandez, STLMLC [facility] [id number] Common 08:31:01 Angel [id number] [facility] 2022-08-23 Outpatient Hernandez, STLMLC [facility] [id number] Common 08:19:00 Angel [id number] [facility] 2022-08-16 [facility] [id number] Common 10:44:01 Angel [id number] [facility] 2022-07-02 Outpatient Hernandez, STLMLC [facility] [id number] Common 16:14:01 Angel [id number] [facility] 2022-02-21 [facility] [id number] Common 08:54:02 Angel [id number] [facility] 2023-04-07 2023-04-07 Outpatient EL [facility] [id number] [facility] 00:00:00 00:00:00 2023-02-18 2023-02-18 Outpatient EL [facility], SLE [facility] [id number] [facility] 13:48:19 23:59:00 PROVIDER 2023-02-18 2023-02-18 [facility], [facility] [id number] 13:48:19 23:59:00 Encounter Provider Shree es Not In [facility] 2023-02-18 2023-02-18 [facility], [facility] [id number] 13:48:19 23:59:00 Encounter Provider Shree es Not In [facility] 2023-02-18 2023-02-18 [place], [facility] [id number] 13:17:30 13:47:[address] [facility] 2023-02-18 2023-02-18 [place], [facility] [id number] 13:17:30 13:47:00 Encounter [facility] 2023-02-18 2023-02-18 Outpatient EL SYSTEM, [facility] [id number] SLE 13:17:29 13:47:00 PROVIDER 2023-02-17 2023-02-17 Outside [facility], [facility] [id number] 00:00:00 00:00:00 Orders [facility] 2023-02-17 2023-02-17 Outside [facility], [facility] [id number] 00:00:00 00:00:00 Orders [facility] 2023-02-14 2023-02-14 Telephone Vangie [facility] [id number] 00:00:00 00:00:00 [facility] 2023-02-14 2023-02-14 Outside [place], [facility] [id number] 00:00:00 00:00:00 Orders [facility] 2023-02-14 2023-02-14 Outside [place], [facility] [id number] 00:00:00 00:00:00 Orders [facility] 2023-02-14 2023-02-14 Telephone Vangie [facility] [id number] 00:00:00 00:00:00 [facility] 2023-02-14 2023-02-14 Outside [place], [facility] [id number] 00:00:00 00:00:00 Orders [facility] 2023-02-14 2023-02-14 Outside [place], [facility] [id number] 00:00:00 00:00:00 Orders [facility] 2022-10-30 2022-10-30 Outpatient R UNKNOWN, [facility] [id number] Univers 11:40:00 11:40:00 ATTENDING ity of [facility] 2022-06-13 2022-06-13 Outpatient R GLORY [facility] [id number] Univers 14:13:59 23:59:00 RANIA ity of [facility] 2022-06-13 2022-06-13 [facility] Gl[facility]UNM [facility] [id number] Univers 14:13:59 23:59:00 Encounter [facility] [id number] ity of [place] 4.2.7.2.686 Mario as SERAFIN?BLEA [id number] [place] audie PEREZ [address] MEDICAL OFFICE [facility] 2022-06-13 2022-06-13 Urgent Edis Holder [facility] [id number] Univers 14:00:00 14:44:20 Care Unknown, Attending HEALTH [id number] [facility] [id number] Mario as SERAFIN?BLEA [phone] Nc dickatelyn [facility] [address] MEDICAL OFFICE BUILDING 2022-01-30 2022-01-[address] [facility] [id number] [facility] 00:00:00 00:00:00 ion [facility] 2021-08-08 2021-08-08 Outpatient R RADIOLOGY [facility] [id number] Univers 09:26:32 23:59:00 ity of [facility] 2021-08-08 2021-08-08 Hospital Radiology [facility] [id number] Univers 09:00:00 23:59:00 [facility]counter [facility] [id number] ity of [place] [id number] [facility] [address] 2021-08-08 2021-08-08 Orders Doctor ARANDA [id number] Univers 00:00:00 00:00:00 Only Unassigned, BELL [id number] ity of [facility] [id number] Mario as [id number] [facility] [address] 2020-03-27 2020-03-27 Outpatient KAYKAY REIS [place] [id number] [facility] 00:00:00 00:00:00 DARRELL 2020-03-20 2020-03-20 Outpatient CAREY MULLEN SLER[place]eca [facility] [id number] [facility] 00:00:00 00:00:00 DARRELL 2020-03-17 2020-03-17 [facility] [id number] [facility] 00:00:00 00:00:00 DARRELL 2020-03-06 2020-03-06 Outpatient SHRUTI [facility] [id number] [facility] 00:00:00 00:00:00 DARRELL 2020-03-06 2020-03-06 Outpatient CAREY MULLEN [facility] SLE [id number] [facility] 00:00:00 00:00:00 DARRELL Results Test Test Test Comments Results Result Source Description Time Comments MM, U/S, 2023-01- Referring: BREAST, 23 Darrell UNILATERAL, 14:48:00 [facility] - RIGHT workup per MEDICAL CENTERName: ESTER, radiologist?->YesRe LENIN VARGAS : ason for 1955 Sex: Exam:->breast pain F #[id number] - , U/S, BREAST, UNILATERAL, RIGHT ULTRASOUND OF RIGHT BREAST AND AXILLA: 02/18/2023LINICAL: Diffuse pain right breast. Comparison is made to exam dated: 02/18/2023 mammogram - [facility]. Color flow and real-time ultrasound of the right breast axilla were performed. Kamara scale images of the real-time examination were reviewed. No significant abnormalities were seen sonographically in the right breast or the right axilla. IMPRESSION: NEGATIVE There is no sonographic evidence of malignancy. A 1 year screening mammogram is recommended. Dr. Kyler Donohue qn/penrad:02/18/2023 14:48:01 Normal Exam Ultrasound BI-RADS: 1 Negative [id number] , DIGITAL, 2023-01- Referring: MAMMO, [facility] SCREENING, WITH 14:08:[address] [facility] - ALYSSA, BILATERAL per MEDICAL CENTERName: NORMAN, INCLUDING CAD radiologist?->Yes LENIN VARGAS : Reason for 1955 Sex: Exam:->screening F for malignant neoplasm of breast MRN#: [id number] - MM, DIGITAL, MAMMO, SCREENING, WITH ALYSSA, [...] ID: WITHOUT / WITH 30 Darrell Mullen [id number] MRI of the IV CONTRAST 15:14:00 abdomen [...] MDReport Verified Date/Time: 03/28/2020 15:14:33 Reading Location: [address] Body Reading Room -CREATININE 2020-03-27 10:35:00 Test Item Value Reference Range Interpretation Comme [facility] POC-CREATININE (BEAKER) 0.6 mg/dL 0.6-1.3 : TE STED AT [facility] 7200 (test code = 1859) [facility] [address]: Optical Instrument Repairer /Imaging Specialist ID = [id number] for ANJANA JOYCE POC-EGFR (BEAKER) (test 101 mL/min/1.73M2 code = 1860) CT, ABDOMEN, WITHOUT / WITH IV [id number] 15:03:00Referring: Dr. Darrell MullenFINAL REPORT CT scan [...] MDReport Verified Date/Time: 03/05/2019 15:03:16 Reading Location: [address] Consult Reading Room -[id number] 11:43:00 Test Item Value Reference Range Interpretation Comments POC-CREATININE 0.5 mg/dL 0.6-1.3 L TESTED AT [facility] (test [facility] A code = 1859) [facility] 7703 0 POC-EGFR 125 mL/min/1.73M2 (ELISHA) (test code = 1860) CT, ABDOMEN, [id number] 11:02:00Referring: Dr. Darrell Church REPORT CT OF [...] MDReport Verified Date/Time: 04/22/2018 11:02:01 Reading Location: [address] Radiology Reading Room -[id number] 08:58:00 Test Item Value Reference Range Interpretation Comments POC-CREATININE 0.5 mg/dL 0.6-1.[address] [facility] (ELISHA) (test 2457 [facility] code = 1859) [facility] 7703 0 POC-EGFR 125 mL/min/1.73M2 (BEAKER) (test code = 1860) CHROMOGRANIN [id number] 10:34:00 Test Item Value Reference Range Interpretation Comments SCAN RESULT (test code = 3538140) ANTI-NUCLEAR ANTIBODY (FRENCH)2017-11-22 10:58:00 Test Item Value Reference Range Interpretation Comments ANTI-NUCLEAR ANTIBODY (FRENCH) (BEAKER) Negative Negative (test code = 418) [id number] 15:08:00 Test Item Value Reference Range Interpretation Comments FERRITIN (BEAKER) (test code = 361) 21 ng/mL 5-275 HEPATITIS A ANTIBODY, [id number] 14:16:00 Test Item Value Reference Range Interpretation Comments HEPATITIS A IGG ANTIBODY (BEAKER) Reactive Nonreactive A (test code = 2797) HEPATITIS B SURFACE [id number] 14:16:00 Test Item Value Reference Range Interpretation Comments HEPATITIS B SURFACE ANTIBODY < mIU/mL <8.0 (BEAKER) (test code = 647) HEPATITIS C [id number] 14:15:00 Test Item Value Reference Range Interpretation Comments HEPATITIS C ANTIBODY (BEAKER) Nonreactive Nonreactive (test code = 367) HEPATITIS B SURFACE [id number] 14:10:00 Test Item Value Reference Range Interpretation Comments HEPATITIS B SURFACE ANTIGEN (2) Nonreactive Nonreactive (BEAKER) (test code = 2585) HEPATITIS B CORE ANTIBODY, [id number] 14:10:00 Test Item Value Reference Range Interpretation Comments HEPATITIS B CORE TOTAL ANTIBODY Nonreactive Nonreactive (BEAKER) (test code = 497) [id number] 13:59:00 Test Item Value Reference Range Interpretation [...] L (test code = 2590) COMPREHENSIVE METABOLIC [id number] 13:50:00 Test Item Value Reference Range Interpretation [...] NOT APPLICABLE FOR DIALYSIS PATIEN TS. BILIRUBIN, [id number] 13:50:00 Test Item Value Reference Range Interpretation Comments BILIRUBIN DIRECT (BEAKER) (test 0.1 mg/dL 0.1-0.5 code = 706) U/S, ABDOMINAL, [id number] 13:42:00Referring: Dr. Darrell Perez ELASTOGRAPHYReason for Exam:->Elevated [...] MDReport Verified Date/Time: 11/20/2017 13:42:16 Reading Location: [address] Radiology Reading Room CBC W/PLT COUNT & AUTO [id number] 13:07:00 Test Item Value Reference Range Interpretation [...] 2801) TUMOR LOCAL, WB, 2 OR MORE [id number] 14:21:00neuroendocrine tumorFINAL REPORT PROCEDURE: OCTREOSCAN - Tumor Localization CPT CODE: 76588, 66724,[id number] INDICATION: Neuroendocrine tumor localization PROTOCOL: 6.28 mCi [...] MDReport Verified Date/Time: 08/27/2017 14:21:08 Reading Location: [address] CT, CHEST, WITH [id number] 15:02:00FINAL REPORT Exam: CT chest with contrast, [...] MDReport Verified Date/Time: 08/26/2017 15:02:31 Reading Location: [address], [id number] 15:02:00FINAL REPORT Exam: CT chest with contrast, [...] MDReport Verified Date/Time: 08/26/2017 15:02:31 Reading Location: [address] -[id number] 10:53:00 Test Item Value Reference Range Interpretation Comments POC-CREATININE 0.5 mg/dL 0.6-1.3 L TESTED AT [place] [address] ([facility] (test [place] code = 1859) [address] POC-EGFR ([facility] 125 mL/min/1.73M2 (test code = 1860) CHROMOGRANIN [id number] 10:19:00 Test Item Value Reference Range Interpretation Comments SCAN RESULT (test code = 1605797) [id number] 09:50:00 Test Item Value Reference Range Interpretation Comments POC-CREATININE 0.5 mg/dL 0.6-1.3 L TESTED AT [place] [id number] ([facility] (test [place] code = 1859) [address] POC-EGFR ([facility] 125 mL/min/1.73M2 (test code = 1860)
--- NOTE | 2023-06-10 13:39 | RAD REPORT ---
EXAM DESCRIPTION: RAD - Chest Pa And Lat (2 Views) - 06/10/2023 1:20 pm CLINICAL HISTORY: COUGH COMPARISON: Chest Pa And Lat (2 Views) dated 04/25/2022; Chest Pa And Lat (2 Views) dated 04/09/2022; Chest Pa And Lat (2 Views) dated 03/29/2022; Chest Single View dated 03/07/2022 TECHNIQUE: PA and lateral views of the chest were obtained. FINDINGS: Peripheral predominant mid to lower lung reticulonodular opacities bilaterally, slightly m ore prominent on the left, stable. Heart size is normal and central vasculature is within normal limi ts. No pleural effusion or pneumothorax seen. No acute bony finding noted. IMPRESSION: Stable peripheral reticulonodular opacities, could reflect chronic or recurrent intersti tial changes.
--- NOTE | 2023-06-10 13:48 | EDPHYS ---
Physician Documentation [facility] Name: Tabitha Odom Age: 67 yrs Sex: Female : 1955 Arrival Date: 06/10/2023 Time: 11:43 Bed 18 Private MD: Mychal Chaparro HPI: 06/10 13:04 This 67 yrs old Female presents to ER via Ambulatory with complaints of kb Congestion, Cough, Sore Throat. 13:04 The patient or guardian reports cough, that is intermittent, described as mild, flu kb symptoms. Onset: The symptoms/episode began/occurred 2 week(s) ago. Severity of symptoms: At their worst the symptoms were mild, in the emergency department the symptoms are unchanged. Modifying factors: The symptoms are alleviated by nothing, the symptoms are aggravated by nothing. Associated signs and symptoms: Pertinent positives: rhinorrhea, sore throat, Pertinent negatives: chest pain, diarrhea, ear ache, fever, nausea, vomiting. The patient has not experienced similar symptoms in the past. The patient has been recently seen by a physician:. Pt reports cough, congestion and sore throat for 2 weeks. States she has taken 2 rounds of antibiotics without relief. Historical: - Allergies: 11:58 Erythromycin; ap3 11:58 Reglan; ap3 11:58 Rocephin; ap3 - PMHx: 11:58 Hyperlipidemia; Hypertension; pancreatic cancer; ap3 - PSHx: 11:58 ectopic ; hysterectomy; tumor removed pancreatic CA; ap3 - Immunization history:: Client reports receiving the 2nd dose of the Covid vaccine. - Social history:: Smoking status: Patient denies any tobacco usage or history of. ROS: 13:03 Constitutional: Negative for fever, chills, and weight loss. kb 13:03 ENT: Positive for rhinorrhea, sinus congestion, sore throat. 13:03 Respiratory: Positive for cough, Negative for dyspnea on exertion, hemoptysis, orthopnea, pleurisy, shortness of breath, sputum production, wheezing. 13:03 All other systems are negative. Exam: 13:03 Constitutional: This is a well developed, well nourished patient who is awake, alert, kb and in no acute distress. Head/Face: Normocephalic, atraumatic. ENT: Moist Mucous membranes Cardiovascular: Regular rate Respiratory: Respirations even and unlabored. No increased work of breathing. Talking in full sentences Skin: Warm, dry with normal turgor. Normal color. MS/ Extremity: Pulses equal, no cyanosis. Neurovascular intact. Full, normal range of motion. Neuro: Awake and alert, GCS 15, oriented to person, place, time, and situation. Moves all extremities. Normal gait. Vital Signs: 11:55 BP 159 / 102; Pulse 109; Resp 18; Temp 98.9; Pulse Ox 98% ; ap3 12:43 BP 138 / 85; Pulse 83; Resp 18 S; Pulse Ox 100% on R/A; kc6 13:39 BP 158 / 86; Pulse 96; Resp 20 S; Pulse Ox 100% on R/A; kc6 MDM: 11:48 Patient medically screened. kb 13:04 Differential Diagnosis: Bronchitis Influenza Upper Respiratory Infection Viral Syndrome kb Pneumonia Other covid. Data reviewed: vital signs, nurses notes. 13:47 Counseling: I had a detailed discussion with the patient and/or guardian regarding the kb historical points, exam findings, and any diagnostic results supporting the discharge/admit diagnosis, lab results, radiology results, the need for outpatient follow up, a family practitioner, to return to the emergency department if symptoms worsen or persist or if there are any questions or concerns that arise at home. 06/10 11:59 Order name: Flu; Complete Time: 12:32 kb 06/10 11:59 Order name: SARS-COV-2 RT PCR; Complete Time: 12:46 kb 06/10 11:59 Order name: Chest Pa And Lat (2 Views) XRAY; Complete Time: 13:43 kb Administered Medications: No medications were administered Disposition Summary: 06/10/23 13:47 Discharge Ordered Location: Home kb Condition: Stable kb Diagnosis - Cough kb Followup: kb - With: Emergency Department - When: As needed - Reason: Worsening of condition Followup: kb - With: Private Physician - When: 2 - 3 days - Reason: Recheck today's complaints, Continuance of care, Re-evaluation by your physician Discharge Instructions: - Discharge Summary Sheet kb - Cough, Adult, [id number] kb Forms: - Medication Reconciliation Form kb - Thank You Letter kb - Antibiotic Education kb - Prescription Opioid Use kb - Patient Portal Instructions kb - Leadership Thank You Letter kb Prescriptions: - Prednisone 20 mg Oral Tablet - take 1 tablet by ORAL route once daily for 5 days; 5 tablet; Refills: 0, kb Product Selection Permitted - Tessalon Perles 100 mg Oral Capsule - take 1 capsule by ORAL route every 8 hours As needed; 15 capsule; Refills: 0, kb Product Selection Permitted Signatures: Dispatcher [employer] Izabella Shoemaker, Lalitha Forde, RN RN ap3
--- NOTE | 2023-06-10 13:48 | ER ---
Nurse's Notes [facility] Name: Tabitha Odom Age: 67 yrs Sex: Female : 1955 Arrival Date: 06/10/2023 Time: 11:43 Bed 18 Private MD: Diagnosis: Cough Presentation: 06/10 11:55 Chief complaint: Patient states: she has been having cough, congestion for approx 2 ap3 weeks with no improvement after being on multiple antibiotics. patient also reports she has had an intermittent sore throat, and ear pain during this time. Coronavirus screen: Client presents with at least one sign or symptom that may indicate coronavirus-19. Ebola Screen: No symptoms or risks identified at this time. Initial Sepsis Screen: Does the patient meet any 2 criteria? HR > 90 bpm. Does the patient have a suspected source of infection? Yes: Productive cough/pneumonia. Risk Assessment: Do you want to hurt yourself or someone else? Patient reports no desire to harm self or others. Onset of symptoms was May 30, 2023. 11:55 Method Of Arrival: Ambulatory ap3 11:55 Acuity: YASEMIN 3 ap3 Triage Assessment: 11:59 General: Appears ill, Behavior is calm, cooperative, appropriate for age. Pain: ap3 Complains of pain in generalized body aches. Neuro: Level of Consciousness is awake, alert, obeys commands, Oriented to person, place, time, situation. Cardiovascular: Patient's skin is warm and dry. Respiratory: Reports cough that is Airway is patent Respiratory effort is even, unlabored, Respiratory pattern is regular, symmetrical, Breath sounds are clear. Historical: - Allergies: 11:58 Erythromycin; ap3 11:58 Reglan; ap3 11:58 Rocephin; ap3 - PMHx: 11:58 Hyperlipidemia; Hypertension; pancreatic cancer; ap3 - PSHx: 11:58 ectopic ; hysterectomy; tumor removed pancreatic CA; ap3 - Immunization history:: Client reports receiving the 2nd dose of the Covid vaccine. - Social history:: Smoking status: Patient denies any tobacco usage or history of. Screenin:59 [facility] ED Fall Risk Assessment (Adult) History of falling in the last 3 months, ap3 including since admission No falls in past 3 months (0 pts). Abuse screen: Denies threats or abuse. Nutritional screening: No deficits noted. Tuberculosis screening: No symptoms or risk factors identified. Assessment: 12:28 General: Appears in no apparent distress. comfortable, Behavior is calm, cooperative, kc6 appropriate for age. Pain: Denies pain. Neuro: Level of Consciousness is awake, alert, obeys commands, Oriented to person, place, time, situation, Appropriate for age. Cardiovascular: Capillary refill < 3 seconds. Respiratory: Reports cough that is non-productive, Airway is patent Trachea midline Respiratory effort is even, unlabored, Respiratory pattern is regular, symmetrical. GI: No signs and/or symptoms were reported involving the gastrointestinal system. : No signs and/or symptoms were reported regarding the genitourinary system. EENT: Reports nasal congestion. Derm: No signs and/or symptoms reported regarding the dermatologic system. Skin is intact, is healthy with good turgor, Skin is pink, warm \T\ dry. Musculoskeletal: No signs and/or symptoms reported regarding the musculoskeletal system. Circulation, motion, and sensation intact. Capillary refill < 3 seconds, Range of motion: intact in all extremities. 13:28 Reassessment: Patient appears in no apparent distress at this time. No changes from kc6 previously documented assessment. Patient and/or family updated on plan of care and expected duration. Pain level reassessed. Patient is alert, oriented x 3, equal unlabored respirations, skin warm/dry/pink. Vital Signs: 11:55 BP 159 / 102; Pulse 109; Resp 18; Temp 98.9; Pulse Ox 98% ; ap3 12:43 BP 138 / 85; Pulse 83; Resp 18 S; Pulse Ox 100% on R/A; kc6 13:39 BP 158 / 86; Pulse 96; Resp 20 S; Pulse Ox 100% on R/A; kc6 ED Course: 11:48 Patient arrived in ED. im 11:48 Izabella Juárez FNP-C is [facility]. kb 11:48 Mychal Villarreal MD is Attending Physician. kb 11:57 Triage completed. ap3 11:59 Arm band placed on right wrist. ap3 12:01 Anna Lopes, GIL is Primary Nurse. kc6 12:43 Patient has correct armband on for positive identification. Bed in low position. Call kc light in reach. Side rails up X 1. Adult w/ patient. Client placed on continuous cardiac and pulse oximetry monitoring. NIBP monitoring applied. 13:22 Chest Pa And Lat (2 Views) XRAY In Process Unspecified. EDMS 14:01 No provider procedures requiring assistance completed. Patient did not have IV access kc6 during this emergency room visit. Administered Medications: No medications were administered Medication: 14:02 VIS not applicable for this client. kc6 Outcome: 13:47 Discharge ordered by . martine 14:01 Discharged to home ambulatory, with significant other. kc6 14:01 Condition: stable 14:01 Discharge instructions given to patient, Instructed on discharge instructions, follow up and referral plans. medication usage, Demonstrated understanding of instructions, follow-up care, medications, Prescriptions given X 2. 14:02 Patient left the ED. kc6 Signatures: Dispatcher [employer] EDMS Izabella Juárez, SAIRA ALEXANDRE-Lalitha Joseph RN RN mark3 Anna Lopes RN RN kc6 Kristen Butt Corrections: (The following items were deleted from the chart) 12:44 12:43 Pulse 83bpm; Resp 18bpm; Spontaneous; Pulse Ox 100% RA; kc6 kc6
[2023-06-10 14:25] VITALS: TEMP 98.9
[2023-06-10 14:26] VITALS: O2SAT 100
[2023-06-10 14:28] VITALS: BP 158/86
== END 2023-06-10 14:02 | disposition home or self-care (01) ==
LOC: ER 11:43
DX: R05.9 Cough, unspecified (principal); Z20.822 Contact with and (suspected) exposure to COVID-19; I10 Essential (primary) hypertension; Z88.3 Allergy status to other anti-infective agents; Z88.8 Allergy status to other drugs, medicaments and biological substances
CPT/HCPCS: 71046; 87635; 87804; 99283

== ENCOUNTER → 2023-10-23 | Emergency (ER) | payer OTHER ==
[~2023-10-23] MED LIST: AMOXICILLIN TRIHYDR 250 MG CAP ONE; CODEINE 30MG/APAP 300MG TAB ONE
[2023-10-24 00:35] LABS: Hematocrit 38.1 % (36.0-45.0); Lymphocytes % 23.9 % (15.3-44.8); MCV 85.3 fL (80-100); MPV 10.9 fL (7.6-11.3); Platelets 157 thou/uL (152-406); RBC Red Blood Cell Count 4.46 M/uL (3.86-4.86)
[2023-10-24 00:36] LABS: Absolute Lymphocytes (CBC) 1.3 K/uL (0.7-4.9)
[2023-10-24 00:52] LABS: Albumin 3.4 g/dL (3.4-5.0); Bilirubin Total 0.3 mg/dL (0.2-1.0); Protein, Total 7.2 g/dL (6.4-8.2)
[2023-10-24 00:59] LABS: Potassium 4.4 mEq/L (3.5-5.1)
--- NOTE | 2023-10-24 01:57 | ER ---
Nurse's Notes [facility] Name: Tabitha Odom Age: 67 yrs Sex: Female : 1955 Arrival Date: 10/23/2023 Time: 22:15 Bed 8 Private MD: Diagnosis: Dental pain left upper canine;Headache;Hypertensive heart disease without heart failure Presentation: 10/23 22:44 Chief complaint: Patient states: Pt c/o headache that woke her from sleep. Pt describes tl4 as "it felt like a firecracker in my head". Pain resolved for short period of time, but has returned. Pt also c/o left side dental pain. Pt denies numbness/tingling in extremities, dizziness, CP, or SOB. Coronavirus screen: Vaccine status: Patient reports receiving the 2nd dose of the covid vaccine. At this time, the client does not indicate any symptoms associated with coronavirus-19. Ebola Screen: Patient negative for fever greater than or equal to 101.5 degrees Fahrenheit, and additional compatible Ebola Virus Disease symptoms Patient denies exposure to infectious person. Patient denies travel to an Ebola-affected area in the 21 days before illness onset. No symptoms or risks identified at this time. Initial Sepsis Screen: Does the patient meet any 2 criteria? No. Patient's initial sepsis screen is negative. Does the patient have a suspected source of infection? No. Patient's initial sepsis screen is negative. Risk Assessment: Do you want to hurt yourself or someone else? Patient reports no desire to harm self or others. Onset of symptoms was October 23, 2023. 22:44 Method Of Arrival: Ambulatory tl4 22:44 Acuity: YASEMIN 2 tl4 Triage Assessment: 22:49 Headache History: The patient has had previous headaches and this one is different than tl4 previous episodes, and this one is more severe than previous episodes. General: Appears uncomfortable, Behavior is calm, cooperative. Pain: Complains of pain in head Pain does not radiate. Pain currently is 10 out of 10 on a pain scale. Pain began suddenly, Also complains of no other associated symptoms. EENT: Reports pain in left side dental. Neuro: Reports headache Denies weakness blurred vision dizziness, paresthesias. Cardiovascular: No deficits noted. Denies chest pain, diaphoresis, lightheadedness, nausea, palpitations. Respiratory: No deficits noted. Denies cough, shortness of breath. GI: No deficits noted. No signs and/or symptoms were reported involving the gastrointestinal system. : No deficits noted. No signs and/or symptoms were reported regarding the genitourinary system. Historical: - Allergies: 22:48 Erythromycin; tl4 22:48 Reglan; tl4 22:48 Rocephin; tl4 - PMHx: 22:48 Hyperlipidemia; Hypertension; pancreatic cancer; tl4 - PSHx: 22:48 ectopic ; hysterectomy; tumor removed pancreatic CA; tl4 - Immunization history:: Adult Immunizations unknown. - Social history:: Smoking status: Patient denies any tobacco usage or history of. Screenin:50 [facility] ED Fall Risk Assessment (Adult) History of falling in the last 3 months, jw7 including since admission No falls in past 3 months (0 pts) Score/Fall Risk Level 0 - 2 = Low Risk Oriented to surroundings, Maintained a safe environment, Educated pt \\T\\ family on fall prevention, incl call for assistance when getting out of bed. Abuse screen: Denies threats or abuse. Denies injuries from another. Nutritional screening: No deficits noted. Tuberculosis screening: No symptoms or risk factors identified. Assessment: 22:50 General: see triage assessment. jw7 10/24 00:06 Reassessment: Patient appears in no apparent distress at this time. No changes from 7 previously documented assessment. Patient and/or family updated on plan of care and expected duration. Pain level reassessed. Patient is alert, oriented x 3, equal unlabored respirations, skin warm/dry/pink. 01:10 Reassessment: Patient appears in no apparent distress at this time. Patient and/or jw7 family updated on plan of care and expected duration. Pain level reassessed. Patient is alert, oriented x 3, equal unlabored respirations, skin warm/dry/pink. 02:49 Reassessment: Patient appears in no apparent distress at this time. Patient and/or jw7 family updated on plan of care and expected duration. Pain level reassessed. Patient is alert, oriented x 3, equal unlabored respirations, skin warm/dry/pink. Patient states feeling better. Patient states symptoms have improved. Vital Signs: 10/23 22:44 BP 191 / 94; Pulse 94; Resp 16; Temp 98.1; Pulse Ox 99% on R/A; Weight 45.9 kg (M); tl4 Height 5 ft. 0 in. ; Pain 10/10; 23:30 BP 161 / 86; Pulse 72; Resp 18 S; Pulse Ox 97% on R/A; jw7 10/24 00:09 BP 159 / 83; Pulse 72; Resp 17 S; Pulse Ox 98% on R/A; jw7 01:10 BP 141 / 77; Pulse 67; Resp 17 S; Pulse Ox 95% on R/A; jw7 01:15 Pain 6/10; tm6 02:50 BP 147 / 74; Pulse 65; Resp 16 S; Pulse Ox 97% on R/A; jw7 10/23 22:44 Body Mass Index 19.76 (45.90 kg, 152.4 cm) tl4 10/23 22:44 Pain Scale: Adult tl4 01:15 Pain Scale: Adult tm6 ED Course: 10/23 22:20 Patient arrived in ED. gm2 22:37 Bimal Mayen MD is Attending Physician. kdr 22:48 Triage completed. tl4 22:50 Patient has correct armband on for positive identification. Bed in low position. Call 7 light in reach. 22:51 Arm band placed on Patient placed in an exam room, on a stretcher. tl4 23:59 Provided Education on: plan of care. Client placed on continuous cardiac and pulse tm6 oximetry monitoring. NIBP monitoring applied. 23:59 No provider procedures requiring assistance completed. tm6 10/24 00:06 CMP Sent. jw7 00:06 CBC with Diff Sent. jw7 00:09 Initial lab(s) drawn, by me, sent to lab. Inserted saline lock: 20 gauge in right jw7 antecubital area, using aseptic technique. Blood collected. 00:44 CT Head Brain wo Cont In Process Unspecified. EDMS 02:51 IV discontinued, intact, bleeding controlled, No redness/swelling at site. Pressure jw7 dressing applied. Administered Medications: 02:10 Drug: Amoxicillin PO 500 mg PO once Route: PO; jw7 02:51 Follow up: Response: No adverse reaction jw7 02:10 Drug: Acetaminophen-Codeine PO (300 mg-30 mg) 1 tabs PO once; RASS on ADMIN: Combtv4, jw7 Very Agttd3, Agttd2, Rstlss1, AlertClm0, Drwsy-1, Lt Sdtn-2, Mod Sdtn-3, Dp Sdtn-4, UnArsble-5 Route: PO; 02:51 Follow up: Response: No adverse reaction; Marked relief of symptoms jw7 Medication: 10/23 23:59 VIS not applicable for this client. tm6 Outcome: 10/24 01:57 Discharge ordered by . sheryl 02:50 Discharged to home ambulatory, jwRadha 02:50 Condition: stable 02:50 Discharge instructions given to patient, Instructed on discharge instructions, follow up and referral plans. medication usage, Demonstrated understanding of instructions, follow-up care, medications, Prescriptions given X 2, 02:51 Patient left the ED. jw7 Signatures: Dispatcher [employer] EDMS Bimal Mayen MD MD kdr Yadira Ospina RN RN jw7 Chely Simon 2 Charline Aguilera RN RN tm6 Sreedhar Lafleur 4
--- NOTE | 2023-10-24 01:57 | EDPHYS ---
Physician Documentation [facility] Name: Tabitha Odom Age: 67 yrs Sex: Female : 1955 Arrival Date: 10/23/2023 Time: 22:15 Bed 8 Private MD: ED Physician Bimal Mayen HPI: 10/24 03:15 This 67 yrs old Female presents to ER via Ambulatory with complaints of kdr Headache. 03:15 Patient presented this evening with left-sided headache that began last evening. At kdr midnight. She states that it was like a popping or firecracker in her head. The pain resolved during the day for a brief time but then returned this evening. Patient also complains of left upper dental pain which she states is making the side of her face feel numb and tingling. She denies numbness and tingling in her extremities, dizziness, chest pain or shortness of breath. Patient is nonacute appearing and nontoxic-appearing in the ED. She has no gross focal neurologic deficits at this time. She denies any visual changes. She states that this is not the worst headache of her life.. Onset: The symptoms/episode began/occurred suddenly, last night. Severity of symptoms: At their worst the symptoms were moderate in the emergency department the symptoms have improved moderately, markedly. The patient has not experienced similar symptoms in the past. The patient has not recently seen a physician. Historical: - Allergies: 10/23 22:48 Erythromycin; tl4 22:48 Reglan; tl4 22:48 Rocephin; tl4 - PMHx: 22:48 Hyperlipidemia; Hypertension; pancreatic cancer; tl4 - PSHx: 22:48 ectopic ; hysterectomy; tumor removed pancreatic CA; tl4 - Immunization history:: Adult Immunizations unknown. - Social history:: Smoking status: Patient denies any tobacco usage or history of. ROS: 10/24 03:15 Constitutional: Negative for fever, chills, and weight loss, Eyes: Negative for injury, kdr pain, redness, and discharge, Neck: Negative for injury, pain, and swelling, Cardiovascular: Negative for chest pain, palpitations, and edema, Respiratory: Negative for shortness of breath, cough, wheezing, and pleuritic chest pain, Abdomen/GI: Negative for abdominal pain, nausea, vomiting, diarrhea, and constipation, Back: Negative for injury and pain, : Negative for injury, bleeding, discharge, and swelling, MS/Extremity: Negative for injury and deformity, Skin: Negative for injury, rash, and discoloration, Psych: Negative for depression, anxiety, suicide ideation, homicidal ideation, and hallucinations, Allergy/Immunology: Negative for hives, rash, and allergies, Endocrine: Negative for neck swelling, polydipsia, polyuria, polyphagia, and marked weight changes, Hematologic/Lymphatic: Negative for swollen nodes, abnormal bleeding, and unusual bruising, Neuro: Positive for headache, of the left temporal area, Exam: 03:15 Constitutional: This is a well developed, well nourished patient who is awake, alert, kdr and in no acute distress. Head/Face: Normocephalic, atraumatic. Eyes: Pupils equal round and reactive to light, extra-ocular motions intact. Lids and lashes normal. Conjunctiva and sclera are non-icteric and not injected. Cornea within normal limits. Periorbital areas with no swelling, redness, or edema. Neck: Trachea midline, no thyromegaly or masses palpated, and no cervical lymphadenopathy. Supple, full range of motion without nuchal rigidity, or vertebral point tenderness. No Meningismus. Chest/axilla: Normal chest wall appearance and motion. Nontender with no deformity. No lesions are appreciated. Cardiovascular: Regular rate and rhythm with a normal S1 and S2. No gallops, murmurs, or rubs. Normal PMI, no JVD. No pulse deficits. Respiratory: Lungs have equal breath sounds bilaterally, clear to auscultation and percussion. No rales, rhonchi or wheezes noted. No increased work of breathing, no retractions or nasal flaring. Abdomen/GI: Soft, non-tender, with normal bowel sounds. No distension or tympany. No guarding or rebound. No evidence of tenderness throughout. Back: No spinal tenderness. No costovertebral tenderness. Full range of motion. Skin: Warm, dry with normal turgor. Normal color with no rashes, no lesions, and no evidence of cellulitis. MS/ Extremity: Pulses equal, no cyanosis. Neurovascular intact. Full, normal range of motion. Neuro: Awake and alert, GCS 15, oriented to person, place, time, and situation. Cranial nerves II-XII grossly intact. Motor strength 5/5 in all extremities. Sensory grossly intact. Cerebellar exam normal. Normal gait. Psych: Awake, alert, with orientation to person, place and time. Behavior, mood, and affect are within normal limits. Vital Signs: 10/23 22:44 BP 191 / 94; Pulse 94; Resp 16; Temp 98.1; Pulse Ox 99% on R/A; Weight 45.9 kg (M); tl4 Height 5 ft. 0 in. ; Pain 10/10; 23:30 BP 161 / 86; Pulse 72; Resp 18 S; Pulse Ox 97% on R/A; jw7 10/24 00:09 BP 159 / 83; Pulse 72; Resp 17 S; Pulse Ox 98% on R/A; jw7 01:10 BP 141 / 77; Pulse 67; Resp 17 S; Pulse Ox 95% on R/A; jw7 01:15 Pain 6/10; tm6 02:50 BP 147 / 74; Pulse 65; Resp 16 S; Pulse Ox 97% on R/A; jw7 10/23 22:44 Body Mass Index 19.76 (45.90 kg, 152.4 cm) tl4 10/23 22:44 Pain Scale: Adult tl4 01:15 Pain Scale: Adult tm6 MDM: 01:57 Patient medically screened. kdr 03:15 Data reviewed: vital signs, lab test result(s), radiologic studies. kdr 03:18 ED course: Patient continues to be stable and nontoxic in the ED. She was alert and kdr oriented and not in any acute distress. Patient was discharged home in good condition.. 10/23 23:42 Order name: CBC with Diff; Complete Time: 01:47 kdr 10/23 23:42 Order name: CMP; Complete Time: 01:47 kdr 10/23 23:42 Order name: CT Head Brain wo Cont kdr Administered Medications: 02:10 Drug: Amoxicillin PO 500 mg PO once Route: PO; jw7 02:51 Follow up: Response: No adverse reaction jw7 02:10 Drug: Acetaminophen-Codeine PO (300 mg-30 mg) 1 tabs PO once; RASS on ADMIN: Combtv4, jw7 Very Agttd3, Agttd2, Rstlss1, AlertClm0, Drwsy-1, Lt Sdtn-2, Mod Sdtn-3, Dp Sdtn-4, UnArsble-5 Route: PO; 02:51 Follow up: Response: No adverse reaction; Marked relief of symptoms jw7 Disposition Summary: 10/24/23 01:57 Discharge Ordered Notes: Location: Home kdr Problem: new kdr Symptoms: have improved kdr Condition: Stable kdr Diagnosis - Dental pain left upper canine kdr - Headache kdr - Hypertensive heart disease without heart failure kdr Followup: kdr - With: Private Physician - When: 2 - 3 days - Reason: If symptoms return, Further diagnostic work-up, Recheck today's complaints, Continuance of care, Re-evaluation by your physician Discharge Instructions: - Discharge Summary Sheet kdr - Dental Pain kdr - Hypertension, Adult, [id number] kdr Forms: - Medication Reconciliation Form kdr - Thank You Letter kdr - Prescription Opioid Use kdr - Patient Portal Instructions kdr - Leadership Thank You Letter kdr Prescriptions: - Amoxicillin 500 mg Oral Capsule - take 1 capsule ORAL route every 8 hours for 10 days; 30 tablet; Refills: 0, kdr Product Selection Permitted - Tramadol 50 mg Oral tablet - take 1 tablet ORAL route every 8 hours as needed; 6 tablet; Refills: 0, Product kdr Selection Permitted Signatures: Dispatcher [employer] Bimal Jolly MD MD kdr Yadira Ospina RN RN jw7 [facility]
[2023-10-24 03:31] VITALS: BP 147/74; TEMP 98.1; O2SAT 97
--- NOTE | 2023-10-24 15:56 | RAD REPORT ---
EXAM DESCRIPTION: CT - Head Brain Wo Cont - 10/24/2023 6:36 am CLINICAL HISTORY: HEADACHE COMPARISON: 05/26/2023 TECHNIQUE: Axial CT of the head obtained from the skull apex to the skull base without contrast. Thi s exam was performed according to our departmental dose-optimization program, which includes automate d exposure control, adjustment of the mA and/or kV according to patient size and/or use of iterative reconstruction technique. FINDINGS: No acute intracranial hemorrhage identified. No mass, mass effect, midline shift, or abnor mal extra-axial fluid collection. No CT evidence of acute ischemic change identified, however, MRI is more sensitive in the assessment of acute ischemia. Ventricular system and sulcal spaces are nor mal in size and morphology. Basilar cisterns are patent. Empty sella is incidentally noted. No skull fracture identified. Visualized orbits and globes show no acute abnormality. Focal mucos al thickening/possible small retention cyst in the posterior left sphenoid sinus is stable.. IMPRESSION: No acute intracranial abnormality on noncontrast CT. Electronically signed by: Ayla Torres MD 10/24/2023 12:54 AM [facility] Due to temporary technical issues with the PACS/Fluency reporting system, reports are being signed by the in house radiologists without review as a courtesy to insure prompt reporting. The interpreting radiologist is fully responsible for the content of the report.
== END ==
LOC: ER 22:15
DX: R51.9 Headache, unspecified (principal); K08.89 Other specified disorders of teeth and supporting structures; I11.9 Hypertensive heart disease without heart failure; E78.5 Hyperlipidemia, unspecified; Z88.1 Allergy status to other antibiotic agents; Z88.8 Allergy status to other drugs, medicaments and biological substances
CPT/HCPCS: 36415; 70450; 99284

== ENCOUNTER → 2023-12-23 | Emergency (ER) | payer OTHER ==
[2023-12-23 15:29] LABS: SARS-CoV-2 Antigen CONTROL BLUE LINE VIS/BG OK; SARS-CoV-2 Antigen Rapid Res Negative (Negative)
--- NOTE | 2023-12-23 15:40 | RAD REPORT ---
EXAM DESCRIPTION: RAD - Chest Pa And Lat (2 Views) - 12/23/2023 3:08 pm CLINICAL HISTORY: Congestion;Cough Chest pain. COMPARISON: Chest Pa And Lat (2 Views) dated 06/10/2023; Chest Pa And Lat (2 Views) dated 04/25/2022; Chest Pa And Lat (2 Views) dated 04/09/2022; Chest Pa And Lat (2 Views) dated 03/29/2022 FINDINGS: Reticular opacities are noted in both the right middle lobe and lingula, similar to prior study. This may be related to underlying chronic PEDRO infection/[place] syndrome. The heart is normal in size.
--- NOTE | 2023-12-23 15:52 | ER ---
Nurse's Notes [facility] Name: Tabitha Odom Age: 68 yrs Sex: Female : 1955 Arrival Date: 12/23/2023 Time: 14:16 Bed 13 Private MD: Angel Hernandez Diagnosis: Acute upper respiratory infection, unspecified Presentation: 12/22 14:23 Ebola Screen: Patient denies travel to an Ebola-affected area in the 21 days before 1 illness onset. Initial Sepsis Screen: Does the patient meet any 2 criteria? No. Patient's initial sepsis screen is negative. Does the patient have a suspected source of infection? No. Patient's initial sepsis screen is negative. Risk Assessment: Do you want to hurt yourself or someone else? Patient reports no desire to harm self or others. 14:23 Method Of Arrival: Ambulatory [facility] 14:32 Chief complaint: Patient states: Cough, congestion, fever at night for 2 weeks. ll1 Coronavirus screen: Client denies travel out of the [place] in the last 14 days. congestion, cough unrelated to allergies, Client presents with at least one sign or symptom that may indicate coronavirus-19. Standard/surgical mask placed on the client. Resp Distress? Mild respiratory distress is noted. Onset of symptoms was December 09, 2023. 14:32 Acuity: YASEMIN 3 ll1 Triage Assessment: 14:33 General: Appears uncomfortable, Behavior is calm, cooperative, appropriate for age. ll1 General: Reports fever for feeling ill for fatigue for. Pain: Denies pain. Neuro: Reports weakness. Respiratory: Reports shortness of breath cough that is. Historical: - Allergies: 14:23 Erythromycin; ll1 14:23 Reglan; ll1 14:23 Rocephin; ll1 - PMHx: 14:23 Hyperlipidemia; Hypertension; pancreatic cancer; ll1 - PSHx: 14:23 ectopic ; hysterectomy; tumor removed pancreatic CA; ll1 - Immunization history:: Adult Immunizations up to date. - Social history:: Smoking status: Patient denies any tobacco usage or history of. Screenin:30 [facility] ED Fall Risk Assessment (Adult) History of falling in the last 3 months, mb9 including since admission No falls in past 3 months (0 pts) Confusion or Disorientation No (0 pts) Intoxicated or Sedated No (0 pts) Impaired Gait No (0 pts) Mobility Assist Device Used No (0 pt) Altered Elimination No (0 pt) Score/Fall Risk Level 0 - 2 = Low Risk Oriented to surroundings, Maintained a safe environment, Educated pt \T\ family on fall prevention, incl call for assistance when getting out of bed. Abuse screen: Denies threats or abuse. Nutritional screening: No deficits noted. Tuberculosis screening: No symptoms or risk factors identified. Assessment: 15:30 General: Appears in no apparent distress. Behavior is calm, cooperative. Neuro: Level mb9 of Consciousness is awake, alert, obeys commands, Oriented to person, place, time, situation, Appropriate for age. Cardiovascular: Patient's skin is warm and dry. Respiratory: Reports cough that is Airway is patent Respiratory effort is even, unlabored, Respiratory pattern is regular, symmetrical, Breath sounds are clear bilaterally. GI: Abdomen is round non-distended. : No signs and/or symptoms were reported regarding the genitourinary system. EENT: Reports nasal congestion. Derm: Skin is pink, warm \T\ dry. Musculoskeletal: Range of motion: intact in all extremities. Vital Signs: 14:32 BP 180 / 93; Pulse 100; Resp 18; Temp 97.2; Pulse Ox 97% on R/A; Weight 45.36 kg; ll1 Height 5 ft. 0 in. ; Pain 0/10; 16:12 BP 164 / 92; Pulse 84; Resp 16; Pulse Ox 100% on R/A; mb9 14:32 Body Mass Index 19.53 (45.36 kg, 152.4 cm) ll1 14:32 Pain Scale: Adult ll1 ED Course: 14:20 Patient arrived in ED. rg4 14:20 Angel Hernandez DO is Private Physician. rg4 14:21 [facility] Ju[facility]C [facility]. kb 14:21 Kirit Castañeda MD is Attending Physician. kb 14:23 Arm band placed on. ll1 14:33 Triage completed. ll1 14:53 SARS-COV-2 Antigen Rapid Sent. em1 14:53 Flu Sent. em1 14:53 COVID swab sent to lab. Flu and/or RSV swab sent to lab. em1 15:08 Chest Pa And Lat (2 Views) XRAY In Process Unspecified. EDMS 15:29 Leeanne Lee, RN is Primary Nurse. mb9 15:30 Placed in gown. Bed in low position. Call light in reach. Side rails up X 1. Client mb9 placed on continuous cardiac and pulse oximetry monitoring. NIBP monitoring applied. supervisor pyrotechnic loading on. 15:31 No provider procedures requiring assistance completed. mb9 16:13 Patient did not have IV access during this emergency room visit. mb9 Administered Medications: 15:46 CANCELLED (Physician Discretion): [id number] mg PO once kb Medication: 15:31 VIS not applicable for this client. mb9 Outcome: 15:52 Discharge ordered by MD. kb 16:11 Discharged to home ambulatory, as6 16:11 Condition: stable 16:11 Discharge instructions given to patient, Instructed on discharge instructions, follow up and referral plans. medication usage, Demonstrated understanding of instructions, follow-up care, medications, Prescriptions given X 1, 16:13 Patient left the ED. mb9 Signatures: Dispatcher [employer] EDMA Izabella Juárez, LOG TURNER-C LOG TURNER-Ryan Klein em1 Machelle Dunbar rg4 Андрей Phoenix, RN RN ll1 Juan Jose Rolon, GIL RN as6 Leeanne Lee, RN RN mb9
--- NOTE | 2023-12-23 15:52 | EDPHYS ---
Physician Documentation [facility] Name: Tabitha Odom Age: 68 yrs Sex: Female : 1955 Arrival Date: 12/23/2023 Time: 14:16 Bed 13 Private MD: Sin Hernandezh ED Physician Kirit Castañeda HPI: 12/22 15:51 This 68 yrs old Female presents to ER via Ambulatory with complaints of Cough, kb Congestion. 15:51 Pt is a 68 year old female who presents for cough, congestion and intermittent fever kb for 2 weeks. Denies shortness of breath or chest pain. . Historical: - Allergies: 14:23 Erythromycin; ll1 14:23 Reglan; ll1 14:23 Rocephin; ll1 - PMHx: 14:23 Hyperlipidemia; Hypertension; pancreatic cancer; ll1 - PSHx: 14:23 ectopic ; hysterectomy; tumor removed pancreatic CA; ll1 - Immunization history:: Adult Immunizations up to date. - Social history:: Smoking status: Patient denies any tobacco usage or history of. ROS: 15:50 Constitutional: As per HPI kb Exam: 15:50 Constitutional: This is a well developed, well nourished patient who is awake, alert, kb and in no acute distress. Head/Face: Normocephalic, atraumatic. ENT: Moist Mucous membranes Cardiovascular: Regular rate Respiratory: Respirations even and unlabored. No increased work of breathing. Talking in full sentences Abdomen/GI: Soft, non-tender. No distention Skin: Warm, dry with normal turgor. Normal color. MS/ Extremity: Pulses equal, no cyanosis. Neurovascular intact. Full, normal range of motion. Neuro: Awake and alert, GCS 15, oriented to person, place, time, and situation. Moves all extremities. Normal gait. Vital Signs: 14:32 BP 180 / 93; Pulse 100; Resp 18; Temp 97.2; Pulse Ox 97% on R/A; Weight 45.36 kg; ll1 Height 5 ft. 0 in. ; Pain 0/10; 16:12 BP 164 / 92; Pulse 84; Resp 16; Pulse Ox 100% on R/A; mb9 14:32 Body Mass Index 19.53 (45.36 kg, 152.4 cm) ll1 14:32 Pain Scale: Adult ll1 MDM: 14:21 Patient medically screened. kb 15:50 Differential Diagnosis: Bronchitis Influenza Upper Respiratory Infection Pneumonia kb Other covid. Data reviewed: vital signs, nurses notes. Counseling: I had a detailed discussion with the patient and/or guardian regarding the historical points, exam findings, and any diagnostic results supporting the discharge/admit diagnosis, lab results, radiology results, the need for outpatient follow up, a family practitioner, to return to the emergency department if symptoms worsen or persist or if there are any questions or concerns that arise at home. 12/22 14:38 Order name: Flu; Complete Time: 15:44 kb 12/22 14:38 Order name: SARS-COV-2 Antigen Rapid; Complete Time: 15:32 kb 12/22 14:38 Order name: Chest Pa And Lat (2 Views) XRAY; Complete Time: 15:42 kb Administered Medications: 15:46 CANCELLED (Physician Discretion): [id number] mg PO once kb Disposition: 17:26 Co-signature as Attending Physician, Kirit Castañeda MD I reviewed the patient's care rt provided by the Advanced Practice Provider and agree with the diagnosis and treatment plan. Disposition Summary: 12/23/23 15:52 Discharge Ordered Notes: Location: Home kb Condition: Stable kb Diagnosis - Acute upper respiratory infection, unspecified kb Followup: kb - With: Emergency Department - When: As needed - Reason: Worsening of condition Followup: kb - With: Private Physician - When: 2 - 3 days - Reason: Recheck today's complaints, Continuance of care, Re-evaluation by your physician Discharge Instructions: - Discharge Summary Sheet kb - Upper Respiratory Infection, Adult, [id number] kb - Viral Respiratory Infection, [id number] kb Forms: - Medication Reconciliation Form kb - Thank You Letter kb - Antibiotic Education kb - Prescription Opioid Use kb - Patient Portal Instructions kb - Leadership Thank You Letter kb Prescriptions: - Zithromax 500 mg Oral Tablet - take 1 tablet ORAL route once daily for 5 days; 5 tablet; Refills: 0, Product kb Selection Permitted Signatures: Dispatcher [employer] EDIzabella Acosta FNP-C FNP-Ckb Lewis, Lynsay, RN RN ll1 Leeanne Lee RN RN mb9 Kirit Castañeda MD MD rt Corrections: (The following items were deleted from the chart) 15:46 15:43 Propranolol PO 40 mg PO once ordered. kb kb
[2023-12-23 17:10] VITALS: BP 164/92; TEMP 97.2; O2SAT 100
== END ==
LOC: ER 14:16
DX: J06.9 Acute upper respiratory infection, unspecified (principal); Z11.52 Encounter for screening for COVID-19; Z88.1 Allergy status to other antibiotic agents; Z88.8 Allergy status to other drugs, medicaments and biological substances
CPT/HCPCS: 36415; 71046; 87804; 87811

== ENCOUNTER 2024-06-03 18:51 | Emergency (ER) | payer OTHER ==
--- OUTSIDE RECORDS SUMMARY | 2024-06-03 18:54 | XMS REPORT | Continuity of Care Document ---
Author Name Unknown Address [address] [place] [address] [place] [address] [address] [facility] [address] [place] [address] Care Team Providers Care Email Operations Manager Name Role Phone Angel Hernandez Attending Clinician Unavailable [email or web address] Attending Clinician Unavaila ble [email or web address] Admitting Clinician Unavaila ble Encounters Start Date/Time End Date/Time Encounter Type Admission Type Attending Clinicians Care Facility Care Department Encounter ID Source 2023-11-24 11:31:01 [facility] [id number] [facility] 2023-06-05 08:48:00 [facility] [id number] [facility] 2023-04-03 08:36:00 Outpatient Hernandez [facility] [id number] [facility] 2023-03-27 08:31:01 Outpatient Hernandez [facility] [id number] [facility] 2022-08-23 08:19:00 [facility] [id number] [facility] 2022-08-16 10:44:01 Outpatient David [facility] [id number] [facility] 2022-07-02 16:14:01 Outpatient [facility] [id number] [facility] 2022-02-21 08:54:02 Outpatient Hernandez, [facility] [id number] [facility] 2023-07-30 00:00:00 2023-07-30 00:00:00 Outpatient [email or web address] maryam_Song [facility] [id number] [facility]
--- NOTE | 2024-06-03 21:00 | RAD REPORT ---
EXAM DESCRIPTION: CT - CTHCSPWOC - 06/03/2024 8:07 pm CLINICAL HISTORY: . TRAUMA COMPARISON: Neck Angio dated 09/14/2020 TECHNIQUE: Axial thin cut noncontrast CT images of the head were obtained. Axial thin cut noncontrast CT images of the cervical spine were obtained. Multiplanar reformatted images were generated and reviewed. All CT scans are performed using dose optimization technique as appropriate and may include automated exposure control or mA/KV adjustment according to patient size. FINDINGS: CT HEAD WITHOUT CONTRAST: No acute hemorrhage, hydrocephalus or extra-axial collection is identified.No areas of brain edema or midline shift. The paranasal sinuses and mastoids are clear.The calvarium is intact. CT CERVICAL SPINE WITHOUT CONTRAST: No fracture or subluxation.No prevertebral soft tissues swelling is identified. IMPRESSION: No acute traumatic intracranial or cervical spine findings.
--- NOTE | 2024-06-03 21:09 | ER ---
Nurse's Notes [facility] Name: Tabitha Odom Age: 68 yrs Sex: Female : 1955 Arrival Date: 06/03/2024 Time: 18:51 Bed 3 Private MD: Angel Hernandez Diagnosis: Unspecified injury of head, initial encounter;Acute scalp contusion with hematoma Presentation: 06/03 19:01 Chief complaint: Patient states: Pt states was swinging golf club and did not dd2 see pt walking through and struck her on the left side of the head. Coronavirus screen: At this time, the client does not indicate any symptoms associated with coronavirus-19. Ebola Screen: No symptoms or risks identified at this time. Mechanism of Injury: resulted from a direct blow, a solid object. Initial Sepsis Screen: Does the patient meet any 2 criteria? No. Patient's initial sepsis screen is negative. Does the patient have a suspected source of infection? No. Patient's initial sepsis screen is negative. Risk Assessment: Do you want to hurt yourself or someone else? Patient reports no desire to harm self or others. 19:01 Method Of Arrival: Ambulatory dd2 19:01 Acuity: YASEMIN 3 dd2 Triage Assessment: 19:04 General: Appears in no apparent distress. Behavior is calm, cooperative. Pain: dd2 Complains of pain in left rastafari. Neuro: Level of Consciousness is awake, alert, obeys commands, Oriented to person, place, time, situation, Appropriate for age Reports headache in left. Historical: - Allergies: 19:04 Erythromycin; dd2 19:04 Reglan; dd2 19:04 Rocephin; dd2 - PMHx: 19:04 Hyperlipidemia; Hypertension; pancreatic cancer; Osteoporosis; dd2 - PSHx: 19:04 tumor removed pancreatic CA; hysterectomy; ectopic ; dd2 - Immunization history:: Adult Immunizations unknown. - Infectious Disease History:: Denies. - Social history:: Smoking status: Patient denies any tobacco usage or history of. Screenin:10 [facility] ED Fall Risk Assessment (Adult) History of falling in the last 3 months, jj7 including since admission No falls in past 3 months (0 pts) Confusion or Disorientation No (0 pts) Intoxicated or Sedated No (0 pts) Impaired Gait No (0 pts) Mobility Assist Device Used No (0 pt) Altered Elimination No (0 pt) Score/Fall Risk Level 0 - 2 = Low Risk Oriented to surroundings, Maintained a safe environment, Educated pt \T\ family on fall prevention, incl call for assistance when getting out of bed. Abuse screen: Denies threats or abuse. Nutritional screening: No deficits noted. Tuberculosis screening: No symptoms or risk factors identified. Assessment: 19:10 General: Appears in no apparent distress. comfortable, Behavior is calm, cooperative, jj7 appropriate for age. Pain: Complains of pain in forehead Pain currently is 5 out of 10 on a pain scale. Neuro: Reports headache frontal area. Vital Signs: 19:01 BP 162 / 97; Pulse 86; Resp 16; Temp 97.9; Pulse Ox 98% ; Weight 45.36 kg; dd2 19:10 BP 134 / 63; Pulse 80; Resp 17; Pulse Ox 98% ; jj7 20:00 BP 129 / 70; Pulse 76; Resp 17; Pulse Ox 98% ; jj7 21:08 BP 117 / 77; Pulse 77; Resp 19; Temp 98.1; Pulse Ox 98% ; jj7 [place] Coma Score: 19:01 Eye Response: spontaneous(4). Motor Response: obeys commands(6). Verbal Response: dd2 oriented(5). Total: 15. 21:02 Eye Response: spontaneous(4). Motor Response: obeys commands(6). Verbal Response: sp4 oriented(5). Total: 15. ED Course: 18:53 Patient arrived in ED. mr 18:54 Angel Hernandez DO is Private Physician. mr 18:56 Pola Hernandez MD is Attending Physician. sp3 19:04 Triage completed. dd2 19:04 Arm band placed on right wrist. Patient placed in an exam room, on a stretcher, on dd2 pulse oximetry, Patient notified of wait time. 19:10 Patient has correct armband on for positive identification. Bed in low position. Call jj7 light in reach. Provided Education on: USE OF CALL NIETO. Warm blanket given. 19:10 No provider procedures requiring assistance completed. jj7 19:11 Manasa Bermudez RN is Primary Nurse. jj7 20:02 Attending Physician role handed off by Pola Hernandez MD sp4 20:02 Ernst Reveles MD is Attending Physician. sp4 20:06 CT Head C Spine In Process Unspecified. EDMS 21:11 Patient did not have IV access during this emergency room visit. jj7 Administered Medications: No medications were administered Medication: 19:10 VIS not applicable for this client. jj7 Outcome: 21:08 Discharge ordered by . sp4 21:10 Discharged to home ambulatory, jj7 21:10 Condition: good 21:10 Discharge instructions given to patient, Instructed on discharge instructions, Demonstrated understanding of instructions, 21:13 Patient left the ED. jj7 Signatures: Dispatcher [employer] EDDE Leeanne Hardy, Reg Reg mr Pola Hernandez MD MD sp3 Manasa Bermudez RN RN jj7 Ernst Reveles MD MD sp4 NATALIO REID RN RN dd2
--- NOTE | 2024-06-03 21:09 | EDPHYS ---
Physician Documentation [facility] Name: Tabitha Odom Age: 68 yrs Sex: Female : 1955 Arrival Date: 06/03/2024 Time: 18:51 Bed 3 Private MD: [facility] ED Physician Ernst Reveles HPI: 06/03 19:46 This 68 yrs old Female presents to ER via Ambulatory with complaints of Head sp3 Injury-Adult. 19:46 68-year-old female with history of hyperlipidemia, hypertension, prior pancreatic sp3 cancer now presents to the ED with chief complaint headache and head injury secondary to her accidentally hitting her on a glancing injury while swinging a golf club in their home. Patient states no loss of consciousness but does endorse swelling on the left parietal area and headache. No neck pain or other symptoms noted. Review of systems negative for neck pain, chest pain, back pain, abdominal pain, shortness of breath, extremity pain, syncope, near syncope, loss of consciousness, or any other signs or symptoms on ROS at this time.. Historical: - Allergies: 19:04 Erythromycin; dd2 19:04 Reglan; dd2 19:04 Rocephin; dd2 - PMHx: 19:04 Hyperlipidemia; Hypertension; pancreatic cancer; Osteoporosis; dd2 - PSHx: 19:04 tumor removed pancreatic CA; hysterectomy; ectopic ; dd2 - Immunization history:: Adult Immunizations unknown. - Infectious Disease History:: Denies. - Social history:: Smoking status: Patient denies any tobacco usage or history of. ROS: 19:47 Constitutional: Negative for fever, chills, and weight loss, Eyes: Negative for injury, sp3 pain, redness, and discharge, ENT: Negative for injury, pain, and discharge, Neck: Negative for injury, pain, and swelling, Cardiovascular: Negative for chest pain, palpitations, and edema, Respiratory: Negative for shortness of breath, cough, wheezing, and pleuritic chest pain, Abdomen/GI: Negative for abdominal pain, nausea, vomiting, diarrhea, and constipation, Back: Negative for injury and pain, MS/Extremity: Negative for injury and deformity, Skin: Negative for injury, rash, and discoloration, Psych: Negative for depression, anxiety, suicide ideation, homicidal ideation, and hallucinations, Allergy/Immunology: Negative for hives, rash, and allergies, Endocrine: Negative for neck swelling, polydipsia, polyuria, polyphagia, and marked weight changes, Hematologic/Lymphatic: Negative for swollen nodes, abnormal bleeding, and unusual bruising, 19:47 All other systems are negative, Exam: 19:48 Constitutional: This is a well developed, well nourished patient who is awake, alert, sp3 and in no acute distress. Eyes: Pupils equal round and reactive to light, extra-ocular motions intact. Lids and lashes normal. Conjunctiva and sclera are non-icteric and not injected. Cornea within normal limits. Periorbital areas with no swelling, redness, or edema. ENT: Nares patent. No nasal discharge, no septal abnormalities noted. External auditory canals are clear. Oropharynx with no redness, swelling, or masses, exudates, or evidence of obstruction, uvula midline. Mucous membranes moist. Neck: Trachea midline, no thyromegaly or masses palpated, and no cervical lymphadenopathy. Supple, full range of motion without nuchal rigidity, or vertebral point tenderness. No Meningismus. Chest/axilla: Normal chest wall appearance and motion. Nontender with no deformity. No lesions are appreciated. Cardiovascular: Regular rate and rhythm with a normal S1 and S2. No gallops, murmurs, or rubs. Normal PMI, no JVD. No pulse deficits. Respiratory: Lungs have equal breath sounds bilaterally, clear to auscultation and percussion. No rales, rhonchi or wheezes noted. No increased work of breathing, no retractions or nasal flaring. Abdomen/GI: Soft, non-tender, with normal bowel sounds. No distension or tympany. No guarding or rebound. No evidence of tenderness throughout. Back: No spinal tenderness. No costovertebral tenderness. Full range of motion. Skin: Warm, dry with normal turgor. Normal color with no rashes, no lesions, and no evidence of cellulitis. MS/ Extremity: Pulses equal, no cyanosis. Neurovascular intact. Full, normal range of motion. Neuro: Awake and alert, GCS 15, oriented to person, place, time, and situation. Cranial nerves II-XII grossly intact. Motor strength 5/5 in all extremities. Sensory grossly intact. Cerebellar exam normal. Normal gait. Psych: Awake, alert, with orientation to person, place and time. Behavior, mood, and affect are within normal limits. 19:48 Head/face: 2 cm x 2 similar area of hematoma on the scalp on the left parietal region. No bleeding noted.. Vital Signs: 19:01 BP 162 / 97; Pulse 86; Resp 16; Temp 97.9; Pulse Ox 98% ; Weight 45.36 kg; dd2 19:10 BP 134 / 63; Pulse 80; Resp 17; Pulse Ox 98% ; jj7 20:00 BP 129 / 70; Pulse 76; Resp 17; Pulse Ox 98% ; jj7 21:08 BP 117 / 77; Pulse 77; Resp 19; Temp 98.1; Pulse Ox 98% ; jj7 [place] Coma Score: 19:01 Eye Response: spontaneous(4). Motor Response: obeys commands(6). Verbal Response: dd2 oriented(5). Total: 15. 21:02 Eye Response: spontaneous(4). Motor Response: obeys commands(6). Verbal Response: sp4 oriented(5). Total: 15. MDM: 19:11 Patient medically screened. sp3 19:48 Data reviewed: vital signs, nurses notes, radiologic studies. ED course: 68-year-old sp3 female with glancing direct trauma to the left parietal area now with headache. I do not suspect foul play or spousal abuse or any similar situation. Differential diagnosis includes hematoma versus closed head injury versus intracranial hemorrhage versus other trauma related pathology. CT scan of the head and C-spine are pending. I do not anticipate them to be positive for ICH or other critical findings. If scans are negative we will safely discharge patient home. Patient declined pain medication and states that she will take OTC meds when she gets home. Patient will be signed out to nighttime physician for final reevaluation, study follow-up and final disposition.. 21:02 ED course: EXAM DESCRIPTION: CT - CTHCSPWOC - 06/03/2024 8:07 pm CLINICAL HISTORY: . sp4 TRAUMA COMPARISON: Neck Angio dated 09/14/2020 TECHNIQUE: Axial thin cut noncontrast CT images of the head were obtained. Axial thin cut noncontrast CT images of the cervical spine were obtained. Multiplanar reformatted images were generated and reviewed. All CT scans are performed using dose optimization technique as appropriate and may include automated exposure control or mA/KV adjustment according to patient size. FINDINGS: CT HEAD WITHOUT CONTRAST: No acute hemorrhage, hydrocephalus or extra-axial collection is identified.No areas of brain edema or midline shift. The paranasal sinuses and mastoids are clear.The calvarium is intact. CT CERVICAL SPINE WITHOUT CONTRAST: No fracture or subluxation.No prevertebral soft tissues swelling is identified. IMPRESSION: No acute traumatic intracranial or cervical spine findings.. 21:06 ED course: stable for discharge home. sp4 06/03 19:33 Order name: CT Head C Spine sp3 06/03 19:49 Order name: Ice pack; Complete Time: 20:09 sp3 Administered Medications: No medications were administered Disposition Summary: 06/03/24 21:08 Discharge Ordered Notes: Location: Home sp4 Problem: new sp4 Symptoms: have improved sp4 Condition: Stable sp4 Diagnosis - Unspecified injury of head, initial encounter sp4 - Acute scalp contusion with hematoma sp4 Followup: sp4 - With: Private Physician - When: As needed - Reason: Recheck today's complaints Discharge Instructions: - Discharge Summary Sheet sp4 - Head Injury, Adult sp4 Forms: - Patient Portal Instructions sp4 Signatures: Dispatcher [employer] EDMS Pola Hernandez MD MD sp3 Ernst Reveles MD MD sp4 NATALIO REID, RN RN dd2
[2024-06-03 21:18] VITALS: O2SAT 98
[2024-06-03 21:23] VITALS: BP 117/77; TEMP 98.1
== END 2024-06-03 21:13 | disposition home or self-care (01) ==
LOC: ER 18:51
DX: S00.03XA Contusion of scalp, initial encounter (principal)
CPT/HCPCS: 70450; 72125; 99283

== ENCOUNTER 2024-07-16 17:48 | Inpatient (IN) | payer OTHER ==
--- OUTSIDE RECORDS SUMMARY | 2024-07-16 17:51 | XMS REPORT | Continuity of Care Document ---
Author Name Unknown Address [address] [place] [address] [place] [address] thconnect Address 1200 [facility] 1 [address] [place] [address] Care Team Providers Care Spareribs Trimmer Name Role Phone Angel Hernandez Attending Clinician Unavailable [email or web address] Attending Clinician Unavaila ble [email or web address]_S Admitting Clinician Unavaila ble Encounters Start Date/Time End Date/Time Encounter Type Admission Type Attending Clinicians Care Facility Care Department Encounter ID Source 2023-11-24 11:31:01 [facility] [id number] [facility] 2023-06-05 08:48:00 [facility] [id number] [facility] 2023-04-03 08:36:00 [facility] [id number] [facility] 2023-03-27 08:31:01 [facility] [id number] [facility] 2022-08-23 08:19:00 [facility] [id number] [facility] 2022-08-16 10:44:01 [facility] [id number] [facility] 2022-07-02 16:14:01 [facility] [id number] [facility] 2022-02-21 08:54:02 Outpatient Hernandez, [facility] [id number] [facility] 2023-07-30 00:00:00 2023-07-30 00:00:00 Outpatient [email or web address] maryam_Song [facility] [id number] [facility]
[2024-07-16 19:02] LABS: Absolute Lymphocytes (CBC) 0.9 K/uL (0.7-4.9); Absolute Monocytes 0.4 K/uL (0.1-1.3); Absolute Neutrophil 3.3 K/uL (1.8-8.0); Basophils % 0.8 % (0-1.3); Eosinophils % 0.3 % (0-4.4); Hematocrit 37.1 % (36.0-45.0); Hemoglobin 12.8 g/dL (12.0-15.0); Lymphocytes % 19.3 % (15.3-44.8); MCH 29.6 pg (27.0-35.0); MCHC 34.5 g/dL (32.0-36.0); MCV 85.6 fL (80-100); MPV 10.1 fL (7.6-11.3); Monocytes % 8.4 % (3.3-12.3); Neutrophils % 71.2 % (41.7-73.7); Nucleated Red Blood Cells % 0.1 % (0-0); Platelets 150 thou/uL (152-406); RBC Red Blood Cell Count 4.34 M/uL (3.86-4.86); Red Cell Distribution Width 14.2 % (12.1-15.2)
[2024-07-16 19:06] LABS: PT Prothrombin Time 11.8 SECONDS (9.4-12.5); Protime INR 1.06
[2024-07-16 19:22] LABS: ALT/SGPT 55 U/L (13-56); AST/SGOT 57 U/L (15-37); Albumin 3.7 g/dL (3.4-5.0); Albumin/Globulin Ratio 0.9 (1.1-1.8); Alkaline Phosphatase 83 U/L (45-117); Anion Gap 10.7 mEq/L (5.0-15.0); BUN Blood Urea Nitrogen 12 mg/dL (7-18); Bicarbonate 24 mEq/L (21-32); Bilirubin Direct < 0.2 mg/dL (0-0.2); Bilirubin Indirect, Calculated 0.2 mg/dL (0.2-0.8); Bilirubin Total 0.4 mg/dL (0.2-1.0); Globulin 3.9 g/dL (2.3-3.5); Glomerular Filtration Rate 95 ml/min (=/>90); Glucose Level 109 mg/dL (74-106); NT PRO-BNP 286 pg/mL (<125); Potassium 3.7 mEq/L (3.5-5.1); Protein, Total 7.6 g/dL (6.4-8.2); Sodium Level 136 mEq/L (136-145)
[2024-07-16 19:26] LABS: Troponin High Sensitivity 61.6 pg/mL (<58.9)
[2024-07-16] MEDS ORDERED: ASPIRIN 81 MG CHEWABLE TABLET ONE (20:25)
[2024-07-16] MEDS ORDERED: NA CHLORIDE 0.9% 1,000 ML ONE (20:25)
[2024-07-16] MEDS ORDERED: FAMOTIDINE 20 MG/2 ML VIAL IV ONE (20:25)
[2024-07-16] MEDS ORDERED: ONDANSETRON 4 MG/2 ML VIAL ONE (20:25)
--- NOTE | 2024-07-16 21:39 | RAD REPORT ---
EXAM: CT brain without contrast HISTORY: Headache COMPARISON: May 2024 TECHNIQUE: Multiple contiguous axial images were obtained and a CT of the brain without contrast.. Sagittal and coronal reconstruction performed. Automated exposure control, adjustment of the mA and/or kV according to patient size, and/or iterative reconstruction. Unless otherwise specified, incidental f indings do not require dedicated imaging follow-u FINDINGS: An intracranial bleed is not seen Ventricles are normal caliber No extra-axial fluid collection noted No significant hypodensity within the brain Empty sella turcica No fluid within the visualized sinuses or mastoids noted. IMPRESSION: No acute intracranial abnormality noted. If the patient's symptoms persist MRI of the brain would be recommended.
--- NOTE | 2024-07-16 22:43 | ER ---
Nurse's Notes [facility] Name: Tabitha Odom Age: 68 yrs Sex: Female : 1955 Arrival Date: 07/16/2024 Time: 17:48 Bed 18 Private MD: Diagnosis: Weakness;Nausea;Abnormal levels of other serum enzymes-elevated troponin Presentation: 07/16 18:06 Chief complaint: Patient states: she has been on antibiotics for approx one month, and ap3 today she is feeling nauseated cant really eat or drink anything. patient reports "my body feels like it has bricks in it". patient reports feeling fatigued. Coronavirus screen: At this time, the client does not indicate any symptoms associated with coronavirus-19. Ebola Screen: No symptoms or risks identified at this time. Initial Sepsis Screen: Does the patient meet any 2 criteria? No. Patient's initial sepsis screen is negative. Does the patient have a suspected source of infection? No. Patient's initial sepsis screen is negative. Risk Assessment: Do you want to hurt yourself or someone else? Patient reports no desire to harm self or others. Onset of symptoms is unknown. 18:06 Method Of Arrival: Wheelchair ap3 18:06 Acuity: YASEMIN 3 ap3 Triage Assessment: 18:08 General: Appears ill, Behavior is calm, cooperative, appropriate for age. Pain: ap3 Complains of pain in generalized body aches. Neuro: Level of Consciousness is awake, alert, obeys commands, Oriented to person, place, time, situation, Reports weakness. Cardiovascular: Patient's skin is warm and dry. Respiratory: Airway is patent Respiratory effort is even, unlabored, Respiratory pattern is regular, symmetrical. GI: Reports intolerance of fluids, intolerance of food, nausea. Historical: - Allergies: 18:08 Erythromycin; ap3 18:08 Reglan; ap3 18:08 Rocephin; ap3 - PMHx: 18:08 Hyperlipidemia; Hypertension; Osteoporosis; pancreatic cancer; ap3 - PSHx: 18:08 ectopic ; hysterectomy; tumor removed pancreatic CA; ap3 - Immunization history:: Client reports receiving the 2nd dose of the Covid vaccine. - Infectious Disease History:: Denies. - Social history:: Smoking status: Patient denies any tobacco usage or history of. Screenin:09 Abuse screen: Denies threats or abuse. Nutritional screening: No deficits noted. ap3 Tuberculosis screening: No symptoms or risk factors identified. 19:06 [facility] ED Fall Risk Assessment (Adult) History of falling in the last 3 months, tm6 including since admission No falls in past 3 months (0 pts) Confusion or Disorientation No (0 pts) Intoxicated or Sedated No (0 pts) Impaired Gait Yes (1 pt) Mobility Assist Device Used Yes (1 pt) Altered Elimination No (0 pt) Score/Fall Risk Level 0 - 2 = Low Risk Oriented to surroundings, Maintained a safe environment, Educated pt \\T\\ family on fall prevention, incl call for assistance when getting out of bed. Assessment: 19:06 General: Appears in no apparent distress. uncomfortable, Behavior is calm, cooperative. tm6 Pain: Denies pain. Neuro: Level of Consciousness is awake, alert, obeys commands, Oriented to person, place, time, situation. Cardiovascular: Patient's skin is warm and dry. Respiratory: Airway is patent Respiratory effort is even, unlabored, Respiratory pattern is regular, symmetrical. GI: Abdomen is flat, non-distended, Reports nausea. : No signs and/or symptoms were reported regarding the genitourinary system. EENT: No signs and/or symptoms were reported regarding the EENT system. Derm: No signs and/or symptoms reported regarding the dermatologic system. Musculoskeletal: No signs and/or symptoms reported regarding the musculoskeletal system. 21:06 General: Appears in no apparent distress. uncomfortable, Behavior is calm, cooperative. me1 Neuro: Level of Consciousness is awake, alert, obeys commands, Oriented to person, place, time, situation, Appropriate for age. Cardiovascular: Patient's skin is warm and dry. Respiratory: Airway is patent Respiratory effort is even, unlabored, Respiratory pattern is regular, symmetrical. GI: Abdomen is flat, non-distended, Reports nausea. : No signs and/or symptoms were reported regarding the genitourinary system. EENT: No signs and/or symptoms were reported regarding the EENT system. Derm: No signs and/or symptoms reported regarding the dermatologic system. Musculoskeletal: No signs and/or symptoms reported regarding the musculoskeletal system. 21:06 Pain: Denies pain. me1 23:50 Reassessment: report received from GIL Peralta. kj2 23:50 Reassessment: Patient and/or family updated on plan of care and expected duration. Pain kj2 level reassessed. Patient is alert, oriented x 3, equal unlabored respirations, skin warm/dry/pink. 07/17 01:17 Reassessment: Patient and/or family updated on plan of care and expected duration. Pain kj2 level reassessed. Patient is alert, oriented x 3, equal unlabored respirations, skin warm/dry/pink. Vital Signs: 07/16 18:06 BP 151 / 91; Pulse 87; Resp 17; Temp 98.8; Pulse Ox 100% ; Weight 43.54 kg; Height 5 ap3 ft. 0 in. ; Pain 9/10; 19:06 BP 148 / 88; Pulse 85; MAP 105 mmHg; tm6 20:00 BP 162 / 91; Pulse 80; Resp 16; Pulse Ox 98% ; me1 21:00 BP 169 / 86; Pulse 78; Resp 18; Pulse Ox 99% ; me1 22:00 BP 148 / 78; Pulse 72; Resp 13; Pulse Ox 98% ; me1 23:00 BP 129 / 70; Pulse 70; Resp 13; Pulse Ox 96% ; me1 23:50 BP 151 / 77; Pulse 76; Resp 18; Pulse Ox 100% on R/A; kj2 07/17 01:18 BP 146 / 74; Pulse 77; Resp 18; kj2 07/16 18:06 Body Mass Index 18.75 (43.54 kg, 152.4 cm) ap3 07/16 18:06 Pain Scale: Adult ap3 ED Course: 07/16 17:50 Patient arrived in ED. mr 17:57 Mychal Fisher PA is PHCP. cp 17:57 Mychal Villarreal MD is Attending Physician. cp 18:08 Triage completed. ap3 18:09 Arm band placed on right wrist. ap3 18:48 Charline Aguilera RN is Primary Nurse. tm6 18:56 Basic Metabolic Panel Sent. tm6 18:56 CBC with Diff Sent. tm6 18:56 LFT's Sent. tm6 18:56 Magnesium Sent. tm6 18:56 NT PRO-BNP Sent. tm6 18:56 PT-INR Sent. tm6 18:56 Troponin HS Sent. tm6 18:56 Inserted saline lock: 20 gauge in right forearm, using aseptic technique. Blood tm6 collected. Flushed with 10 mL NS. 19:05 EKG done, by ED staff, reviewed by Mychal ALFARO. tm6 19:06 Patient has correct armband on for positive identification. Bed in low position. Call tm6 light in reach. Side rails up X 1. Provided Education on: use of call zhou. Client placed on continuous cardiac and pulse oximetry monitoring. NIBP monitoring applied. monitoring analyst on. Pulse ox on. NIBP on. Door closed. Noise minimized. Warm blanket given. Pillow given. 21:06 No provider procedures requiring assistance completed. tm6 21:08 CT Head Brain wo Cont In Process Unspecified. EDMS 22:29 First set of blood cultures drawn by sc. me1 22:31 Lactate w/ 2H reflex if indic. Sent. me1 22:31 Blood Culture Adult (2) Sent. me1 22:35 Second set of blood cultures drawn by me. me1 22:40 Santy Ramirez MD is Hospitalizing Provider. cp 23:18 CT Chest For PE Angio In Process Unspecified. EDMS 23:26 Patient admitted, IV remains in place. sc1 07/17 07:55 Primary Nurse role handed off by Charline Aguilera RN eb Administered Medications: 07/16 20:31 Drug: Famotidine IVP 20 mg IVP once; dilute with 10 mL 0.9% NaCl; give over 2 minutes tm6 Route: IVP; Site: right forearm; 21:04 Follow up: Response: No adverse reaction tm6 20:31 Drug: NS 0.9% IV 1000 ml IV at 1000 ml once; to be given as a bolus over 60 minutes tm6 Route: IV; Rate: 1000 ml; Site: right forearm; 22:11 Follow up: Response: No adverse reaction; IV Status: Completed infusion me1 20:31 Drug: Aspirin PO Chewable Tablet 324 mg PO once; 81 mg tablets x 4 Route: PO; tm6 21:04 Follow up: Response: No adverse reaction tm6 20:31 Not Given (Patient Refused): morphineor iv 2 mg IVP once over 4 mins tm6 20:32 Drug: Ondansetron IVP 4 mg IVP once; over 2 minutes Route: IVP; Site: right forearm; tm6 21:04 Follow up: Response: No adverse reaction; Nausea is decreased tm6 07/17 01:13 Drug: Ondansetron IVP 4 mg IVP once; over 2 minutes Route: IVP; Site: right forearm; kj2 01:45 Follow up: Response: No adverse reaction; Marked relief of symptoms ha1 Medication: 07/16 19:06 VIS not applicable for this client. 6 Outcome: 22:42 Decision to Hospitalize by Provider. cp 23:26 Admitted to ER Hold. Please see [facility] for further documentation. sc1 23:26 Condition: stable 23:26 Instructed on the need for admit, 07/17 08:57 Patient left the ED. rs5 Signatures: Dispatcher [employer] EDMS Leeanne Hardy, Reg Reg mr Mychal Fisher PA PA cp Prokisch, Amanda RN RN ap3 Margie Nur Heidy RN RN ha1 Denton Briones RN RN rs5 Kathryn Weems RN RN me1 Charline Aguilera RN RN tm6 María Duncan RN RN kj2 Corrections: (The following items were deleted from the chart) 07/16 21:06 18:06 Chief complaint: Patient states: she has been on antibiotics for approx one tm6 month, and today she is feeling nauseated cant really eat or drink anything. patient reports "my body feels like it has bricks in it". patient reports feeling fatigued. 3 :12 21:06 General: Appears in no apparent distress. uncomfortable, Behavior is calm, me1 cooperative, 6 : 21:06 Pain: Denies pain. 6 sc1 : 21:06 Neuro: Level of Consciousness is awake, alert, obeys commands, Oriented to me1 person, place, time, situation, Appropriate for age 6 :12 21:06 Cardiovascular: Patient's skin is warm and dry. 6 sc1 :12 21:06 Respiratory: Airway is patent Respiratory effort is even, unlabored, Respiratory me1 pattern is regular, symmetrical, 6 : 21:06 GI: Abdomen is flat, non-distended, Reports nausea, 6 sc1 :12 21:06 : No signs and/or symptoms were reported regarding the genitourinary system. [place] [place]:06 EENT: No signs and/or symptoms were reported regarding the EENT system. tm6 me1 22:12 21:06 Derm: No signs and/or symptoms reported regarding the dermatologic system. tm6 me1 22:12 21:06 Musculoskeletal: No signs and/or symptoms reported regarding the musculoskeletal me1 system. tm6
--- NOTE | 2024-07-16 22:43 | EDPHYS ---
Physician Documentation [facility] Name: Tabitha Odom Age: 68 yrs Sex: Female : 1955 Arrival Date: 07/16/2024 Time: 17:48 Bed 18 Private MD: ED Physician Mychal Villarreal HPI: 07/16 18:35 This 68 yrs old Female presents to ER via Wheelchair with complaints of cp Nausea, Dehydrated. 18:35 The patient presents to the emergency department with nausea, that is moderate. Onset: cp The symptoms/episode began/occurred today. Possible causes: prescribed antibiotics. Associated signs and symptoms: Pertinent positives: generalized pain and generalized weakness. 18:35 Patient reports concern for dehydration. cp Historical: - Allergies: 18:08 Erythromycin; ap3 18:08 Reglan; ap3 18:08 Rocephin; ap3 - PMHx: 18:08 Hyperlipidemia; Hypertension; Osteoporosis; pancreatic cancer; ap3 - PSHx: 18:08 ectopic ; hysterectomy; tumor removed pancreatic CA; ap3 - Immunization history:: Client reports receiving the 2nd dose of the Covid vaccine. - Infectious Disease History:: Denies. - Social history:: Smoking status: Patient denies any tobacco usage or history of. ROS: 18:40 Constitutional: Positive for poor PO intake, generalized pain, Negative for fever, cp 18:40 Cardiovascular: Negative for chest pain, palpitations, cp 18:40 Respiratory: Negative for cough, wheezing, 18:40 Abdomen/GI: Positive for nausea, anorexia, Negative for abdominal pain, vomiting, diarrhea, constipation, 18:40 : Negative for urinary symptoms, 18:40 Neuro: Positive for weakness, Negative for altered mental status, headache, 18:40 All other systems are negative, Exam: 18:45 Constitutional: The patient appears in no acute distress, alert, awake, cp non-diaphoretic, non-toxic, well developed, well nourished, uncomfortable, 18:45 Head/Face: Normocephalic, atraumatic. cp 18:45 Eyes: Periorbital structures: appear normal, Pupils: equal, round, and reactive to light and accomodation, Extraocular movements: intact throughout, Conjunctiva: normal, no exudate, no injection, Sclera: no appreciated abnormality, Lids and lashes: appear normal, bilaterally, 18:45 ENT: External ear(s): are unremarkable, Nose: is normal, Mouth: Lips: dry, Oral mucosa: dry, Posterior pharynx: Airway: no evidence of obstruction, patent, erythema, is not appreciated, exudate, is not appreciated, 18:45 Neck: ROM/movement: Meningeal signs: are not present, nuchal rigidity, is not appreciated, 18:45 Chest/axilla: Inspection: normal, 18:45 Cardiovascular: Rate: normal, Rhythm: regular, Edema: is not appreciated, JVD: is not appreciated, 18:45 Respiratory: the patient does not display signs of respiratory distress, Respirations: shallow respirations, that is mild, Breath sounds: are clear throughout, no decreased breath sounds, no stridor, no wheezing, 18:45 Abdomen/GI: Inspection: abdomen appears normal, Palpation: abdomen is soft and non-tender, in all quadrants, 18:45 Back: CVA tenderness, is absent, 18:45 Skin: cellulitis, is not appreciated, no rash present. 18:45 Neuro: Orientation: to person, place \T\ time. Mentation: able to follow commands, Motor: moves all fours, no focal deficits, Sensation: no obvious gross deficits, 19:07 ECG was reviewed by the Attending Physician. cp Vital Signs: 18:06 BP 151 / 91; Pulse 87; Resp 17; Temp 98.8; Pulse Ox 100% ; Weight 43.54 kg; Height 5 ap3 ft. 0 in. ; Pain 9/10; 19:06 BP 148 / 88; Pulse 85; MAP 105 mmHg; tm6 20:00 BP 162 / 91; Pulse 80; Resp 16; Pulse Ox 98% ; me1 21:00 BP 169 / 86; Pulse 78; Resp 18; Pulse Ox 99% ; me1 22:00 BP 148 / 78; Pulse 72; Resp 13; Pulse Ox 98% ; me1 23:00 BP 129 / 70; Pulse 70; Resp 13; Pulse Ox 96% ; me1 23:50 BP 151 / 77; Pulse 76; Resp 18; Pulse Ox 100% on R/A; kj2 07/17 01:18 BP 146 / 74; Pulse 77; Resp 18; kj2 18 18:06 Body Mass Index 18.75 (43.54 kg, 152.4 cm) ap3 1018 18:06 Pain Scale: Adult ap3 MDM: 07/16 18:13 Medical Screening Exam initiated cp 22:45 Data reviewed: vital signs, nurses notes, lab test result(s), EKG, radiologic studies, cp plain films, and as a result, I will admit patient. 22:45 Differential diagnosis: gastritis, viral gastroenteritis, gastroenteritis, uti, cp pneumonia, sepsis. Consideration of Admission/Observation Patient was admitted/placed on observation. Management of patient was discussed with the following: Hospitalist: DR Ramirez will admit after discussion. I considered the following discharge prescriptions or medication management in the emergency department Medications were administered in the Emergency Department. See MAR. Independent interpretation of the following test(s) in the Emergency Department EKG: See my EKG interpretation above. Care significantly affected by the following chronic conditions: Hypertension, Cancer. Counseling: I had a detailed discussion with the patient and/or guardian regarding the historical points, exam findings, and any diagnostic results supporting the discharge/admit diagnosis, lab results, radiology results, the need for further work-up and treatment in the hospital. Response to treatment: the patient's symptoms have mildly improved after treatment. 07/16 18:33 Order name: Basic Metabolic Panel; Complete Time: 20:13 cp 07/16 18:33 Order name: CBC with Diff; Complete Time: 20:13 cp 07/16 22:07 Interpretation: Reviewed. cp 07/16 18:33 Order name: LFT's; Complete Time: 20:13 cp 07/16 18:33 Order name: Magnesium; Complete Time: 20:13 cp 07/16 18:33 Order name: NT PRO-BNP; Complete Time: 20:13 cp 07/16 18:33 Order name: PT-INR; Complete Time: 20:13 cp 07/16 18:33 Order name: Troponin HS; Complete Time: 20:13 cp 07/16 21:53 Order name: Lactate w/ 2H reflex if indic. cp 07/16 21:53 Order name: Blood Culture Adult (2) cp 07/17 02:42 Order name: Urinalysis w/ reflexes EDMS 07/17 02:42 Order name: CBC with Automated Diff EDMS 07/17 02:42 Order name: CBC with Automated Diff EDMS 07/17 02:42 Order name: Comprehensive Metabolic Panel EDMS 07/17 02:42 Order name: Comprehensive Metabolic Panel EDAK 07/17 02:42 Order name: Troponin High Sensitivity EDAK 07/17 02:42 Order name: Troponin High Sensitivity EDAK 07/17 02:42 Order name: Troponin High Sensitivity EDAK 07/17 02:42 Order name: Troponin High Sensitivity EDAK 07/16 20:15 Order name: CT Head Brain wo Cont; Complete Time: 21:52 cp 07/16 22:12 Order name: CT Chest For PE Angio cp 07/16 18:33 Order name: Cardiac monitoring; Complete Time: 19:07 cp 07/16 18:33 Order name: EKG - Nurse/Tech; Complete Time: 19:07 cp 07/16 18:33 Order name: IV Saline Lock; Complete Time: 18:56 cp 07/16 18:33 Order name: Labs collected and sent; Complete Time: 18:56 cp 07/16 18:33 Order name: O2 Per Protocol; Complete Time: 18:56 cp 07/16 18:33 Order name: O2 Sat Monitoring; Complete Time: 18:56 cp EC:07 Rate is 81 beats/min. Rhythm is regular. ID interval is normal. QRS interval is normal. cp QT interval is normal. T waves are Inverted in lead aVR. Interpreted by me. Reviewed by me. Administered Medications: 20:31 Drug: Famotidine IVP 20 mg IVP once; dilute with 10 mL 0.9% NaCl; give over 2 minutes tm6 Route: IVP; Site: right forearm; 21:04 Follow up: Response: No adverse reaction tm6 20:31 Drug: NS 0.9% IV 1000 ml IV at 1000 ml once; to be given as a bolus over 60 minutes tm6 Route: IV; Rate: 1000 ml; Site: right forearm; 22:11 Follow up: Response: No adverse reaction; IV Status: Completed infusion me1 20:31 Drug: Aspirin PO Chewable Tablet 324 mg PO once; 81 mg tablets x 4 Route: PO; tm6 21:04 Follow up: Response: No adverse reaction tm6 20:31 Not Given (Patient Refused): morphineor iv 2 mg IVP once over 4 mins tm6 20:32 Drug: Ondansetron IVP 4 mg IVP once; over 2 minutes Route: IVP; Site: right forearm; tm6 21:04 Follow up: Response: No adverse reaction; Nausea is decreased tm6 07/17 01:13 Drug: Ondansetron IVP 4 mg IVP once; over 2 minutes Route: IVP; Site: right forearm; kj2 01:45 Follow up: Response: No adverse reaction; Marked relief of symptoms ha1 Disposition: 07/18 01:09 Chart complete. cp Disposition Summary: 07/16/24 22:42 Hospitalization Ordered Notes: Hospitalization Status: Inpatient Admission cp Provider: Santy Ramirez cp Condition: Stable cp Problem: new cp Symptoms: have improved cp Bed/Room Type: Standard cp Location: Telemetry/MedSurg (Inpatient)(07/17/24 07:26) eb Room Assignment: 214(07/17/24 08:01) iw Diagnosis - Weakness cp - Nausea cp - Abnormal levels of other serum enzymes - elevated troponin cp Forms: - Medication Reconciliation Form cp - SBAR form cp - Leadership Thank You Letter cp Signatures: Dispatcher [employer] EDMS Zoraida Watson RN RN iw Mychal Fisher PA PA cp Garcia, Cindy, RN RN Lalitha Green RN RN 3 Margie Nur Heidy, RN RN ha1 Charline Aguilera RN RN tm6 María Duncan RN RN kj2 Kathryn Weems RN me1 Corrections: (The following items were deleted from the chart) 07/16 19:02 18:33 Chest Single View+RAD.RAD.BRZ ordered. EDMS EDMS 23:15 22:42 Telemetry/MedSurg (Inpatient) cp cg 23:15 22:42 cp cg 07/17 00:31 07/16 23:15 ERHOLD- cg kj2 07/17 00:34 00:31 HLD1 kj2 ha1 07:26 07/16 23:15 [facility] ER HOLD cg eb 07/17 07:26 00:34 ERHOLD- ha1 eb 08:01 07:26 205 eb iw
[2024-07-17] MEDS ORDERED: ONDANSETRON 4 MG/2 ML VIAL ONE (01:10)
--- NOTE | 2024-07-17 02:36 | P.HP ---
Certification for Inpatient Patient admitted to: Inpatient With expected LOS: >2 Midnights Practitioner: I am a practitioner with admitting privileges, knowledge of patient current condition, hospital course, and medical plan of care. Services: Services provided to patient in accordance with Admission requirements found in Title 42 Section 412.3 of the Code of Federal Regulations Patient History Date of Service: 07/17/24 Reason for admission: CP History of Present Illness: 68-year-old female with past medical history of hyperlipidemia, hypertension, pancreatic cancer , osteoporosis came to ER with generalized weakness and chest discomfort which has been going on for the last 2 days and has been progressively worsening. Patient also been diagnosed with Mycobacterium i nfection and is on antibiotic from Dr. Fitch. Denies any fever or chills. No nausea vomiting or diarrhea. Occasional cough present. Patient was assessed in the ER and was found to have NSTEMI and was admitted for further management Allergies ceftriaxone [From Rocephin] Allergy (Verified 06/09/24 12:38) Anaphylaxis erythromycin base Adverse Reaction (Mild, Verified 06/09/24 12:38) "makes me jittery" metoclopramide HCl [From Reglan] Adverse Reaction (Mild, Verified 06/09/24 12:38) "makes me jittery" moxifloxacin [From Avelox] Adverse Reaction (Verified 06/09/24 12:38) "MAKES ME JITTERY" Home medications list reviewed: Yes Home Medications: Lipase/Protease/Amylase [Dylan Roque 12,000 Unit Capsule] 1 each PO TIDWM 08/12/15 Benzonatate [Tessalon Perle] 100 mg PO TIDP PRN 06/09/24 Cetirizine HCl [Zyrtec] 10 mg PO BEDTIME 06/09/24 Cholecalciferol (Vitamin D3) [Vitamin D3] 2,000 unit PO DAILY 06/09/24 Fluticasone Furoate [Arnuity Ellipta] 1 puff IH DAILYPRN PRN 06/09/24 Losartan Potassium 0.5 tab PO DAILYPRN PRN 06/09/24 Rosuvastatin [Crestor] 10 mg PO BEDTIME 06/09/24 - Past Medical/Surgical History Diabetic: No Past Medical History: Reviewed- Non-Contributory -: Pancreatic cancer, post Whipple procedure -: History of ectopic x2 -: Hypertension -: History of shingles -: GERD -: high cholesterol -: osteoporosis Past Surgical History: Reviewed- Non-Contributory -: Whipple procedure -: Peg tube placement, with removal -: Hysterectomy -: Cholecystectomy -: Tubal pregnancies Psychosocial/ Personal History: Patient is . She has multiple children. She does not work. - Family History Family History: Reviewed- Non-Contributory - Family History Mother -: Cancer Notes: Ovarian CA Sister -: Hypertension, Cancer Notes: Ovarian and Breast CA Father -: Heart disease, Hypertension, Lung disease Brother -: Heart disease - Social History Smoking Status: Never smoker Alcohol use: No CD- Drugs: No Caffeine use: Yes Review of Systems 10-point ROS is otherwise unremarkable Physical Examination - Vital Signs Temperature: 97.2 F Blood Pressure: 138/86 Pulse: 74 Respirations: 18 Pulse Ox (%): 93 - Physical Exam General: Alert, Oriented x3, Cachectic, Mild distress HEENT: Atraumatic, Normocephalic Neck: Supple, No Thyromegaly Respiratory: Clear to auscultation bilaterally, Normal air movement, Crackles/rales Cardiovascular: Normal pulses, Regular rate/rhythm Capillary refill: <2 Seconds Gastrointestinal: Soft and benign, W/out hepatosplenomegaly Musculoskeletal: No clubbing, No swelling, No contractures Integumentary: No rashes Neurological: Normal speech, Normal strength at 5/5 x4 extr, Cranial nerves 3-12 intact, Normal reflexes 2+ Lymphatics: No axilla or inguinal lymphadenopathy - Studies Laboratory Data (last 24 hrs) 07/16/24 07/16/24 07/16/24 18:55 18:55 18:55 WBC 4.70 Hgb 12.8 Hct 37.1 Plt Count 150 L PT 11.8 INR 1.06 Sodium 136 Potassium 3.7 BUN 12 Creatinine 0.67 Glucose 109 H Magnesium 2.0 Total Bilirubin 0.4 AST 57 H ALT 55 Alkaline Phosphatase 83 Assessment and Plan - Plan NSTEMI Will trend cardiac enzymes Will monitor telemetry Started on aspirin and statin EKG did not show any acute changes suggestive of ischemia Patient denies any chest pain Will get an echocardiogram Cardiology consult Will get a CT of the chest Hypertension Antihypertensives titrated Continue home medications and titrate as needed Hyperlipidemia Continue statin GI/DVT prophylaxis Advanced directive full code Discharge Plan: Home Plan to discharge in: 48 Hours - Advance Directives Does patient have a Living Will: No Does patient have a Durable POA for Healthcare: No - Code Status/Comfort Care Code Status: Full Code Time Spent Managing Pts Care (In Minutes): 48
[2024-07-17] MEDS ORDERED: ACETAMINOPHEN 325 MG TABLET PO PRN (02:37)
[2024-07-17 03:14] VITALS: BMI 18.5
--- NOTE | 2024-07-17 06:13 | RAD REPORT ---
EXAM: CT Angiography Chest With Intravenous Contrast CLINICAL HISTORY: The patient is 68 years old and is Female; weakness TECHNIQUE: Axial computed tomographic angiography images of the chest with intravenous contrast. Sagittal an d coronal reformatted images were created and reviewed. This CT exam was performed using one or more of the following dose reduction techniques: automated exposure control, adjustment of the mA a nd/or kV according to patient size, and/or use of iterative reconstruction technique. MIP reconstructed images were created and reviewed. COMPARISON: CT of the chest June 03, 2024 FINDINGS: PULMONARY ARTERIES: There are no obvious filling defects identified within the pulmonary arteries to suggest pulmonary embolism. AORTA: Atherosclerosis of the aorta is present. No thoracic aortic aneurysm. LUNGS: Redemonstration of traction bronchiectasis within the right middle lobe is noted. Scattere d areas of reticular nodular opacities within the right upper lobe and throughout the bilateral lower lobes is noted and similar. Cystic change and mild bronchiectasis within the left lower lobe is present and also stable. There is no lobar consolidation. PLEURAL SPACE: Unremarkable. No significant effusion. No pneumothorax. HEART: Unremarkable. No cardiomegaly. No significant pericardial effusion. No evidence of R V dysfunction. BONES/JOINTS: No acute fracture. No dislocation. SOFT TISSUES: Unremarkable. LYMPH NODES: Unremarkable. No enlarged lymph nodes. GALLBLADDER AND BILE DUCTS: Evidence of pneumobilia is noted, similar to prior exam. IMPRESSION: 1. No evidence of pulmonary embolism. 2. Redemonstration of the chronic changes throughout the lungs with bronchiectasis, reticular nodul ar opacities and mild cystic change throughout the lungs. No superimposed opacity is noted. Electronically signed by: Elen Young MD 07/17/2024 12:35 AM T Transcribed Date/Time: 07/17/2024 6:12 AM
[2024-07-17] MEDS ORDERED: ONDANSETRON 4 MG/2 ML VIAL IV PRN (07:00)
[2024-07-17 08:16] VITALS: O2SAT 94
[2024-07-17] MEDS: ENOXAPARIN 40 MG/0.4 ML SQ SCH (09:24)
--- NOTE | 2024-07-17 10:11 | P.CNS ---
Date of Consult: 07/17/24 Reason for Consult: Mycobacterium AVM Chief Complaint: Chest pain nausea vomiting History of Present Illness: Patient is 68 years of age recently diagnosed with Mycobacterium AVM infection was intolerant to medication she was taking half the doses of medication double the dose of symptoms got worse more shortness of breath nausea vomiting ended up here in the hospital has extensive Mycobacterium avium infection fever Allergies ceftriaxone [From Rocephin] Allergy (Verified 06/09/24 12:38) Anaphylaxis erythromycin base Adverse Reaction (Mild, Verified 06/09/24 12:38) "makes me jittery" metoclopramide HCl [From Reglan] Adverse Reaction (Mild, Verified 06/09/24 12:38) "makes me jittery" moxifloxacin [From Avelox] Adverse Reaction (Verified 06/09/24 12:38) "MAKES ME JITTERY" Home Medications: Lipase/Protease/Amylase [Creon Dr 12,000 Unit Capsule] 1 each PO TIDWM 08/12/15 Benzonatate [Tessalon Perle] 100 mg PO TIDP PRN 06/09/24 Cetirizine HCl [Zyrtec] 10 mg PO BEDTIME 06/09/24 Cholecalciferol (Vitamin D3) [Vitamin D3] 2,000 unit PO DAILY 06/09/24 Fluticasone Furoate [Arnuity Ellipta] 1 puff IH DAILYPRN PRN 06/09/24 Losartan Potassium 0.5 tab PO DAILYPRN PRN 06/09/24 Rosuvastatin [Crestor] 10 mg PO BEDTIME 06/09/24 - Past Medical/Surgical History Diabetic: No -: Pancreatic cancer, post Whipple procedure -: History of ectopic x2 -: Hypertension -: History of shingles -: GERD -: high cholesterol -: osteoporosis -: Mycobacterium AVM complex -: Whipple procedure -: Peg tube placement, with removal -: Hysterectomy -: Cholecystectomy -: Tubal pregnancies Psychosocial/ Personal History: Patient is . She has multiple children. She does not work. - Family History Mother Medical History: Cancer Notes: Ovarian CA Sister Medical History: Hypertension, Cancer Notes: Ovarian and Breast CA Father Medical History: Heart disease, Hypertension, Lung disease Brother Medical History: Heart disease - Social History Smoking Status: Unknown if ever smoked Alcohol use: No CD- Drugs: No Caffeine use: Yes Review of Systems General: Weakness Respiratory: Cough, Shortness of Breath Gastrointestinal: Nausea, Vomiting Physical Examination Temp Pulse Resp BP Pulse Ox 97.7 F 76 17 147/79 H 97 07/17/24 09:07 07/17/24 09:07 07/17/24 09:07 07/17/24 09:07 07/17/24 09:07 General: Alert, Oriented x3 HEENT: Atraumatic Neck: Supple Respiratory: Clear to auscultation bilaterally Cardiovascular: No edema, Regular rate/rhythm, Normal S1 S2 Gastrointestinal: Normal bowel sounds, Soft and benign Laboratory Data (last 24 hrs) 07/16/24 07/16/24 07/16/24 18:55 18:55 18:55 WBC 4.70 Hgb 12.8 Hct 37.1 Plt Count 150 L PT 11.8 INR 1.06 Sodium 136 Potassium 3.7 BUN 12 Creatinine 0.67 Glucose 109 H Magnesium 2.0 Total Bilirubin 0.4 AST 57 H ALT 55 Alkaline Phosphatase 83 - Problems (1) Atypical mycobacterium infection Current Visit: Yes Status: Acute Plan: Patient is 68 years of age with a history of a MAC infection will return to antibiotic if she doubles the dose of her medications and became very ill and this would happen before scan reviewed shows extensive is more prominent in the right middle lobe noticed in the left lung has had to resume low doses of triple therapy for now also nebulized amikacin has been ordered advised her to use it at least once a day may increase the dose as she tolerates it did buy a nebulized bronchodilator vital signs reviewed oxygenation stable no fever (2) Non-STEMI (non-ST elevated myocardial infarction) Current Visit: Yes Status: Acute Plan: Patient has a very mild elevation of troponin stress test troponins have started declining
--- NOTE | 2024-07-17 12:27 | P.DS ---
Admission Date: 07/17/24 Discharge Date: 07/17/24 Disposition: ROUTINE DISCHARGE Discharge Condition: GOOD Reason for Admission: Chest pain nausea vomiting Brief History of Present Illness: Diagnosis Atypical Mycobacterium infection NSTEMI Hypertension Hyperlipidemia HPI 07/16/2024 Tabitha Odom is a 68-year-old female with past medical history of hyperlipidemia, hypertension, pancreatic cancer , osteoporosis came to ER with generalized weakness and chest discomfort which has been going on for the last 2 days and has been progressively worsening. Patient also been diagnosed with Mycobacterium infection and is on antibiotic from Dr. Barone. Denies any fever or chills. No nausea vomiting or diarrhea. Occasional cough present. Patient was assessed in the ER and was found to have NSTEMI and was admitted for further management Hospital Course: Tabitha Odom is a pleasant 68 year old female with a past medical history significant for hyperlipidemia, hypertension, pancreatic cancer , osteoporosis who was admitted to the [facility] on 07/17/24 for NSTEMI. Tabitha presented to the ED because she did not feel well after beginning medication intervention for mycobacterium AVM infection. She reports feeling bad after the intial medication was started and Dr. Barone decreased the dosage for a few days then restarted the full dose on . Again, she started to not feel well and came to the ED. Dr. Barone was consulted and made adjustments to her medication regimen and has cleared her for discharge. On initial evaluation, Troponin was mildly elevated 61/82/81, EKG negative for ST changes. Dr. To was consulted. She denied chest pain and discomfort but clarified she is not feeling well d/t the medication she is taking. Dr. To has cleared her to follow up outpatient. She is a patient of Dr. To'andria who manages her blood pressure. On 07/17/24, Tabitha was seen on morning rounds and deemed medically stable for discharge. Tabitha was discharged with instructions to schedule follow-up appointments with PCP, Dr. Barone, and Dr. To. Tabitha was provided prescriptions for Rifampin. Physical Exam General: AAO x3, NAD, conversing well HEENT: Atraumatic, Normocephalic Neck: Supple, No Thyromegaly Respiratory: Clear to auscultation bilaterally, Normal air movement, Clear BBS, on RA Cardiovascular: Normal pulses, RRR, no murmur noted Capillary refill: <2 Seconds Gastrointestinal: Soft and benign on palpation, ND/NT Musculoskeletal: No clubbing, No swelling, No contractures Integumentary: No rashes Neurological: Normal speech, Normal strength at 5/5 x4 extr, Cranial nerves 3-12 intact, Normal reflexes 2+ Vital Signs/Physical Exam: Temp Pulse Resp BP Pulse Ox 97.7 F 76 17 147/79 H 97 07/17/24 09:07 07/17/24 09:07 07/17/24 09:07 07/17/24 09:07 07/17/24 09:07 Laboratory Data at Discharge: WBC 4.70 thou/uL (4.3-10.9) 07/16/24 18:55 Hgb 12.8 g/dL (12.0-15.0) 07/16/24 18:55 Hct 37.1 % (36.0-45.0) 07/16/24 18:55 Plt Count 150 thou/uL (152-406) L 07/16/24 18:55 PT 11.8 SECONDS (9.4-12.5) 07/16/24 18:55 INR 1.06 07/16/24 18:55 Sodium 136 mEq/L (136-145) 07/16/24 18:55 Potassium 3.7 mEq/L (3.5-5.1) 07/16/24 18:55 BUN 12 mg/dL (7-18) 07/16/24 18:55 Creatinine 0.67 mg/dL (0.55-1.02) 07/16/24 18:55 Glucose 109 mg/dL (74-106) H 07/16/24 18:55 Magnesium 2.0 mg/dL (1.6-2.4) 07/16/24 18:55 Total Bilirubin 0.4 mg/dL (0.2-1.0) 07/16/24 18:55 AST 57 U/L (15-37) H 07/16/24 18:55 ALT 55 U/L (13-56) 07/16/24 18:55 Alkaline Phosphatase 83 U/L (45-117) 07/16/24 18:55 Home Medications: Lipase/Protease/Amylase [Dylan Roque 12,000 Unit Capsule] 1 each PO TIDWM 08/12/15 Benzonatate [Tessalon Perle*] 100 mg PO TIDP PRN 06/09/24 Cetirizine HCl [Zyrtec] 10 mg PO BEDTIME 06/09/24 Cholecalciferol (Vitamin D3) [Vitamin D3] 2,000 unit PO DAILY 06/09/24 Fluticasone Furoate [Arnuity Ellipta] 1 puff IH DAILYPRN PRN 06/09/24 Losartan Potassium 0.5 tab PO DAILYPRN PRN 06/09/24 Rosuvastatin [Crestor*] 10 mg PO BEDTIME 06/09/24 Rifampin 150 mg PO Q48H 60 Days #30 cap 07/17/24 New Medications: Rifampin 150 mg PO Q48H 60 Days #30 cap Physician Discharge Instructions: 1. Please call and schedule a follow-up appointment with your PCP in 3-5 days - Please follow-up with your PCP for medication refills/adjustments 2. Please call and schedule a follow-up appointment with Dr. Barone in one week 3. Please call and schedule a follow-up appointment with Dr. To in one week -Follow up outpatient for further investigation for elevated troponin during this admission -Troponin 61/85/81, EKG negative ST abnormalities 4. Continue regular diet 5. No activity restrictions 6. Return to the ED if symptoms worsen New medications Rifampin 150 mg every 48 hours, take 1 dose every other day Amphotericin B nebulizer treatment, prescribed by Dr. Barone Followup: Glenroy Barone MD [ACTIVE - CAN ADMIT] - Angel Hernandez DO [Primary Care Provider] -
[2024-07-17 12:51] VITALS: BP 148/80; TEMP 97.6
--- NOTE | 2024-07-20 13:03 | EKG ---
Test Date: 2024-07-16 Test Time: 19:02:56 School Bus Aide: ROSIBEL MEASUREMENT RESULTS: Intervals: Rate: 81 WV: 122 QRSD: 74 QT: 370 QTc: 429 [place]: P: 74 WV: 122 QRS: 92 T: 61 INTERPRETIVE STATEMENTS: Normal sinus rhythm Rightward axis Nonspecific ST abnormality Abnormal ECG Compared to ECG 06/09/2024 12:55:36 Right-axis deviation now present ST (T wave) deviation now present Myocardial infarct finding no longer present Electronically Signed On 07-20-24 12:52:59 CDT by Akin Molina
== END 2024-07-17 14:44 | disposition home or self-care (01) | DRG 281 ==
LOC: ER 17:48 → ERHOLD 07-17 02:37 → 2ND 07-17 08:01
PROVIDERS: ADMIT Family Medicine; ATTEND Internal Medicine
DX: I21.4 Non-ST elevation (NSTEMI) myocardial infarction (principal); A31.9 Mycobacterial infection, unspecified; R64 Cachexia; Z68.1 Body mass index [BMI] 19.9 or less, adult; E86.0 Dehydration; E78.5 Hyperlipidemia, unspecified; I10 Essential (primary) hypertension; K21.9 Gastro-esophageal reflux disease without esophagitis; M81.0 Age-related osteoporosis without current pathological fracture; R79.89 Other specified abnormal findings of blood chemistry; Z88.5 Allergy status to narcotic agent; Z88.1 Allergy status to other antibiotic agents; Z90.49 Acquired absence of other specified parts of digestive tract; Z85.07 Personal history of malignant neoplasm of pancreas; Z90.710 Acquired absence of both cervix and uterus
CPT/HCPCS: 36415; 70450; 71275; 80048; 80076; 83605; 83735; 83880; 84484; 85025; 85610; 87040; 93005; 94760; 96361; 96374; 96375; 99285; J1650; J2405; J7030; Q9967

== ENCOUNTER 2024-09-10 12:31 | Emergency (ER) | payer OTHER ==
--- OUTSIDE RECORDS SUMMARY | 2024-09-10 12:34 | XMS REPORT | Continuity of Care Document ---
Author Name Unknown Address [address] [place] [address] thconnect Address [address] [facility] [address] [place] [address] Care Team Providers Care [employer]ater [employer]ace Name Role Phone Angel Hernandez Attending Clinician Unavailable [email or web address] Attending Clinician Unavaila ble [email or web address] Admitting Clinician Unavaila ble Encounters Start Date/Time End Date/Time Encounter Type Admission Type Attending Clinicians Care Facility Care Department Encounter ID Source 2024-08-05 14:44:00 Outpatient Hernandez, [facility] [id number] [facility] 2023-11-24 11:31:01 Outpatient Hernandez, [facility] [id number] [facility] 2023-06-05 08:48:00 Outpatient Hernandez [facility] [id number] [facility] 2023-04-03 08:36:00 [facility] [id number] [facility] 2023-03-27 08:31:01 [facility] [id number] [facility] 2022-08-23 08:19:00 [facility] [id number] [facility] 2022-08-16 10:44:01 Outpatient Hernandez, [facility] [id number] [facility] 2022-07-02 16:14:01 [facility] [id number] [facility] 2022-02-21 08:54:02 Outpatient David [facility] [id number] [facility] 2023-07-30 00:00:00 2023-07-30 00:00:00 Outpatient [email or web address] [facility] [id number] [facility]
--- NOTE | 2024-09-10 13:43 | RAD REPORT ---
Extremity Venous Uni Ltd CLINICAL INDICATION: Female, 68 years old.Pain;Swelling RIGHT TECHNIQUE: Complete duplex sonography of the lower extremity veins was performed of the affected limb . The examination included compression for vein patency, color Doppler imaging and flow augmentation in response to distal compression of the distal external iliac, common femoral, femoral, popliteal, peroneal, tibial and great saphenous veins. [id number]. COMPARISON: No prior exams FINDINGS: Duplex sonography imaging demonstrates all deep veins examined to be fully compressible with spontane ous, phasic and augmented flow in the affected limb. IMPRESSION: No evidence of deep venous thrombosis in the right lower extremity.
--- NOTE | 2024-09-10 13:49 | EDPHYS ---
Physician Documentation [facility] Name: Tabitha Odom Age: 68 yrs Sex: Female : 1955 Arrival Date: 09/10/2024 Time: 12:31 Bed 20 Private MD: ED Physician Pola Hernandez HPI: 09/10 13:32 This 68 yrs old Female presents to ER via Ambulatory with complaints of Leg sp3 Pain. 13:32 68-year-old female with history of pancreatic cancer in the past, hypertension, sp3 hyperlipidemia, diabetes now presents to ED with chief complaint right calf pain and concerns of "a blood clot". Patient is having ingrown toenail repair performed next week and today just wants to make sure "there is nothing wrong" before she goes to that appointment. She denies any significant swelling, prolonged immobilization, travel history or prior DVT/PE. Patient has mild calf pain and states she is being precautionary. She denies any fever, headache, current chest pain (she has been evaluated for left upper extremity numbness including angiogram next week), shortness of breath, abdominal pain, syncope, near syncope or any other signs or symptoms on ROS at this time.. Historical: - Allergies: 12:47 Erythromycin; kc6 12:47 Reglan; kc6 12:47 Rocephin; kc6 - PMHx: 12:47 pancreatic cancer; Osteoporosis; Hypertension; Hyperlipidemia; Diabetes mellitus; kc6 Hypercholesterolemia; - PSHx: 12:47 ectopic ; hysterectomy; tumor removed pancreatic CA; wipple (tumor removed kc6 pancreatic CA); - Immunization history:: Adult Immunizations up to date. - Infectious Disease History:: Denies. - Social history:: Smoking status: Patient denies any tobacco usage or history of. ROS: 13:33 Constitutional: Negative for fever, chills, and weight loss, Eyes: Negative for injury, sp3 pain, redness, and discharge, ENT: Negative for injury, pain, and discharge, Neck: Negative for injury, pain, and swelling, Cardiovascular: Negative for chest pain, palpitations, and edema, Respiratory: Negative for shortness of breath, cough, wheezing, and pleuritic chest pain, Abdomen/GI: Negative for abdominal pain, nausea, vomiting, diarrhea, and constipation, Back: Negative for injury and pain, Skin: Negative for injury, rash, and discoloration, Neuro: Negative for headache, weakness, numbness, tingling, and seizure, Psych: Negative for depression, anxiety, suicide ideation, homicidal ideation, and hallucinations, Allergy/Immunology: Negative for hives, rash, and allergies, Endocrine: Negative for neck swelling, polydipsia, polyuria, polyphagia, and marked weight changes, Hematologic/Lymphatic: Negative for swollen nodes, abnormal bleeding, and unusual bruising, 13:33 All other systems are negative, Exam: 13:33 Constitutional: This is a well developed, well nourished patient who is awake, alert, sp3 and in no acute distress. Head/Face: Normocephalic, atraumatic. Eyes: Pupils equal round and reactive to light, extra-ocular motions intact. Lids and lashes normal. Conjunctiva and sclera are non-icteric and not injected. Cornea within normal limits. Periorbital areas with no swelling, redness, or edema. Neck: Trachea midline, no thyromegaly or masses palpated, and no cervical lymphadenopathy. Supple, full range of motion without nuchal rigidity, or vertebral point tenderness. No Meningismus. Cardiovascular: Regular rate and rhythm with a normal S1 and S2. No gallops, murmurs, or rubs. Normal PMI, no JVD. No pulse deficits. Respiratory: Lungs have equal breath sounds bilaterally, clear to auscultation and percussion. No rales, rhonchi or wheezes noted. No increased work of breathing, no retractions or nasal flaring. Abdomen/GI: Soft, non-tender, with normal bowel sounds. No distension or tympany. No guarding or rebound. No evidence of tenderness throughout. Back: No spinal tenderness. No costovertebral tenderness. Full range of motion. Skin: Warm, dry with normal turgor. Normal color with no rashes, no lesions, and no evidence of cellulitis. Neuro: Awake and alert, GCS 15, oriented to person, place, time, and situation. Cranial nerves II-XII grossly intact. Motor strength 5/5 in all extremities. Sensory grossly intact. Cerebellar exam normal. Normal gait. Psych: Awake, alert, with orientation to person, place and time. Behavior, mood, and affect are within normal limits. 13:33 Musculoskeletal/extremity: No significant pain or swelling on physical exam of the right calf. Distal neurovascular exam is normal. No calf circumference discrepancy noted.. Vital Signs: 12:46 BP 161 / 87; Pulse 62; Resp 16 S; Pulse Ox 100% on R/A; Weight 44 kg (R); Height 5 ft. kc6 0 in. (R); Pain 5/10; 12:46 Body Mass Index 18.94 (44.00 kg, 152.4 cm) kc6 12:46 Pain Scale: Adult kc6 MDM: 12:45 Medical Screening Exam initiated sp3 13:34 Data reviewed: vital signs, nurses notes, radiologic studies. ED course: 68-year-old sp3 female with right calf pain. Consider muscle cramp versus DVT. Ultrasound pending and if negative we will safely discharge home.. 09/10 12:59 Order name: US Extremity Venous Unilateral Ltd; Complete Time: 13:49 sp3 Administered Medications: No medications were administered Disposition Summary: 09/10/24 13:49 Discharge Ordered Notes: Location: Home sp3 Condition: Stable sp3 Diagnosis - Right calf pain sp3 Followup: sp3 - With: Private Physician - When: Upon discharge from the Emergency Department - Reason: Continuance of care Discharge Instructions: - Discharge Summary Sheet sp3 - Leg Cramps sp3 Forms: - Medication Reconciliation Form sp3 - Antibiotic Education sp3 - Prescription Opioid Use sp3 - Patient Portal Instructions sp3 - Leadership Thank You Letter sp3 Signatures: Dispatcher [employer] Pola Singh MD MD sp3 Anna Lopes RN RN kc6
--- NOTE | 2024-09-10 13:49 | ER ---
Nurse's Notes [facility] Name: Tabitha Odom Age: 68 yrs Sex: Female : 1955 Arrival Date: 09/10/2024 Time: 12:31 Bed 20 Private MD: Diagnosis: Right calf pain Presentation: 09/10 12:46 Chief complaint: Patient states: right calf pain x4 days. Coronavirus screen: At this [facility] time, the client does not indicate any symptoms associated with coronavirus-19. Ebola Screen: No symptoms or risks identified at this time. Initial Sepsis Screen: Does the patient meet any 2 criteria? No. Patient's initial sepsis screen is negative. Does the patient have a suspected source of infection? No. Patient's initial sepsis screen is negative. Risk Assessment: Do you want to hurt yourself or someone else? Patient reports no desire to harm self or others. Onset of symptoms was September 10, 2024. 12:46 Method Of Arrival: [facility] 12:46 Acuity: YASEMIN 4 kc Historical: - Allergies: 12:47 Erythromycin; kc6 12:47 Reglan; kc6 12:47 Rocephin; kc6 - PMHx: 12:47 pancreatic cancer; Osteoporosis; Hypertension; Hyperlipidemia; Diabetes mellitus; kc6 Hypercholesterolemia; - PSHx: 12:47 ectopic ; hysterectomy; tumor removed pancreatic CA; wipple (tumor removed 6 pancreatic CA); - Immunization history:: Adult Immunizations up to date. - Infectious Disease History:: Denies. - Social history:: Smoking status: Patient denies any tobacco usage or history of. Screenin:48 [facility] ED Fall Risk Assessment (Adult) History of falling in the last 3 months, kc6 including since admission No falls in past 3 months (0 pts) Confusion or Disorientation No (0 pts) Intoxicated or Sedated No (0 pts) Impaired Gait No (0 pts) Mobility Assist Device Used No (0 pt) Altered Elimination No (0 pt) Score/Fall Risk Level 0 - 2 = Low Risk Oriented to surroundings, Maintained a safe environment. Abuse screen: Denies threats or abuse. Denies injuries from another. Nutritional screening: No deficits noted. Tuberculosis screening: No symptoms or risk factors identified. Vital Signs: 12:46 BP 161 / 87; Pulse 62; Resp 16 S; Pulse Ox 100% on R/A; Weight 44 kg (R); Height 5 ft. kc6 0 in. (R); Pain 5/10; 12:46 Body Mass Index 18.94 (44.00 kg, 152.4 cm) kc6 12:46 Pain Scale: Adult kc6 ED Course: 12:33 Patient arrived in ED. mr 12:42 Pola Hernandez MD is Attending Physician. sp3 12:46 Anna Lopes, RN is Primary Nurse. kc6 12:47 Triage completed. kc6 12:47 Arm band placed on. kc6 12:48 Patient has correct armband on for positive identification. Bed in low position. Call kc6 light in reach. Side rails up X 1. Adult w/ patient. Pulse ox on. NIBP on. Door closed. Noise minimized. Lights dimmed. Pillow given. 12:48 Patient maintains SpO2 saturation greater than 95% on room air. kc6 13:27 US Extremity Venous Unilateral Ltd In Process Unspecified. EDMS 14:25 No provider procedures requiring assistance completed. Patient did not have IV access kc6 during this emergency room visit. Administered Medications: No medications were administered Medication: 14:25 VIS not applicable for this client. kc6 Outcome: 13:49 Discharge ordered by . sp3 14:25 Discharged to home ambulatory, with significant other, kc6 14:25 Condition: good 14:25 Discharge instructions given to patient, significant other, Instructed on discharge instructions, follow up and referral plans. Demonstrated understanding of instructions, follow-up care, 14:26 Patient left the ED. kc6 Signatures: Dispatcher [employer] [facility] Leeanne Hardy, Reg Reg Pola Hernandez MD MD sp3 Anna Lopes, RN RN kc6
[2024-09-10 14:31] VITALS: BP 161/87; O2SAT 100
== END 2024-09-10 14:26 | disposition home or self-care (01) ==
LOC: ER 12:31
DX: M79.661 Pain in right lower leg (principal)
CPT/HCPCS: 93971; 99283